=== PATIENT | female | born 1950 | race Caucasian/White ===

== ENCOUNTER → 2020-10-23 10:10 | Outpatient (BNVA) | payer MEDICARE, SELFPAY | PROVIDERS: PCP Internal Medicine; Referring Provider Internal Medicine; Visit Provider Internal Medicine Endocrinology, Diabetes & Metabolism | DX: E04.2 Nontoxic multinodular goiter (principal); E06.3 Autoimmune thyroiditis; E55.9 Vitamin D deficiency, unspecified | CPT/HCPCS: Q3014 ==

== ENCOUNTER 2020-11-06 12:43 | Outpatient (REF) | payer MEDICARE, SELFPAY ==
--- NOTE | 2020-11-06 12:56 | US_ITS ---
EXAMINATION: US THYROID CLINICAL INFORMATION: Nontoxic multinodular goiter. COMPARISON: Ultrasound thyroid soft tissues 05/12/2019. Ultrasound thyroid soft tissues 04/12/2019. TECHNIQUE: Linear transducer grayscale and color Doppler examination with attention to the region of the thyroid. FINDINGS: SIZE: Measurements of the thyroid lobes and nodules are given in sagittal, anteroposterior and transverse dimensions respectively. Right thyroid lobe: 5.0 x 2.0 x 1.9 cm, volume 9.9 mL. Previously 5.6 x 1.9 x 2.1 cm, volume 11.7 mL. Left thyroid lobe: 4.8 x 1.7 x 2.0 cm, volume 8.5 mL. Previously 5.0 x 1.6 x 2.1 cm, volume 8.8 mL. Isthmus: 0.7 cm in maximum AP dimension. Previously 0.4 cm. PARENCHYMA: The gland echotexture is heterogeneous. Thyroid vascularity is increased. RIGHT THYROID LOBE: There is 1 nodule seen. 1. Location: Midpole. Size: 0.8 x 0.6 x 0.9 cm. Previous: 0.7 x 0.6 x 0.6 cm. Nodule characteristics: Isoechoic, smoothly marginated with intranodular flow. ISTHMUS: No nodules. LEFT THYROID LOBE: There are 2 nodules seen. 1. Location: Midpole. Size: 1.9 x 1.2 x 1.4 cm. Previous: 1.7 x 1.1 x 1.5 cm. Nodule characteristics: Hypoechoic, smoothly marginated with intranodular flow. 2. Location: Lower pole. Size: 0.5 x 0.3 x 0.6 cm. Previous: 0.6 x 0.4 x 0.6 cm. Nodule characteristics: Hypoechoic, smoothly marginated with intranodular flow. NODES: No lymphadenopathy is seen in the tissue surrounding the thyroid gland. US/US thyroid IMPRESSION: Multinodular goiter with stable thyroid nodules. Recommend continued yearly followup.
--- NOTE | 2020-11-06 13:42 | XR_ITS ---
EXAMINATION: XR SHOULDER, RIGHT CLINICAL INFORMATION: Pain COMPARISON: Previous x-rays most recent October 2019 TECHNIQUE: AP external rotation, Grashey, scapular Y, and axillary views of the right shoulder. FINDINGS: Bone alignment is normal. No fracture or dislocation is seen. The glenohumeral joint is normal. There is mild arthritis at the acromioclavicular joint. There is a curvilinear radiopaque density that projects over the humeral head that is stable. There are degenerative changes of the greater tuberosity. There is a soft tissue calcification adjacent to the greater tuberosity questionable for rotator cuff calcification. XR/XR shoulder RT min 2V IMPRESSION: Degenerative changes at the acromioclavicular joint, right radial tuberosity and question soft tissue rotator cuff calcification. Stable linear radiopaque density projecting over the humeral head.
== END 2020-11-06 12:44 | disposition home or self-care (01) ==
LOC: HO.US 12:43
PROVIDERS: Absent Provider Nurse Practitioner Family; PCP Internal Medicine; Visit Provider Internal Medicine Endocrinology, Diabetes & Metabolism
DX: E06.3 Autoimmune thyroiditis (principal); E04.2 Nontoxic multinodular goiter; M25.511 Pain in right shoulder
CPT/HCPCS: 73030; 76536

== ENCOUNTER 2020-11-08 09:47 | Outpatient (REF) | payer MEDICARE, SELFPAY | END 2020-11-08 09:48 | disposition home or self-care (01) | LOC: HO.LAB 09:47 | PROVIDERS: PCP Internal Medicine; Visit Provider Internal Medicine Endocrinology, Diabetes & Metabolism | DX: Z13.89 Encounter for screening for other disorder (principal) ==

== ENCOUNTER 2021-01-17 09:46 | Outpatient (REF) | payer MEDICARE, SELFPAY ==
[2021-01-18 14:29] LABS: BV Int Neg Control Negative (Negative); BV Int Pos Control Positive (Positive)
== END 2021-01-17 09:47 | disposition home or self-care (01) ==
LOC: HO.LAB 09:46
PROVIDERS: PCP Internal Medicine; Visit Provider Obstetrics & Gynecology
DX: L29.2 Pruritus vulvae (principal)
CPT/HCPCS: 56605; 87480; 87510; 87660; 88305; 99202

== ENCOUNTER → 2021-01-31 08:37 | Outpatient (BNVA) | payer MEDICARE, SELFPAY | PROVIDERS: PCP Internal Medicine; Visit Provider Obstetrics & Gynecology | DX: L90.0 Lichen sclerosus et atrophicus (principal) | CPT/HCPCS: 99212 ==

== ENCOUNTER → 2021-03-02 08:58 | Outpatient (BNVA) | payer MEDICARE, SELFPAY | PROVIDERS: PCP Internal Medicine; Visit Provider Internal Medicine Endocrinology, Diabetes & Metabolism | DX: E04.2 Nontoxic multinodular goiter (principal); E06.3 Autoimmune thyroiditis; E55.9 Vitamin D deficiency, unspecified | CPT/HCPCS: Q3014 ==

== ENCOUNTER → 2021-05-22 13:57 | Outpatient (BNVA) | payer MEDICARE, SELFPAY | PROVIDERS: PCP Internal Medicine; Visit Provider Student in an Organized Health Care Education/Training Program | DX: M19.011 Primary osteoarthritis, right shoulder (principal) | CPT/HCPCS: 99202 ==

== ENCOUNTER 2021-08-03 16:20 | Emergency (ER) | payer MEDICARE, SELFPAY ==
--- NOTE | ~2021-08-03 | XR_ITS ---
EXAMINATION: XR KNEE, LEFT CLINICAL INFORMATION: Left knee injury. COMPARISON: Radiograph of the left knee dated from 10/29/2019. TECHNIQUE: Four views of the left knee. FINDINGS: No acute fractures or malalignment. Mild joint space narrowing the medial compartment. No joint effusion. Normal soft tissues. XR/XR knee LT 3V IMPRESSION: No acute fractures or malalignment. Mild degenerative osteoarthritis of the medial compartment.
[2021-08-03 17:51] VITALS: BP 144/68; PULSE 83; RESP 18; TEMP 36.7; O2SAT 97; BMI 32.3
--- NOTE | 2021-08-03 19:06 | ED.LOWEXIN ---
HPI - Extremity Injury (Lower) General Chief Complaint: Extremity Injury, Lower Stated Complaint: Left knee pain Time Seen by Provider: 08/03/21 19:05 Source: patient Mode of arrival: ambulatory Limitations: no limitations History of Present Illness HPI Narrative: Left-sided knee pain after an injury approximately 2 weeks ago. complaint: knee injury Onset (ago): week(s) (2) Type of Injury: unknown Place: home Severity: moderate Relieving factors: nothing Exacerbating factors: weight bearing, movement and palpation Associated symptoms: snap/pop sensation and able to partially bear weight Other symptoms: none Related Data Home Medications Medication Instructions Recorded Confirmed loratadine 10 mg tablet 10 mg PO DAILY 10/23/20 05/22/21 omeprazole 40 mg capsule,delayed 40 mg PO BID 10/23/20 05/22/21 release rosuvastatin 40 mg tablet 40 mg PO DAILY 10/23/20 05/22/21 citalopram 10 mg tablet (Celexa) 10 mg PO DAILY 03/02/21 05/22/21 dicyclomine 10 mg capsule 10 mg PO DAILY cap 03/02/21 05/22/21 midodrine 2.5 mg tablet 2.5 mg PO TID 03/02/21 05/22/21 sennosides 8.6 mg tablet (senna) 8.6 mg PO DAILY PRN 03/02/21 05/22/21 topiramate 100 mg tablet 100 mg PO DAILY PRN tab 03/02/21 05/22/21 Previous Rx's Medication Instructions Recorded cyclobenzaprine 10 mg tablet 10 mg PO BEDTIME PRN 30 Days #30 11/06/20 tab lidocaine 5 % topical patch 1 patch TOPICAL DAILY 15 Days #15 11/06/20 ea clobetasol 0.05 % topical ointment 1 appl TOPICAL DAILY #45 g 01/31/21 cholecalciferol (vitamin D3) 50 50 mcg PO DAILY 90 Days #90 cap 03/02/21 mcg (2,000 unit) capsule acetaminophen 650 mg 650 mg PO Q8H PRN #90 tab 05/22/21 tablet,extended release (Tylenol Arthritis Pain) clonazepam 1 mg tablet 1 mg PO BID PRN 30 Days #60 tab 06/21/21 amoxicillin 500 mg tablet 500 mg PO BID 7 Days #14 tab 07/10/21 gabapentin 300 mg capsule 300 mg PO TID #90 cap 07/29/21 Allergies Allergy/AdvReac Type Severity Reaction Status Date / Time banana [BANANA] Allergy Intermediate ITCHING Verified 08/03/21 17:51 ibuprofen [From MOTRIN] Allergy Intermediate UNK, GI Verified 08/03/21 17:51 upset naproxen [From NAPROSYN] Allergy Intermediate UNKNOWN, Verified 08/03/21 17:51 rash, GI upset warfarin [WARFARIN] Allergy Unknown UNKNOWN Verified 08/03/21 17:51 Ibuprofen Allergy Unknown rash Uncoded 03/06/21 13:51 sun Allergy Unknown bumps on Uncoded 03/06/21 13:51 skin Review of Systems Review of Systems: Constitutional: No Fever, No Chills ENT/Mouth: No Ear Pain, No Hoarseness, No sore throat Eyes: No Eye Pain, No Swelling, No Redness, No Foreign Body Cardiovascular: No Chest Pain, No SOB Respiratory: No Cough, No Dyspnea Gastrointestinal: No Nausea, No Vomiting, No Diarrhea, No abdominal Pain Genitourinary: No Dysuria, No Hematuria Musculoskeletal: positive left knee pain, No Myalgias, No Joint Swelling Skin: No Skin lacerations, No rash Neuro: No Weakness, No Numbness, No Paresthesias, No Loss of Consciousness, No Dizziness, No Headache Psych: No Anxiety/Panic, No Depression Heme/Lymph: no easy bruising, no Lymphadenopathy Endocrine: No Polyuria, No Polydipsia Yes all other systems are reviewed and are negative [facility] Past Medical History Attestation statement: The following information was validated with the patient. Source: old records reviewed Medical History Degenerative joint disease of right shoulder GERD without esophagitis Therese's disease Lichen sclerosus Non-toxic multinodular goiter Obesity (BMI 30-39.9) Pure hypercholesterolemia Right shoulder pain Tendinopathy of right rotator cuff Vaginal pruritus Vitamin D deficiency Surgical History H/O right breast biopsy History of cholecystectomy History of excision of mass History of shoulder surgery History of surgery Family History Family History Father No problems noted. Mother Diabetes Advanced cardiac disease Osteoporosis Chronic mental illness Brother Substance abuse Family/Other Chronic mental illness Social History Social History Alcohol intake: never Advance Directives: No Advance Directives Information Provided: Yes Gender identity: Female Physical Exam Vital Signs: Vital Signs: Last Vital Signs Temp 98.2 F 08/03/21 19:40 Pulse 82 08/03/21 19:40 Resp 18 08/03/21 19:40 BP 156/81 H 08/03/21 19:40 Pulse Ox 97 08/03/21 17:51 Body Mass Index 32.3 Appearance: Alert. Oriented X3. No acute distress. Eyes: Pupils equal, round and reactive to light. ENT: Pharynx normal. Neck: Normal inspection. Neck supple. CVS: Normal heart rate and rhythm. Pulses normal. Respiratory: No respiratory distress. Breath sounds normal. Abdomen: Soft and nontender. Skin: Skin warm and dry. Normal skin color. Normal skin turgor. Extremities: No lower extremity edema. Full range of motion to bilateral lower extremities. Tenderness noted to the medial and lateral ligaments to the left knee. Strength 5/5. Ambulatory. Neuro: No motor deficit. No sensory deficit. Cranial nerves 2-12 intact. Course Course Course Narrative: 70-year-old female presents with left knee injury. Stated that she fell approximately 2 weeks ago but the pain has progressively worsened. Will order x-rays. 8:06 p.m. x-rays negative for fractures, shows degenerative osteoarthritis of the medial compartment. Will refer to orthopedics. Will place patient in Chad wrap and given crutches. Patient verbalized understanding of and agrees to plan of care discharge home. MDM - Extremity Injury (Lower) MDM Narrative Medical decision making narrative: Ligament or tendon injury, effusion, arthritis Differential Diagnosis Differential diagnosis: Likely acute internal derangement of knee Medical Records Attestation: I reviewed the patient's medical records. Imaging Data Knee x-ray: Attestation: I personally reviewed and interpreted this imaging study as follows: Radiologist's impression: EXAMINATION: XR KNEE, LEFT CLINICAL INFORMATION: Left knee injury.? COMPARISON: Radiograph of the left knee dated from 10/29/2019.? TECHNIQUE: Four views of the left knee. FINDINGS: No acute fractures or malalignment. Mild joint space narrowing the medial compartment. No joint effusion. Normal soft tissues.? XR/XR knee LT 3V IMPRESSION: No acute fractures or malalignment. Mild degenerative osteoarthritis of the medial compartment. ? Discharge Plan Discharge Clinical Impression: Osteoarthritis Qualifiers: Osteoarthritis location: knee Osteoarthritis type: unspecified Laterality: left Qualified Code(s): M17.12 - Unilateral primary osteoarthritis, left knee Patient Disposition: Home, Self-Care Instructions: Osteoarthritis (ED) Additional Instructions: Fue evaluado por dolor en la rodilla izquierda. Los sanford X indican osteoartritis degenerativa. Sivan un seguimiento con ortopedia. Llame y solicite courtney wilton. Use la envoltura Chad seg?n sea necesario para mayor comodidad. Use muletas seg?n sea necesario para jain comodidad. Use ibuprofeno o Tylenol seg?n sea necesario para controlar el dolor. Dong por elegir sylvia departamento de emergencias para jain evaluaci?n. Sivan un seguimiento con jain m?dico de atenci?n primaria seg?n sea necesario. Regrese al departamento de emergencias por cualquier s?ntoma nuevo, preocupante o que empeore. You were evaluated for left knee pain. X-rays indicate degenerative osteoarthritis. Please follow-up with orthopedics. Call and request an appointment. Use Chad wrap as needed for comfort. Use crutches as needed for comfort. Use ibuprofen or Tylenol as needed for pain management. Thank you for choosing this emergency department for evaluation. Please follow-up with primary care physician as needed. Return to the emergency department for any new, concerning, or worsening symptoms. Prescriptions: No Action clonazepam 1 mg tablet 1 mg PO BID PRN (Reason: anxiety) 30 Days Qty: 60 RF: 0 amoxicillin 500 mg tablet 500 mg PO BID 7 Days Qty: 14 RF: 0 gabapentin 300 mg capsule 300 mg PO TID Qty: 90 RF: 0 cyclobenzaprine 10 mg tablet 10 mg PO BEDTIME PRN (Reason: muscle spasm) 30 Days Qty: 30 RF: 0 lidocaine 5 % adhesive patch,medicated 1 patch topical DAILY 15 Days Qty: 15 RF: 0 loratadine 10 mg tablet 10 mg PO DAILY RF: 0 rosuvastatin 40 mg tablet 40 mg PO DAILY RF: 0 omeprazole 40 mg capsule,delayed release(DR/EC) 40 mg PO BID RF: 0 dicyclomine 10 mg capsule 10 mg PO DAILY RF: 0 midodrine 2.5 mg tablet 2.5 mg PO TID RF: 0 topiramate 100 mg tablet 100 mg PO DAILY PRNRF: 0 citalopram [Celexa] 10 mg tablet 10 mg PO DAILY RF: 0 sennosides [senna] 8.6 mg tablet 8.6 mg PO DAILY PRNRF: 0 cholecalciferol (vitamin D3) 50 mcg (2,000 unit) capsule 50 mcg PO DAILY 90 Days Qty: 90 RF: 2 clobetasol 0.05 % ointment 1 appl topical DAILY Qty: 45 RF: 11 acetaminophen [Tylenol Arthritis Pain] 650 mg tablet extended release 650 mg PO Q8H PRN (Reason: pain) Qty: 90 RF: 3 Referrals: Boyd Ríos MD [Physician] - 2 days (Left knee degenerative osteoarthritis) Interventions: ED Discharge Assessment Last Done: 08/03/21 20:25 Discharge Date/Time: 08/03/21 20:27
[2021-08-03 19:40] VITALS: BP 156/81; PULSE 82; RESP 18; TEMP 36.8
--- NOTE | 2021-08-03 20:25 | PC.NURSE ---
PT REFUSED CRUTCHES AMBULATING WELL WITH LEOPOLDO WRAP/
== END 2021-08-03 20:27 | disposition home or self-care (01) ==
PROVIDERS: Emergency Provider Emergency Medicine
DX: M17.12 Unilateral primary osteoarthritis, left knee (principal); Z79.899 Other long term (current) drug therapy
CPT/HCPCS: 73562; 99283; 99284

== ENCOUNTER → 2021-11-08 10:47 | Outpatient (BNVA) | payer MEDICARE, SELFPAY | PROVIDERS: PCP Physician Assistant; Visit Provider Orthopaedic Surgery | DX: M17.12 Unilateral primary osteoarthritis, left knee (principal) | CPT/HCPCS: 20610; 99202; J1100 ==

== ENCOUNTER 2021-12-25 09:17 | Emergency (ER) | payer MEDICARE, SELFPAY ==
--- NOTE | ~2021-12-25 | XR_ITS ---
EXAMINATION: LEFT SHOULDER, LEFT HUMERUS AND LEFT ELBOW X-RAYS CLINICAL INFORMATION: Pain COMPARISON: Previous TECHNIQUE: 4 views of the left shoulder, 2 views of the left humerus and 3 views of the left elbow FINDINGS: Left shoulder: Bone alignment is normal. No acute fracture or dislocation is seen. There is question of old trauma versus prominent osteophyte at the greater tuberosity. Glenohumeral joint is normal. There is arthritis at the acromioclavicular joint. Soft tissues are unremarkable. There are postsurgical changes to the left hemithorax. There may be resection of the left anterior first rib. Left humerus: Bone alignment is normal. No fracture or dislocation is seen. Joint spaces are normal. Soft tissues are normal. Left elbow: Bone alignment is normal. No fracture or dislocation is seen. Joint spaces are normal. There is no joint effusion. XR/XR humerus LT IMPRESSION: Left shoulder: No acute fracture or dislocation.. Question old trauma to the greater tuberosity versus a large bony osteophyte. Mild arthritis at the acromioclavicular joint. Unremarkable left humerus and left elbow.
--- NOTE | ~2021-12-25 | XR_ITS ---
EXAMINATION: LEFT SHOULDER, LEFT HUMERUS AND LEFT ELBOW X-RAYS CLINICAL INFORMATION: Pain COMPARISON: Previous TECHNIQUE: 4 views of the left shoulder, 2 views of the left humerus and 3 views of the left elbow FINDINGS: Left shoulder: Bone alignment is normal. No acute fracture or dislocation is seen. There is question of old trauma versus prominent osteophyte at the greater tuberosity. Glenohumeral joint is normal. There is arthritis at the acromioclavicular joint. Soft tissues are unremarkable. There are postsurgical changes to the left hemithorax. There may be resection of the left anterior first rib. Left humerus: Bone alignment is normal. No fracture or dislocation is seen. Joint spaces are normal. Soft tissues are normal. Left elbow: Bone alignment is normal. No fracture or dislocation is seen. Joint spaces are normal. There is no joint effusion. XR/XR elbow LT min 3V IMPRESSION: Left shoulder: No acute fracture or dislocation.. Question old trauma to the greater tuberosity versus a large bony osteophyte. Mild arthritis at the acromioclavicular joint. Unremarkable left humerus and left elbow.
--- NOTE | ~2021-12-25 | XR_ITS ---
EXAMINATION: LEFT SHOULDER, LEFT HUMERUS AND LEFT ELBOW X-RAYS CLINICAL INFORMATION: Pain COMPARISON: Previous TECHNIQUE: 4 views of the left shoulder, 2 views of the left humerus and 3 views of the left elbow FINDINGS: Left shoulder: Bone alignment is normal. No acute fracture or dislocation is seen. There is question of old trauma versus prominent osteophyte at the greater tuberosity. Glenohumeral joint is normal. There is arthritis at the acromioclavicular joint. Soft tissues are unremarkable. There are postsurgical changes to the left hemithorax. There may be resection of the left anterior first rib. Left humerus: Bone alignment is normal. No fracture or dislocation is seen. Joint spaces are normal. Soft tissues are normal. Left elbow: Bone alignment is normal. No fracture or dislocation is seen. Joint spaces are normal. There is no joint effusion. XR/XR shoulder LT min 2V IMPRESSION: Left shoulder: No acute fracture or dislocation.. Question old trauma to the greater tuberosity versus a large bony osteophyte. Mild arthritis at the acromioclavicular joint. Unremarkable left humerus and left elbow.
--- NOTE | ~2021-12-25 | XR_ITS ---
EXAMINATION: XR CHEST CLINICAL INFORMATION: This is a 71-year-old female with chest pain and cough. COMPARISON: Comparison is made to a previous study dated 10/29/2019. TECHNIQUE: Frontal view of the chest was obtained. FINDINGS: Again noted are multiple metallic surgical clips overlying the left hemithorax. Surgical clips extend toward the left apex consistent with previous surgery. No pneumothorax is seen. 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 The pulmonary vascularity appears within normal limits. The cardiomediastinal silhouette appears within normal limits and unchanged. The diaphragm is sharp and there are no pleural effusions. Although there is increased lucency in the left upper lung field likely due to previous surgery, there is increased patchy opacity at the left costophrenic angle. This is also likely chronic in nature. This likely reflects the left upper lobectomy changes. There is asymmetric soft tissue density seen superimposed over the mid-lower cervical spine. This may be distorting the air column in the upper trachea. A soft tissue mass cannot be completely excluded. This was not apparent on the previous study. XR/XR chest 1V IMPRESSION: 1 the patient is status post left upper lobectomy with postsurgical changes. 2. There is no congestive heart failure or pneumonitis 3. There is a question of soft tissue density superimposed over the lower cervical spine. This could be within the upper trachea. Further investigation to exclude a mass is recommended.
[2021-12-25 09:30] VITALS: BP 108/76; PULSE 80; RESP 16; TEMP 36.4; O2SAT 98; BMI 31.9
--- NOTE | 2021-12-25 09:46 | ECG_ITS ---
Test Reason : CHEST PAIN Blood Pressure : / mmHG Vent. Rate : 086 BPM Atrial Rate : 086 BPM P-R Int : 134 ms QRS Dur : 072 ms QT Int : 354 ms P-R-T Axes : 038 013 045 degrees QTc Int : 423 ms Normal sinus rhythm Normal ECG When compared with ECG of 28-OCT-2019 22:17, No significant change was found Referred By: Generic ED Physician Electronically Signed By:MYAH ARAYA MD
[2021-12-25 09:48] LABS: MANUAL DIFF FLAG NO
[2021-12-25 09:52] LABS: Basophils Absolute Auto 0.1 X10*3/uL (0.0-0.2); Basophils Percent Auto 1.2 % (0-2); Eosinophils Absolute Auto 0.1 X10*3/uL (0.0-0.4); Eosinophils Percent Auto 2.9 % (0-4); Hematocrit 41.5 % (37.0-47.0); Hemoglobin 13.3 g/dl (12.0-16.0); Imm Gran Abs Auto 0.01 X10*3/uL (0.00-0.03); Imm Gran Pct Auto 0.2 % (0.0-0.4); Lymphocytes Absolute Auto 2.3 X10*3/uL (1.2-4.9); Lymphocytes Percent Auto 57.1 % (20-40); Mean Corpuscular Hemoglobin 28.5 pg (27.0-33.0); Mean Corpuscular Volume 89.1 fL (80.0-98.0); Mean Platelet Volume 8.6 fL (9.4-12.3); Monocytes Absolute Auto 0.3 X10*3/uL (0.1-1.2); Monocytes Percent Auto 8.3 % (2-11); Neutrophils Absolute Auto 1.2 x10*3/uL (2.0-8.3); Neutrophils Percent Auto 30.3 % (45-73); Platelet Count 251 X10*3/uL (160-400); Red Blood Count 4.66 X10*6/uL (4.20-5.50); Red Cell Distribution Width 12.6 % (11.0-16.0); White Blood Count 4.1 X10*3/uL (4.8-10.8)
[2021-12-25 10:12] LABS: Troponin-I High Sensitivity < 3.5 ng/L (<3.5-17.0)
[2021-12-25 10:19] LABS: Anion Gap 13 (12-20); Blood Urea Nitrogen 14 mg/dL (9-16); Calcium 9.6 mg/dL (8.4-10.2); Carbon Dioxide 23 mmol/L (22-29); Chloride 106 mmol/L (96-108); Creatinine Clr Calc Pharmacy 60.4; Estimated Glomerular Filt Rate 58; Glucose Random 106 mg/dL (60-115); Potassium 3.9 mmol/L (3.3-5.1); Sodium 138 mmol/L (135-145)
--- NOTE | 2021-12-25 12:28 | ED.CHESTPAIN ---
HPI - Chest Pain General Chief Complaint: Chest Pain Stated Complaint: Chest pain/ l arm pain Time Seen by Provider: 12/25/21 12:26 Source: patient Mode of arrival: ambulatory Limitations: no limitations History of Present Illness HPI narrative: 71-year-old female presents emergency department complaining of left shoulder pain. Patient states left shoulder has been causing her pain for the past 3 days pain goes into her left elbow she states she is having difficulty using her left arm. Patient denies any falls or injuries she denies chest pain shortness breath nausea vomiting or diarrhea. Patient initially presented with complaint of chest pain but pain is isolated to the left shoulder and left elbow. MD complaint: other Related Data Home Medications Medication Instructions Recorded Confirmed loratadine 10 mg tablet 10 mg PO DAILY 10/23/20 11/12/21 omeprazole 40 mg capsule,delayed 40 mg PO BID 10/23/20 11/12/21 release rosuvastatin 40 mg tablet 40 mg PO DAILY 10/23/20 11/12/21 citalopram 10 mg tablet (Celexa) 10 mg PO DAILY 03/02/21 11/12/21 dicyclomine 10 mg capsule 10 mg PO DAILY cap 03/02/21 11/12/21 midodrine 2.5 mg tablet 2.5 mg PO TID 03/02/21 11/12/21 sennosides 8.6 mg tablet (senna) 8.6 mg PO DAILY PRN 03/02/21 11/12/21 topiramate 100 mg tablet 100 mg PO DAILY PRN tab 03/02/21 11/12/21 Previous Rx's Medication Instructions Recorded cyclobenzaprine 10 mg tablet 10 mg PO BEDTIME PRN 30 Days #30 11/06/20 tab clobetasol 0.05 % topical ointment 1 appl TOPICAL DAILY #45 g 01/31/21 fluocinolone 0.025 % topical cream 1 appl TOPICAL BID 10 Days #15 g 08/07/21 cane #1 ea 08/09/21 diclofenac sodium 3 % topical gel 1 appl TOPICAL BID #100 g 10/23/21 lidocaine 5 % topical patch 1 patch TOPICAL DAILY 15 Days #15 10/23/21 ea clonazepam 1 mg tablet 1 mg PO BID PRN 30 Days #60 tab 11/05/21 albuterol sulfate 90 mcg/actuation 1 inh INHALATION QID PRN 30 Days 11/12/21 aerosol inhaler #8.5 g cholecalciferol (vitamin D3) 50 50 mcg PO DAILY 90 Days #90 cap 11/12/21 mcg (2,000 unit) capsule montelukast 10 mg tablet 10 mg PO DAILY 90 Days #90 tab 11/12/21 (Singulair) gabapentin 300 mg capsule 300 mg PO TID #90 cap 12/11/21 acetaminophen 650 mg 650 mg PO Q8H PRN #90 tab 12/13/21 tablet,extended release (Tylenol Arthritis Pain) lidocaine 5 % topical patch 1 patch TOPICAL DAILY #30 ea 12/25/21 Allergies Allergy/AdvReac Type Severity Reaction Status Date / Time banana [BANANA] Allergy Intermediate ITCHING Verified 11/12/21 16:04 ibuprofen [From MOTRIN] Allergy Intermediate UNK, GI Verified 11/12/21 16:04 upset naproxen [From NAPROSYN] Allergy Intermediate UNKNOWN, Verified 11/12/21 16:04 rash, GI upset prednisone Allergy Intermediate Itchy and Verified 11/12/21 16:04 redness warfarin [WARFARIN] Allergy Unknown UNKNOWN Verified 11/12/21 16:04 Ibuprofen Allergy Unknown rash Uncoded 11/12/21 16:04 sun Allergy Unknown bumps on Uncoded 11/12/21 16:04 skin Review of Systems Review of Systems: Review of systems: General: Patient denies any fever chills recent illness or falls Musculoskeletal: Denies back pain or body aches or other injuries HEENT: denies headache, runny nose, ear pain Respiratory: denies shortness of breath, cough Cardiovascular: no chest pain or palpitations : denies dysuria, frequency Abdomen: no nausea vomiting denies abdominal pain Extremities: no swelling, left elbow and left shoulder pain Skin: no diaphoresis Yes all other systems are reviewed and are negative PMFSH Past Medical History Medical History Degenerative joint disease of right shoulder GERD without esophagitis Therese's disease Lichen sclerosus Non-toxic multinodular goiter Obesity (BMI 30-39.9) Pure hypercholesterolemia Right shoulder pain Tendinopathy of right rotator cuff Vaginal pruritus Vitamin D deficiency Surgical History H/O right breast biopsy History of cholecystectomy History of excision of mass History of shoulder surgery History of surgery Family History Family History Father No problems noted. Mother Diabetes Advanced cardiac disease Osteoporosis Chronic mental illness Brother Substance abuse Family/Other Chronic mental illness Social History Social History Housing: House Alcohol intake: never Patient Tobacco Use Status: Never used Tobacco Tobacco use type: Cigarette e-Cigarette/Vaping Use: Never Used Second Hand Smoke Exposure: No Use of substances other than those prescribed or required for medical reasons: No Advance Directives: No Gender identity: Female Cognitive needs: Yes (cane) Hearing needs: No Vision needs: No Physical Exam Vital Signs: Vital Signs: Last Vital Signs Temp 97.6 F 12/25/21 14:03 Pulse 73 12/25/21 14:03 Resp 16 12/25/21 14:03 BP 141/76 H 12/25/21 14:03 Pulse Ox 99 12/25/21 14:03 BMI result Body Mass Index 31.9 General: Well-appearing well-nourished in no signs of distress HEENT: Normocephalic atraumatic Neck: No signs of JVD, no masses no tenderness or lymphadenopathy Cardiovascular: Regular rate and rhythm Respiratory: Clear to auscultation bilaterally Abdomen: Soft nontender no masses . Extremities: Normal pedal pulses no signs of edema normal strength to bilateral upper extremities she is less effort on the left side is full range of motion no tenderness to palpation or signs of infection Skin: Dry warm no rashes Back: No tenderness full ROM MDM - Chest Pain MDM Narrative Medical decision making narrative: Patient presented as chest pain but pain appears to be isolated to left shoulder and left elbow this does not appear to be a new injury has found a patient we have had issues with her shoulder that need outpatient follow-up with orthopedics. I will get an x-ray to make sure that no fractures of the shoulder humerus and elbow her cardiac workup is unremarkable. 1439 patient states pain is well approved with lidocaine I will discharge the patient home x-rays show an osteophyte patient denies any previous trauma to the shoulder I am comfortable sending patient home follow-up with orthopedics. Medical Records Data Attestation: I reviewed the patient's medical records. Lab Data Attestation: I reviewed the patient's lab results. Result diagrams: 12/25/21 09:39 12/25/21 09:39 Labs: Lab Results 12/25/21 12/25/21 12/25/21 Range/Units 09:39 09:39 09:39 WBC 4.1 L (4.8-10.8) X10*3/uL RBC 4.66 (4.20-5.50) X10*6/uL Hgb 13.3 (12.0-16.0) g/dl Hct 41.5 (37.0-47.0) % MCV 89.1 (80.0-98.0) fL MCH 28.5 (27.0-33.0) pg MCHC 32.0 (31.0-35.0) g/dl RDW 12.6 (11.0-16.0) % Plt Count 251 (160-400) X10*3/uL MPV 8.6 L (9.4-12.3) fL Immature Gran % (Auto) 0.2 (0.0-0.4) % Neut % (Auto) 30.3 L (45-73) % Lymph % (Auto) 57.1 H (20-40) % [place] % (Auto) 8.3 (2-11) % Eos % (Auto) 2.9 (0-4) % Baso % (Auto) 1.2 (0-2) % Lymph # (Auto) 2.3 (1.2-4.9) X10*3/uL [place] # (Auto) 0.3 (0.1-1.2) X10*3/uL Eos # (Auto) 0.1 (0.0-0.4) X10*3/uL Baso # (Auto) 0.1 (0.0-0.2) X10*3/uL Abs Immat Gran (auto) 0.01 (0.00-0.03) X10*3/uL Absolute Neuts (auto) 1.2 L (2.0-8.3) x10*3/uL Absolute Nucleated RBC 0.000 (0.0-0.012) X10*3/uL Nucleated RBC % (auto) 0.0 (0.0-0.2) /100WBC Sodium 138 (135-145) mmol/L Potassium 3.9 (3.3-5.1) mmol/L Chloride 106 (96-108) mmol/L Carbon Dioxide 23 (22-29) mmol/L Anion Gap 13 (12-20) BUN 14 (9-16) mg/dL Creatinine 0.95 (0.5-1.4) mg/dL Estim Creat Clear Calc 60.4 Estimated GFR 58 Random Glucose 106 (60-115) mg/dL Calcium 9.6 (8.4-10.2) mg/dL Troponin I High Sens < 3.5 (<3.5-17.0) ng/L Scores Heart Score History: -0- slightly suspicious ECG: -0- normal Age: -2- > or = 65 Risk factory: -0- no risk factors known Troponin: -0- < or = normal limit Score: 2 Risk: 1.7% Discharge Plan Discharge Clinical Impression: Acute pain of left shoulder Patient Disposition: Home, Self-Care Instructions: Arthralgia (ED), Heat Pack Application (ED), Shoulder Pain (ED), Shoulder Impingement Syndrome (ED) Additional Instructions: Please followup with Orthopedics. If you have any other concerns please return to the Ed. Prescriptions: New lidocaine 5 % adhesive patch,medicated 1 patch topical DAILY Qty: 30 0RF Rx Instructions: leave on most painful area for up to 12 hrs No Action fluocinolone 0.025 % cream 1 appl topical BID 10 Days Qty: 15 0RF clonazepam 1 mg tablet 1 mg PO BID PRN (Reason: anxiety) 30 Days Qty: 60 1RF gabapentin 300 mg capsule 300 mg PO TID Qty: 90 3RF acetaminophen [Tylenol Arthritis Pain] 650 mg tablet extended release 650 mg PO Q8H PRN (Reason: pain) Qty: 90 3RF cyclobenzaprine 10 mg tablet 10 mg PO BEDTIME PRN (Reason: muscle spasm) 30 Days Qty: 30 0RF (DME) cane Device See Rx Instructions .Route Qty: 1 0RF Rx Instructions: As directed albuterol sulfate 90 mcg/actuation HFA aerosol inhaler 1 inh inhalation QID PRN (Reason: shortness of breath or wheezing) 30 Days Qty: 8.5 0RF montelukast [Singulair] 10 mg tablet 10 mg PO DAILY 90 Days Qty: 90 1RF cholecalciferol (vitamin D3) 50 mcg (2,000 unit) capsule 50 mcg PO DAILY 90 Days Qty: 90 2RF lidocaine 5 % adhesive patch,medicated 1 patch topical DAILY 15 Days Qty: 15 0RF Rx Instructions: leave on most painful area for up to 12 hrs diclofenac sodium 3 % gel 1 appl topical BID Qty: 100 1RF loratadine 10 mg tablet 10 mg PO DAILY 0RF rosuvastatin 40 mg tablet 40 mg PO DAILY 0RF omeprazole 40 mg capsule,delayed release(DR/EC) 40 mg PO BID 0RF dicyclomine 10 mg capsule 10 mg PO DAILY 0RF midodrine 2.5 mg tablet 2.5 mg PO TID 0RF topiramate 100 mg tablet 100 mg PO DAILY PRN0RF citalopram [Celexa] 10 mg tablet 10 mg PO DAILY 0RF sennosides [senna] 8.6 mg tablet 8.6 mg PO DAILY PRN0RF clobetasol 0.05 % ointment 1 appl topical DAILY Qty: 45 11RF Referrals: Boyd Ríos MD [Physician] - 2 days
[2021-12-25 14:03] VITALS: BP 141/76; PULSE 73; RESP 16; TEMP 36.4; O2SAT 99
--- NOTE | 2021-12-25 14:08 | PC.NURSE ---
c/o left shoulder pain, worse with movement. better with heat. radiates to left chest. nsr on monitor. this rn to request pain meds from provider.
[2021-12-25] MEDS: Lidocaine 4 % Patch ADH..PATCH 1 PATCH TRANSDERMA (14:37)
== END 2021-12-25 14:57 | disposition home or self-care (01) ==
PROVIDERS: Emergency Provider Student in an Organized Health Care Education/Training Program; PCP Physician Assistant
DX: M25.512 Pain in left shoulder (principal)
CPT/HCPCS: 36415; 71045; 73030; 73060; 73080; 80048; 84484; 85025; 93005; 99283; 99284

== ENCOUNTER 2021-12-26 21:49 | Emergency (ER) | payer MEDICARE, SELFPAY ==
[2021-12-26 21:54] VITALS: BP 119/84; BP 126/105; PULSE 87; PULSE 88; RESP 18; TEMP 37; O2SAT 100; O2SAT 96; BMI 35.5
--- NOTE | 2021-12-26 22:20 | ECG_ITS ---
Test Reason : ARM PAIN Blood Pressure : / mmHG Vent. Rate : 076 BPM Atrial Rate : 076 BPM P-R Int : 146 ms QRS Dur : 072 ms QT Int : 376 ms P-R-T Axes : 032 012 034 degrees QTc Int : 423 ms Normal sinus rhythm Normal ECG When compared with ECG of 25-DEC-2021 09:23, No significant change was found Referred By: Bayron Díaz Electronically Signed By:MYAH ARAYA MD
--- NOTE | 2021-12-26 22:32 | ED.GENADULT ---
HPI - General Adult General Chief complaint: General Medical Stated complaint: Flank pain/Arm pain Time Seen by Provider: 12/26/21 22:20 Source: patient and family (Daughter) Mode of arrival: ambulatory Limitations: no limitations History of Present Illness HPI narrative: 71 years old female came in for evaluation of left chest pain, left shoulder pain. Pain started 3 days ago in the left shoulder do down to the left elbow and the left side of the chest, pain is constant but wean and lacks for the past 3 days, declined any trauma or fall, patient was seen yesterday in the emergency department had an x-ray of the chest/shoulder/left elbow which showed old arthritis. Pain is not exertional, no shortness of breath with the pain. Patient with known history of osteoarthritis. Patient was seen yesterday in the emergency department for same symptoms return today seeking better pain control. Related Data Home Medications Medication Instructions Recorded Confirmed loratadine 10 mg tablet 10 mg PO DAILY 10/23/20 12/26/21 omeprazole 40 mg capsule,delayed 40 mg PO BID 10/23/20 12/26/21 release rosuvastatin 40 mg tablet 40 mg PO DAILY 10/23/20 12/26/21 citalopram 10 mg tablet (Celexa) 10 mg PO DAILY 03/02/21 12/26/21 dicyclomine 10 mg capsule 10 mg PO DAILY cap 03/02/21 12/26/21 midodrine 2.5 mg tablet 2.5 mg PO TID 03/02/21 12/26/21 sennosides 8.6 mg tablet (senna) 8.6 mg PO DAILY PRN 03/02/21 12/26/21 topiramate 100 mg tablet 100 mg PO DAILY PRN tab 03/02/21 12/26/21 Previous Rx's Medication Instructions Recorded clobetasol 0.05 % topical ointment 1 appl TOPICAL DAILY #45 g 01/31/21 fluocinolone 0.025 % topical cream 1 appl TOPICAL BID 10 Days #15 g 08/07/21 cane #1 ea 08/09/21 clonazepam 1 mg tablet 1 mg PO BID PRN 30 Days #60 tab 11/05/21 albuterol sulfate 90 mcg/actuation 1 inh INHALATION QID PRN 30 Days 11/12/21 aerosol inhaler #8.5 g cholecalciferol (vitamin D3) 50 50 mcg PO DAILY 90 Days #90 cap 11/12/21 mcg (2,000 unit) capsule montelukast 10 mg tablet 10 mg PO DAILY 90 Days #90 tab 11/12/21 (Singulair) gabapentin 300 mg capsule 300 mg PO TID #90 cap 12/11/21 acetaminophen 650 mg 650 mg PO Q8H PRN #90 tab 12/13/21 tablet,extended release (Tylenol Arthritis Pain) lidocaine 5 % topical patch 1 patch TOPICAL DAILY #30 ea 12/25/21 diclofenac sodium 3 % topical gel 1 appl TOPICAL BID #100 g 12/26/21 tizanidine 2 mg tablet 2 mg PO BEDTIME PRN #7 tab 12/26/21 oxycodone 5 mg tablet 5 mg PO Q8H PRN #10 tab 12/27/21 Allergies Allergy/AdvReac Type Severity Reaction Status Date / Time banana [BANANA] Allergy Intermediate ITCHING Verified 12/26/21 12:02 ibuprofen [From MOTRIN] Allergy Intermediate UNK, GI Verified 12/26/21 12:02 upset naproxen [From NAPROSYN] Allergy Intermediate UNKNOWN, Verified 12/26/21 12:02 rash, GI upset prednisone Allergy Intermediate Itchy and Verified 12/26/21 12:02 redness warfarin [WARFARIN] Allergy Unknown UNKNOWN Verified 12/26/21 12:02 Ibuprofen Allergy Unknown rash Uncoded 12/26/21 12:02 sun Allergy Unknown bumps on Uncoded 12/26/21 12:02 skin Review of Systems Review of Systems: All other systems are reviewed and are negative Constitutional: Reports as per HPI and Reports no additional constitutional complaints Eyes: Reports as per HPI and Reports no additional eye complaints Reports system reviewed and no additional complaints, except as documented Cardiovascular: Reports as per HPI and Reports no additional cardiovascular complaints Respiratory: Reports as per HPI and Reports no additional respiratory complaints Gastrointestinal: Reports as per HPI and Reports no additional gastrointestinal complaints Genitourinary: Reports no additional female genitourinary complaints Musculoskeletal: Reports no additional musculoskeletal complaints Skin/Breast: Reports system reviewed and no additional complaints, except as docu Psychiatric: Reports no additional psychiatric complaints Endocrine: Reports no additional endocrine complaints Hematologic/Lymphatic: Reports no additional hematologic/lymphatic complaints Allergic/Immunologic: Reports no additional allergic/immunologic complaints Reports system reviewed and no additional complaints, except as documented and Reports Abnormal speech present PMFSH Past Medical History Medical History Degenerative joint disease of right shoulder GERD without esophagitis Therese's disease Lichen sclerosus Non-toxic multinodular goiter Obesity (BMI 30-39.9) Pure hypercholesterolemia Right shoulder pain Tendinopathy of right rotator cuff Vaginal pruritus Vitamin D deficiency Surgical History H/O right breast biopsy History of cholecystectomy History of excision of mass History of shoulder surgery History of surgery Family History Family History Father No problems noted. Mother Diabetes Advanced cardiac disease Osteoporosis Chronic mental illness Brother Substance abuse Family/Other Chronic mental illness Social History Social History Housing: House Alcohol intake: never Patient Tobacco Use Status: Never used Tobacco Tobacco use type: Cigarette e-Cigarette/Vaping Use: Never Used Second Hand Smoke Exposure: No Advance Directives: No Advance Directives Information Provided: No service: No Current occupational status: disabled Gender identity: Female Cognitive needs: Yes (cane) Hearing needs: No Vision needs: No Physical Exam ED Vital Signs: Vital Signs - 24 hr 12/26/21 21:54 Temperature 98.6 F Pulse Rate 87 Respiratory Rate 18 Blood Pressure 126/105 H Pulse Oximetry 96 BMI result Body Mass Index 35.5 Vital signs have been reviewed as appeared to be correct. Blood pressure elevated. Heart rate normal. Respiration rate normal. Temperature normal. Oxygen saturation normal. Appearance: Alert. Oriented X3. No acute distress. Head: Normal external exam. Normocephalic. Atraumatic. No Dangelo signs noted. No raccoon eyes noted Eyes: PERRLA. EOMI. Conjunctiva and sclera normal. Eyelids normal. ENT: TM's Normal. Pharynx normal. Uvula midline. Moist mucous membranes. No trismus noted. No drooling noted. No muffled voice noted. Neck: Normal inspection. Neck supple. FROM. No adenopathy. Thyroid Normal. No meningeal signs. No neck mass noted. CVS: Normal heart rate and rhythm. Heart sound normal. No murmurs noted. Pulses normal throughout. Respiratory: No respiratory distress. Painless inspiration. Breath sounds normal. No wheezes/rales/rhonchi noted. Chest nontender. No accessory muscle usage noted or decreased air movement noted. Abdomen: Soft and nontender. Bowel sounds normal in all 4 quadrants. No distention noted. No organomegaly noted. No visible injury noted. Back: No CVA tenderness. Full range of motion noted. Skin: Skin warm and dry. Normal skin color. Normal skin turgor. No rashes/lesions/lacerations noted. Extremities: Focal tenderness to the left shoulder, left elbow without deformity, no sign of cellulitis. Neuro: Oriented X 3. Cranial nerve exam: II-XII are grossly intact No motor deficit. No sensory deficit. Reflexes normal. Course Course Course Narrative: Assessment and plan. 71-year-old female returned to the emergency department seeking better control of her chronic pain in the left shoulder and left elbow, patient is known to have chronic osteoarthritis, patient received oxycodone in the emergency department pain improved from 10/10 to 3/10 now. Troponin remained negative, EKG is unremarkable. Will discharge the patient home on oxycodone and follow-up with her PCP. Had plain x-ray of left shoulder and left elbow yesterday unremarkable except for chronic osteoarthritis. Medical Decision Making Medical Records Medical records reviewed: Yes I reviewed the patient's medical records. Lab Data Lab results reviewed: Yes I reviewed the patient's lab results. Result diagrams: 12/26/21 22:45 12/26/21 22:45 Labs: Lab Results 12/26/21 12/26/21 12/26/21 Range/Units 22:45 22:45 22:45 WBC 3.8 L (4.8-10.8) X10*3/uL RBC 4.50 (4.20-5.50) X10*6/uL Hgb 13.1 (12.0-16.0) g/dl Hct 39.9 (37.0-47.0) % MCV 88.7 (80.0-98.0) fL MCH 29.1 (27.0-33.0) pg MCHC 32.8 (31.0-35.0) g/dl RDW 12.6 (11.0-16.0) % Plt Count 207 (160-400) X10*3/uL MPV 8.7 L (9.4-12.3) fL Immature Gran % (Auto) 0.3 (0.0-0.4) % Neut % (Auto) 47.4 (45-73) % Lymph % (Auto) 40.6 H (20-40) % Haakon % (Auto) 9.9 (2-11) % Eos % (Auto) 1.0 (0-4) % Baso % (Auto) 0.8 (0-2) % Lymph # (Auto) 1.6 (1.2-4.9) X10*3/uL Haakon # (Auto) 0.4 (0.1-1.2) X10*3/uL Eos # (Auto) 0.0 (0.0-0.4) X10*3/uL Baso # (Auto) 0.0 (0.0-0.2) X10*3/uL Abs Immat Gran (auto) 0.01 (0.00-0.03) X10*3/uL Absolute Neuts (auto) 1.8 L (2.0-8.3) x10*3/uL Absolute Nucleated RBC 0.000 (0.0-0.012) X10*3/uL Nucleated RBC % (auto) 0.0 (0.0-0.2) /100WBC Sodium 137 (135-145) mmol/L Potassium 3.8 (3.3-5.1) mmol/L Chloride 105 (96-108) mmol/L Carbon Dioxide 25 (22-29) mmol/L Anion Gap 11 L (12-20) BUN 13 (9-16) mg/dL Creatinine 0.96 (0.5-1.4) mg/dL Estim Creat Clear Calc 63.1 Estimated GFR 57 Random Glucose 114 (60-115) mg/dL Calcium 9.6 (8.4-10.2) mg/dL Troponin I High Sens 5.1 (<3.5-17.0) ng/L Lipase 13 (8-78) U/L ECG Data Attestation: I personally reviewed and interpreted this ECG as follows: Interpretation: Normal sinus rhythm at 76 beats per minutes, normal intervals, normal axis deviation, no ST-T changes. Discharge Plan Discharge Clinical Impression: Right shoulder pain, Osteoarthritis Patient Disposition: Home, Self-Care Instructions: Osteoarthritis (ED), Arthralgia (ED) Prescriptions: New oxycodone 5 mg tablet 5 mg PO Q8H PRN (Reason: pain) Qty: 10 0RF No Action fluocinolone 0.025 % cream 1 appl topical BID 10 Days Qty: 15 0RF clonazepam 1 mg tablet 1 mg PO BID PRN (Reason: anxiety) 30 Days Qty: 60 1RF gabapentin 300 mg capsule 300 mg PO TID Qty: 90 3RF acetaminophen [Tylenol Arthritis Pain] 650 mg tablet extended release 650 mg PO Q8H PRN (Reason: pain) Qty: 90 3RF lidocaine 5 % adhesive patch,medicated 1 patch topical DAILY Qty: 30 0RF Rx Instructions: leave on most painful area for up to 12 hrs (DME) cane Device See Rx Instructions .Route Qty: 1 0RF Rx Instructions: As directed albuterol sulfate 90 mcg/actuation HFA aerosol inhaler 1 inh inhalation QID PRN (Reason: shortness of breath or wheezing) 30 Days Qty: 8.5 0RF montelukast [Singulair] 10 mg tablet 10 mg PO DAILY 90 Days Qty: 90 1RF cholecalciferol (vitamin D3) 50 mcg (2,000 unit) capsule 50 mcg PO DAILY 90 Days Qty: 90 2RF tizanidine 2 mg tablet 2 mg PO BEDTIME PRN (Reason: muscle spasticity) Qty: 7 0RF diclofenac sodium 3 % gel 1 appl topical BID Qty: 100 1RF loratadine 10 mg tablet 10 mg PO DAILY 0RF rosuvastatin 40 mg tablet 40 mg PO DAILY 0RF omeprazole 40 mg capsule,delayed release(DR/EC) 40 mg PO BID 0RF dicyclomine 10 mg capsule 10 mg PO DAILY 0RF midodrine 2.5 mg tablet 2.5 mg PO TID 0RF topiramate 100 mg tablet 100 mg PO DAILY PRN0RF citalopram [Celexa] 10 mg tablet 10 mg PO DAILY 0RF sennosides [senna] 8.6 mg tablet 8.6 mg PO DAILY PRN0RF clobetasol 0.05 % ointment 1 appl topical DAILY Qty: 45 11RF Referrals: Rosaura Grace MD [Primary Care Provider] - 2 days
[2021-12-26] MEDS: oxyCODONE HCl Immed Release 5 MG TABLET PO (22:58)
[2021-12-26 23:02] LABS: Basophils Percent Auto 0.8 % (0-2); Hematocrit 39.9 % (37.0-47.0); Hemoglobin 13.1 g/dl (12.0-16.0); Imm Gran Abs Auto 0.01 X10*3/uL (0.00-0.03); Imm Gran Pct Auto 0.3 % (0.0-0.4); Lymphocytes Absolute Auto 1.6 X10*3/uL (1.2-4.9); Lymphocytes Percent Auto 40.6 % (20-40); MANUAL DIFF FLAG NO; Mean Corpuscular HGB Conc 32.8 g/dl (31.0-35.0); Mean Corpuscular Hemoglobin 29.1 pg (27.0-33.0); Mean Corpuscular Volume 88.7 fL (80.0-98.0); Mean Platelet Volume 8.7 fL (9.4-12.3); Monocytes Absolute Auto 0.4 X10*3/uL (0.1-1.2); Monocytes Percent Auto 9.9 % (2-11); Neutrophils Absolute Auto 1.8 x10*3/uL (2.0-8.3); Neutrophils Percent Auto 47.4 % (45-73); Platelet Count 207 X10*3/uL (160-400); Red Cell Distribution Width 12.6 % (11.0-16.0); White Blood Count 3.8 X10*3/uL (4.8-10.8)
[2021-12-26 23:17] LABS: Anion Gap 11 (12-20); Blood Urea Nitrogen 13 mg/dL (9-16); Calcium 9.6 mg/dL (8.4-10.2); Carbon Dioxide 25 mmol/L (22-29); Chloride 105 mmol/L (96-108); Creatinine Clr Calc Pharmacy 63.1; Estimated Glomerular Filt Rate 57; Glucose Random 114 mg/dL (60-115); Lipase 13 U/L (8-78); Potassium 3.8 mmol/L (3.3-5.1); Sodium 137 mmol/L (135-145)
[2021-12-26 23:21] LABS: Troponin-I High Sensitivity 5.1 ng/L (<3.5-17.0)
[2021-12-26 23:56] VITALS: BP 121/95; PULSE 94; RESP 16; TEMP 36.8; O2SAT 97
== END 2021-12-27 00:08 | disposition home or self-care (01) ==
PROVIDERS: Emergency Provider Emergency Medicine; PCP Internal Medicine
DX: M19.011 Primary osteoarthritis, right shoulder (principal); R07.9 Chest pain, unspecified; M25.512 Pain in left shoulder; Z79.899 Other long term (current) drug therapy; Z79.01 Long term (current) use of anticoagulants
CPT/HCPCS: 36415; 80048; 83690; 84484; 85025; 93005; 99283; 99284

== ENCOUNTER 2022-02-18 09:04 | Emergency (ER) | payer OTHER, SELFPAY ==
[2022-02-18 09:10] VITALS: BP 109/55; PULSE 88; RESP 20; TEMP 36.6; O2SAT 97; BMI 35.9
--- NOTE | 2022-02-18 10:46 | ED_ITS ---
HPI - Extremity Problem General Chief complaint: Extremity Injury, Upper Stated complaint: pain in left hand, shingles Time Seen by Provider: 02/18/22 10:21 Source: patient Mode of arrival: ambulatory History of Present Illness HPI Narrative: 71-year-old female with a past medical history of GERD, Therese's, hyperlipidemia, osteoarthritis, post herpetic neuralgia presenting to the ED complaining of continued left arm/hand pain secondary to post herpetic neuralgia x months. Reports previously prescribed medications are not providing relief. Reports continued numbness/paresthesias in decreased ROM secondary to pain. Denies known injury/trauma or fall, denies fever MD Complaint: extremity pain Onset (ago): month(s) Related Data Home Medications Medication Instructions Recorded Confirmed loratadine 10 mg tablet 10 mg PO DAILY 10/23/20 02/13/22 omeprazole 40 mg capsule,delayed 40 mg PO BID 10/23/20 02/13/22 release rosuvastatin 40 mg tablet 40 mg PO DAILY 10/23/20 02/13/22 citalopram 10 mg tablet (Celexa) 10 mg PO DAILY 03/02/21 02/13/22 midodrine 2.5 mg tablet 2.5 mg PO TID 03/02/21 02/13/22 sennosides 8.6 mg tablet (senna) 8.6 mg PO DAILY PRN 03/02/21 02/13/22 topiramate 100 mg tablet 100 mg PO DAILY PRN tab 03/02/21 02/13/22 Previous Rx's Medication Instructions Recorded clobetasol 0.05 % topical ointment 1 appl TOPICAL DAILY #45 g 01/31/21 fluocinolone 0.025 % topical cream 1 appl TOPICAL BID 10 Days #15 g 08/07/21 cane #1 ea 08/09/21 cholecalciferol (vitamin D3) 50 50 mcg PO DAILY 90 Days #90 cap 11/12/21 mcg (2,000 unit) capsule montelukast 10 mg tablet 10 mg PO DAILY 90 Days #90 tab 11/12/21 (Singulair) diclofenac sodium 3 % topical gel 1 appl TOPICAL BID #100 g 12/26/21 tizanidine 2 mg tablet 2 mg PO BEDTIME PRN #7 tab 12/26/21 lidocaine 5 % topical patch 1 patch TOPICAL DAILY #30 ea 01/06/22 pyridoxine (vitamin B6) 25 mg 25 mg PO DAILY #30 tab 01/08/22 tablet pregabalin 50 mg capsule 50 mg PO BID 30 Days #60 cap 02/06/22 gabapentin 800 mg tablet 800 mg PO TID 30 Days #90 tab 02/11/22 acetaminophen 650 mg 650 mg PO Q8H PRN #90 tab 02/13/22 tablet,extended release (Tylenol Arthritis Pain) albuterol sulfate 90 mcg/actuation 1 inh INHALATION QID PRN 30 Days 02/13/22 aerosol inhaler #8.5 g clonazepam 1 mg tablet 1 mg PO BID PRN 30 Days #60 tab 02/13/22 dicyclomine 10 mg capsule 10 mg PO DAILY 30 Days #30 cap 02/13/22 oxycodone 10 mg tablet 10 mg PO Q8H PRN 5 Days #15 tab 02/13/22 lidocaine 5 % topical patch 1 patch TOPICAL DAILY PRN #30 ea 02/18/22 (Lidoderm) MDD remove after 12 hours Allergies Allergy/AdvReac Type Severity Reaction Status Date / Time banana [BANANA] Allergy Intermediate ITCHING Verified 02/13/22 13:56 ibuprofen [From MOTRIN] Allergy Intermediate UNK, GI Verified 02/13/22 13:56 upset naproxen [From NAPROSYN] Allergy Intermediate UNKNOWN, Verified 02/13/22 13:56 rash, GI upset prednisone Allergy Intermediate Itchy and Verified 02/13/22 13:56 redness warfarin [WARFARIN] Allergy Unknown UNKNOWN Verified 02/13/22 13:56 Ibuprofen Allergy Unknown rash Uncoded 01/30/22 12:01 sun Allergy Unknown bumps on Uncoded 01/30/22 12:01 skin Review of Systems Review of Systems: Constitutional: No Fever, No Chills ENT/Mouth: No Ear Pain, No Nasal Congestion, No sore throat, No Rhinorrhea, No Swallowing Difficulty Cardiovascular: No Chest Pain, No SOB Respiratory: No Cough, No Sputum Gastrointestinal: No Nausea, No Vomiting, No Diarrhea, No Constipation, No Abdominal pain Genitourinary: No Dysuria, No Urinary Frequency, No Hematuria, No Flank Pain Musculoskeletal: + joint pain, No Myalgias, No Joint Swelling Skin: No Skin Lesions, No rash Neuro: No Weakness, + Numbness, + Paresthesias Yes all other systems are reviewed and are negative Neurologic: Denies Sensory deficit (Neuro) [facility] Past Medical History Attestation statement: The following information was validated with the patient. Medical History Degenerative joint disease of right shoulder GERD without esophagitis Therese's disease Lichen sclerosus Non-toxic multinodular goiter Obesity (BMI 30-39.9) Pure hypercholesterolemia Right shoulder pain Tendinopathy of right rotator cuff Vaginal pruritus Vitamin D deficiency Surgical History H/O right breast biopsy History of cholecystectomy History of excision of mass History of shoulder surgery History of surgery Family History Family History Father No problems noted. Mother Diabetes Advanced cardiac disease Osteoporosis Chronic mental illness Brother Substance abuse Family/Other Chronic mental illness Social History Social History Housing: House Alcohol intake: never Patient Tobacco Use Status: Never used Tobacco Tobacco use type: Cigarette e-Cigarette/Vaping Use: Never Used Second Hand Smoke Exposure: No Advance Directives: No Advance Directives Information Provided: No service: No Current occupational status: disabled Gender identity: Female Cognitive needs: Yes (cane) Hearing needs: No Vision needs: No Physical Exam Vital Signs: Vital Signs: Last Vital Signs Temp 98 F 02/18/22 09:10 Pulse 88 02/18/22 09:10 Resp 20 02/18/22 09:10 BP 109/55 L 02/18/22 09:10 Pulse Ox 97 02/18/22 09:10 BMI result Body Mass Index 35.9 Const: Other: tearful General: cooperative, healthy appearing and no acute distress Orientation/consciousness: patient oriented x3 Limitations: no limitations HEENT: Head: Yes normal to inspection and Yes atraumatic Ears: hearing grossly normal bilaterally General nose exam: Normal external nose present Face and sinus: Yes normal facial exam Eyes: General: appearance normal, both eyes and all related structures EOM: EOMs intact bilaterally Neck: Neck: Yes normal visual inspection and Yes no meningeal signs Resp: Effort & Inspection: normal respiratory effort and no respiratory distress Cardio: Rate: regular rate Heart sounds: S1 normal heart sound present and S2 normal heart sound present Peripheral pulses: radial pulses present Skin: Rashes: no rashes Wounds: no wounds Neuro: General: patient oriented x3, tone normal and no meningeal signs Gait exam (Neuro): Normal gait present Sensory Exam: No Sensory deficit (Neuro) Extrem: Other: Left arm/hand without appreciable skin lesions. Diffuse tenderness to distal 3rd through 5th fingers. Decreased ROM/geuutr-my-cleeo opposition secondary to pain. Neurovascularly intact, sensation intact to light touch. Cap refill WNL MDM - Extremity (Nontraumatic) MDM Narrative Medical decision making narrative: 71-year-old female with a past medical history of GERD, Therese's, hyperlipidemia, osteoarthritis, post herpetic neuralgia presenting to the ED complaining of continued left arm/hand pain secondary to post herpetic neuralgia x months. On exam vital signs stable, tearful, physical exam as above. Concern for continued post hepatic neuralgia. Low concern for fracture/trauma/neurovascular injury or septic joint Patient currently on gabapentin and oxycodone without relief, has been followed by PCP multiple times for similar instances. Patient does have pain management appointment on 02/25 Plan: 1 time dose of Dilaudid in the ED, Lidoderm patches, pain management follow-up Medical Records Attestation: I reviewed the patient's medical records. Lab Data Attestation: I reviewed the patient's lab results. Discharge Plan Discharge Clinical Impression: Post herpetic neuralgia Patient Disposition: Home, Self-Care Instructions: Vy (ED) Additional Instructions: Your given a very strong pain medication today in the emergency department. In addition continue taking previously prescribed medications and also use Lidoderm patches. You need to follow-up with pain management. If pain persists/becomes unbearable, you have fever weakness return to the ED Prescriptions: New lidocaine [Lidoderm] 5 % adhesive patch,medicated 1 patch topical DAILY MDD remove after 12 hours PRN (Reason: pain) Qty: 30 0RF Rx Instructions: leave on most painful area for up to 12 hrs No Action fluocinolone 0.025 % cream 1 appl topical BID 10 Days Qty: 15 0RF lidocaine 5 % adhesive patch,medicated 1 patch topical DAILY Qty: 30 0RF Rx Instructions: leave on most painful area for up to 12 hrs pregabalin 50 mg capsule 50 mg PO BID 30 Days Qty: 60 0RF gabapentin 800 mg tablet 800 mg PO TID 30 Days Qty: 90 1RF (DME) cane Device See Rx Instructions .Route Qty: 1 0RF Rx Instructions: As directed montelukast [Singulair] 10 mg tablet 10 mg PO DAILY 90 Days Qty: 90 1RF cholecalciferol (vitamin D3) 50 mcg (2,000 unit) capsule 50 mcg PO DAILY 90 Days Qty: 90 2RF tizanidine 2 mg tablet 2 mg PO BEDTIME PRN (Reason: muscle spasticity) Qty: 7 0RF diclofenac sodium 3 % gel 1 appl topical BID Qty: 100 1RF albuterol sulfate 90 mcg/actuation HFA aerosol inhaler 1 inh inhalation QID PRN (Reason: shortness of breath or wheezing) 30 Days Qty: 8.5 2RF acetaminophen [Tylenol Arthritis Pain] 650 mg tablet extended release 650 mg PO Q8H PRN (Reason: pain) Qty: 90 0RF clonazepam 1 mg tablet 1 mg PO BID PRN (Reason: anxiety) 30 Days Qty: 60 1RF oxycodone 10 mg tablet 10 mg PO Q8H PRN (Reason: pain) 5 Days Qty: 15 0RF dicyclomine 10 mg capsule 10 mg PO DAILY 30 Days Qty: 30 0RF pyridoxine (vitamin B6) 25 mg tablet 25 mg PO DAILY Qty: 30 0RF loratadine 10 mg tablet 10 mg PO DAILY 0RF rosuvastatin 40 mg tablet 40 mg PO DAILY 0RF omeprazole 40 mg capsule,delayed release(DR/EC) 40 mg PO BID 0RF midodrine 2.5 mg tablet 2.5 mg PO TID 0RF topiramate 100 mg tablet 100 mg PO DAILY PRN0RF citalopram [Celexa] 10 mg tablet 10 mg PO DAILY 0RF sennosides [senna] 8.6 mg tablet 8.6 mg PO DAILY PRN0RF clobetasol 0.05 % ointment 1 appl topical DAILY Qty: 45 11RF Referrals: Gio Meadows PA-C [Primary Care Provider] -
[2022-02-18] MEDS: HYDROmorphone HCl 2 MG TABLET 1 MG PO (11:06)
== END 2022-02-18 11:22 | disposition home or self-care (01) ==
PROVIDERS: Emergency Provider Emergency Medicine; PCP Physician Assistant
DX: M79.642 Pain in left hand (principal); B02.9 Zoster without complications; M79.2 Neuralgia and neuritis, unspecified; Z79.899 Other long term (current) drug therapy
CPT/HCPCS: 99283

== ENCOUNTER → 2022-02-25 08:33 | Outpatient (BNVA) | payer OTHER, SELFPAY | PROVIDERS: PCP Physician Assistant; Visit Provider Internal Medicine | DX: B02.29 Other postherpetic nervous system involvement (principal) | CPT/HCPCS: 99202 ==

== ENCOUNTER 2022-05-24 13:36 | Emergency (ER) | payer OTHER, SELFPAY ==
--- NOTE | ~2022-05-24 | XR_ITS ---
EXAMINATION: XR ANKLE, LEFT CLINICAL INFORMATION: Left ankle pain COMPARISON: None TECHNIQUE: 4 views of the left ankle. FINDINGS: The bones and soft tissues are normal. No fracture. Alignment is anatomic. Joint spaces are maintained. No joint effusion. XR/XR ankle LT min 3V IMPRESSION: Normal left ankle.
--- NOTE | ~2022-05-24 | US_ITS ---
EXAMINATION: US VENOUS ULTRASOUND WITH DOPPLER LOWER EXTREMITY, BILATERAL CLINICAL INFORMATION: Swelling COMPARISON: None TECHNIQUE: Ultrasound of the deep veins is performed from the hip to the calf with compression sonography and color and pulse Doppler assessment. Spectral analysis with color-flow imaging is performed. FINDINGS: RIGHT: There is normal venous compression and respiratory variation and augmented flow. The visualized common femoral vein, superficial femoral vein, profunda femoral vein, popliteal vein, and the trifurcation region shows no evidence of deep venous thrombosis. There is no significant popliteal fossa cyst. LEFT: There is normal venous compression and respiratory variation and augmented flow. The visualized common femoral vein, superficial femoral vein, profunda femoral vein, popliteal vein, and the trifurcation region shows no evidence of deep venous thrombosis. There is no significant popliteal fossa cyst. If the patient's symptoms persist, followup ultrasound in 5 days 7 days might be of value to exclude proximal propagation from a non-visualized calf vein. US/US venous duplex LE BI IMPRESSION: No DVT demonstrated in the bilateral lower extremity.
--- NOTE | ~2022-05-24 | XR_ITS ---
EXAMINATION: XR HIP, LEFT CLINICAL INFORMATION: Left hip pain. COMPARISON: CT of the abdomen and pelvis 04/02/2019 TECHNIQUE: Frontal view of pelvis Two views of the left hip. FINDINGS: No fracture. No focal bone lesion. Sacroiliac joints and the symphysis pubis are normal. Mild spurring of the superior lateral acetabular rim with slight joint space narrowing of both hips. Small volume of scattered stool in visualized colonic bowel loops. No abnormally dilated bowel loop. XR/XR hip LT w PEL1V IMPRESSION: Mild degenerative change of the hip joints. No acute abnormality.
--- NOTE | ~2022-05-24 | XR_ITS ---
EXAMINATION: XR CHEST CLINICAL INFORMATION: Shortness of breath. Dyspnea on exertion. COMPARISON: Chest x-ray 12/25/2021 TECHNIQUE: 2 views of the chest were obtained. FINDINGS: Surgical clips and surgical sutures projecting over the posterior left midlung/chest. Status post left upper lobe lobectomy. There has been resection of the left sixth rib. No acute abnormality. Lungs are normally aerated. No pleural effusion or pneumothorax. Heart size is normal. The cardiac and mediastinal contours are normal. Mild to moderate degenerative spondylosis of the spine. Surgical clips right upper quadrant of abdomen XR/XR chest 2V IMPRESSION: 1. No acute abnormality. 2. Status post left upper lobe lobectomy.
--- NOTE | ~2022-05-24 | XR_ITS ---
EXAMINATION: XR KNEE, LEFT CLINICAL INFORMATION: Left-sided pain COMPARISON: None TECHNIQUE: Four views of the left knee. FINDINGS: There is moderate narrowing medial joint space but there is no evidence for fracture, dislocation or destructive lesion or effusion. No erosive change. XR/XR knee LT 4V IMPRESSION: Minor degenerative change. No acute abnormalities.
[2022-05-24 14:26] VITALS: BP 143/75; PULSE 74; RESP 16; TEMP 36.6; O2SAT 97; BMI 35.1
--- NOTE | 2022-05-24 14:45 | ECG_ITS ---
Test Reason : COUGH/SOB Blood Pressure : / mmHG Vent. Rate : 073 BPM Atrial Rate : 073 BPM P-R Int : 152 ms QRS Dur : 074 ms QT Int : 392 ms P-R-T Axes : 050 024 038 degrees QTc Int : 431 ms Normal sinus rhythm Normal ECG When compared with ECG of 26-DEC-2021 22:47, No significant change was found Referred By: Nadia Carrasco Electronically Signed By:MYAH ARAYA MD
[2022-05-24 15:26] LABS: MANUAL DIFF FLAG NO
[2022-05-24 15:29] LABS: Basophils Absolute Auto 0.1 X10*3/uL (0.0-0.2); Basophils Percent Auto 1.1 % (0-2); Eosinophils Absolute Auto 0.1 X10*3/uL (0.0-0.4); Eosinophils Percent Auto 2.7 % (0-4); Hematocrit 40.8 % (37.0-47.0); Hemoglobin 13.3 g/dl (12.0-16.0); Imm Gran Abs Auto 0.01 X10*3/uL (0.00-0.03); Imm Gran Pct Auto 0.2 % (0.0-0.4); Lymphocytes Absolute Auto 2.4 X10*3/uL (1.2-4.9); Lymphocytes Percent Auto 54.7 % (20-40); Mean Corpuscular HGB Conc 32.6 g/dl (31.0-35.0); Mean Corpuscular Volume 89.1 fL (80.0-98.0); Mean Platelet Volume 8.3 fL (9.4-12.3); Monocytes Absolute Auto 0.4 X10*3/uL (0.1-1.2); Monocytes Percent Auto 8.8 % (2-11); Neutrophils Absolute Auto 1.4 x10*3/uL (2.0-8.3); Neutrophils Percent Auto 32.5 % (45-73); Platelet Count 234 X10*3/uL (160-400); Red Blood Count 4.58 X10*6/uL (4.20-5.50); Red Cell Distribution Width 14.4 % (11.0-16.0); White Blood Count 4.4 X10*3/uL (4.8-10.8)
[2022-05-24 15:43] LABS: Prothrombin Time 10.9 SEC (10.0-13.1)
[2022-05-24 15:45] LABS: Alanine Aminotransferase 12 U/L (0-31); Albumin Level 4.6 g/dL (3.5-5.0); Alkaline Phosphatase 92 U/L (39-117); Anion Gap 13 (12-20); Aspartate Amino Transferase 17 U/L (5-31); Bilirubin Total 0.4 mg/dL (0.0-1.0); Blood Urea Nitrogen 16 mg/dL (9-16); Calcium 9.9 mg/dL (8.4-10.2); Carbon Dioxide 27 mmol/L (22-29); Chloride 104 mmol/L (96-108); Creatinine Clr Calc Pharmacy 66.9; Estimated Glomerular Filt Rate > 60; Glucose Random 94 mg/dL (60-115); Magnesium 2.2 mg/dL (1.6-2.6); Potassium 4.1 mmol/L (3.3-5.1); Sodium 140 mmol/L (135-145); Total Protein 7.6 g/dL (6.5-8.0)
[2022-05-24 15:51] LABS: B Type Natriuretic Peptide 35 pg/mL (<100)
--- NOTE | 2022-05-24 16:55 | ED_ITS ---
HPI - Extremity Problem General Chief complaint: Extremity Injury, Lower Stated complaint: pain in ankle/knee pain Time Seen by Provider: 05/24/22 14:19 Source: patient Mode of arrival: ambulatory Limitations: no limitations History of Present Illness HPI Narrative: 71-year-old female with a past medical history of GERD, Therese's, hyperlipidemia, osteoarthritis, post herpetic neuralgia presenting to the ED wit h complaints of left hip/left knee/lower leg pain since Friday. Reports approximately on 22 of April her daughter had a constitution party and she was at her house and she had a mechanical fall where she fell on her buttocks although she does not remember injuring her leg and she did not have pain at that time. She also reports that itchy rash to the right foot since Friday. She also reports bilateral lower leg swelling and a dry cough that has been present for months and dyspnea on exertion and orthopnea. She denies any fevers, chills, dizziness, headache, neck pain/stiffness, chest pain or shortness of breath, trouble swallowing or breathing, palpitations, paresthesias, nausea/vomiting/diarrhea constipation, abdominal pain, calf tenderness, recent travel or sick contacts, history of DVT or PE, hypercoagulation disorder, any estrogen usage, recent surgery, recent immobilization, history of cancer, recent changes in medications or new medications, tick bites, new substances, or any other symptoms complaints or concerns at this time. MD Complaint: extremity pain and extremity swelling Onset (ago): day(s) Pain Consistency: constant Location: left, right and lower extremity Quality: aching Radiation: none Relieving factors: nothing Exacerbating factors: walking and palpation Associated symptoms: shortness of breath and other (dry cough ) Related Data Home Medications Medication Instructions Recorded Confirmed loratadine 10 mg tablet 10 mg PO DAILY 10/23/20 04/15/22 omeprazole 40 mg capsule,delayed 40 mg PO BID 10/23/20 04/15/22 release rosuvastatin 40 mg tablet 40 mg PO DAILY 10/23/20 04/15/22 citalopram 10 mg tablet (Celexa) 10 mg PO DAILY 03/02/21 04/15/22 midodrine 2.5 mg tablet 2.5 mg PO TID 03/02/21 04/15/22 sennosides 8.6 mg tablet (senna) 8.6 mg PO DAILY PRN 03/02/21 04/15/22 topiramate 100 mg tablet 100 mg PO DAILY PRN 03/02/21 04/15/22 Previous Rx's Medication Instructions Recorded clobetasol 0.05 % topical ointment 1 appl topical DAILY #45 grams 01/31/21 fluocinolone 0.025 % topical cream 1 appl topical BID 10 days #15 08/07/21 grams cane #1 ea 08/09/21 cholecalciferol (vitamin D3) 50 50 mcg PO DAILY 90 days #90 caps 11/12/21 mcg (2,000 unit) capsule montelukast 10 mg tablet 10 mg PO DAILY 90 days #90 tabs 11/12/21 (Singulair) diclofenac sodium 3 % topical gel 1 appl topical BID #100 grams 12/26/21 tizanidine 2 mg tablet 2 mg PO BEDTIME PRN muscle 12/26/21 spasticity #7 tabs pyridoxine (vitamin B6) 25 mg 25 mg PO DAILY #30 tabs 01/08/22 tablet acetaminophen 650 mg 650 mg PO Q8H PRN pain #90 tabs 02/13/22 tablet,extended release (Tylenol Arthritis Pain) albuterol sulfate 90 mcg/actuation 1 inh inhalation QID PRN shortness 02/13/22 aerosol inhaler of breath or wheezing 30 days #8.5 grams clonazepam 1 mg tablet 1 mg PO BID PRN anxiety 30 days 02/13/22 #60 tabs dicyclomine 10 mg capsule 10 mg PO DAILY 30 days #30 caps 02/13/22 lidocaine 5 % topical patch 1 patch topical DAILY PRN pain #30 02/18/22 (Lidoderm) ea gabapentin 800 mg tablet 800 mg PO TID 30 days #90 tabs 03/04/22 oxycodone 10 mg tablet 10 mg PO Q8H PRN pain 5 days #15 03/04/22 tabs cane #1 ea 03/25/22 miscellaneous medical supply 1 ea miscellaneous .daily 99 days 03/25/22 #1 ea miscellaneous medical supply 1 ea miscellaneous DAILY 99 days 03/25/22 #1 ea miscellaneous medical supply 1 ea miscellaneous DAILY 99 days 03/25/22 #1 ea walker #1 ea 03/25/22 diphenhydramine HCl 25 mg tablet 25 mg PO TID allergy symptoms 30 04/15/22 (Benadryl Allergy) days #90 tabs gabapentin 300 mg capsule 300 mg PO TID 30 days #90 caps 04/15/22 cyclobenzaprine 10 mg tablet 10 mg PO Q8H #14 tabs 05/24/22 hydrocortisone 2.5 % topical 1 appl topical QD-TID PRN skin 05/24/22 ointment irritation #454 grams Allergies Allergy/AdvReac Type Severity Reaction Status Date / Time banana [BANANA] Allergy Intermediate ITCHING Verified 04/15/22 14:16 ibuprofen [From MOTRIN] Allergy Intermediate UNK, GI Verified 04/15/22 14:16 upset naproxen [From NAPROSYN] Allergy Intermediate UNKNOWN, Verified 04/15/22 14:16 rash, GI upset prednisone Allergy Intermediate Itchy and Verified 04/15/22 14:16 redness warfarin [WARFARIN] Allergy Unknown UNKNOWN Verified 04/15/22 14:16 pregabalin AdvReac Intermediate Diarrhea Verified 04/15/22 14:16 and blurry vision sun Allergy Unknown bumps on Uncoded 04/15/22 13:47 skin Review of Systems Review of Systems: Constitutional : No Weight loss, No Fever, No Chills, No Night Sweats, No Fatigue, No Malaise ENT/Mouth : No Hearing loss, No Ear Pain, No Nasal Congestion, No Sinus Pain, No Hoarseness, No sore throat, No Rhinorrhea, No Swallowing Difficulty Eyes: No Eye Pain, No Swelling, No Redness, No Foreign Body, No Discharge, No Vision Changes Cardiovascular : No Chest Pain, + SOB, + Dyspnea on Exertion, + Orthopnea, + Edema, No Palpitations Respiratory : + Cough, No Sputum, No Wheezing, No Smoke Exposure, No Dyspnea Gastrointestinal : No Nausea, No Vomiting, No Diarrhea, No Constipation, No abdominal Pain, No Hematochezia, No Melena Genitourinary : no irregular bleeding, No Dysuria, No Urinary Frequency, No Hematuria, No Urinary Incontinence, No Urgency, No Flank Pain, No Urinary Flow Changes, No Hesitancy Musculoskeletal : + joint pain, No Myalgias, + Joint Swelling Skin : No Skin Lesions, + rash Neuro : No Weakness, No Numbness, No Paresthesias, No Loss of Consciousness, No Dizziness, No Headache Psych : No Anxiety/Panic, No Depression, No SI/HI/AH/VH, No Social Issues, Heme/Lymph: No Bruising, No Bleeding,No Lymphadenopathy Endocrine : No Polyuria, No Polydipsia, No Temperature Intolerance Yes all other systems are reviewed and are negative [facility] Past Medical History Attestation statement: The following information was validated with the patient. Source: old records reviewed and nursing notes reviewed Medical History Degenerative joint disease of right shoulder GERD without esophagitis Therese's disease Lichen sclerosus Non-toxic multinodular goiter Obesity (BMI 30-39.9) Pure hypercholesterolemia Right shoulder pain Tendinopathy of right rotator cuff Vaginal pruritus Vitamin D deficiency Surgical History H/O right breast biopsy History of cholecystectomy History of excision of mass History of shoulder surgery History of surgery S/P fine needle aspiration Family History Family History Father No problems noted. Mother Diabetes Advanced cardiac disease Osteoporosis Chronic mental illness Brother Substance abuse Family/Other Chronic mental illness Social History Social History Housing: House Alcohol intake: never Patient Tobacco Use Status: Never used Tobacco Tobacco use type: Cigarette e-Cigarette/Vaping Use: Never Used Second Hand Smoke Exposure: No Advance Directives: No Advance Directives Information Provided: No service: No Current occupational status: disabled Gender identity: Female Cognitive needs: Yes (cane) Hearing needs: No Vision needs: No Physical Exam Vital Signs: Vital Signs: Last Vital Signs Temp 97.9 F 05/24/22 14:26 Pulse 74 05/24/22 14:26 Resp 16 05/24/22 14:26 BP 143/75 H 05/24/22 14:26 Pulse Ox 97 05/24/22 14:26 O2 Del Method 05/24/22 14:26 BMI result Body Mass Index 35.1 vital signs have been reviewed as normal and appeared to be correct. Blood pressure normal. Heart rate normal. Respiration rate normal. Temperature normal. Oxygen saturation normal. Appearance: Alert. Oriented X3. No acute distress. Head: Normal external exam. Normocephalic. Atraumatic. Eyes: PERRLA. EOMI. Conjunctiva and sclera normal. Eyelids normal. ENT: Pharynx normal. Uvula midline. Moist mucous membranes. No lesions/ulcerations or masses noted on the tongue. Normal voice. No trismus noted. No drooling noted. No muffled voice noted. Neck: Normal inspection. Neck supple. FROM. No adenopathy. Thyroid Normal. No meningeal signs. No neck mass noted. CVS: Normal heart rate and rhythm. Heart sound normal. Pulses normal throughout. No murmurs/rales/gallops. Respiratory: No respiratory distress. Painless inspiration. Breath sounds normal. No wheezes/rales/rhonchi noted. Chest nontender. No accessory muscle usage noted or decreased air movement noted. Abdomen: Soft and nontender. Bowel sounds normal in all 4 quadrants. No d istention noted. No organomegaly noted. No visible injury noted. Back: No CVA tenderness. Full range of motion noted. Nontender. No signs of trauma. Patient neuro intact bilaterally and distally on all 4 extremities. Patient's reflexes intact bilaterally and distally on all 4 extremities. No rashes/lesion/induration/fluctuance or signs of infection noted. Skin: Skin warm and dry. Normal skin color. Normal skin turgor. Erythematous eczematous appearing rash to the right foot dorsal aspect. No signs of infection.No additional rashes/lesions/lacerations noted. Extremities: + 1 pitting lower extremity edema. + left sided calf tenderness is noted. Patient mild tenderness palpation to the left lateral aspect of the hips/knee and ankle no obvious deformities or tendon or ligamentous injury. She has full range of motion of the entire left leg/joints. No obvious signs of trauma. Otherwise all other extremities exhibit normal range of motion nontender. Neuro: Oriented X 3. No motor deficit. No sensory deficit. Reflexes normal. Normal steady gait. No focal neuro deficits noted. CN's II-XII intact bilaterally? Vascular: + radial pulses/+ 2 distal pedal pulses/+2 dorsalis pedis b/l. Normal cap refill. No cyanosis noted to upper extremity nails and lower extremity toes nails. Course Course Course Narrative: 71-year-old female with a past medical history of GERD, Therese's, hyperlipidemia, osteoarthritis, post herpetic neuralgia presenting to the ED with complaints of left hip/left knee/lower leg pain since Friday. Reports approximately on 22 of April her daughter had a constitution party and she was at her house and she had a mechanical fall where she fell on her buttocks although she does not remember injuring her leg and she did not have pain at that time. She also reports that itchy rash to the right foot since Friday. She also reports bilateral lower leg swelling and a dry cough that has been present for months and dyspnea on exertion and orthopnea. Labs obtained patient with blood cell count 4000 which is similar compared to prior. Otherwise all other labs are within normal limits. BNP negative. I obtained an x-ray of the patient's chest/ankle left-sided/left hip and pelvis/left knee which were all negative for any acute processes. Venous duplex ultrasound of bilateral lower extremity negative for any acute processes. And rash to the right foot appears like a possible contact dermatitis possible poison jhon does not appear like shingles at this time. She reports it is itchy is not painful. Reports is not feel like her shingles rash that she has had in the past. She also reports that her daughter told her that she has poison jhon outside of her house and she was recently walking her daughter's dogs due to her daughter's on vacation. I explained to her that we should treat poison jhon with steroids although patient reports she does not like to take steroids and reports that it makes her gain weight I explained to her that this is not what happens only if it is long-term use although patient is refusing p.o. steroids therefore will DC home with topical steroids and muscle relaxants and instructions return if any new or worsening symptoms to follow up with primary care provider. Patient understands agrees with this plan. MDM - Extremity (Nontraumatic) Medical Records Attestation: I reviewed the patient's medical records. Lab Data Attestation: I reviewed the patient's lab results. Result diagrams: 05/24/22 15:05/24/22 15: Labs: Lab Results 05/24/22 05/24/22 05/24/22 Range/Units 15: 15: 15: WBC 4.4 L (4.8-10.8) X10*3/uL RBC 4.58 (4.20-5.50) X10*6/uL Hgb 13.3 (12.0-16.0) g/dl Hct 40.8 (37.0-47.0) % MCV 89.1 (80.0-98.0) fL MCH 29.0 (27.0-33.0) pg MCHC 32.6 (31.0-35.0) g/dl RDW 14.4 (11.0-16.0) % Plt Count 234 (160-400) X10*3/uL MPV 8.3 L (9.4-12.3) fL Immature Gran % (Auto) 0.2 (0.0-0.4) % Neut % (Auto) 32.5 L (45-73) % Lymph % (Auto) 54.7 H (20-40) % Clinton % (Auto) 8.8 (2-11) % Eos % (Auto) 2.7 (0-4) % Baso % (Auto) 1.1 (0-2) % Lymph # (Auto) 2.4 (1.2-4.9) X10*3/uL Clinton # (Auto) 0.4 (0.1-1.2) X10*3/uL Eos # (Auto) 0.1 (0.0-0.4) X10*3/uL Baso # (Auto) 0.1 (0.0-0.2) X10*3/uL Abs Immat Gran (auto) 0.01 (0.00-0.03) X10*3/uL Absolute Neuts (auto) 1.4 L (2.0-8.3) x10*3/uL Absolute Nucleated RBC 0.000 (0.0-0.012) X10*3/uL Nucleated RBC % (auto) 0.0 (0.0-0.2) /100WBC PT 10.9 (10.0-13.1) SEC INR 1.0 (0.9-1.1) Sodium 140 (135-145) mmol/L Potassium 4.1 (3.3-5.1) mmol/L Chloride 104 (96-108) mmol/L Carbon Dioxide 27 (22-29) mmol/L Anion Gap 13 (12-20) BUN 16 (9-16) mg/dL Creatinine 0.90 (0.5-1.4) mg/dL Estim Creat Clear Calc 66.9 Estimated GFR > 60 Random Glucose 94 (60-115) mg/dL Calcium 9.9 (8.4-10.2) mg/dL Magnesium 2.2 (1.6-2.6) mg/dL Total Bilirubin 0.4 (0.0-1.0) mg/dL AST 17 (5-31) U/L ALT 12 (0-31) U/L Alkaline Phosphatase 92 (39-117) U/L B-Natriuretic Peptide (<100) pg/mL Total Protein 7.6 (6.5-8.0) g/dL Albumin 4.6 (3.5-5.0) g/dL 05/24/22 Range/Units 15:22 WBC (4.8-10.8) X10*3/uL RBC (4.20-5.50) X10*6/uL Hgb (12.0-16.0) g/dl Hct (37.0-47.0) % MCV (80.0-98.0) fL MCH (27.0-33.0) pg MCHC (31.0-35.0) g/dl RDW (11.0-16.0) % Plt Count (160-400) X10*3/uL MPV (9.4-12.3) fL Immature Gran % (Auto) (0.0-0.4) % Neut % (Auto) (45-73) % Lymph % (Auto) (20-40) % Clinton % (Auto) (2-11) % Eos % (Auto) (0-4) % Baso % (Auto) (0-2) % Lymph # (Auto) (1.2-4.9) X10*3/uL Clinton # (Auto) (0.1-1.2) X10*3/uL Eos # (Auto) (0.0-0.4) X10*3/uL Baso # (Auto) (0.0-0.2) X10*3/uL Abs Immat Gran (auto) (0.00-0.03) X10*3/uL Absolute Neuts (auto) (2.0-8.3) x10*3/uL Absolute Nucleated RBC (0.0-0.012) X10*3/uL Nucleated RBC % (auto) (0.0-0.2) /100WBC PT (10.0-13.1) SEC INR (0.9-1.1) Sodium (135-145) mmol/L Potassium (3.3-5.1) mmol/L Chloride (96-108) mmol/L Carbon Dioxide (22-29) mmol/L Anion Gap (12-20) BUN (9-16) mg/dL Creatinine (0.5-1.4) mg/dL Estim Creat Clear Calc Estimated GFR Random Glucose (60-115) mg/dL Calcium (8.4-10.2) mg/dL Magnesium (1.6-2.6) mg/dL Total Bilirubin (0.0-1.0) mg/dL AST (5-31) U/L ALT (0-31) U/L Alkaline Phosphatase (39-117) U/L B-Natriuretic Peptide 35 (<100) pg/mL Total Protein (6.5-8.0) g/dL Albumin (3.5-5.0) g/dL Imaging Data Left knee x-ray: Attestation: I personally reviewed and interpreted this imaging study as follows: Radiologist's impression: FINDINGS: There is moderate narrowing medial joint space but there is no evidence for fracture, dislocation or destructive lesion or effusion. No erosive change.? XR/XR knee LT 4V IMPRESSION: Minor degenerative change. No acute abnormalities. Left hip/pelvis x-ray: Attestation: I personally reviewed and interpreted this imaging study as follows: Radiologist's impression: FINDINGS: No fracture. No focal bone lesion. Sacroiliac joints and the symphysis pubis are normal. Mild spurring of the superior lateral acetabular rim with slight joint space narrowing of both hips. Small volume of scattered stool in visualized colonic bowel loops. No abnormally dilated bowel loop. XR/XR hip LT w PEL1V IMPRESSION: Mild degenerative change of the hip joints. No acute abnormality. Left ankle x-ray: Attestation: I personally reviewed and interpreted this imaging study as follows: Radiologist's impression: FINDINGS: The bones and soft tissues are normal. No fracture. Alignment is anatomic. Joint spaces are maintained. No joint effusion.? XR/XR ankle LT min 3V IMPRESSION: Normal left ankle. Chest x-ray: Attestation: I personally reviewed and interpreted this imaging study as follows: Radiologist's impression: FINDINGS: Surgical clips and surgical sutures projecting over the posterior left midlung/chest. Status post left upper lobe lobectomy. There has been resection of the left sixth rib. No acute abnormality. Lungs are normally aerated. No pleural effusion or pneumothorax. Heart size is normal. The cardiac and mediastinal contours are normal. Mild to moderate degenerative spondylosis of the spine. Surgical clips right upper quadrant of abdomen XR/XR chest 2V IMPRESSION: ? 1. No acute abnormality. 2. Status post left upper lobe lobectomy. Venous duplex ultrasound of bilateral lower extremity: Attestation: I personally reviewed and interpreted this imaging study as follows: Radiologist's impression: FINDINGS: RIGHT: There is normal venous compression and respiratory variation and augmented flow. The visualized common femoral vein, superficial femoral vein, profunda femoral vein, popliteal vein, and the trifurcation region shows no evidence of deep venous thrombosis. ? There is no significant popliteal fossa cyst. LEFT: There is normal venous compression and respiratory variation and augmented flow. The visualized common femoral vein, superficial femoral vein, profunda femoral vein, popliteal vein, and the trifurcation region shows no evidence of deep venous thrombosis. ? There is no significant popliteal fossa cyst. If the patient's symptoms persist, followup ultrasound in 5 days 7 days might be of value to exclude proximal propagation from a non-visualized calf vein. US/US venous duplex LE BI IMPRESSION: No DVT demonstrated in the bilateral lower extremity. Discharge Plan Discharge Clinical Impression: Contact dermatitis, Muscle strain of left lower extremity Patient Disposition: Home, Self-Care Instructions: Muscle Strain (ED), Contact Dermatitis (ED) Prescriptions: New hydrocortisone 2.5 % ointment 1 appl topical QD-TID PRN (Reason: skin irritation) Qty: 454 0RF cyclobenzaprine 10 mg tablet 10 mg PO Q8H Qty: 14 0RF No Action fluocinolone 0.025 % cream 1 appl topical BID 10 Days Qty: 15 0RF (DME) cane Device See Rx Instructions .Route Qty: 1 0RF Rx Instructions: As directed miscellaneous medical supply Misc 1 ea miscellaneous .daily 99 Days Qty: 1 0RF miscellaneous medical supply Misc 1 ea miscellaneous DAILY 99 Days Qty: 1 0RF miscellaneous medical supply Misc 1 ea miscellaneous DAILY 99 Days Qty: 1 0RF (DME) walker Misc See Rx Instructions .Route Qty: 1 0RF Rx Instructions: As directed lidocaine [Lidoderm] 5 % adhesive patch,medicated 1 patch topical DAILY MDD remove after 12 hours PRN (Reason: pain) Qty: 30 0RF Rx Instructions: leave on most painful area for up to 12 hrs (DME) cane Device See Rx Instructions .Route Qty: 1 0RF Rx Instructions: As directed montelukast [Singulair] 10 mg tablet 10 mg PO DAILY 90 Days Qty: 90 1RF cholecalciferol (vitamin D3) 50 mcg (2,000 unit) capsule 50 mcg PO DAILY 90 Days Qty: 90 2RF tizanidine 2 mg tablet 2 mg PO BEDTIME PRN (Reason: muscle spasticity) Qty: 7 0RF diclofenac sodium 3 % gel 1 appl topical BID Qty: 100 1RF oxycodone 10 mg tablet 10 mg PO Q8H PRN (Reason: pain) 5 Days Qty: 15 0RF gabapentin 800 mg tablet 800 mg PO TID 30 Days Qty: 90 1RF diphenhydramine HCl [Benadryl Allergy] 25 mg tablet 25 mg PO TID 30 Days Qty: 90 1RF gabapentin 300 mg capsule 300 mg PO TID 30 Days Qty: 90 1RF albuterol sulfate 90 mcg/actuation HFA aerosol inhaler 1 inh inhalation QID PRN (Reason: shortness of breath or wheezing) 30 Days Qty: 8.5 2RF acetaminophen [Tylenol Arthritis Pain] 650 mg tablet extended release 650 mg PO Q8H PRN (Reason: pain) Qty: 90 0RF clonazepam 1 mg tablet 1 mg PO BID PRN (Reason: anxiety) 30 Days Qty: 60 1RF dicyclomine 10 mg capsule 10 mg PO DAILY 30 Days Qty: 30 0RF pyridoxine (vitamin B6) 25 mg tablet 25 mg PO DAILY Qty: 30 0RF loratadine 10 mg tablet 10 mg PO DAILY rosuvastatin 40 mg tablet 40 mg PO DAILY omeprazole 40 mg capsule,delayed release(/EC) 40 mg PO BID midodrine 2.5 mg tablet 2.5 mg PO TID topiramate 100 mg tablet 100 mg PO DAILY PRN citalopram [Celexa] 10 mg tablet 10 mg PO DAILY sennosides [senna] 8.6 mg tablet 8.6 mg PO DAILY PRN clobetasol 0.05 % ointment 1 appl topical DAILY Qty: 45 11RF Referrals: Gio Meadows PA-C [Primary Care Provider] - 2 days Print Language: Yoruba
== END 2022-05-24 18:21 | disposition home or self-care (01) ==
PROVIDERS: Physician Assistant Medical; Emergency Provider Student in an Organized Health Care Education/Training Program; PCP Physician Assistant
DX: L25.9 Unspecified contact dermatitis, unspecified cause (principal); M25.552 Pain in left hip; M79.605 Pain in left leg; R05.9 Cough, unspecified; R06.02 Shortness of breath; Z79.899 Other long term (current) drug therapy
CPT/HCPCS: 36415; 71046; 73502; 73564; 73610; 80053; 83735; 83880; 85025; 85610; 93005; 93970; 99284

== ENCOUNTER 2022-06-07 15:40 | Outpatient (REF) | payer OTHER, SELFPAY | END 2022-06-07 15:41 | disposition home or self-care (01) | LOC: HO.US 15:40 | PROVIDERS: Visit Provider Internal Medicine Endocrinology, Diabetes & Metabolism | DX: Z13.89 Encounter for screening for other disorder (principal) ==

== ENCOUNTER 2022-06-19 13:14 | Outpatient (REF) | payer OTHER, SELFPAY ==
--- NOTE | ~2022-06-19 | US_ITS ---
EXAMINATION: US THYROID CLINICAL INFORMATION: Nontoxic multinodular goiter. COMPARISON: Ultrasound soft tissue head/neck thyroid dated 11/06/2020 and 05/12/2019. CT soft tissue neck 04/13/2019. TECHNIQUE: Linear transducer grayscale and color Doppler examination with attention to the region of the thyroid. FINDINGS: SIZE: Measurements of the thyroid lobes and nodules are given in sagittal, anteroposterior and transverse dimensions respectively. Right Thyroid Lobe: 5.5 x 1.8 x 1.8 cm, volume 9.5 mL. Previously 5.0 x 2.0 x 1.9 cm, volume 9.9 mL. Parenchyma: The gland echotexture is heterogeneous. Thyroid vascularity is increased. Left Thyroid Lobe: 5.2 x 1.7 x 1.9 cm, volume 9.0 mL. Previously 4.8 x 1.7 x 2.0 cm, volume 8.5 mL. Parenchyma: The gland echotexture is heterogeneous. Thyroid vascularity is increased. Isthmus: 0.5 cm in maximum AP dimension. Previously 0.7 cm. Estimated total number of nodules greater than or equal to 1 cm: 1. 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 Location: Right mid. Size: 0.8 x 0.6 x 1.0 cm, volume 0.3 mL. Previously: 0.8 x 0.6 x 0.9 cm, volume 0.2 mL. Nodule characteristics: Composition: Solid (2). Echogenicity: Isoechoic (1). Shape: Not taller than wide (0). Margins: Smooth (0). Echogenic Foci: None (0). ACR TI-RADS total points: 3 ACR TI-RADS category: 3 Significant change in size (>/= 20% in 2 dimensions and minimal increase of 2 mm or 50% or greater increase in volume): No Change in features: No Change in ACR TI-RADS risk category: No 2. Location: Left mid. Size: 1.7 x 1.1 x 1.6 cm, volume 1.6 mL. Previously: 1.9 x 1.2 x 1.4 cm, volume 1.6 mL. Nodule characteristics: Composition: Solid (2). Echogenicity: Isoechoic (1). Shape: Not taller than wide (0). Margins: Smooth (0). Echogenic Foci: None (0). ACR TI-RADS total points: 3 ACR TI-RADS category: 3 Significant change in size (>/= 20% in 2 dimensions and minimal increase of 2 mm or 50% or greater increase in volume): No Change in features: No Change in ACR TI-RADS risk category: No 3. Location: Left inferior. Size: 0.4 x 0.3 x 0.3 cm, volume 0.01 mL. Previously: 0.5 x 0.3 x 0.6 cm, volume 0.04 mL. Nodule characteristics: Composition: Solid (2). Echogenicity: Hypoechoic (2). Shape: Not taller than wide (0). Margins: Smooth (0). Echogenic Foci: None (0). ACR TI-RADS total points: 4 ACR TI-RADS category: 4 Significant change in size (>/= 20% in 2 dimensions and minimal increase of 2 mm or 50% or greater increase in volume): No Change in features: No Change in ACR TI-RADS risk category: No NODES: There are bilateral level 3 lymph nodes with normal fatty clefts and no evidence of cortical thickening.. US/US thyroid IMPRESSION: No significant change in bilateral thyroid nodules. Continued follow-up of TR 3 lesion measuring up to 1.7 cm in largest dimension. ACR TI-RADS RECOMMENDATION REFERENCE: * TR1 (0 point) and TR 2 (2 points): No FNA or follow up * TR3 (3 points): FNA if more than or equal to 2.5 cm in maximum dimension, followup ultrasound in 1, 3 and 5 years if 1.5 to 2.4 cm in maximum dimension. * TR4 (4-6 points): FNA if more than or equal to 1.5 cm in maximum dimension, followup ultrasound in 1, 2, 3 and 5 years if 1 to 1.4 cm in maximum dimension. * TR5 (more than or equal to 7 points): FNA if more than or equal to 1 cm in maximum dimension, followup ultrasound every year for 5 years if 0.5 to 0.9 cm in maximum dimension. * TR3, TR4 or TR5 nodules that are below the size threshold for follow up receive no follow up.
== END 2022-06-19 13:15 | disposition home or self-care (01) ==
LOC: HO.US 13:14
PROVIDERS: Visit Provider Internal Medicine Endocrinology, Diabetes & Metabolism
DX: E04.2 Nontoxic multinodular goiter (principal)
CPT/HCPCS: 76536

== ENCOUNTER 2022-08-06 12:43 | Outpatient (REF) | payer OTHER, SELFPAY ==
--- NOTE | ~2022-08-06 | CT_ITS ---
EXAMINATION: CT HEAD WITHOUT CONTRAST CLINICAL INFORMATION: Forgetfulness. COMPARISON: None. TECHNIQUE: Contiguous axial imaging was performed from the skullbase to vertex without intravenous administration of contrast. This CT examination was performed using dose optimization techniques as appropriate, variously including the following: *Automated exposure control *Adjustment of mA and/or kV according to patient size (this includes techniques or standardized protocols for targeted exams where dose is matched to indication/reason for exam; i.e. extremities or head) *Use of iterative reconstruction technique DLP: 720 mGy-cm. FINDINGS: There is no evidence of acute intracranial hemorrhage or territorial infarction. No abnormal mass effect or midline shift is seen. Wade to white matter differentiation is well preserved. No extra-axial fluid collections are identified. Mild generalized parenchymal volume loss evident. The ventricles are normal in size. There is no abnormal attenuation within the brain parenchyma. The osseous structures and soft tissues are normal. The mastoid air cells and visualized portions of the paranasal sinuses are well aerated. CT/CT head/brain wo IV con IMPRESSION: No acute intracranial pathology.
== END 2022-08-06 12:44 | disposition home or self-care (01) ==
LOC: HO.CT 12:43
PROVIDERS: Visit Provider Nurse Practitioner Family
DX: R68.89 Other general symptoms and signs (principal)
CPT/HCPCS: 70450

== ENCOUNTER 2022-10-07 12:30 | Emergency (ER) | payer OTHER, SELFPAY ==
--- NOTE | ~2022-10-07 | XR_ITS ---
EXAMINATION: XR CHEST CLINICAL INFORMATION: Chest pain, shortness of breath COMPARISON: 05/24/2022 TECHNIQUE: 2 views of the chest were obtained. FINDINGS: Unchanged left lung volume loss with surgical clips projecting over the left midlung consistent with prior left upper lobectomy. No focal consolidation or mass. No pleural effusion or pneumothorax. Normal heart size. Suture anchor in the right humeral head. Multilevel degenerative changes of the thoracic spine. XR/XR chest 2V IMPRESSION: No acute pulmonary disease.
--- NOTE | ~2022-10-07 | CT_ITS ---
EXAMINATION: CT ANGIOGRAM CHEST CLINICAL INFORMATION: Chest and back pain COMPARISON: CT chest 04/13/2019 TECHNIQUE: Multiple axial images were obtained through the chest after the administration of 100 mL of Omnipaque 350 intravenous contrast. Extensive vascular post-processing including two-dimensional and three-dimensional reformatted images were created and reviewed on an independent workstation. This CT examination was performed using dose optimization techniques as appropriate, variously including the following: *Automated exposure control *Adjustment of mA and/or kV according to patient size (this includes techniques or standardized protocols for targeted exams where dose is matched to indication/reason for exam; i.e. extremities or head) *Use of iterative reconstruction technique DLP: 560 mGy-cm VASCULAR FINDINGS: The thoracic aorta appears normal. There is no aortic aneurysm or dissection or intramural hematoma. A three-vessel branching pattern of the arch is seen with widely patent great vessels. A tricuspid aortic valve is present. No significant coronary calcification noted. Although not carried out for evaluation of the pulmonary arteries or pulmonary veins, no abnormality is seen. No pulmonary emboli are detected. NONVASCULAR FINDINGS: LUNGS: Some subpleural reticular markings and atelectasis are present at the lung bases. Calcified granuloma is present in the right middle lobe. There is evidence of prior left upper lobe resection. Along with postsurgical changes in the posterior chest wall and ribs on the left. No significant interval change when compared to the 04/13/2019 CT. MEDIASTINUM: Heart size normal. No mediastinal or hilar lymphadenopathy. PLEURA: There is no pleural effusion. No pleural mass or thickening. AXILLA: No lymphadenopathy. UPPER ABDOMEN: Status post cholecystectomy. OSSEOUS STRUCTURES: Degenerative changes are present in the spine. CT/CT angio chest aorta IMPRESSION: 1. The thoracic aorta appears normal without evidence of aneurysm, dissection or intramural hematoma. 2. Incidental note made of prior left hemithorax postop findings, cholecystectomy and degenerative changes in the spine. Fleischner guidelines were followed.
--- NOTE | 2022-10-07 12:33 | ED.CHESTPAIN ---
HPI - Chest Pain General Chief Complaint: Chest Pain <Shania Espinal CNP - Last Filed: 10/07/22 12:38> Stated Complaint: abd chest back jaw pain <Shania Espinal CNP - Last Filed: 10/07/22 12:38> Time Seen by Provider: 10/07/22 23:22 <Shania Espinal CNP - Last Filed: 10/07/22 12:38> Source: patient <Ramon Londono MD - Last Filed: 10/08/22 01:46> Mode of arrival: ambulatory <Ramon Londono MD - Last Filed: 10/08/22 01:46> Limitations: no limitations <Ramon Londono MD - Last Filed: 10/08/22 01:46> History of Present Illness HPI narrative: Patient history of hyperlipidemia no known coronary artery disease noticed sudden onset of chest pain while at rest around 10:00 radiated to the mid chest to the jaw to the left shoulder whole episode lasted for 2 hours patient fell slight short of breath and dizzy in the waiting room labs were done which showed normal troponin and normal EKG patient denies any stomach issues before no history of gastritis no nausea no vomiting <Ramon Londono MD - Last Filed: 10/08/22 01:46> Related Data Home Medications: Home Medications Medication Instructions Recorded Confirmed omeprazole 40 mg capsule,delayed 40 mg PO BID 10/23/20 07/19/22 release rosuvastatin 40 mg tablet 40 mg PO DAILY 10/23/20 07/19/22 citalopram 10 mg tablet (Celexa) 10 mg PO DAILY 03/02/21 07/19/22 midodrine 2.5 mg tablet 2.5 mg PO TID 03/02/21 07/19/22 topiramate 100 mg tablet 100 mg PO DAILY PRN 03/02/21 07/19/22 Previous Rx's Medication Instructions Recorded clobetasol 0.05 % topical ointment 1 appl topical DAILY #45 grams 01/31/21 fluocinolone 0.025 % topical cream 1 appl topical BID 10 days #15 08/07/21 grams cane #1 ea 08/09/21 cholecalciferol (vitamin D3) 50 50 mcg PO DAILY 90 days #90 caps 11/12/21 mcg (2,000 unit) capsule montelukast 10 mg tablet 10 mg PO DAILY 90 days #90 tabs 11/12/21 (Singulair) diclofenac sodium 3 % topical gel 1 appl topical BID #100 grams 12/26/21 tizanidine 2 mg tablet 2 mg PO BEDTIME PRN muscle 12/26/21 spasticity #7 tabs pyridoxine (vitamin B6) 25 mg 25 mg PO DAILY #30 tabs 01/08/22 tablet albuterol sulfate 90 mcg/actuation 1 inh inhalation QID PRN shortness 02/13/22 aerosol inhaler of breath or wheezing 30 days #8.5 grams lidocaine 5 % topical patch 1 patch topical DAILY PRN pain #30 02/18/22 (Lidoderm) ea oxycodone 10 mg tablet 10 mg PO Q8H PRN pain 5 days #15 03/04/22 tabs cane #1 ea 03/25/22 miscellaneous medical supply 1 ea miscellaneous .daily 99 days 03/25/22 #1 ea miscellaneous medical supply 1 ea miscellaneous DAILY 99 days 03/25/22 #1 ea miscellaneous medical supply 1 ea miscellaneous DAILY 99 days 03/25/22 #1 ea walker #1 ea 03/25/22 diphenhydramine HCl 25 mg tablet 25 mg PO TID allergy symptoms 30 04/15/22 (Benadryl Allergy) days #90 tabs cyclobenzaprine 10 mg tablet 10 mg PO Q8H #14 tabs 05/24/22 hydrocortisone 2.5 % topical 1 appl topical QD-TID PRN skin 05/24/22 ointment irritation #454 grams acetaminophen 650 mg 650 mg PO Q8H PRN pain #90 tabs 07/19/22 tablet,extended release (Tylenol Arthritis Pain) amoxicillin 875 mg-potassium 1 tab PO Q12H #14 tabs 07/19/22 clavulanate 125 mg tablet dicyclomine 10 mg capsule 10 mg PO DAILY 30 days #30 caps 07/19/22 gabapentin 300 mg capsule 300 mg PO TID 30 days #90 caps 07/19/22 sennosides 8.6 mg tablet (senna) 8.6 mg PO DAILY PRN constipation 07/19/22 #30 tabs vitamin A and D 1 appl topical BEDTIME 30 days 08/13/22 #113 grams clonazepam 1 mg tablet 1 mg PO BID PRN anxiety 30 days 09/09/22 #60 tabs tramadol 50 mg tablet 50 mg PO Q6H PRN pain #20 tabs 10/08/22 <Shania Espinal CNP - Last Filed: 10/07/22 12:38> Allergies/Adverse Reactions: Allergies Allergy/AdvReac Type Severity Reaction Status Date / Time banana [BANANA] Allergy Intermediate ITCHING Verified 07/19/22 08:53 ibuprofen [From MOTRIN] Allergy Intermediate UNK, GI Verified 07/19/22 08:53 upset naproxen [From NAPROSYN] Allergy Intermediate UNKNOWN, Verified 07/19/22 08:53 rash, GI upset prednisone Allergy Intermediate Itchy and Verified 07/19/22 08:53 redness warfarin [WARFARIN] Allergy Unknown UNKNOWN Verified 07/19/22 08:53 pregabalin AdvReac Intermediate Diarrhea Verified 07/19/22 08:53 and blurry vision sun Allergy Unknown bumps on Uncoded 07/19/22 08:53 skin <Shania Espinal CNP - Last Filed: 10/07/22 12:38> Review of Systems Review of Systems: Yes all other systems are reviewed and are negative <Ramon Londono MD - Last Filed: 10/08/22 01:46> [facility] Past Medical History Medical History: Medical History Degenerative joint disease of right shoulder GERD without esophagitis Therese's disease Lichen sclerosus Non-toxic multinodular goiter Obesity (BMI 30-39.9) Pure hypercholesterolemia Right shoulder pain Tendinopathy of right rotator cuff Vaginal pruritus Vitamin D deficiency <Shania Espinal CNP - Last Filed: 10/07/22 12:38> Surgical History: Surgical History H/O right breast biopsy History of cholecystectomy History of excision of mass History of shoulder surgery History of surgery S/P fine needle aspiration <Shania Espinal CNP - Last Filed: 10/07/22 12:38> Family History Family History: Family History Father No problems noted. Mother Diabetes Advanced cardiac disease Osteoporosis Chronic mental illness Brother Substance abuse Family/Other Chronic mental illness <Shania Espinal CNP - Last Filed: 10/07/22 12:38> Social History Social History: Social History Housing: House Alcohol intake: never Patient Tobacco Use Status: Never used Tobacco Tobacco use type: Cigarette e-Cigarette/Vaping Use: Never Used Second Hand Smoke Exposure: No Advance Directives: No Advance Directives Information Provided: Yes service: No Current occupational status: disabled Gender identity: Female Cognitive needs: Yes (cane) Hearing needs: No Vision needs: No <Shania Espinal CNP - Last Filed: 10/07/22 12:38> Physical Exam Vital Signs: Vital Signs: Last Vital Signs Temp 97.6 F 10/07/22 23:23 Pulse 77 10/07/22 23:23 Resp 17 10/07/22 23:23 BP 119/82 10/07/22 23:23 Pulse Ox 99 10/07/22 23:23 O2 Del Method 10/07/22 23:23 BMI result Body Mass Index 33.3 <Shaniaserenity Espinal CNP - Last Filed: 10/07/22 12:38> Vital Signs: Last Vital Signs Temp 97.6 F 10/07/22 23:23 Pulse 77 10/07/22 23:23 Resp 17 10/07/22 23:23 BP 119/82 10/07/22 23:23 Pulse Ox 99 10/07/22 23:23 O2 Del Method 10/07/22 23:23 BMI result Body Mass Index 33.3 <Ramon Londono MD - Last Filed: 10/08/22 01:46> Appearance: Alert. Oriented X3. No acute distress. Eyes: PERRLA, No Nystagmus ENT: Pharynx normal. Oral Mucosa moist Neck: Normal inspection. Neck supple. CVS: Normal heart rate and rhythm. Pulses normal. Respiratory: No respiratory distress. Equal air entry bilateral, no wheezing/rales/rhonchi . Chest wall tenderness++ Abdomen: Soft and nontender. Bowel sounds are present, no mass palpable, no CVA tenderness Skin: Skin warm and dry. Normal skin color. Normal skin turgor. Extremities: No lower extremity edema. No calf tenderness Neuro: Oriented X 3. No motor deficit. No sensory deficit.No cerebellar signs , cranial nerves II-XII intact <Ramon Londono MD - Last Filed: 10/08/22 01:46> Course Course Course Narrative: RME: Patient is a 71-year-old female who presents to the emergency department today for evaluation. She reports that she awoke today with abdominal pain and stomach upset. 2 hours ago, began radiating upwards into the chest, currently experiencing chest pain, jaw pain, pain to the left shoulder and left arm, additionally feels shortness of breath with this. Symptoms for the past 2 hours have been constant. No apparent distress at time of initial evaluation, speaking clear full sentences, vital signs stable. Plan: Labs, EKG, chest x-ray <Shania Espinal CNP - Last Filed: 10/07/22 12:38> Medications Administered Discontinued Medications Generic Name Dose Route Start Last Admin Trade Name Freq PRN Reason Stop Dose Admin Iohexol 100 ml 10/08/22 00:13 10/08/22 00:14 Iohexol 350 Mg/Ml 100 Ml Infus..Btl IV 10/08/22 00:14 100 ml ONCE ONE Administration <Shania Espinal CNP - Last Filed: 10/07/22 12:38> Medications Administered Discontinued Medications Generic Name Dose Route Start Last Admin Trade Name Freq PRN Reason Stop Dose Admin Iohexol 100 ml 10/08/22 00:13 10/08/22 00:14 Iohexol 350 Mg/Ml 100 Ml Infus..Btl IV 10/08/22 00:14 100 ml ONCE ONE Administration <Ramon Londono MD - Last Filed: 10/08/22 01:46> Medical Decision Making Medical Decision Making MDM Narrative: Patient with nonspecific sudden onset of mid chest pain radiating to the back initial cardiac enzymes negative and EKG negative will do CT angio chest to rule out dissection Two sets of cardiac enzymes negative CTA chest negative for dissection or aneurysm patient tender to touch her admit chest with history of arthritis likely arthritis as a cause of pain. Patient advised to take tramadol for pain and follow with control clerk head/PCP <Ramon Londono MD - Last Filed: 10/08/22 01:46> Lab Data MDM Lab Attestation statement: I reviewed the patient's lab results. <Ramon Londono MD - Last Filed: 10/08/22 01:46> Result Diagrams: : 10/07/22 12:58 10/07/22 12:58 <Shania Espinal CNP - Last Filed: 10/07/22 12:38> Labs: Lab Results 10/07/22 10/07/22 10/07/22 Range/Units 12:58 12:58 12:58 WBC 4.4 L (4.8-10.8) X10*3/uL RBC 4.16 L (4.20-5.50) X10*6/uL Hgb 12.9 (12.0-16.0) g/dl Hct 39.6 (37.0-47.0) % MCV 95.2 (80.0-98.0) fL MCH 31.0 (27.0-33.0) pg MCHC 32.6 (31.0-35.0) g/dl RDW 12.0 (11.0-16.0) % Plt Count 261 (160-400) X10*3/uL MPV 8.5 L (9.4-12.3) fL Immature Gran % (Auto) 0.2 (0.0-0.4) % Neut % (Auto) 36.7 L (45-73) % Lymph % (Auto) 51.0 H (20-40) % [place] % (Auto) 6.8 (2-11) % Eos % (Auto) 3.9 (0-4) % Baso % (Auto) 1.4 (0-2) % Lymph # (Auto) 2.2 (1.2-4.9) X10*3/uL [place] # (Auto) 0.3 (0.1-1.2) X10*3/uL Eos # (Auto) 0.2 (0.0-0.4) X10*3/uL Baso # (Auto) 0.1 (0.0-0.2) X10*3/uL Abs Immat Gran (auto) 0.01 (0.00-0.03) X10*3/uL Absolute Neuts (auto) 1.6 L (2.0-8.3) x10*3/uL Absolute Nucleated RBC 0.000 (0.0-0.012) X10*3/uL Nucleated RBC % (auto) 0.0 (0.0-0.2) /100WBC PT (10.0-13.1) SEC INR (0.9-1.1) D-Dimer High Sensitivty NG/ML Sodium 140 (135-145) mmol/L Potassium 4.4 (3.3-5.1) mmol/L Chloride 105 (96-108) mmol/L Carbon Dioxide 29 (22-29) mmol/L Anion Gap 10 L (12-20) BUN 17 H (9-16) mg/dL Creatinine 0.90 (0.5-1.4) mg/dL Estim Creat Clear Calc 62.8 Estimated GFR > 60 Random Glucose 112 (60-115) mg/dL Calcium 9.7 (8.4-10.2) mg/dL Magnesium 2.1 (1.6-2.6) mg/dL Total Bilirubin 0.3 (0.0-1.0) mg/dL AST 16 (5-31) U/L ALT 13 (0-31) U/L Alkaline Phosphatase 124 H (39-117) U/L Troponin I High Sens < 3.5 (<3.5-17.0) ng/L B-Natriuretic Peptide (<100) pg/mL Total Protein 6.8 (6.5-8.0) g/dL Albumin 4.1 (3.5-5.0) g/dL Lipase 18 (8-78) U/L Urine Color Urine Appearance Urine pH (5.0-9.0) Ur Specific Childs (1.005-1.025) Urine Protein (Neg-Trace) mg/dL Urine Glucose (UA) (Negative) mg/dL Urine Ketones (Negative) mg/dL Urine Blood (Negative) Urine Nitrite (Negative) Ur Leukocyte Esterase (Negative) Urine RBC (0-2) /HPF Urine WBC (0-5) /HPF Ur Squamous Epith Cells (0-2) /HPF Urine Bacteria (None Seen) Hyaline Casts (0-2) /LPF COVID-19 ([facility]) (Negative) COVID-19 Clin Com Influenza Type A ([facility]) (Negative) Influenza Type B ([facility]) (Negative) Influenza A & B Note 10/07/22 10/07/22 10/07/22 Range/Units 12:58 12:58 12:58 WBC (4.8-10.8) X10*3/uL RBC (4.20-5.50) X10*6/uL Hgb (12.0-16.0) g/dl Hct (37.0-47.0) % MCV (80.0-98.0) fL MCH (27.0-33.0) pg MCHC (31.0-35.0) g/dl RDW (11.0-16.0) % Plt Count (160-400) X10*3/uL MPV (9.4-12.3) fL Immature Gran % (Auto) (0.0-0.4) % Neut % (Auto) (45-73) % Lymph % (Auto) (20-40) % [place] % (Auto) (2-11) % Eos % (Auto) (0-4) % Baso % (Auto) (0-2) % Lymph # (Auto) (1.2-4.9) X10*3/uL [place] # (Auto) (0.1-1.2) X10*3/uL Eos # (Auto) (0.0-0.4) X10*3/uL Baso # (Auto) (0.0-0.2) X10*3/uL Abs Immat Gran (auto) (0.00-0.03) X10*3/uL Absolute Neuts (auto) (2.0-8.3) x10*3/uL Absolute Nucleated RBC (0.0-0.012) X10*3/uL Nucleated RBC % (auto) (0.0-0.2) /100WBC PT (10.0-13.1) SEC INR (0.9-1.1) D-Dimer High Sensitivty NG/ML Sodium (135-145) mmol/L Potassium (3.3-5.1) mmol/L Chloride (96-108) mmol/L Carbon Dioxide (22-29) mmol/L Anion Gap (12-20) BUN (9-16) mg/dL Creatinine (0.5-1.4) mg/dL Estim Creat Clear Calc Estimated GFR Random Glucose (60-115) mg/dL Calcium (8.4-10.2) mg/dL Magnesium (1.6-2.6) mg/dL Total Bilirubin (0.0-1.0) mg/dL AST (5-31) U/L ALT (0-31) U/L Alkaline Phosphatase (39-117) U/L Troponin I High Sens (<3.5-17.0) ng/L B-Natriuretic Peptide 48 (<100) pg/mL Total Protein (6.5-8.0) g/dL Albumin (3.5-5.0) g/dL Lipase (8-78) U/L Urine Color Urine Appearance Urine pH (5.0-9.0) Ur Specific Childs (1.005-1.025) Urine Protein (Neg-Trace) mg/dL Urine Glucose (UA) (Negative) mg/dL Urine Ketones (Negative) mg/dL Urine Blood (Negative) Urine Nitrite (Negative) Ur Leukocyte Esterase (Negative) Urine RBC (0-2) /HPF Urine WBC (0-5) /HPF Ur Squamous Epith Cells (0-2) /HPF Urine Bacteria (None Seen) Hyaline Casts (0-2) /LPF COVID-19 ([facility]) Negative (Negative) COVID-19 Clin Com See Note Influenza Type A ([facility]) Negative (Negative) Influenza Type B ([facility]) Negative (Negative) Influenza A & B Note See Note 10/07/22 10/07/22 10/08/22 Range/Units 23:35 23:35 01:05 WBC (4.8-10.8) X10*3/uL RBC (4.20-5.50) X10*6/uL Hgb (12.0-16.0) g/dl Hct (37.0-47.0) % MCV (80.0-98.0) fL MCH (27.0-33.0) pg MCHC (31.0-35.0) g/dl RDW (11.0-16.0) % Plt Count (160-400) X10*3/uL MPV (9.4-12.3) fL Immature Gran % (Auto) (0.0-0.4) % Neut % (Auto) (45-73) % Lymph % (Auto) (20-40) % [place] % (Auto) (2-11) % Eos % (Auto) (0-4) % Baso % (Auto) (0-2) % Lymph # (Auto) (1.2-4.9) X10*3/uL [place] # (Auto) (0.1-1.2) X10*3/uL Eos # (Auto) (0.0-0.4) X10*3/uL Baso # (Auto) (0.0-0.2) X10*3/uL Abs Immat Gran (auto) (0.00-0.03) X10*3/uL Absolute Neuts (auto) (2.0-8.3) x10*3/uL Absolute Nucleated RBC (0.0-0.012) X10*3/uL Nucleated RBC % (auto) (0.0-0.2) /100WBC PT 11.2 (10.0-13.1) SEC INR 1.0 (0.9-1.1) D-Dimer High Sensitivty < 150 NG/ML Sodium (135-145) mmol/L Potassium (3.3-5.1) mmol/L Chloride (96-108) mmol/L Carbon Dioxide (22-29) mmol/L Anion Gap (12-20) BUN (9-16) mg/dL Creatinine (0.5-1.4) mg/dL Estim Creat Clear Calc Estimated GFR Random Glucose (60-115) mg/dL Calcium (8.4-10.2) mg/dL Magnesium (1.6-2.6) mg/dL Total Bilirubin (0.0-1.0) mg/dL AST (5-31) U/L ALT (0-31) U/L Alkaline Phosphatase (39-117) U/L Troponin I High Sens < 3.5 (<3.5-17.0) ng/L B-Natriuretic Peptide (<100) pg/mL Total Protein (6.5-8.0) g/dL Albumin (3.5-5.0) g/dL Lipase (8-78) U/L Urine Color Yellow Urine Appearance Clear Urine pH 5.5 (5.0-9.0) Ur Specific Childs >= 1.030 H (1.005-1.025) Urine Protein Negative (Neg-Trace) mg/dL Urine Glucose (UA) Negative (Negative) mg/dL Urine Ketones Negative (Negative) mg/dL Urine Blood Negative (Negative) Urine Nitrite Negative (Negative) Ur Leukocyte Esterase Trace H (Negative) Urine RBC 0-2 (0-2) /HPF Urine WBC 0-5 (0-5) /HPF Ur Squamous Epith Cells 0-2 (0-2) /HPF Urine Bacteria 4+ (None Seen) Hyaline Casts 0-2 (0-2) /LPF COVID-19 ([facility]) (Negative) COVID-19 Clin Com Influenza Type A ([facility]) (Negative) Influenza Type B ([facility]) (Negative) Influenza A & B Note <Shania Ulloawilfrido Espinal, MACHINE SETTER SUPERVISOR - Last Filed: 10/07/22 12:38> Lab Results 10/07/22 10/07/22 10/07/22 Range/Units 12:58 12:58 12:58 WBC 4.4 L (4.8-10.8) X10*3/uL RBC 4.16 L (4.20-5.50) X10*6/uL Hgb 12.9 (12.0-16.0) g/dl Hct 39.6 (37.0-47.0) % MCV 95.2 (80.0-98.0) fL MCH 31.0 (27.0-33.0) pg MCHC 32.6 (31.0-35.0) g/dl RDW 12.0 (11.0-16.0) % Plt Count 261 (160-400) X10*3/uL MPV 8.5 L (9.4-12.3) fL Immature Gran % (Auto) 0.2 (0.0-0.4) % Neut % (Auto) 36.7 L (45-73) % Lymph % (Auto) 51.0 H (20-40) % [place] % (Auto) 6.8 (2-11) % Eos % (Auto) 3.9 (0-4) % Baso % (Auto) 1.4 (0-2) % Lymph # (Auto) 2.2 (1.2-4.9) X10*3/uL [place] # (Auto) 0.3 (0.1-1.2) X10*3/uL Eos # (Auto) 0.2 (0.0-0.4) X10*3/uL Baso # (Auto) 0.1 (0.0-0.2) X10*3/uL Abs Immat Gran (auto) 0.01 (0.00-0.03) X10*3/uL Absolute Neuts (auto) 1.6 L (2.0-8.3) x10*3/uL Absolute Nucleated RBC 0.000 (0.0-0.012) X10*3/uL Nucleated RBC % (auto) 0.0 (0.0-0.2) /100WBC PT (10.0-13.1) SEC INR (0.9-1.1) D-Dimer High Sensitivty NG/ML Sodium 140 (135-145) mmol/L Potassium 4.4 (3.3-5.1) mmol/L Chloride 105 (96-108) mmol/L Carbon Dioxide 29 (22-29) mmol/L Anion Gap 10 L (12-20) BUN 17 H (9-16) mg/dL Creatinine 0.90 (0.5-1.4) mg/dL Estim Creat Clear Calc 62.8 Estimated GFR > 60 Random Glucose 112 (60-115) mg/dL Calcium 9.7 (8.4-10.2) mg/dL Magnesium 2.1 (1.6-2.6) mg/dL Total Bilirubin 0.3 (0.0-1.0) mg/dL AST 16 (5-31) U/L ALT 13 (0-31) U/L Alkaline Phosphatase 124 H (39-117) U/L Troponin I High Sens < 3.5 (<3.5-17.0) ng/L B-Natriuretic Peptide (<100) pg/mL Total Protein 6.8 (6.5-8.0) g/dL Albumin 4.1 (3.5-5.0) g/dL Lipase 18 (8-78) U/L Urine Color Urine Appearance Urine pH (5.0-9.0) Ur Specific Childs (1.005-1.025) Urine Protein (Neg-Trace) mg/dL Urine Glucose (UA) (Negative) mg/dL Urine Ketones (Negative) mg/dL Urine Blood (Negative) Urine Nitrite (Negative) Ur Leukocyte Esterase (Negative) Urine RBC (0-2) /HPF Urine WBC (0-5) /HPF Ur Squamous Epith Cells (0-2) /HPF Urine Bacteria (None Seen) Hyaline Casts (0-2) /LPF COVID-19 ([facility]) (Negative) COVID-19 Clin Com Influenza Type A ([facility]) (Negative) Influenza Type B ([facility]) (Negative) Influenza A & B Note 10/07/22 10/07/22 10/07/22 Range/Units 12:58 12:58 12:58 WBC (4.8-10.8) X10*3/uL RBC (4.20-5.50) X10*6/uL Hgb (12.0-16.0) g/dl Hct (37.0-47.0) % MCV (80.0-98.0) fL MCH (27.0-33.0) pg MCHC (31.0-35.0) g/dl RDW (11.0-16.0) % Plt Count (160-400) X10*3/uL MPV (9.4-12.3) fL Immature Gran % (Auto) (0.0-0.4) % Neut % (Auto) (45-73) % Lymph % (Auto) (20-40) % [place] % (Auto) (2-11) % Eos % (Auto) (0-4) % Baso % (Auto) (0-2) % Lymph # (Auto) (1.2-4.9) X10*3/uL [place] # (Auto) (0.1-1.2) X10*3/uL Eos # (Auto) (0.0-0.4) X10*3/uL Baso # (Auto) (0.0-0.2) X10*3/uL Abs Immat Gran (auto) (0.00-0.03) X10*3/uL Absolute Neuts (auto) (2.0-8.3) x10*3/uL Absolute Nucleated RBC (0.0-0.012) X10*3/uL Nucleated RBC % (auto) (0.0-0.2) /100WBC PT (10.0-13.1) SEC INR (0.9-1.1) D-Dimer High Sensitivty NG/ML Sodium (135-145) mmol/L Potassium (3.3-5.1) mmol/L Chloride (96-108) mmol/L Carbon Dioxide (22-29) mmol/L Anion Gap (12-20) BUN (9-16) mg/dL Creatinine (0.5-1.4) mg/dL Estim Creat Clear Calc Estimated GFR Random Glucose (60-115) mg/dL Calcium (8.4-10.2) mg/dL Magnesium (1.6-2.6) mg/dL Total Bilirubin (0.0-1.0) mg/dL AST (5-31) U/L ALT (0-31) U/L Alkaline Phosphatase (39-117) U/L Troponin I High Sens (<3.5-17.0) ng/L B-Natriuretic Peptide 48 (<100) pg/mL Total Protein (6.5-8.0) g/dL Albumin (3.5-5.0) g/dL Lipase (8-78) U/L Urine Color Urine Appearance Urine pH (5.0-9.0) Ur Specific Childs (1.005-1.025) Urine Protein (Neg-Trace) mg/dL Urine Glucose (UA) (Negative) mg/dL Urine Ketones (Negative) mg/dL Urine Blood (Negative) Urine Nitrite (Negative) Ur Leukocyte Esterase (Negative) Urine RBC (0-2) /HPF Urine WBC (0-5) /HPF Ur Squamous Epith Cells (0-2) /HPF Urine Bacteria (None Seen) Hyaline Casts (0-2) /LPF COVID-19 ([facility]) Negative (Negative) COVID-19 Clin Com See Note Influenza Type A ([facility]) Negative (Negative) Influenza Type B ([facility]) Negative (Negative) Influenza A & B Note See Note 10/07/22 10/07/22 10/08/22 Range/Units 23:35 23:35 01:05 WBC (4.8-10.8) X10*3/uL RBC (4.20-5.50) X10*6/uL Hgb (12.0-16.0) g/dl Hct (37.0-47.0) % MCV (80.0-98.0) fL MCH (27.0-33.0) pg MCHC (31.0-35.0) g/dl RDW (11.0-16.0) % Plt Count (160-400) X10*3/uL MPV (9.4-12.3) fL Immature Gran % (Auto) (0.0-0.4) % Neut % (Auto) (45-73) % Lymph % (Auto) (20-40) % [place] % (Auto) (2-11) % Eos % (Auto) (0-4) % Baso % (Auto) (0-2) % Lymph # (Auto) (1.2-4.9) X10*3/uL [place] # (Auto) (0.1-1.2) X10*3/uL Eos # (Auto) (0.0-0.4) X10*3/uL Baso # (Auto) (0.0-0.2) X10*3/uL Abs Immat Gran (auto) (0.00-0.03) X10*3/uL Absolute Neuts (auto) (2.0-8.3) x10*3/uL Absolute Nucleated RBC (0.0-0.012) X10*3/uL Nucleated RBC % (auto) (0.0-0.2) /100WBC PT 11.2 (10.0-13.1) SEC INR 1.0 (0.9-1.1) D-Dimer High Sensitivty < 150 NG/ML Sodium (135-145) mmol/L Potassium (3.3-5.1) mmol/L Chloride (96-108) mmol/L Carbon Dioxide (22-29) mmol/L Anion Gap (12-20) BUN (9-16) mg/dL Creatinine (0.5-1.4) mg/dL Estim Creat Clear Calc Estimated GFR Random Glucose (60-115) mg/dL Calcium (8.4-10.2) mg/dL Magnesium (1.6-2.6) mg/dL Total Bilirubin (0.0-1.0) mg/dL AST (5-31) U/L ALT (0-31) U/L Alkaline Phosphatase (39-117) U/L Troponin I High Sens < 3.5 (<3.5-17.0) ng/L B-Natriuretic Peptide (<100) pg/mL Total Protein (6.5-8.0) g/dL Albumin (3.5-5.0) g/dL Lipase (8-78) U/L Urine Color Yellow Urine Appearance Clear Urine pH 5.5 (5.0-9.0) Ur Specific Childs >= 1.030 H (1.005-1.025) Urine Protein Negative (Neg-Trace) mg/dL Urine Glucose (UA) Negative (Negative) mg/dL Urine Ketones Negative (Negative) mg/dL Urine Blood Negative (Negative) Urine Nitrite Negative (Negative) Ur Leukocyte Esterase Trace H (Negative) Urine RBC 0-2 (0-2) /HPF Urine WBC 0-5 (0-5) /HPF Ur Squamous Epith Cells 0-2 (0-2) /HPF Urine Bacteria 4+ (None Seen) Hyaline Casts 0-2 (0-2) /LPF COVID-19 ([facility]) (Negative) COVID-19 Clin Com Influenza Type A ([facility]) (Negative) Influenza Type B ([facility]) (Negative) Influenza A & B Note <Ramon Londono MD - Last Filed: 10/08/22 01:46> Independent Interpretation I performed an independent interpretation of an: EKG <Ramon Londono MD - Last Filed: 10/08/22 01:46> Interpretation: Normal sinus rhythm heart rate 68 beats per minute normal interval normal axis no acute ST changes no acute ischemia <Ramon Londono MD - Last Filed: 10/08/22 01:46> Discharge Plan Discharge Clinical Impression: Chest pain <Shania Espinal CNP - Last Filed: 10/07/22 12:38> Patient Disposition: Home, Self-Care <Shania Espinal CNP - Last Filed: 10/07/22 12:38> Instructions: Chest Pain (ED) <Shania Espinal CNP - Last Filed: 10/07/22 12:38> Additional Instructions: Your chest pain is unlikely from the heart, likely from chest wall inflammation Take tramadol for pain <Shania Espinal CNP - Last Filed: 10/07/22 12:38> Prescriptions: New tramadol 50 mg tablet 50 mg PO Q6H PRN (Reason: pain) Qty: 20 0RF No Action fluocinolone 0.025 % cream 1 appl topical BID 10 Days Qty: 15 0RF (DME) cane Device See Rx Instructions .Route Qty: 1 0RF Rx Instructions: As directed miscellaneous medical supply Misc 1 ea miscellaneous .daily 99 Days Qty: 1 0RF miscellaneous medical supply Misc 1 ea miscellaneous DAILY 99 Days Qty: 1 0RF miscellaneous medical supply Misc 1 ea miscellaneous DAILY 99 Days Qty: 1 0RF (DME) walker Misc See Rx Instructions .Route Qty: 1 0RF Rx Instructions: As directed vitamin A and D Ointment 1 appl topical BEDTIME 30 Days Qty: 113 0RF clonazepam 1 mg tablet 1 mg PO BID PRN (Reason: anxiety) 30 Days Qty: 60 4RF lidocaine [Lidoderm] 5 % adhesive patch,medicated 1 patch topical DAILY MDD remove after 12 hours PRN (Reason: pain) Qty: 30 0RF Rx Instructions: leave on most painful area for up to 12 hrs hydrocortisone 2.5 % ointment 1 appl topical QD-TID PRN (Reason: skin irritation) Qty: 454 0RF cyclobenzaprine 10 mg tablet 10 mg PO Q8H Qty: 14 0RF (DME) cane Device See Rx Instructions .Route Qty: 1 0RF Rx Instructions: As directed montelukast [Singulair] 10 mg tablet 10 mg PO DAILY 90 Days Qty: 90 1RF cholecalciferol (vitamin D3) 50 mcg (2,000 unit) capsule 50 mcg PO DAILY 90 Days Qty: 90 2RF tizanidine 2 mg tablet 2 mg PO BEDTIME PRN (Reason: muscle spasticity) Qty: 7 0RF diclofenac sodium 3 % gel 1 appl topical BID Qty: 100 1RF oxycodone 10 mg tablet 10 mg PO Q8H PRN (Reason: pain) 5 Days Qty: 15 0RF diphenhydramine HCl [Benadryl Allergy] 25 mg tablet 25 mg PO TID 30 Days Qty: 90 1RF amoxicillin-pot clavulanate 875-125 mg tablet 1 tab PO Q12H Qty: 14 0RF acetaminophen [Tylenol Arthritis Pain] 650 mg tablet extended release 650 mg PO Q8H PRN (Reason: pain) Qty: 90 0RF dicyclomine 10 mg capsule 10 mg PO DAILY 30 Days Qty: 30 0RF sennosides [senna] 8.6 mg tablet 8.6 mg PO DAILY PRN (Reason: constipation) Qty: 30 0RF gabapentin 300 mg capsule 300 mg PO TID 30 Days Qty: 90 1RF albuterol sulfate 90 mcg/actuation HFA aerosol inhaler 1 inh inhalation QID PRN (Reason: shortness of breath or wheezing) 30 Days Qty: 8.5 2RF pyridoxine (vitamin B6) 25 mg tablet 25 mg PO DAILY Qty: 30 0RF rosuvastatin 40 mg tablet 40 mg PO DAILY omeprazole 40 mg capsule,delayed release(DR/EC) 40 mg PO BID midodrine 2.5 mg tablet 2.5 mg PO TID topiramate 100 mg tablet 100 mg PO DAILY PRN citalopram [Celexa] 10 mg tablet 10 mg PO DAILY clobetasol 0.05 % ointment 1 appl topical DAILY Qty: 45 11RF <Shania Espinal, MACHINE SETTER SUPERVISOR - Last Filed: 10/07/22 12:38>
[2022-10-07 12:34] VITALS: BP 127/65; PULSE 76; RESP 18; TEMP 36.7; O2SAT 100; BMI 33.3
--- NOTE | 2022-10-07 12:36 | ECG_ITS ---
Test Reason : chest pain Blood Pressure : / mmHG Vent. Rate : 068 BPM Atrial Rate : 068 BPM P-R Int : 152 ms QRS Dur : 066 ms QT Int : 398 ms P-R-T Axes : 074 030 063 degrees QTc Int : 423 ms Normal sinus rhythm Normal ECG When compared with ECG of 24-MAY-2022 14:47, Nonspecific T wave abnormality now evident in Lateral leads Referred By: Shania Espinal Electronically Signed By:Leandro Gonzalez
[2022-10-07 13:14] LABS: MANUAL DIFF FLAG NO
[2022-10-07 13:15] LABS: Basophils Absolute Auto 0.1 X10*3/uL (0.0-0.2); Basophils Percent Auto 1.4 % (0-2); Eosinophils Absolute Auto 0.2 X10*3/uL (0.0-0.4); Eosinophils Percent Auto 3.9 % (0-4); Hematocrit 39.6 % (37.0-47.0); Hemoglobin 12.9 g/dl (12.0-16.0); Imm Gran Abs Auto 0.01 X10*3/uL (0.00-0.03); Imm Gran Pct Auto 0.2 % (0.0-0.4); Lymphocytes Absolute Auto 2.2 X10*3/uL (1.2-4.9); Mean Corpuscular HGB Conc 32.6 g/dl (31.0-35.0); Mean Corpuscular Volume 95.2 fL (80.0-98.0); Mean Platelet Volume 8.5 fL (9.4-12.3); Monocytes Absolute Auto 0.3 X10*3/uL (0.1-1.2); Monocytes Percent Auto 6.8 % (2-11); Neutrophils Absolute Auto 1.6 x10*3/uL (2.0-8.3); Neutrophils Percent Auto 36.7 % (45-73); Platelet Count 261 X10*3/uL (160-400); Red Blood Count 4.16 X10*6/uL (4.20-5.50); White Blood Count 4.4 X10*3/uL (4.8-10.8)
[2022-10-07 13:32] LABS: Alanine Aminotransferase 13 U/L (0-31); Albumin Level 4.1 g/dL (3.5-5.0); Alkaline Phosphatase 124 U/L (39-117); Anion Gap 10 (12-20); Aspartate Amino Transferase 16 U/L (5-31); Bilirubin Total 0.3 mg/dL (0.0-1.0); Blood Urea Nitrogen 17 mg/dL (9-16); Calcium 9.7 mg/dL (8.4-10.2); Carbon Dioxide 29 mmol/L (22-29); Chloride 105 mmol/L (96-108); Creatinine Clr Calc Pharmacy 62.8; Estimated Glomerular Filt Rate > 60; Glucose Random 112 mg/dL (60-115); Lipase 18 U/L (8-78); Magnesium 2.1 mg/dL (1.6-2.6); Potassium 4.4 mmol/L (3.3-5.1); Sodium 140 mmol/L (135-145); Total Protein 6.8 g/dL (6.5-8.0)
[2022-10-07 13:37] LABS: B Type Natriuretic Peptide 48 pg/mL (<100)
[2022-10-07 13:45] LABS: COVID-19 Test Negative (Negative); IDNOW Serial# 16C4AD1C; Troponin-I High Sensitivity < 3.5 ng/L (<3.5-17.0)
[2022-10-07 13:50] LABS: IDNOW Serial# 9DB6401D; Influenza A Negative (Negative); Influenza B2 Negative (Negative)
[2022-10-07 21:20] VITALS: BP 137/75; PULSE 78; RESP 18; TEMP 36.1; O2SAT 96
[2022-10-07 23:23] VITALS: BP 119/82; PULSE 77; RESP 17; TEMP 36.4; O2SAT 99
[2022-10-07 23:50] LABS: Prothrombin Time 11.2 SEC (10.0-13.1)
[2022-10-07 23:59] LABS: D Dimer High Sensitivity < 150 NG/ML
[2022-10-08] MEDS: iohexoL 350 MG/ML 100 ML INFUS..BTL IV (00:14)
[2022-10-08 01:11] LABS: Appearance Urine Clear; Color Urine Yellow; Glucose Urine UA Negative (Negative); Leukocyte Esterase Urine Trace (Negative); Nitrite Urine Negative (Negative); PH 5.5 (5.0-9.0); Specific Gravity - Urine >= 1.030 (1.005-1.025); UMIC TRIGGER UACC YES; Urine Blood Negative (Negative); Urine Ketones Negative (Negative); Urine Protein Negative (Neg-Trace)
[2022-10-08 01:16] LABS: Bacteria Urine 4+ (None Seen); Hyaline Casts Urine 0-2 /LPF (0-2); RBC Urine 0-2 /HPF (0-2); Squamous Epithelial Cell Urine 0-2 /HPF (0-2); WBC Urine 0-5 /HPF (0-5)
[2022-10-08 01:28] LABS: Troponin-I High Sensitivity < 3.5 ng/L (<3.5-17.0)
[2022-10-08] MEDS: traMADoL HCL 50 MG TABLET PO (02:00)
== END 2022-10-08 02:12 | disposition home or self-care (01) ==
PROVIDERS: Nurse Practitioner Family; Emergency Provider Internal Medicine; PCP Physician Assistant
DX: R07.89 Other chest pain (principal); R06.02 Shortness of breath; Z79.899 Other long term (current) drug therapy; Z20.822 Contact with and (suspected) exposure to COVID-19
CPT/HCPCS: 36415; 71046; 71275; 80053; 81001; 83690; 83735; 83880; 84484; 85025; 85379; 85610; 87502; 87635; 93005; 99284; Q9967

== ENCOUNTER 2022-11-18 18:12 | Inpatient (IN) | payer OTHER, SELFPAY ==
--- NOTE | 2022-11-18 | ECG_ITS ---
Test Reason : overdose Blood Pressure : / mmHG Vent. Rate : 083 BPM Atrial Rate : 083 BPM P-R Int : 140 ms QRS Dur : 076 ms QT Int : 386 ms P-R-T Axes : 057 041 050 degrees QTc Int : 453 ms Normal sinus rhythm Normal ECG When compared with ECG of 07-OCT-2022 13:49, No significant changes seen Referred By: Ramon Londono Electronically Signed By:Leandro Gonzalez
[2022-11-18 18:27] VITALS: BP 129/66; BP 144/83; PULSE 85; PULSE 98; RESP 41; TEMP 36.6; O2SAT 100; O2SAT 97; BMI 32.9
--- NOTE | 2022-11-18 18:47 | ECG_ITS ---
Test Reason : OVERDOSE Blood Pressure : / mmHG Vent. Rate : 074 BPM Atrial Rate : 074 BPM P-R Int : 144 ms QRS Dur : 074 ms QT Int : 384 ms P-R-T Axes : 036 005 057 degrees QTc Int : 426 ms Normal sinus rhythm Possible Inferior infarct , age undetermined Abnormal ECG When compared with ECG of 18-NOV-2022 18:44, Borderline criteria for Inferior infarct are now Present Referred By: Ramon Londono Electronically Signed By:Leandro Gonzalez
--- NOTE | 2022-11-18 18:51 | ED_ITS ---
HPI - Overdose General Chief Complaint: Overdose Stated Complaint: INTENTIONAL BENEDRYL OD 10X'S 25MG PER EMS Time Seen by Provider: 11/18/22 18:26 Source: patient Mode of arrival: ambulatory Limitations: no limitations History of Present Illness HPI Narrative: Patient with history of depression anxiety add verbal argument with son earlier today in anger patient took about 10 tablets of 25 mg Benadryl around 16:00 no history of similar overdose in the past patient seems very anxious on arrival blood pressure 129/66 pulse rate 85 saturating 100% on room air Related Data Home Medications Medication Instructions Recorded Confirmed omeprazole 40 mg capsule,delayed 40 mg PO BID 10/23/20 07/19/22 release rosuvastatin 40 mg tablet 40 mg PO DAILY 10/23/20 07/19/22 citalopram 10 mg tablet (Celexa) 10 mg PO DAILY 03/02/21 07/19/22 midodrine 2.5 mg tablet 2.5 mg PO TID 03/02/21 07/19/22 topiramate 100 mg tablet 100 mg PO DAILY PRN 03/02/21 07/19/22 Previous Rx's Medication Instructions Recorded fluocinolone 0.025 % topical cream 1 appl topical BID 10 days #15 08/07/21 grams cane #1 ea 08/09/21 cholecalciferol (vitamin D3) 50 50 mcg PO DAILY 90 days #90 caps 11/12/21 mcg (2,000 unit) capsule montelukast 10 mg tablet 10 mg PO DAILY 90 days #90 tabs 11/12/21 (Singulair) tizanidine 2 mg tablet 2 mg PO BEDTIME PRN muscle 12/26/21 spasticity #7 tabs pyridoxine (vitamin B6) 25 mg 25 mg PO DAILY #30 tabs 01/08/22 tablet albuterol sulfate 90 mcg/actuation 1 inh inhalation QID PRN shortness 02/13/22 aerosol inhaler of breath or wheezing 30 days #8.5 grams lidocaine 5 % topical patch 1 patch topical DAILY PRN pain #30 02/18/22 (Lidoderm) ea oxycodone 10 mg tablet 10 mg PO Q8H PRN pain 5 days #15 03/04/22 tabs cane #1 ea 03/25/22 miscellaneous medical supply 1 ea miscellaneous .daily 99 days 03/25/22 #1 ea miscellaneous medical supply 1 ea miscellaneous DAILY 99 days 03/25/22 #1 ea miscellaneous medical supply 1 ea miscellaneous DAILY 99 days 03/25/22 #1 ea walker #1 ea 03/25/22 diphenhydramine HCl 25 mg tablet 25 mg PO TID allergy symptoms 30 04/15/22 (Benadryl Allergy) days #90 tabs cyclobenzaprine 10 mg tablet 10 mg PO Q8H #14 tabs 05/24/22 hydrocortisone 2.5 % topical 1 appl topical QD-TID PRN skin 05/24/22 ointment irritation #454 grams acetaminophen 650 mg 650 mg PO Q8H PRN pain #90 tabs 07/19/22 tablet,extended release (Tylenol Arthritis Pain) amoxicillin 875 mg-potassium 1 tab PO Q12H #14 tabs 07/19/22 clavulanate 125 mg tablet dicyclomine 10 mg capsule 10 mg PO DAILY 30 days #30 caps 07/19/22 sennosides 8.6 mg tablet (senna) 8.6 mg PO DAILY PRN constipation 07/19/22 #30 tabs vitamin A and D 1 appl topical BEDTIME 30 days 08/13/22 #113 grams clonazepam 1 mg tablet 1 mg PO BID PRN anxiety 30 days 09/09/22 #60 tabs tramadol 50 mg tablet 50 mg PO Q6H PRN pain #20 tabs 10/08/22 gabapentin 300 mg capsule 300 mg PO TID 30 days #90 caps 10/29/22 clobetasol 0.05 % topical ointment 1 appl topical DAILY #45 grams 11/01/22 diclofenac sodium 3 % topical gel 1 appl topical BID #100 grams 11/01/22 Allergies Allergy/AdvReac Type Severity Reaction Status Date / Time banana [BANANA] Allergy Intermediate ITCHING Verified 07/19/22 08:53 ibuprofen [From MOTRIN] Allergy Intermediate UNK, GI Verified 07/19/22 08:53 upset naproxen [From NAPROSYN] Allergy Intermediate UNKNOWN, Verified 07/19/22 08:53 rash, GI upset prednisone Allergy Intermediate Itchy and Verified 07/19/22 08:53 redness warfarin [WARFARIN] Allergy Unknown UNKNOWN Verified 07/19/22 08:53 pregabalin AdvReac Intermediate Diarrhea Verified 07/19/22 08:53 and blurry vision sun Allergy Unknown bumps on Uncoded 07/19/22 08:53 skin Review of Systems Review of Systems: Yes all other systems are reviewed and are negative [facility] Past Medical History Medical History Degenerative joint disease of right shoulder GERD without esophagitis Therese's disease Lichen sclerosus Non-toxic multinodular goiter Obesity (BMI 30-39.9) Pure hypercholesterolemia Right shoulder pain Tendinopathy of right rotator cuff Vaginal pruritus Vitamin D deficiency Surgical History H/O right breast biopsy History of cholecystectomy History of excision of mass History of shoulder surgery History of surgery S/P fine needle aspiration Family History Family History Father No problems noted. Mother Diabetes Advanced cardiac disease Osteoporosis Chronic mental illness Brother Substance abuse Family/Other Chronic mental illness Social History Social History Housing: House Alcohol intake: never Patient Tobacco Use Status: Never used Tobacco Tobacco use type: Cigarette e-Cigarette/Vaping Use: Never Used Second Hand Smoke Exposure: No Advance Directives: No Advance Directives Information Provided: Yes service: No Current occupational status: disabled Gender identity: Female Cognitive needs: Yes (cane) Hearing needs: No Vision needs: No Physical Exam Vital Signs: Vital Signs: Last Vital Signs Temp 97.7 F 11/18/22 20:02 Pulse 77 11/18/22 20:02 Resp 16 11/18/22 20:02 BP 137/70 11/18/22 20:02 Pulse Ox 99 11/18/22 20:02 O2 Del Method 11/18/22 20:02 BMI result Body Mass Index 32.9 Appearance: Alert. Oriented X3. No acute distress anxious. Eyes: PERRLA, No Nystagmus ENT: Pharynx normal. Oral Mucosa moist Neck: Normal inspection. Neck supple. CVS: Normal heart rate and rhythm. Pulses normal. Respiratory: No respiratory distress. Equal air entry bilateral, no wheezing/rales/rhonchi Abdomen: Soft and nontender. Bowel sounds are present, no mass palpable, no CVA tenderness Skin: Skin warm and dry. Normal skin color. Normal skin turgor. Extremities: No lower extremity edema. No calf tenderness Neuro: Oriented X 3. No motor deficit. No sensory deficit.No cerebellar signs , cranial nerves II-XII intact Medications Administered Discontinued Medications Generic Name Dose Route Start Last Admin Trade Name Shaheenq PRN Reason Stop Dose Admin Charcoal 50 gm 11/18/22 18:47 11/18/22 19:09 Activated Charcoal 50 Gm/240 Ml Oral.Susp PO 11/18/22 18:48 50 gm ONCE ONE Administration Sodium Chloride 1,000 mls @ 999 mls/hr 11/18/22 18:50 11/18/22 19:10 Ns IV 11/18/22 19:50 999 mls/hr .Q1H1M ONE Administration Medical Decision Making Medical Decision Making [facility] Narrative: Patient with depression apparently took 10 tablets of Benadryl at around 16:00 during stay in the ER no signs of anticholinergic toxicity was seen, patient has no tachycardia. Patient took charcoal in the ER alert and awake Patient medically cleared for psych evaluation at 22:45 Lab Data [facility] Lab Attestation statement: I reviewed the patient's lab results. 11/18/22 18:57 11/18/22 18:57 Labs: Lab Results 11/18/22 11/18/22 11/18/22 Range/Units 18:57 18:57 18:57 WBC 5.0 (4.8-10.8) X10*3/uL RBC 4.49 (4.20-5.50) X10*6/uL Hgb 13.7 (12.0-16.0) g/dl Hct 41.6 (37.0-47.0) % MCV 92.7 (80.0-98.0) fL MCH 30.5 (27.0-33.0) pg MCHC 32.9 (31.0-35.0) g/dl RDW 11.9 (11.0-16.0) % Plt Count 254 (160-400) X10*3/uL MPV 8.4 L (9.4-12.3) fL Immature Gran % (Auto) 0.2 (0.0-0.4) % Neut % (Auto) 45.0 (45-73) % Lymph % (Auto) 42.2 H (20-40) % Lewis % (Auto) 7.2 (2-11) % Eos % (Auto) 4.2 H (0-4) % Baso % (Auto) 1.2 (0-2) % Lymph # (Auto) 2.1 (1.2-4.9) X10*3/uL Lewis # (Auto) 0.4 (0.1-1.2) X10*3/uL Eos # (Auto) 0.2 (0.0-0.4) X10*3/uL Baso # (Auto) 0.1 (0.0-0.2) X10*3/uL Abs Immat Gran (auto) 0.01 (0.00-0.03) X10*3/uL Absolute Neuts (auto) 2.3 (2.0-8.3) x10*3/uL Absolute Nucleated RBC 0.000 (0.0-0.012) X10*3/uL Nucleated RBC % (auto) 0.0 (0.0-0.2) /100WBC PT 11.0 (10.0-13.1) SEC INR 1.0 (0.9-1.1) Sodium 139 (135-145) mmol/L Potassium 4.3 (3.3-5.1) mmol/L Chloride 104 (96-108) mmol/L Carbon Dioxide 24 (22-29) mmol/L Anion Gap 15 (12-20) BUN 19 H (9-16) mg/dL Creatinine 0.97 (0.5-1.4) mg/dL Estim Creat Clear Calc 64.3 Estimated GFR 56 Random Glucose 109 (60-115) mg/dL Calcium 10.0 (8.4-10.2) mg/dL Magnesium 2.2 (1.6-2.6) mg/dL Total Bilirubin 0.5 (0.0-1.0) mg/dL AST 18 (5-31) U/L ALT 16 (0-31) U/L Alkaline Phosphatase 125 H (39-117) U/L Total Protein 7.2 (6.5-8.0) g/dL Albumin 4.3 (3.5-5.0) g/dL Urine Color Urine Appearance Urine pH (5.0-9.0) Ur Specific [place] (1.005-1.025) Urine Protein (Neg-Trace) mg/dL Urine Glucose (UA) (Negative) mg/dL Urine Ketones (Negative) mg/dL Urine Blood (Negative) Urine Nitrite (Negative) Ur Leukocyte Esterase (Negative) Urine RBC (0-2) /HPF Urine WBC (0-5) /HPF Ur Squamous Epith Cells (0-2) /HPF Urine Bacteria (None Seen) Hyaline Casts (0-2) /LPF Salicylates < 5.0 L (15-30) mg/dL Urine Opiates Screen (Not Detect) Urine Fentanyl Screen (Not Detect) Acetaminophen < 17 (<30) mcg/mL Ur Barbiturates Screen (Not Detect) Ur Phencyclidine Scrn (Not Detect) Ur Amphetamines Screen (Not Detect) U Benzodiazepines Scrn (Not Detect) Urine Cocaine Screen (Not Detect) U Marijuana (THC) Screen (Not Detect) Ethyl Alcohol < 10 mg/dL COVID-19 ([facility]) (Negative) COVID-19 Clin Com 11/18/22 11/18/22 11/18/22 Range/Units 18:57 21:37 21:37 WBC (4.8-10.8) X10*3/uL RBC (4.20-5.50) X10*6/uL Hgb (12.0-16.0) g/dl Hct (37.0-47.0) % MCV (80.0-98.0) fL MCH (27.0-33.0) pg MCHC (31.0-35.0) g/dl RDW (11.0-16.0) % Plt Count (160-400) X10*3/uL MPV (9.4-12.3) fL Immature Gran % (Auto) (0.0-0.4) % Neut % (Auto) (45-73) % Lymph % (Auto) (20-40) % Lewis % (Auto) (2-11) % Eos % (Auto) (0-4) % Baso % (Auto) (0-2) % Lymph # (Auto) (1.2-4.9) X10*3/uL Lewis # (Auto) (0.1-1.2) X10*3/uL Eos # (Auto) (0.0-0.4) X10*3/uL Baso # (Auto) (0.0-0.2) X10*3/uL Abs Immat Gran (auto) (0.00-0.03) X10*3/uL Absolute Neuts (auto) (2.0-8.3) x10*3/uL Absolute Nucleated RBC (0.0-0.012) X10*3/uL Nucleated RBC % (auto) (0.0-0.2) /100WBC PT (10.0-13.1) SEC INR (0.9-1.1) Sodium (135-145) mmol/L Potassium (3.3-5.1) mmol/L Chloride (96-108) mmol/L Carbon Dioxide (22-29) mmol/L Anion Gap (12-20) BUN (9-16) mg/dL Creatinine (0.5-1.4) mg/dL Estim Creat Clear Calc Estimated GFR Random Glucose (60-115) mg/dL Calcium (8.4-10.2) mg/dL Magnesium (1.6-2.6) mg/dL Total Bilirubin (0.0-1.0) mg/dL AST (5-31) U/L ALT (0-31) U/L Alkaline Phosphatase (39-117) U/L Total Protein (6.5-8.0) g/dL Albumin (3.5-5.0) g/dL Urine Color Yellow Urine Appearance Clear Urine pH 6.5 (5.0-9.0) Ur Specific [place] 1.010 (1.005-1.025) Urine Protein Negative (Neg-Trace) mg/dL Urine Glucose (UA) Negative (Negative) mg/dL Urine Ketones Negative (Negative) mg/dL Urine Blood Negative (Negative) Urine Nitrite Negative (Negative) Ur Leukocyte Esterase Trace H (Negative) Urine RBC 0-2 (0-2) /HPF Urine WBC 0-5 (0-5) /HPF Ur Squamous Epith Cells 0-2 (0-2) /HPF Urine Bacteria 4+ (None Seen) Hyaline Casts 0-2 (0-2) /LPF Salicylates (15-30) mg/dL Urine Opiates Screen Not Detected (Not Detect) Urine Fentanyl Screen Not Detected (Not Detect) Acetaminophen (<30) mcg/mL Ur Barbiturates Screen Not Detected (Not Detect) Ur Phencyclidine Scrn Not Detected (Not Detect) Ur Amphetamines Screen Not Detected (Not Detect) U Benzodiazepines Scrn Not Detected (Not Detect) Urine Cocaine Screen Not Detected (Not Detect) U Marijuana (THC) Screen Not Detected (Not Detect) Ethyl Alcohol mg/dL COVID-19 ([facility]) Negative (Negative) COVID-19 Clin Com See Note Independent Interpretation I performed an independent interpretation of an: EKG Interpretation: Normal sinus rhythm heart rate 83 beats per minute normal interval normal axis QTC 453 milliseconds no acute change impression normal EKG Discharge Plan Discharge Clinical Impression: Anticholinergic drug overdose, Depression with suicidal ideation Patient Disposition: Still a Patient Prescriptions: No Action fluocinolone 0.025 % cream 1 appl topical BID 10 Days Qty: 15 0RF (DME) cane Device See Rx Instructions .Route Qty: 1 0RF Rx Instructions: As directed miscellaneous medical supply Misc 1 ea miscellaneous .daily 99 Days Qty: 1 0RF miscellaneous medical supply Misc 1 ea miscellaneous DAILY 99 Days Qty: 1 0RF miscellaneous medical supply Misc 1 ea miscellaneous DAILY 99 Days Qty: 1 0RF (DME) walker Misc See Rx Instructions .Route Qty: 1 0RF Rx Instructions: As directed vitamin A and D Ointment 1 appl topical BEDTIME 30 Days Qty: 113 0RF clonazepam 1 mg tablet 1 mg PO BID PRN (Reason: anxiety) 30 Days Qty: 60 4RF gabapentin 300 mg capsule 300 mg PO TID 30 Days Qty: 90 1RF clobetasol 0.05 % ointment 1 appl topical DAILY Qty: 45 11RF diclofenac sodium 3 % gel 1 appl topical BID Qty: 100 1RF lidocaine [Lidoderm] 5 % adhesive patch,medicated 1 patch topical DAILY MDD remove after 12 hours PRN (Reason: pain) Qty: 30 0RF Rx Instructions: leave on most painful area for up to 12 hrs tramadol 50 mg tablet 50 mg PO Q6H PRN (Reason: pain) Qty: 20 0RF hydrocortisone 2.5 % ointment 1 appl topical QD-TID PRN (Reason: skin irritation) Qty: 454 0RF cyclobenzaprine 10 mg tablet 10 mg PO Q8H Qty: 14 0RF (DME) cane Device See Rx Instructions .Route Qty: 1 0RF Rx Instructions: As directed montelukast [Singulair] 10 mg tablet 10 mg PO DAILY 90 Days Qty: 90 1RF cholecalciferol (vitamin D3) 50 mcg (2,000 unit) capsule 50 mcg PO DAILY 90 Days Qty: 90 2RF tizanidine 2 mg tablet 2 mg PO BEDTIME PRN (Reason: muscle spasticity) Qty: 7 0RF oxycodone 10 mg tablet 10 mg PO Q8H PRN (Reason: pain) 5 Days Qty: 15 0RF diphenhydramine HCl [Benadryl Allergy] 25 mg tablet 25 mg PO TID 30 Days Qty: 90 1RF amoxicillin-pot clavulanate 875-125 mg tablet 1 tab PO Q12H Qty: 14 0RF acetaminophen [Tylenol Arthritis Pain] 650 mg tablet extended release 650 mg PO Q8H PRN (Reason: pain) Qty: 90 0RF dicyclomine 10 mg capsule 10 mg PO DAILY 30 Days Qty: 30 0RF sennosides [senna] 8.6 mg tablet 8.6 mg PO DAILY PRN (Reason: constipation) Qty: 30 0RF albuterol sulfate 90 mcg/actuation HFA aerosol inhaler 1 inh inhalation QID PRN (Reason: shortness of breath or wheezing) 30 Days Qty: 8.5 2RF pyridoxine (vitamin B6) 25 mg tablet 25 mg PO DAILY Qty: 30 0RF rosuvastatin 40 mg tablet 40 mg PO DAILY omeprazole 40 mg capsule,delayed release(DR/EC) 40 mg PO BID midodrine 2.5 mg tablet 2.5 mg PO TID topiramate 100 mg tablet 100 mg PO DAILY PRN citalopram [Celexa] 10 mg tablet 10 mg PO DAILY
[2022-11-18 19:02] LABS: MANUAL DIFF FLAG NO
[2022-11-18 19:05] LABS: Basophils Absolute Auto 0.1 X10*3/uL (0.0-0.2); Basophils Percent Auto 1.2 % (0-2); Eosinophils Absolute Auto 0.2 X10*3/uL (0.0-0.4); Eosinophils Percent Auto 4.2 % (0-4); Hematocrit 41.6 % (37.0-47.0); Hemoglobin 13.7 g/dl (12.0-16.0); Imm Gran Abs Auto 0.01 X10*3/uL (0.00-0.03); Imm Gran Pct Auto 0.2 % (0.0-0.4); Lymphocytes Absolute Auto 2.1 X10*3/uL (1.2-4.9); Lymphocytes Percent Auto 42.2 % (20-40); Mean Corpuscular HGB Conc 32.9 g/dl (31.0-35.0); Mean Corpuscular Hemoglobin 30.5 pg (27.0-33.0); Mean Corpuscular Volume 92.7 fL (80.0-98.0); Mean Platelet Volume 8.4 fL (9.4-12.3); Monocytes Absolute Auto 0.4 X10*3/uL (0.1-1.2); Monocytes Percent Auto 7.2 % (2-11); Neutrophils Absolute Auto 2.3 x10*3/uL (2.0-8.3); Platelet Count 254 X10*3/uL (160-400); Red Blood Count 4.49 X10*6/uL (4.20-5.50); Red Cell Distribution Width 11.9 % (11.0-16.0)
[2022-11-18] MEDS: Activated charcoaL 50 GM/240 ML ORAL.SUSP PO (19:09)
[2022-11-18] MEDS: 0.9 % Sodium Chloride 1,000 ML 999 ML IV (19:10)
[2022-11-18 19:18] VITALS: BP 134/64; PULSE 81; RESP 20; O2SAT 100
[2022-11-18 19:20] LABS: Acetaminophen LAB < 17 mcg/mL (<30); Alanine Aminotransferase 16 U/L (0-31); Albumin Level 4.3 g/dL (3.5-5.0); Alkaline Phosphatase 125 U/L (39-117); Anion Gap 15 (12-20); Aspartate Amino Transferase 18 U/L (5-31); Bilirubin Total 0.5 mg/dL (0.0-1.0); Blood Urea Nitrogen 19 mg/dL (9-16); Carbon Dioxide 24 mmol/L (22-29); Chloride 104 mmol/L (96-108); Creatinine Clr Calc Pharmacy 64.3; Estimated Glomerular Filt Rate 56; Ethanol < 10 mg/dL; Glucose Random 109 mg/dL (60-115); Potassium 4.3 mmol/L (3.3-5.1); Salicylate < 5.0 mg/dL (15-30); Sodium 139 mmol/L (135-145); Total Protein 7.2 g/dL (6.5-8.0)
--- NOTE | 2022-11-18 19:20 | PC.NURSE ---
administered IVF and activated charcoal to patient. Pt is alert, conscious with eyes open. Family member and siter at pt side. VSS. Will continue to monitor.
[2022-11-18 19:23] LABS: COVID-19 Test Negative (Negative); IDNOW Serial# 16C4AD1C
[2022-11-18 20:02] VITALS: BP 137/70; PULSE 77; RESP 16; TEMP 36.5; O2SAT 99
--- NOTE | 2022-11-18 20:21 | PC.NURSE ---
Called Poison control. Female on phone advises repeak EKG q 2 hours, check tylenol level, aspirin level, electrolytes, magnesium, phosphate, LFT's and provide supportive care.
--- NOTE | 2022-11-18 20:36 | PC.NURSE ---
Updated Dr. Mohamud president ergonomic consulting with poison control. Pt is PATTERSON but drowsy. [facility]
--- NOTE | 2022-11-18 20:51 | MHC.EDTECH ---
t/w attempted to obtain a urine sample using a bed donadl, pt unable to go. RN AWARE.
[2022-11-18 20:54] LABS: Magnesium 2.2 mg/dL (1.6-2.6)
--- NOTE | 2022-11-18 21:39 | MHC.EDTECH ---
t/w was able to assist pt to bed side commode with no issues, RN AWARE.
[2022-11-18 21:43] LABS: Appearance Urine Clear; Color Urine Yellow; Glucose Urine UA Negative (Negative); Leukocyte Esterase Urine Trace (Negative); Nitrite Urine Negative (Negative); PH 6.5 (5.0-9.0); UMIC TRIGGER UACC YES; Urine Blood Negative (Negative); Urine Ketones Negative (Negative); Urine Protein Negative (Neg-Trace)
[2022-11-18 21:46] LABS: Bacteria Urine 4+ (None Seen); Hyaline Casts Urine 0-2 /LPF (0-2); RBC Urine 0-2 /HPF (0-2); Squamous Epithelial Cell Urine 0-2 /HPF (0-2); WBC Urine 0-5 /HPF (0-5)
[2022-11-18 21:52] LABS: Amphetamine Screen Urine Not Detected (Not Detect); Barbiturates, Urine Not Detected (Not Detect); Benzodiazepines Screen Urine Not Detected (Not Detect); Cannabinoid Screen Urine Not Detected (Not Detect); Cocaine Screen Urine Not Detected (Not Detect); Fentanyl, urine Not Detected (Not Detect); Opiate Screen Urine Not Detected (Not Detect); Phencyclidine Screen Urine Not Detected (Not Detect)
[2022-11-19] VITALS (7 sets, daily range): BP systolic 104–128; BP diastolic 61–77; PULSE 68–81; RESP 12–18; TEMP 36.2–36.8; O2SAT 92–98; BMI 34.9
--- NOTE | 2022-11-19 01:46 | PC.NURSE ---
Spoke to Poison control updated per Dr.. Mohamud pt has been medically cleared no further orders needed. Poison control verbalizes understanding.
[2022-11-19] MEDS: Acetaminophen 325 MG TABLET 650 MG PO ×3 (04:25→23:35)
--- NOTE | 2022-11-19 04:27 | PC.NURSE ---
Pt medicated per MAR for complaints of 07/29 heacache. Pt YESENIA x4.
--- NOTE | 2022-11-19 08:43 | PC.NURSE ---
pt is a/o x 4 no sob/joão noted speaks in full sentences. lungs - cta. abd soft and non-tender. no edema noted. youngest daughter at bedside. pt/daughter aware of plan of care. 1:1 sitter at bedside.
--- NOTE | 2022-11-19 09:37 | PHA.MEDREC ---
Pharmacy Consult ? Medication Reconciliation Pharmacy has completed the medication reconciliation. Spoke to patient and her daughter at bedside. Confirmed with tammi claims to double check as they didn't seem to be the most confident.
--- NOTE | 2022-11-19 10:29 | PC.NURSE ---
Home meds ordered by ED Attending awaiting verification.
--- NOTE | 2022-11-19 11:22 | PC.NURSE ---
Home medications remain unverified by pharmacy. Not given.
[2022-11-19] MEDS: clonazePAM 1 MG TABLET PO ×2 (12:34→21:45)
--- NOTE | 2022-11-19 12:44 | PC.NURSE ---
Addendum entered by Priyanka Leon 11/19/22 12:56: Remains to be endorsing SI. Educated on status of S12, refusing education. Pt given PRN klonopin and tylenol. Medicated w/o issue. Encouraged to use walker outside of room. Careteam notified of potential flight risk. Upon inspecting S12 from yesterday, time was noticed to be missing. MD informed. New section written. Original Note: S12 updated by ED attending. Initial S12 done by Isabell VAZQUEZ upon arrival is missing time.
--- NOTE | 2022-11-19 14:21 | PC.NURSE ---
Pt refused to sign CV
--- NOTE | 2022-11-19 15:49 | PC.NURSE ---
Section 12B signed by provider and on chart at this time. Plan for pt to admit to [facility]-psych. Pt currently sitting with daughter, calm and coop.
[2022-11-19] MEDS: Topiramate 25 MG TABLET 50 MG PO (21:44)
[2022-11-19] MEDS: Gabapentin 300 MG CAPSULE PO (21:45)
[2022-11-19] MEDS: SUMAtriptan succinate 50 MG TABLET PO (21:58)
[2022-11-19] MEDS: Cyclobenzaprine HCl 10 MG TABLET PO ×2 (21:58→22:01)
--- NOTE | 2022-11-19 22:53 | PC.ADMIT ---
Pt is a 71 year old [place] and Latvian speaking female. She was brought into the ED after ingesting 10, 25mg Benadryl tablets in an attempt to end her life (per report). Upon arrival to unit she is accompanied by her dtg Martina. Pt is depressed and anxious, wanting to go home as soon as possible. She and dtg were cooperative with admission process, and dtg assisted in reviewing paperwork per pts request d/t language barrier. Pt is A&O x4, and reports lengthy history of depression, anxiety and difficulty sleeping. This is patients first inpatient psychiatric admission and all psychiatric medications pt has trialled have been prescribed by her PCP. Pt insight and judgment seem appear impaired. She currently denies taking Benadryl was an SI attempt, and reports d/t rastafari beliefs she would never attempt to end her life. She reports having an argument with her son the day of incident and is vague on why she took 10 Benadryl tabs, her and her son have since resolved conflict. She denies any SI/HI/AH/VH. She has involved children and signed DOYLE for all as they wish to be involved in her care. She was admitted to unit on a section 12 which was explained to her and her daughter. Pt appeared calmer and brighter after admission. She was oriented to room and unit and given her regular HS medications. Pt has PMH including migraines, diverticulitis, and IBS. Pt ambulates independently with steady gait and is independent with ADLs. Pt currently asleep in bed and Q15min safety checks initiated.
[2022-11-20 06:00] VITALS: BP 109/71; PULSE 79; TEMP 36.2; O2SAT 95
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
[2022-11-20 08:20] LABS: Estimated Average Glucose 117 mg/dL; Hemoglobin A1c % 5.7 %
[2022-11-20 08:49] LABS: Alanine Aminotransferase 21 U/L (0-31); Albumin Level 4.1 g/dL (3.5-5.0); Alkaline Phosphatase 128 U/L (39-117); Anion Gap 16 (12-20); Aspartate Amino Transferase 29 U/L (5-31); Blood Urea Nitrogen 21 mg/dL (9-16); Calcium 9.9 mg/dL (8.4-10.2); Carbon Dioxide 24 mmol/L (22-29); Chloride 105 mmol/L (96-108); Cholesterol 276 mg/dL; Estimated Glomerular Filt Rate 53; Glucose Fasting 119 mg/dL (60-99); HDL Cholesterol 49 mg/dL; LDL Cholesterol Calculated 187 mg/dl; Potassium 4.3 mmol/L (3.3-5.1); Sodium 141 mmol/L (135-145); Total Protein 7.1 g/dL (6.5-8.0); Triglycerides 200 mg/dL
[2022-11-20 09:19] LABS: Folate 10.4 ng/mL (> or = 4.0); Thyroid Stimulating Hormone 3.76 uIU/mL (0.32-4.0); Vitamin B12 246 pg/mL (200-900)
[2022-11-20] MEDS: Gabapentin 300 MG CAPSULE PO ×3 (09:36→20:17)
[2022-11-20] MEDS: Omeprazole 40 MG CAPSULE.DR PO ×2 (09:36→16:41)
[2022-11-20] MEDS: Dicyclomine HCl 10 MG CAPSULE PO (09:36)
[2022-11-20] MEDS: Pyridoxine HCl (Vitamin B6) 50 MG TABLET 25 MG PO (09:38)
[2022-11-20] MEDS: Cholecalciferol (Vitamin D3) 25 MCG TABLET 50 MCG PO (09:38)
[2022-11-20] MEDS: Escitalopram Oxalate 5 MG TABLET PO (14:50)
[2022-11-20] MEDS: Cyclobenzaprine HCl 10 MG TABLET PO (17:23)
[2022-11-20 18:00] VITALS: BP 119/58; PULSE 80; RESP 18; TEMP 36.3; O2SAT 98
[2022-11-20] MEDS: Topiramate 25 MG TABLET 50 MG PO (20:17)
[2022-11-21] MEDS: Cyclobenzaprine HCl 10 MG TABLET PO ×3 (02:15→18:42)
[2022-11-21] MEDS: Acetaminophen 325 MG TABLET 650 MG PO (02:17)
[2022-11-21] MEDS: Omeprazole 40 MG CAPSULE.DR PO ×2 (05:48→16:21)
[2022-11-21 07:00] VITALS: BMI 35.4
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
[2022-11-21 10:00] VITALS: BP 92/66; PULSE 82; RESP 16; TEMP 36; O2SAT 95
[2022-11-21] MEDS: Escitalopram Oxalate 10 MG TABLET PO (10:01)
[2022-11-21] MEDS: Pyridoxine HCl (Vitamin B6) 50 MG TABLET 25 MG PO (10:01)
[2022-11-21] MEDS: Gabapentin 300 MG CAPSULE PO ×3 (10:01→22:03)
[2022-11-21] MEDS: Cholecalciferol (Vitamin D3) 25 MCG TABLET 50 MCG PO (10:02)
[2022-11-21] MEDS: Dicyclomine HCl 10 MG CAPSULE PO (10:03)
[2022-11-21 18:00] VITALS: BP 140/63; PULSE 85; RESP 17; TEMP 36.2; O2SAT 96
[2022-11-21] MEDS: traZODone HCL 100 MG TABLET PO (22:03)
[2022-11-21] MEDS: clonazePAM 1 MG TABLET PO (22:03)
[2022-11-21] MEDS: Topiramate 25 MG TABLET 50 MG PO (22:03)
[2022-11-22] MEDS: Cyclobenzaprine HCl 10 MG TABLET PO ×2 (02:49→09:59)
[2022-11-22] MEDS: Omeprazole 40 MG CAPSULE.DR PO (05:54)
[2022-11-22] MEDS: Dicyclomine HCl 10 MG CAPSULE PO (09:57)
[2022-11-22] MEDS: Gabapentin 300 MG CAPSULE PO (09:57)
[2022-11-22] MEDS: Pyridoxine HCl (Vitamin B6) 50 MG TABLET 25 MG PO (09:57)
[2022-11-22] MEDS: Escitalopram Oxalate 10 MG TABLET PO (09:57)
[2022-11-22] MEDS: Cholecalciferol (Vitamin D3) 25 MCG TABLET 50 MCG PO (09:58)
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
--- NOTE | 2022-11-22 11:14 | PC.NURSE ---
Pt. Alert and oriented X 4. Expresses readiness for discharge. Denies anxiety or depression. No AH/VH. Discharge medications and instructions reviewed with pt. who verbalized understanding. Left unit at 1040 with daughter.
== END 2022-11-22 10:40 | disposition home or self-care (01) | DRG 885 ==
LOC: HO.ED 11-19 09:50 → HO.PGERI 11-19 18:51
PROVIDERS: Admitting Provider Social Worker; Emergency Provider Internal Medicine; Visit Provider Psychiatry & Neurology Psychiatry
DX: F33.9 Major depressive disorder, recurrent, unspecified (principal); F43.10 Post-traumatic stress disorder, unspecified; Z20.822 Contact with and (suspected) exposure to COVID-19; Z88.6 Allergy status to analgesic agent; Z88.8 Allergy status to other drugs, medicaments and biological substances; Z79.899 Other long term (current) drug therapy
CPT/HCPCS: 36415; 80053; 80061; 80143; 80179; 80307; 81001; 82077; 82607; 82746; 83036; 83735; 84443; 85025; 85610; 87635; 93005; 99285; S9485

== ENCOUNTER 2023-02-10 10:21 | Day surgery (SDC) | payer OTHER, SELFPAY ==
--- NOTE | 2023-02-10 11:18 | HO.ANESPROP2 ---
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 (Acute) IBS (irritable bowel syndrome) (Acute) Colon cancer screening (Acute) Breast cancer screening (Acute) Annual physical exam (Acute) Post herpetic neuralgia (Acute) Disseminated herpes zoster (Acute) Left shoulder pain (Acute) HLD (hyperlipidemia) (Acute) SOBOE (shortness of breath on exertion) (Acute) Atypical chest pain (Acute) Reactive airway disease (Acute) Sinusitis (Acute) Left foot pain (Acute) Impairment of balance (Acute) TIMA (generalized anxiety disorder) (Acute) Osteoarthritis of left knee (Acute) Dermatitis (Acute) Obesity (BMI 30-39.9) (Acute) GERD without esophagitis (Acute) Tendinopathy of right rotator cuff (Acute) Degenerative joint disease of right shoulder (Acute) Pure hypercholesterolemia (Acute) Lichen sclerosus (Acute) Vaginal pruritus (Acute) Right shoulder pain (Acute) Vitamin D deficiency (Acute) Therese's disease (Acute) Non-toxic multinodular goiter (Acute) Neuropathy (Acute) Past Medical History Medical History (Updated 12/24/22 @ 09:28 by Gio Meadows PA-C) Cough Degenerative joint disease of right shoulder Difficulty hearing GERD without esophagitis Therese's disease Lichen sclerosus Non-toxic multinodular goiter Obesity (BMI 30-39.9) Pure hypercholesterolemia Right shoulder pain Tendinopathy of right rotator cuff Vaginal pruritus Vitamin D deficiency Family History Family History Father No problems noted. Mother Diabetes Advanced cardiac disease Osteoporosis Chronic mental illness Brother Substance abuse Family/Other Chronic mental illness Family history of problems with anesthesia: No Surgical History Surgical History H/O right breast biopsy History of cholecystectomy History of excision of mass History of shoulder surgery History of surgery S/P fine needle aspiration History of Problems with Anesthesia: No Social History Social History Household Members: Family Household Members Other:: Dtg lives in same [facility] Housing: Assisted Living Facility Do you presently have visiting nurse or other home services: No Alcohol intake: never Patient Tobacco Use Status: Former Tobacco user Tobacco use type: Cigarette e-Cigarette/Vaping Use: Former Use Second Hand Smoke Exposure: No Advance Directives: No Advance Directives Information Provided: Yes service: No Current occupational status: disabled Gender identity: Female Cognitive needs: Yes (cane) Hearing needs: No Vision needs: No Meds Allergies Allergy/AdvReac Type Severity Reaction Status Date / Time banana [BANANA] Allergy Intermediate Itching Verified 12/24/22 09:11 naproxen [From NAPROSYN] Allergy Intermediate rash, GI Verified 12/24/22 09:11 upset prednisone Allergy Intermediate Itchy and Verified 12/24/22 09:11 redness warfarin [WARFARIN] Allergy Unknown Unknown Verified 12/24/22 09:11 ibuprofen [From MOTRIN] AdvReac Intermediate Gastrointestinal Verified 12/24/22 09:11 Upset pregabalin AdvReac Intermediate Diarrhea Verified 12/24/22 09:11 and blurry vision sun Allergy Unknown bumps on Uncoded 12/24/22 09:07 skin Active Medications: Current Medications Sodium Biphosphate/Sodium Phosphate (Sodium Phosphate,[place]-Dibasic 133 Ml Enema) 133 ml DE ONCE PRN PRN Reason: Poor Colonoscopy Prep Results Exam Exam Date and Time: February 10, 2023 [id number] Airway Mallampati Class: II TM Dist: >3cm Neck ROM: Full Heart: rrr Lungs: cta Assessment and Plan Assessment Anesthesia Assessment: Anesthesia Plan Discussed and Chart Reviewed Final Anesthetic Review Family History of Problems with Anesthesia: No History of Problems with Anesthesia: No NPO: Yes ASA Class: III Final Preanesthetic Review: No Changes in Pt Med Stat, Meds/Allgs Chart Reviewed, Consent Obtained/Reviewed and Anes Risks/Benef Reviewed Patient Risk: Intermediate Procedure Risk: Low Anesthetic Plan Anesthetic Plan: MAC: Disposition: Standard PACU
[2023-02-10 11:20] VITALS: BMI 33.4; BMI 33.5
[2023-02-10 11:23] VITALS: BP 128/75; PULSE 80; RESP 16; TEMP 36.2; O2SAT 98
[2023-02-10 12:53] VITALS: BP 115/68; PULSE 69; RESP 16; TEMP 36.4; O2SAT 97
--- NOTE | 2023-02-10 12:59 | P.BOP_ITS ---
Brief Operative Note Date of Service: 02/10/23 Pre-op diagnosis: Screening, diarrhea Post-op diagnosis: other (Colon polyp, R/O microscopic colitis) Procedure: Colonoscopy to the cecum with cold snare polypectomy and biopsies Surgeon: Presley Greenberg Anesthesia: MAC Was an Manager Community Relations used for this Procedure?: No Estimated blood loss (mL): 2.0 Pathology: other (A. Ascending colon B. Descending colon C. Transverse colon polyp) Condition: stable Disposition: PACU
[2023-02-10 13:11] VITALS: BP 129/75; PULSE 70; RESP 16; TEMP 36.4; O2SAT 98
--- NOTE | 2023-02-10 15:56 | OP_ITS ---
DATE OF SERVICE: 02/10/2023 SURGEON: Presley Greenberg MD INDICATIONS: The patient presents for evaluation of colorectal cancer screening and diarrhea. Full consent has been obtained from her for this, including risks of bleeding and perforation. PREOPERATIVE DIAGNOSIS: POSTOPERATIVE DIAGNOSIS: PROCEDURE PERFORMED: Colonoscopy to the cecum with cold snare polypectomy and biopsies. ESTIMATED BLOOD LOSS: COMPLICATIONS: ANESTHESIA: Monitored anesthesia care. ASSISTANTS: SPECIMENS: PREOPERATIVE DIAGNOSES: Colorectal cancer screening and diarrhea. POSTOPERATIVE DIAGNOSES: Colorectal cancer screening and diarrhea, colon polyp, rule out microscopic colitis, diverticulosis and internal hemorrhoids. DESCRIPTION OF PROCEDURE: The patient was placed in the left lateral decubitus position. The digital rectal exam revealed no abnormalities. The Olympus video pediatric colonoscope was entered into the rectum and advanced easily to the cecum. Once in the cecum, I did identify normal-appearing cecal pouch with appendiceal orifice and a normal-appearing ileocecal valve. The entire cecum and ileocecal valve appeared normal. The scope was then slowly withdrawn assessing all mucosal surface carefully. Preparation for the most part was excellent other than some small areas of residual liquid and/or stool in the left colon and sigmoid colon. I did not visualize any sign of colitis nor angiodysplasia. Random biopsies were obtained in the ascending and descending colon. In the transverse colon, there was an approximately 5 mm polyp which was removed by cold snare polypectomy and then recovered by suction. The polypectomy site appeared to be clean, without any sign of residual polyp nor significant bleeding. I did not visualize any other polyps. There was some mild amount of sigmoid diverticulosis. In the rectum, scope was retroflexed visualizing internal hemorrhoids, but no other pathology. The rectal mucosa appeared normal. The scope was straightened out and withdrawn from the patient. She tolerated the procedure well and was returned to the recovery area in stable condition. IMPRESSION: 1. Colon polyp. 2. Rule out microscopic colitis. 3. Diverticulosis. 4. Internal hemorrhoids. PLAN: The results of the pathology will be checked. Given her age and these minimal findings, I do not think she will need any further screening colonoscopies in the future. She will continue her regimen including dicyclomine for the irritable bowel syndrome. If the biopsies are otherwise nonrevealing, she will see me on a p.r.n. basis. She was advised not to use any aspirin or NSAIDs for one week. MD AC Escalante/JEFFERY / [id number] CHANDANA
== END 2023-02-10 14:06 | disposition home or self-care (01) ==
PROVIDERS: Visit Provider Internal Medicine
PROC: 0DJD8ZZ Inspection of Lower Intestinal Tract, Via Natural or Artificial Opening Endoscopic (ICD-10-PCS; CPT 45378; principal; 2023-02-10 11:40)
DX: Z12.11 Encounter for screening for malignant neoplasm of colon (principal); D12.3 Benign neoplasm of transverse colon; R19.7 Diarrhea, unspecified; K57.30 Diverticulosis of large intestine without perforation or abscess without bleeding; K64.8 Other hemorrhoids; K58.9 Irritable bowel syndrome, unspecified; Z87.19 Personal history of other diseases of the digestive system; K21.9 Gastro-esophageal reflux disease without esophagitis; F41.8 Other specified anxiety disorders; N28.9 Disorder of kidney and ureter, unspecified; Z79.899 Other long term (current) drug therapy; Z88.8 Allergy status to other drugs, medicaments and biological substances; Z90.49 Acquired absence of other specified parts of digestive tract
CPT/HCPCS: 45385; 45380; 88305

== ENCOUNTER 2023-02-19 09:20 | Outpatient (REF) | payer OTHER, SELFPAY | END 2023-02-19 09:21 | disposition home or self-care (01) | LOC: HO.SH 09:20 | PROVIDERS: Visit Provider Nurse Practitioner Family | DX: H90.3 Sensorineural hearing loss, bilateral (principal); H93.13 Tinnitus, bilateral | CPT/HCPCS: 92557; 92567 ==

== ENCOUNTER 2023-03-19 12:38 | Emergency (ER) | payer OTHER, SELFPAY ==
--- NOTE | ~2023-03-19 | XR_ITS ---
EXAMINATION: XR CHEST CLINICAL INFORMATION: Cough COMPARISON: 10/07/2022 TECHNIQUE: 2 views of the chest were obtained. FINDINGS: Heart and pulmonary vessels appear normal. Again noted are clips in the posterior mid left lung. No infiltrates, effusions or lung masses are seen. XR/XR chest 2V IMPRESSION: No acute intrathoracic disease.
[2023-03-19 12:54] VITALS: BP 121/96; PULSE 92; RESP 20; TEMP 36.8; O2SAT 97; BMI 32.6
--- NOTE | 2023-03-19 13:14 | ED_ITS ---
HPI - General Adult General Chief complaint: Upper Respiratory Symptoms Stated complaint: Cough,fever,chest pressure Time Seen by Provider: 03/19/23 16:05 History of Present Illness HPI narrative: patient complains of fever runny nose cough body aches for the past 3 days, she does get chest pain when she coughs takes a deep breath or moves certain ways, it is not related to exertion there is no shortness of breath no diaphoresis no vomiting no fainting no feeling faint, she denies any calf pain or swelling, there is no leg swelling No abdominal pain no nausea vomiting or diarrhea no dysuria Related Data Previous Rx's Medication Instructions Recorded cholecalciferol (vitamin D3) 50 50 mcg PO DAILY 90 days #90 caps 11/12/21 mcg (2,000 unit) capsule pyridoxine (vitamin B6) 25 mg 25 mg PO DAILY #30 tabs 01/08/22 tablet albuterol sulfate 90 mcg/actuation 1 inh inhalation QID PRN shortness 11/22/22 aerosol inhaler of breath or wheezing 30 days #8.5 grams clonazepam 1 mg tablet 1 mg PO BID PRN anxiety 30 days 11/22/22 #60 tabs cyclobenzaprine 10 mg tablet 10 mg PO Q8H 30 days #90 tabs 11/22/22 diclofenac sodium 3 % topical gel 1 appl topical BID 30 days #100 11/22/22 grams dicyclomine 10 mg capsule 10 mg PO DAILY 30 days #30 caps 11/22/22 omeprazole 40 mg capsule,delayed 40 mg PO BID 30 days #60 caps 11/22/22 release sennosides 8.6 mg tablet (senna) 8.6 mg PO DAILY PRN constipation 11/22/22 #30 tabs sumatriptan succinate 50 mg tablet 1 tab PO DAILY PRN Headache 30 11/22/22 days #2 tabs simvastatin 10 mg tablet 10 mg PO BEDTIME 30 days #30 tabs 12/24/22 benzonatate 100 mg capsule 100 mg PO TID PRN cough 7 days #21 02/18/23 caps clobetasol 0.05 % topical ointment 1 appl topical DAILY 30 days #45 02/18/23 grams escitalopram oxalate 20 mg tablet 20 mg PO DAILY 30 days #30 tabs 02/18/23 (Lexapro) nystatin 100,000 unit/gram topical 1 appl topical DAILY 15 days #60 02/18/23 powder grams trazodone 100 mg tablet 100 mg PO BEDTIME 90 days #90 tabs 02/18/23 acetaminophen 650 mg 650 mg PO Q8H PRN pain 30 days #90 03/06/23 tablet,extended release (Tylenol tabs Arthritis Pain) gabapentin 300 mg capsule 300 mg PO TID 30 days #90 caps 03/06/23 topiramate 100 mg tablet 50 mg PO BEDTIME 30 days #15 tabs 03/21/23 Allergies Allergy/AdvReac Type Severity Reaction Status Date / Time banana [BANANA] Allergy Intermediate Itching Verified 02/18/23 13:38 naproxen [From NAPROSYN] Allergy Intermediate rash, GI Verified 02/18/23 13:38 upset prednisone Allergy Intermediate Itchy and Verified 02/18/23 13:38 redness warfarin [WARFARIN] Allergy Unknown Unknown Verified 02/18/23 13:38 ibuprofen [From MOTRIN] AdvReac Intermediate Gastrointestinal Verified 02/18/23 13:38 Upset pregabalin AdvReac Intermediate Diarrhea Verified 02/18/23 13:38 and blurry vision sun Allergy Unknown bumps on Uncoded 02/18/23 13:21 skin PMFSH Past Medical History Source: nursing notes reviewed Medical History Cough Degenerative joint disease of right shoulder Difficulty hearing GERD without esophagitis Therese's disease Lichen sclerosus Non-toxic multinodular goiter Obesity (BMI 30-39.9) Pure hypercholesterolemia Right shoulder pain Tendinopathy of right rotator cuff Vaginal pruritus Vitamin D deficiency Surgical History H/O right breast biopsy History of cholecystectomy History of excision of mass History of shoulder surgery History of surgery S/P fine needle aspiration Family History Family History Father No problems noted. Mother Diabetes Advanced cardiac disease Osteoporosis Chronic mental illness Brother Substance abuse Family/Other Chronic mental illness Social History Social History Household Members: Family Household Members Other:: Dtg lives in same buliding Housing: Assisted Living Facility Do you presently have visiting nurse or other home services: No Alcohol intake: never Patient Tobacco Use Status: Former Tobacco user Tobacco use type: Cigarette e-Cigarette/Vaping Use: Former Use Second Hand Smoke Exposure: No service: No Current occupational status: disabled Gender identity: Female Cognitive needs: Yes (cane) Hearing needs: No Vision needs: No Physical Exam ED Vital Signs: Vital Signs - 24 hr 03/19/23 12:54 03/19/23 16:48 Temperature 98.3 F 99.0 F Pulse Rate 92 89 Respiratory Rate 20 18 Blood Pressure 121/96 H 124/55 L Pulse Oximetry 97 98 Oxygen Delivery Method Room Air Room Air BMI result Body Mass Index 32.6 General appearance no acute distress Eyes no redness or discharge The sinuses nontender The pharynx is clear without redness swelling or exudate voice normal uvula midline membranes moist Neck is supple Chest is clear to auscultation bilateral Heart no murmur Abdomen soft nontender Extremities full range of motion x4 without calf tenderness or swelling, no edema Skin no rash Neuro no focal motor sensory deficits Course Course Course Narrative: This is an RME: Additional HPI, ROS, PE not included below will be deferred to primary provider. This is a [id number]-female presenting to the ER for evaluation of cough, chills, chest pressure x 1 month. Reports she followed up with PCP who gave her a cough medication which she has taken without relief. VSS in triage. Pt stable to return to the until treatment room becomes available. Plan: Labs, Chest x-ray Patient complaining of cough body aches, reproducible chest pain worse with cough movement and deep breath, no shortness of breath tested positive for COVID No acute findings on chemistry or CBC Chest x-ray was negative no infiltrate no acute findings EKG was normal sinus rhythm rate of 91 MA and QRS were normal QT was normal, no acute ST changes Patient's chest pain is totally reproducible and continuous and not consistent with any acute cardiac episode or heart attack , comfortable and stable and was discharged Patient had medication conflicts so I could not prescribe Paxlovid now, and advised patient to call primary doctor to see if he could do medication adjustments to enable the patient to take COVID medication Medical Decision Making Lab Data [facility] Lab Attestation statement: I reviewed the patient's lab results. 03/19/23 13:23 03/19/23 13:22 Labs: Lab Results 03/19/23 03/19/23 03/19/23 Range/Units 13:22 13:22 13:23 WBC 4.6 L (4.8-10.8) X10*3/uL RBC 4.50 (4.20-5.50) X10*6/uL Hgb 13.5 (12.0-16.0) g/dl Hct 41.9 (37.0-47.0) % MCV 93.1 (80.0-98.0) fL MCH 30.0 (27.0-33.0) pg MCHC 32.2 (31.0-35.0) g/dl RDW 12.6 (11.0-16.0) % Plt Count 212 (160-400) X10*3/uL MPV 8.5 L (9.4-12.3) fL Immature Gran % (Auto) 0.2 (0.0-0.4) % Neut % (Auto) 77.0 H (45-73) % Lymph % (Auto) 14.3 L (20-40) % [place] % (Auto) 5.4 (2-11) % Eos % (Auto) 2.4 (0-4) % Baso % (Auto) 0.7 (0-2) % Lymph # (Auto) 0.7 L (1.2-4.9) X10*3/uL [place] # (Auto) 0.3 (0.1-1.2) X10*3/uL Eos # (Auto) 0.1 (0.0-0.4) X10*3/uL Baso # (Auto) 0.0 (0.0-0.2) X10*3/uL Abs Immat Gran (auto) 0.01 (0.00-0.03) X10*3/uL Absolute Neuts (auto) 3.5 (2.0-8.3) x10*3/uL Absolute Nucleated RBC 0.000 (0.0-0.012) X10*3/uL Nucleated RBC % (auto) 0.0 (0.0-0.2) /100WBC Sodium 141 (135-145) mmol/L Potassium 3.7 (3.3-5.1) mmol/L Chloride 110 H (96-108) mmol/L Carbon Dioxide 22 (22-29) mmol/L Anion Gap 13 (12-20) BUN 16 (9-16) mg/dL Creatinine 0.91 (0.5-1.4) mg/dL Estim Creat Clear Calc 62.7 Estimated GFR > 60 Random Glucose 149 H (60-115) mg/dL Calcium 9.7 (8.4-10.2) mg/dL Magnesium 2.0 (1.6-2.6) mg/dL Total Bilirubin 0.5 (0.0-1.0) mg/dL Direct Bilirubin 0.1 (0.0-0.5) mg/dL AST 20 (5-31) U/L ALT 15 (0-31) U/L Alkaline Phosphatase 100 (39-117) U/L Total Protein 7.4 (6.5-8.0) g/dL Albumin 4.4 (3.5-5.0) g/dL Lipase 8 (8-78) U/L Influenza Type A (PCR) NEGATIVE (Negative) Influenza Type B (PCR) NEGATIVE (Negative) RSV RNA Qual (PCR) NEGATIVE (Negative) SARS-CoV-2 RNA (RT-PCR) POSITIVE A (Negative) Discharge Plan Discharge Clinical Impression: COVID Patient Disposition: Home, Self-Care Additional Instructions: you tested positive for COVID which explains her cough and body aches and symptoms There is a pill for COVID but I could not prescribe it as it interacts with some of her medications Call your primary care doctor or prescriber to find out if they can make any changes so that you could take the medication for COVID, or your doctor may be able to refer you for other treatment Return any time for difficulty breathing any worse condition or any concerns Prescriptions: No Action acetaminophen [Tylenol Arthritis Pain] 650 mg tablet extended release 650 mg PO Q8H PRN (Reason: pain) 30 Days Qty: 90 2RF gabapentin 300 mg capsule 300 mg PO TID 30 Days Qty: 90 1RF topiramate 100 mg tablet 50 mg PO BEDTIME 30 Days Qty: 15 0RF cyclobenzaprine 10 mg tablet 10 mg PO Q8H 30 Days Qty: 90 0RF diclofenac sodium 3 % gel 1 appl topical BID 30 Days Qty: 100 1RF sennosides [senna] 8.6 mg tablet 8.6 mg PO DAILY PRN (Reason: constipation) Qty: 30 0RF clonazepam 1 mg tablet 1 mg PO BID PRN (Reason: anxiety) 30 Days Qty: 60 4RF sumatriptan succinate 50 mg tablet 1 tab PO DAILY PRN (Reason: Headache) 30 Days Qty: 2 0RF omeprazole 40 mg capsule,delayed release(DR/EC) 40 mg PO BID 30 Days Qty: 60 0RF albuterol sulfate 90 mcg/actuation HFA aerosol inhaler 1 inh inhalation QID PRN (Reason: shortness of breath or wheezing) 30 Days Qty: 8.5 2RF dicyclomine 10 mg capsule 10 mg PO DAILY 30 Days Qty: 30 0RF cholecalciferol (vitamin D3) 50 mcg (2,000 unit) capsule 50 mcg PO DAILY 90 Days Qty: 90 2RF pyridoxine (vitamin B6) 25 mg tablet 25 mg PO DAILY Qty: 30 0RF trazodone 100 mg tablet 100 mg PO BEDTIME 90 Days Qty: 90 1RF benzonatate 100 mg capsule 100 mg PO TID PRN (Reason: cough) 7 Days Qty: 21 1RF clobetasol 0.05 % ointment 1 appl topical DAILY 30 Days Qty: 45 1RF nystatin 100,000 unit/gram powder 1 appl topical DAILY 15 Days Qty: 60 0RF escitalopram oxalate [Lexapro] 20 mg tablet 20 mg PO DAILY 30 Days Qty: 30 3RF simvastatin 10 mg tablet 10 mg PO BEDTIME 30 Days Qty: 30 3RF Interventions: ED Discharge Assessment Last Done: 03/19/23 17:45 Discharge Date/Time: 03/19/23 20:51
[2023-03-19 13:26] LABS: MANUAL DIFF FLAG NO
[2023-03-19 13:35] LABS: Basophils Percent Auto 0.7 % (0-2); Eosinophils Absolute Auto 0.1 X10*3/uL (0.0-0.4); Eosinophils Percent Auto 2.4 % (0-4); Hematocrit 41.9 % (37.0-47.0); Hemoglobin 13.5 g/dl (12.0-16.0); Imm Gran Abs Auto 0.01 X10*3/uL (0.00-0.03); Imm Gran Pct Auto 0.2 % (0.0-0.4); Lymphocytes Absolute Auto 0.7 X10*3/uL (1.2-4.9); Lymphocytes Percent Auto 14.3 % (20-40); Mean Corpuscular HGB Conc 32.2 g/dl (31.0-35.0); Mean Corpuscular Volume 93.1 fL (80.0-98.0); Mean Platelet Volume 8.5 fL (9.4-12.3); Monocytes Absolute Auto 0.3 X10*3/uL (0.1-1.2); Monocytes Percent Auto 5.4 % (2-11); Neutrophils Absolute Auto 3.5 x10*3/uL (2.0-8.3); Platelet Count 212 X10*3/uL (160-400); Red Cell Distribution Width 12.6 % (11.0-16.0); White Blood Count 4.6 X10*3/uL (4.8-10.8)
[2023-03-19 13:47] LABS: Alanine Aminotransferase 15 U/L (0-31); Albumin Level 4.4 g/dL (3.5-5.0); Alkaline Phosphatase 100 U/L (39-117); Anion Gap 13 (12-20); Aspartate Amino Transferase 20 U/L (5-31); Bilirubin Direct 0.1 mg/dL (0.0-0.5); Bilirubin Total 0.5 mg/dL (0.0-1.0); Blood Urea Nitrogen 16 mg/dL (9-16); Calcium 9.7 mg/dL (8.4-10.2); Carbon Dioxide 22 mmol/L (22-29); Chloride 110 mmol/L (96-108); Creatinine Clr Calc Pharmacy 62.7; Estimated Glomerular Filt Rate > 60; Glucose Random 149 mg/dL (60-115); Lipase 8 U/L (8-78); Potassium 3.7 mmol/L (3.3-5.1); Sodium 141 mmol/L (135-145); Total Protein 7.4 g/dL (6.5-8.0)
[2023-03-19 14:06] LABS: Influenza A PCR NEGATIVE (Negative); Influenza B PCR NEGATIVE (Negative); Resp Syncy Virus RNA Qual PCR NEGATIVE (Negative); SARS COV2 PCR INHOUSE POSITIVE (Negative)
--- NOTE | 2023-03-19 16:33 | ECG_ITS ---
Test Reason : CHEST PAIN Blood Pressure : / mmHG Vent. Rate : 091 BPM Atrial Rate : 091 BPM P-R Int : 138 ms QRS Dur : 072 ms QT Int : 332 ms P-R-T Axes : 061 044 033 degrees QTc Int : 408 ms Normal sinus rhythm Nonspecific ST and T wave abnormality Abnormal ECG When compared with ECG of 18-NOV-2022 21:03, Nonspecific T wave abnormality now evident in Inferior leads Inverted T waves have replaced nonspecific T wave abnormality in Lateral leads Referred By: Walter Wiley Electronically Signed By:MYAH ARAYA MD
[2023-03-19 16:48] VITALS: BP 124/55; PULSE 89; RESP 18; TEMP 37.2; O2SAT 98
== END 2023-03-19 20:51 | disposition home or self-care (01) ==
PROVIDERS: Physician Assistant Medical; Emergency Provider Emergency Medicine; PCP Physician Assistant
DX: U07.1 COVID-19 (principal)
CPT/HCPCS: 0241U; 71046; 80048; 80076; 83690; 83735; 85025; 93005; 99283; 99284

== ENCOUNTER 2023-05-27 08:46 | Outpatient (AMB) | payer OTHER, SELFPAY ==
--- NOTE | 2023-05-27 09:01 | MHC.OFFWIV ---
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 Pt states that's when her migraines started and has now gotten worse. Pt states the right side back of her head always feels pressure. Pt states her head feels sensitive to touch. Patient Tobacco Use Status: Former Tobacco user Allergies banana [BANANA] Allergy (Intermediate, Verified 05/27/23 09:04) Itching naproxen [From NAPROSYN] Allergy (Intermediate, Verified 05/27/23 09:04) rash, GI upset prednisone Allergy (Intermediate, Verified 05/27/23 09:04) Itchy and redness warfarin [WARFARIN] Allergy (Unknown, Verified 05/27/23 09:04) Unknown ibuprofen [From MOTRIN] Adverse Reaction (Intermediate, Verified 05/27/23 09:04) Gastrointestinal Upset pregabalin Adverse Reaction (Intermediate, Verified 05/27/23 09:04) Diarrhea and blurry vision sun Allergy (Unknown, Uncoded 05/27/23 09:04) bumps on skin Do you need a note to return to daycare/school/sports/work: No HPI HPI Comments History of Present Illness Details 72-year-old female presents for evaluation for 2 months of a mouth forms scalp, an indentation on her head without trauma, and headache that has not been relieved. She does have chronic migraines, and does take Topamax and sumatriptan, however both medications have been ineffective over the past few days. She does not report trauma, fall, changes in vision, or loss of balance. [facility] Medical History Cough Degenerative joint disease of right shoulder Difficulty hearing GERD without esophagitis Therese's disease Lichen sclerosus Non-toxic multinodular goiter Obesity (BMI 30-39.9) Pure hypercholesterolemia Right shoulder pain Tendinopathy of right rotator cuff Vaginal pruritus Vitamin D deficiency Surgical History H/O right breast biopsy History of cholecystectomy History of excision of mass History of shoulder surgery History of surgery S/P fine needle aspiration Family History Father No problems noted. Mother Diabetes Advanced cardiac disease Osteoporosis Chronic mental illness Brother Substance abuse Family/Other Chronic mental illness Social History Household Members: Family Household Members Other:: Dtg lives in same [facility] Housing: Assisted Living Facility Do you presently have visiting nurse or other home services: No Alcohol intake: never Patient Tobacco Use Status: Former Tobacco user Tobacco use type: Cigarette e-Cigarette/Vaping Use: Former Use Second Hand Smoke Exposure: No service: No Current occupational status: disabled Gender identity: Female Cognitive needs: Yes (cane) Hearing needs: No Vision needs: No Review of Systems Const Details: Constitutional: No Fever, No Chills, positive indentation to the scalp on the right side Cardiovascular: No Chest Pain, No SOB Respiratory: No Cough, No Dyspnea Gastrointestinal: No Nausea, No Vomiting, No Diarrhea, No abdominal Pain Genitourinary: No Dysuria, No Hematuria Musculoskeletal: No joint pain, No Myalgias, No Joint Swelling Skin: No Skin lacerations, No rash Neuro: No Weakness, No Numbness, No Paresthesias, No Loss of Consciousness, No Dizziness, No Headache All systems reviewed & are unremarkable except as noted in HPI and below Physical Exam Vital Signs: Last Vital Signs Temp 96.5 F L 05/27/23 09:04 Pulse 66 05/27/23 09:04 BP 102/60 05/27/23 09:04 Pulse Ox 97 05/27/23 09:04 Oxygen Delivery Method Room Air 05/27/23 09:04 Appearance: Alert. Oriented X3. No acute distress. Multiple lumps to the right parietal, tender to touch Eyes: Pupils equal, round and reactive to light. ENT: Pharynx normal. Neck: Normal inspection. Neck supple. CVS: Normal heart rate and rhythm. Pulses normal. Respiratory: No respiratory distress. Breath sounds normal. Skin: Skin warm and dry. Normal skin color. Normal skin turgor. Extremities: No lower extremity edema. Gait balance and coordinated. Neuro: No motor deficit. No sensory deficit. Cranial nerves 2-12 intact. Assessment & Plan Assessment & Plan (1) Localized swelling, mass and lump, head: Code(s): R22.0 - Localized swelling, mass and lump, head Plan 72-year-old female presents with over 2 months of amount formed head on the right side, feels that there is an indentation on her scalp. She does not report any trauma, falls, or loss of consciousness. She said the site is really tender and is accompanied by a migraine headache that she has not had any relief from for over 2 months. She has been taking Topamax and sumatriptan as directed but they are ineffective. She feels that this pain radiates around the scalp and makes it very difficult for her to touch her head. She does not report any rashes or open wounds. She denies fevers, chills, chest pain pressure, palpitations, changes in vision, changes in hearing, loss of balance, or symptoms indicating cauda equina. Patient is alert oriented x4, answering questions politely and appropriately, [place] is her 1st language and she understands some [place]. Patient's daughter was utilized as a effervescent salts compounder. Per patient request. Multiple palpable lumps to the right parietal, there does seem to be an indentation but I am not sure if this is from the swelling of the scalp, I have low suspicion for skull fracture and trauma as there is no bruising and no reports of falls, or assault. There are no open lesions, low likelihood of zoster, low likelihood of trigeminal neuralgia as this is more on the scalp and does not involve the cheek or face. Will order CT scan of head as an outpatient. Patient does understand that she must follow-up with her primary care provider for these results. Patient and patient's daughter verbalized understanding of and agrees with plan of care verbalized understanding of signs symptoms indicating need for emergent intervention. Orders: Orders CT head/brain wo IV con Today R22.0 - Localized swelling, mass and lump, head Patient Instructions: You were evaluated for an indentation on her scalp on the right side and unrelieved headaches. We have ordered a CT scan of your head as an outpatient. Please follow-up with your primary care physician for CT scan results. Alternate Tylenol 650 mg every 6 hours for pain management. Tylenol is the same medication as acetaminophen. Thank you for choosing this urgent care for evaluation. Please follow-up with primary care physician as needed. Return to the emergency department for any new, concerning, or worsening symptoms. Coding Level of Care Code Est Pt Level 3 (33174) Diagnoses Localized swelling, mass and lump, head R22.0
[2023-05-27 09:04] VITALS: BP 102/60; PULSE 66; TEMP 35.8; O2SAT 97
== END 2023-05-27 10:36 | disposition home or self-care (01) ==
PROVIDERS: PCP Physician Assistant; Visit Provider Nurse Practitioner Family
DX: R22.0 Localized swelling, mass and lump, head (principal)
CPT/HCPCS: 99213

== ENCOUNTER 2023-05-27 13:17 | Outpatient (REF) | payer OTHER, SELFPAY ==
--- NOTE | ~2023-05-27 | CT_ITS ---
EXAMINATION: CT HEAD WITHOUT CONTRAST CLINICAL INFORMATION: Localized swelling, mass and lump in the head. COMPARISON: Head CT scan dated 08/06/2022. TECHNIQUE: Contiguous axial imaging was performed from the skull base to vertex without intravenous administration of contrast. Coronal and sagittal reformatted images were obtained. This CT examination was performed using dose optimization techniques as appropriate, variously including the following: *Automated exposure control *Adjustment of mA and/or kV according to patient size (this includes techniques or standardized protocols for targeted exams where dose is matched to indication/reason for exam; i.e. extremities or head) *Use of iterative reconstruction technique DLP: 753 mGy-cm FINDINGS: There is mild widening of the cortical sulci and associated ventriculomegaly. The lateral ventricles are symmetrical. The third and fourth ventricles are in their normal midline position. The basilar and prepontine cisterns are unremarkable. There is no acute intra or extracerebral abnormality. There is no mass effect or midline shift. Sections through the bony calvarium are unremarkable. The orbits are intact. The paranasal sinuses are clear. The mastoid air cells are clear. CT/CT head/brain wo IV con IMPRESSION: No acute intracranial pathology.
== END 2023-05-27 13:18 | disposition home or self-care (01) ==
LOC: HO.CT 13:17
PROVIDERS: Visit Provider Nurse Practitioner Family
DX: R22.0 Localized swelling, mass and lump, head (principal)
CPT/HCPCS: 70450

== ENCOUNTER 2023-06-26 08:25 | Outpatient (AMB) | payer OTHER, SELFPAY ==
--- NOTE | 2023-06-26 08:34 | A.OFFPC_ITS ---
Vital Signs 06/26/23 08:35 Height 5 ft 6 in Weight 191 lb BMI 30.8 BP 116/80 Blood Pressure Location Lt brachial Position Sitting Pulse 72 Pulse Source Pulse Oximeter Pulse Oximetry (%) 97 Oxygen Delivery Method Room Air Intake Visit Reasons: f/u HLD/ MDD Equipment Specialist Required: No Accompanied by: Self / Same As Patient Allergies banana [BANANA] Allergy (Intermediate, Verified 06/26/23 08:48) Itching naproxen [From NAPROSYN] Allergy (Intermediate, Verified 06/26/23 08:48) rash, GI upset prednisone Allergy (Intermediate, Verified 06/26/23 08:48) Itchy and redness warfarin [WARFARIN] Allergy (Unknown, Verified 06/26/23 08:48) Unknown ibuprofen [From MOTRIN] Adverse Reaction (Intermediate, Verified 06/26/23 08:48) Gastrointestinal Upset pregabalin Adverse Reaction (Intermediate, Verified 06/26/23 08:48) Diarrhea and blurry vision sun Allergy (Unknown, Uncoded 05/27/23 09:04) bumps on skin Medication List - Last Reconciled 06/26/23 by Goi Meadows PA-C acetaminophen ER (Tylenol Arthritis Pain) 650 mg PO Q8H PRN 30 days albuterol sulfate 90 mcg/actuation 1 inh inhalation QID PRN 30 days cholecalciferol (vitamin D3) 50 mcg PO DAILY 90 days clobetasol 0.05% 1 appl topical DAILY 30 days clonazepam 1 mg PO BID PRN 30 days cyclobenzaprine 10 mg PO Q8H 30 days diaper,brief,adult,disposable (Briefs, Adult-Extra Large) As directed diclofenac sodium 3% 1 appl topical BID 30 days dicyclomine 10 mg PO DAILY 30 days disposable gloves (Disposable Latex-Free Gloves) As directed escitalopram oxalate (Lexapro) 20 mg PO DAILY 30 days gabapentin 300 mg PO TID 30 days miscellaneous medical supply 1 ea miscellaneous DAILY 30 days nystatin 1 appl topical DAILY 15 days pyridoxine (vitamin B6) 25 mg PO DAILY sennosides (senna) 8.6 mg PO DAILY PRN simvastatin 10 mg PO BEDTIME 30 days sumatriptan succinate 1 tab PO DAILY PRN 30 days topiramate 50 mg (1/2 x 100 mg) PO BEDTIME 30 days trazodone 100 mg PO BEDTIME 90 days Tobacco use date assessed: 06/26/23 Fall risk assessment: 1 Fall in past year Last assessed Fall Risk: 06/26/23 Dental Screening Dental Screen Date: 06/26/23 Did you have a dental visit in the last 12 months?: No Did you have a dental problem in the last 6 months where you did not have access to dental care?: No Was dental information given to patient?: No HPI f/u HLD/ MDD HPI Details Patient is a 72-year-old female here today for follow-up visit.? Patient has a past medical history significant for major depressive disorder, hyperlipidemia, irritable bowel syndrome, generalized anxiety disorder, obesity, and hypothyroidism. .. Major depressive disorder:?Now seeing a mental health therapist from [facility] . She continues now on escitalopram, clonazepam and trazodone at night. Still having moderate to severe depression, lack of appetite in motivation. .. GERD: Reports having more GERD symptoms and some frequent diarrhea. Has been using omeprazole 40 mg b.i.d. though does not seem to be helping. Will transition to Pepcid to see if works better. Will consider GI evaluation if symptoms continue. .. Hyperlipidemia:? Patient's most recent fasting lipid showing very elevated total cholesterol and LDL- 187. We have started low-dose simvastatin though has not gotten repeat labs done. Advised to get fasting labs done before next appointment. 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 Mother Diabetes Advanced cardiac disease Osteoporosis Chronic mental illness Brother Substance abuse Family/Other Chronic mental illness Social History Household Members: Family Household Members Other[facility] Do you presently have visiting nurse or other home services: No Alcohol intake: never Patient Tobacco Use Status: Former Tobacco user Tobacco use type: Cigarette e-Cigarette/Vaping Use: Former Use Second Hand Smoke Exposure: No service: No Current occupational status: disabled Gender identity: Female Cognitive needs: Yes (cane) Hearing needs: No Vision needs: No Questionnaire Thrive Questionnaire Date Thrive assessed: 06/26/23 I am a: Patient What is your living situation today?: I have a steady place to live Within the past 12 months, did the food you bought not last and you didn't have the money to get more?: Never true Within the past 12 months, did you worry whether your food would run out before you got money to buy more?: Never true Do you have trouble paying for medicines?: No Do you have trouble getting transportation to medical appointments?: No Do you have trouble paying your heating and electricity bill?: No Do you have trouble taking care of your child, family member or friend?: No Do you have trouble with day-to-day activities such as bathing, preparing meals, shopping, managing finances, etc.?: No Are you currently unemployed and looking for a job?: No Are you interested in more education?: No Please select the resources that you would like help with: None Currently or been in a relationship where the following occur: no concerns reported AUDIT C Alcohol Use Questionnaire (AUDIT-C) 1. How often do you have a drink containing alcohol?: Never 3. How often do you have six or more drinks on one occasion?: Never Total Score: 0 Score Reviewed/Action Taken: No TIMA-7 AMB Questionnaire TIMA-7 Date TIMA - 7 assessed: 06/26/23 Feeling nervous, anxious, or on edge: 0 = Not at all Not being able to stop or control worryin = Not at all Worrying too much about different things: 0 = Not at all Trouble relaxin = Not at all Being so restless that it is hard to sit still: 0 = Not at all Becoming easily annoyed or irritable: 0 = Not at all Feeling afraid as if something awful might happen: 0 = Not at all Total TIMA-7 score (0-4 normal; 5-9 mild; 10-14 moderate; 15-21 severe): 0 Source: Developed by Drs. Presley Hou, nAgela Amador, Reilly Young and colleagues, with an educational adonis from [email or web address]. Review of Systems Const Denies headache(s) Eyes Denies loss of vision ENT Denies vertigo, Denies dizziness, Denies headache(s) and Denies sore throat Card Denies chest pain, Denies leg edema and Denies lightheadedness Resp Denies cough, Denies hemoptysis and Denies wheezing GI Denies abdominal pain, Denies melena, Denies constipation, Denies diarrhea and Denies vomiting Denies urinary frequency, Denies dysuria and Denies urinary urgency Musc Denies arthralgias, Denies joint swelling, Denies numbness and Denies tingling Neuro Denies Abnormal speech present, Denies behavioral changes, Denies vertigo, Denies dizziness, Denies headache(s), Denies loss of vision, Denies memory loss, Denies numbness and Denies tingling Psych Denies anxiety, Denies behavioral changes, Denies depression, Denies memory loss and Denies panic attacks Taj/Lymph Denies easy bleeding and Denies easy bruising Aller/Immun Denies wheezing Physical exam (Primary Care) Vital Signs: Last Vital Signs Pulse 72 06/26/23 08:35 BP 116/80 06/26/23 08:35 Pulse Ox 97 06/26/23 08:35 Oxygen Delivery Method Room Air 06/26/23 08:35 BMI result Body Mass Index 30.8 Tobacco/Smoking Status: Tobacco use Status Tobacco use date assessed 06/26/23 06/26/23 08:43 Patient Tobacco Use Status Former Tobacco user 06/26/23 08:43 Tobacco use type Cigarette 06/26/23 08:43 e-Cigarette/Vaping Use Former Use 06/26/23 08:43 Thrive Assessment: Date of Thrive Assessment Date Thrive assessed 06/26/23 06/26/23 08:43 Currently or been in a relationship where the following occur: no concerns reported Const General: healthy appearing, no acute distress, alert and awake Nutritional Appearance: well nourished Orientation/consciousness: oriented to person, oriented to place and oriented to time HENMT Ears: TM's normal bilaterally General nose exam: Normal nasal mucous membranes and turbinates present Eyes Conjunctivae: conjunctivae normal Sclerae: sclerae normal Pupils: Equal, round and reactive pupils present Neck Neck: Yes no lymphadenopathy and Yes no JVD Thyroid: Thyroid normal Carotids: no bruits Resp Effort & Inspection: normal respiratory effort and not tachypneic Auscultation: no crackles, no rales, no rhonchi and no wheezes Cardio Rate: regular rate Rhythm: regular rhythm Heart sounds: no murmurs and normal S1 and S2 GI Palpation (GI): Soft to palpation, nontender, no hepatomegaly and no splenomegaly Auscultation: normal bowel sounds Skin General skin exam: no rashes or lesions noted and dry skin Neuro General: oriented to person, oriented to place and oriented to time Cranial nerves: Yes Equal, round and reactive pupils present Speech: No Abnormal speech present Gait exam (Neuro): Normal gait present Motor exam (neuro): no tremor noted Extrem Right upper extremity: full ROM Left upper extremity: full ROM Right lower extremity: full ROM; no edema Left lower extremity: full ROM; no edema Psych Mental Status: mental status grossly normal Speech and movement: Normal speech and movement present Affect: normal affect Attitude: cooperative Thought process: Normal thought process present Assessment and Plan Assessment & Plan (1) Major depressive disorder, recurrent episode: Code(s): F33.9 - Major depressive disorder, recurrent, unspecified Qualifiers: Major depression episode severity: severe Psychotic features: without psychotic features Qualified Code(s): F33.2 - Major depressive disorder, recurrent severe without psychotic features Plan: Patient continues to suffer with major depressive disorder which has been existing condition for her. Now has a mental therapist and continues with daily use of Lexapro 20 mg and p.r.n. use of clonazepam (2) HLD (hyperlipidemia): Code(s): E78.5 - Hyperlipidemia, unspecified Qualifiers: Hyperlipidemia type: mixed hyperlipidemia Qualified Code(s): E78.2 - Mixed hyperlipidemia Plan: Patient's most recent lipid panel showing elevated total cholesterol and LDL. Has been started on low-dose statin therapy and though unfortunately has not gotten repeat labs done. Advised to get fasting repeat labs done to evaluate total cholesterol and LDL. (3) GERD without esophagitis: Code(s): K21.9 - Gastro-esophageal reflux disease without esophagitis Plan: As per HPI patient reports gastritis and GERD symptoms. Has been on omeprazole 40 mg b.i.d. though does not seem to be helping. She has noted some weight loss since last office visit.. Will transition her to Pepcid to see if has been the results. Will consider GI evaluation if symptoms continue. Orders: Orders Lipid Panel Today E78.00 - Pure hypercholesterolemia, unspecified Complete Blood Count no Diff Today E78.00 - Pure hypercholesterolemia, unspecified Comprehensive Young. Panel Fast Today E78.00 - Pure hypercholesterolemia, unspecified TSH reflex Free T4 Today E06.3 - Autoimmune thyroiditis Medications: New famotidine (Pepcid) 40 mg PO DAILY 30 days 30 tabs 3RF K21.9 - Gastro- esophageal reflux disease without esophagitis Refilled clonazepam 1 mg PO BID 30 days PRN 60 tabs 4RF anxiety F41.1 - Generalized anxi ety disorder nystatin 1 appl topical DAILY 15 days 60 grams 2RF B35.1 - Tinea unguium clobetasol 0.05% 1 appl topical DAILY 30 days 45 grams 3RF L90.0 - Lichen sclerosus et atrophicus Coding Level of Care Code Est Pt Level 4 (29133) Diagnoses Severe episode of recurrent major depressive disorder, without psychotic features F33.2 Major depression episode severity: severe Psychotic features: without psychotic features Mixed hyperlipidemia E78.2 Hyperlipidemia type: mixed hyperlipidemia GERD without esophagitis K21.9
[2023-06-26 08:35] VITALS: BP 116/80; PULSE 72; O2SAT 97; BMI 30.8
== END 2023-06-26 09:11 | disposition home or self-care (01) ==
PROVIDERS: PCP Physician Assistant; Visit Provider Physician Assistant
DX: F33.2 Major depressive disorder, recurrent severe without psychotic features (principal); E78.2 Mixed hyperlipidemia; K21.9 Gastro-esophageal reflux disease without esophagitis
CPT/HCPCS: 99214

== ENCOUNTER 2023-09-24 08:48 | Outpatient (REF) | payer OTHER, SELFPAY ==
[2023-09-24 09:54] LABS: Hemoglobin 12.8 g/dl (12.0-16.0); Mean Corpuscular HGB Conc 32.8 g/dl (31.0-35.0); Mean Corpuscular Hemoglobin 30.9 pg (27.0-33.0); Mean Corpuscular Volume 94.2 fL (80.0-98.0); Mean Platelet Volume 8.7 fL (9.4-12.3); Platelet Count 240 X10*3/uL (160-400); Red Blood Count 4.14 X10*6/uL (4.20-5.50); Red Cell Distribution Width 11.9 % (11.0-16.0); White Blood Count 4.6 X10*3/uL (4.8-10.8)
[2023-09-24 10:39] LABS: Alanine Aminotransferase 10 U/L (0-31); Albumin Level 3.8 g/dL (3.5-5.0); Alkaline Phosphatase 96 U/L (39-117); Anion Gap 12 (12-20); Aspartate Amino Transferase 18 U/L (5-31); Bilirubin Total 0.3 mg/dL (0.0-1.0); Blood Urea Nitrogen 15 mg/dL (9-16); Calcium 9.5 mg/dL (8.4-10.2); Carbon Dioxide 26 mmol/L (22-29); Chloride 106 mmol/L (96-108); Cholesterol 216 mg/dL (<200); Estimated Glomerular Filt Rate > 60; Glucose Fasting 91 mg/dL (60-99); HDL Cholesterol 45 mg/dL (>40); LDL Cholesterol Calculated 137 mg/dL (<100); Potassium 3.6 mmol/L (3.3-5.1); Sodium 140 mmol/L (135-145); Total Protein 6.7 g/dL (6.5-8.0); Triglycerides 172 mg/dL (<150)
[2023-09-24 10:57] LABS: TSH reflex Free T4 4.38 uIU/mL (0.32-4.0)
[2023-09-24 11:35] LABS: Free T4 (Free Thyroxine) 1.13 ng/dL (0.71-1.85)
== END 2023-09-24 08:49 | disposition home or self-care (01) ==
LOC: HO.LAB 08:48
PROVIDERS: PCP Physician Assistant; Visit Provider Physician Assistant
DX: E06.3 Autoimmune thyroiditis (principal); E78.2 Mixed hyperlipidemia; R50.9 Fever, unspecified
CPT/HCPCS: 36415; 80053; 80061; 84439; 84443; 85027

== ENCOUNTER 2023-09-25 13:25 | Outpatient (AMB) | payer OTHER, SELFPAY ==
[2023-09-25 13:27] VITALS: BP 116/70; PULSE 66; O2SAT 98; BMI 31.5
--- NOTE | 2023-09-25 13:27 | MHC.PC.OV ---
Vital Signs 09/25/23 13:27 Height 5 ft 6 in Weight 195 lb 6 oz BMI 31.5 BP 116/70 Blood Pressure Location Lt brachial Position Sitting Pulse 66 Pulse Source Pulse Oximeter Pulse Oximetry (%) 98 Oxygen Delivery Method Room Air Intake Visit Reasons: Right hip pain Intake Note: pt is here for ongoing right hip pain. she taking the tylenol 650mg and gabpentin 300mg and help with pain, pt states that the keeps returning back. 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 Machine Plug Shaper: Present Accompanied by: Daughter Allergies banana [BANANA] Allergy (Intermediate, Verified 09/25/23 13:28) Itching naproxen [From NAPROSYN] Allergy (Intermediate, Verified 09/25/23 13:28) rash, GI upset prednisone Allergy (Intermediate, Verified 09/25/23 13:28) Itchy and redness warfarin [WARFARIN] Allergy (Unknown, Verified 09/25/23 13:28) Unknown ibuprofen [From MOTRIN] Adverse Reaction (Intermediate, Verified 09/25/23 13:28) Gastrointestinal Upset pregabalin Adverse Reaction (Intermediate, Verified 09/25/23 13:28) Diarrhea and blurry vision sun Allergy (Unknown, Uncoded 05/27/23 09:04) bumps on skin Tobacco use date assessed: 06/26/23 Fall risk assessment: No Falls in past year Last assessed Fall Risk: 09/25/23 Dental Screening Dental Screen Date: 09/25/23 Did you have a dental visit in the last 12 months?: No Did you have a dental problem in the last 6 months where you did not have access to dental care?: No Was dental information given to patient?: Yes HPI HPI Comments History of Present Illness Details Patient is a 72-year-old female past medical history significant for major depressive disorder, hyperlipidemia, irritable bowel syndrome, generalized anxiety disorder, obesity, and hypothyroidism. Patient of Travon Meadows last seen in June presents today with her daughter who assists in interpretation for Right hip pain for a few month states over 1 week ago when she standing up she felt like her hip click. like it partially came of of place and went back in. Patient reports 8/10 intermittent aching pain that is worse at night. Took tylenol with some relief of the pain. Denies any recent trauma or fall. Patient reports pain runs down her leg. Patient also reports she has been experiencing urinary frequency, and only voiding small amounts when she has to go and then she will have some urinary incontinence. Previously reported to PCP urinalysis already ordered. Patient advised to get this completed. 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 Mother Diabetes Advanced cardiac disease Osteoporosis Chronic mental illness Brother Substance abuse Family/Other Chronic mental illness Social History Household Members: Family Household Members Other:: Dtg lives in [facility] Housing: Assisted Living Facility Do you presently have visiting nurse or other home services: No Alcohol intake: never Comment: LOW Patient Tobacco Use Status: Former Tobacco user Tobacco use type: Cigarette e-Cigarette/Vaping Use: Former Use Second Hand Smoke Exposure: No service: No Current occupational status: disabled Gender identity: Female Cognitive needs: Yes (cane) Hearing needs: No Vision needs: No Questionnaire Thrive Questionnaire Date Thrive assessed: 06/26/23 TIMA-7 AMB Questionnaire TIMA-7 Date TIMA - 7 assessed: 06/26/23 Source: Developed by Drs. Presley Hou, Angela Amador, Reilly Young and colleagues, with an educational adonis from [employer]. Review of Systems Const Denies chills, Denies fatigue, Denies fever(s) and Denies poor appetite Eyes Denies no additional complaints ENT Reports Normal hearing present Card Denies chest pain, Denies syncope, Denies rapid heart rate and Denies dyspnea Resp Denies cough and Denies dyspnea GI Denies change in stool character, Denies constipation, Denies diarrhea, Denies nausea and Denies vomiting Denies urinary frequency, Denies dysuria and Denies urinary urgency Musc Reports arthralgias (right hip pain ) Neuro Reports Normal hearing present, Denies confusion and Denies syncope Psych Denies confusion Endo Denies fatigue Physical exam (Primary Care) Vital Signs: Last Vital Signs Pulse 66 09/25/23 13:27 BP 116/70 09/25/23 13:27 Pulse Ox 98 09/25/23 13:27 Oxygen Delivery Method Room Air 09/25/23 13:27 BMI result Body Mass Index 31.5 Tobacco/Smoking Status: Tobacco use Status Tobacco use date assessed 06/26/23 09/25/23 13:33 Patient Tobacco Use Status Former Tobacco user 09/25/23 13:33 Tobacco use type Cigarette 09/25/23 13:33 e-Cigarette/Vaping Use Former Use 09/25/23 13:33 Thrive Assessment: Date of Thrive Assessment Date Thrive assessed 06/26/23 09/25/23 13:33 Const General: No confusion Orientation/consciousness: No confusion HENMT Head: Yes normocephalic and Yes atraumatic Eyes Conjunctivae: conjunctivae normal Chest Chest palpation & inspection: normal inspection of the chest Resp Effort & Inspection: normal respiratory effort Auscultation: clear to auscultation bilaterally, no crackles, no rhonchi and no wheezes Cardio Rate: regular rate Rhythm: regular rhythm Heart sounds: S1 normal heart sound present and S2 normal heart sound present GI Inspection: Yes normal to inspection Neuro General: No confusion Cranial nerves: Yes Normal hearing present Extrem General: No edema Right lower extremity: normal to inspection, normal capillary refill and hip/thigh Details: tenderness Location: of the hip and abnormal ROM Details: pain with active ROM during and pain with passive ROM during; no swelling and no ecchymosis Left lower extremity: normal to inspection and full ROM Assessment and Plan Assessment & Plan (1) Right hip pain: Code(s): M25.551 - Pain in right hip Plan: Right hip x-ray ordered to rule out acute injury. Previous x-ray has showed mild degenerative changes, pain likely related to arthritis. Patient advised to take Tylenol as needed for pain or use previously ordered Lidoderm patches. Offered referral to physical therapy, patient declined she states she does not like physical therapy. (2) Increased urinary frequency: Code(s): R35.0 - Frequency of micturition Plan: Urinalysis previously ordered by PCP patient advised to complete urine sample. Plan Keep scheduled follow-up with PCP or follow-up sooner if needed Orders: Orders XR hip RT min 2V Today M25.551 - Pain in right hip Medications: New melatonin 5 mg PO BEDTIME PRN 30 tabs 3RF sleep Coding Level of Care Code Est Pt Level 3 (98235) Diagnoses Right hip pain M25.551 Increased urinary frequency R35.0
== END 2023-09-25 13:55 | disposition home or self-care (01) ==
PROVIDERS: PCP Physician Assistant; Visit Provider Nurse Practitioner Family
DX: M25.551 Pain in right hip (principal); R35.0 Frequency of micturition
CPT/HCPCS: 99213

== ENCOUNTER 2023-09-30 14:31 | Outpatient (REF) | payer OTHER, SELFPAY ==
--- NOTE | ~2023-09-30 | XR_ITS ---
EXAMINATION: XR HIP, RIGHT CLINICAL INFORMATION: Pain in the right hip COMPARISON: X-rays of the pelvis and left hip May 2022 TECHNIQUE: Two views of the right hip. FINDINGS: No fracture. Alignment is anatomic. Hip joint space is maintained. Soft tissues are unremarkable. XR/XR hip RT min 2V IMPRESSION: Normal right hip.
--- NOTE | ~2023-09-30 | XR_ITS ---
EXAMINATION: XR CHEST CLINICAL INFORMATION: Chronic cough, right hip pain, shortness of breath. COMPARISON: 01/17/2023 TECHNIQUE: 2 views of the chest were obtained. FINDINGS: There is no gross pneumothorax. Heart size is normal. Postsurgical changes with surgical clips and left perihilar postsurgical changes. Surgical clips in the right upper quadrant of the abdomen. S-shaped thoracolumbar scoliosis with degenerative changes. No gross pleural effusion. No new focal consolidation to suggest pneumonia. XR/XR chest 2V IMPRESSION: Postsurgical changes. No evidence of pneumonia.
[2023-09-30 15:18] LABS: Appearance Urine Clear; Color Urine Yellow; Glucose Urine UA Negative (Negative); Leukocyte Esterase Urine Small (1+) (Negative); Nitrite Urine Negative (Negative); PH 5.5 (5.0-9.0); UMIC TRIGGER UACC YES; Urine Blood Negative (Negative); Urine Ketones Negative (Negative); Urine Protein Negative (Neg-Trace)
[2023-09-30 15:25] LABS: Bacteria Urine None Seen (None Seen); Hyaline Casts Urine 0-2 /LPF (0-2); RBC Urine 0-2 /HPF (0-2); UACC Culture Trigger YES; WBC Urine 0-5 /HPF (0-5)
== END 2023-09-30 14:32 | disposition home or self-care (01) ==
LOC: HO.XRAY 14:31
PROVIDERS: PCP Physician Assistant; Visit Provider Nurse Practitioner Family
DX: R05.3 Chronic cough (principal); M25.551 Pain in right hip; R30.0 Dysuria; R32 Unspecified urinary incontinence
CPT/HCPCS: 71046; 73502; 81001; 81003; 87086

== ENCOUNTER 2023-12-31 11:39 | Outpatient (AMB) | payer OTHER, SELFPAY ==
[2023-12-31 11:47] VITALS: BP 112/58; PULSE 67; RESP 16; O2SAT 98; BMI 32.0
--- NOTE | 2023-12-31 11:47 | A.OFFPC_ITS ---
Vital Signs 12/31/23 11:47 Height 5 ft 6 in Weight 198 lb 4 oz BMI 32.0 BP 112/58 L Blood Pressure Location Lt brachial Position Sitting Respiration 16 Pulse 67 Pulse Source Pulse Oximeter Pulse Oximetry (%) 98 Oxygen Delivery Method Room Air Intake Visit Reasons: f/u HLD/ MDD Area Mechanic Required: No Accompanied by: Daughter Allergies banana [BANANA] Allergy (Intermediate, Verified 12/31/23 12:06) Itching naproxen [From NAPROSYN] Allergy (Intermediate, Verified 12/31/23 12:06) rash, GI upset prednisone Allergy (Intermediate, Verified 12/31/23 12:06) Itchy and redness warfarin [WARFARIN] Allergy (Unknown, Verified 12/31/23 12:06) Unknown ibuprofen [From MOTRIN] Adverse Reaction (Intermediate, Verified 12/31/23 12:06) Gastrointestinal Upset pregabalin Adverse Reaction (Intermediate, Verified 12/31/23 12:06) Diarrhea and blurry vision sun Allergy (Unknown, Uncoded 12/31/23 12:01) bumps on skin Medication List - Last Reconciled 12/31/23 by Gio Meadows PA-C acetaminophen ER (Tylenol Arthritis Pain) 650 mg PO Q8H PRN 30 days albuterol sulfate 90 mcg/actuation 1 inh inhalation QID PRN 30 days cholecalciferol (vitamin D3) 50 mcg PO DAILY 90 days clobetasol 0.05% 1 appl topical DAILY 30 days clonazepam 1 mg PO BID PRN 30 days cyclobenzaprine 10 mg PO Q8H 30 days diaper,brief,adult,disposable (Briefs, Adult-Extra Large) As directed diclofenac sodium 3% 1 appl topical BID 30 days dicyclomine 10 mg PO DAILY 30 days disposable gloves (Disposable Latex-Free Gloves) As directed escitalopram oxalate (Lexapro) 20 mg PO DAILY 30 days famotidine (Pepcid) 40 mg PO DAILY 30 days gabapentin 300 mg PO TID 30 days melatonin 5 mg PO BEDTIME PRN miscellaneous medical supply 1 ea miscellaneous DAILY 30 days nystatin 1 appl topical DAILY 15 days pyridoxine (vitamin B6) 25 mg PO DAILY sennosides (senna) 8.6 mg PO DAILY PRN simvastatin 10 mg PO BEDTIME 30 days sumatriptan succinate 1 tab PO DAILY PRN 30 days topiramate 50 mg (1/2 x 100 mg) PO BEDTIME 30 days trazodone 100 mg PO BEDTIME 90 days Tobacco use date assessed: 12/31/23 Fall risk assessment: No Falls in past year Last assessed Fall Risk: 12/31/23 Dental Screening Dental Screen Date: 12/31/23 Did you have a dental visit in the last 12 months?: Yes Did you have a dental problem in the last 6 months where you did not have access to dental care?: No Was dental information given to patient?: Patient has dentist HPI f/u HLD/ MDD HPI Details Patient is a 73-year-old female here today for follow-up visit.? Presents today with her daughter. Patient has a past medical history significant for major depressive disorder, hyperlipidemia, irritable bowel syndrome, generalized anxiety disorder, obesity, and hypothyroidism. Concerns--> report having some dizziness when walking or going from sitting to standing. Her blood pressure is a bit low. She does report taking 2 mg of clonazepam at night. Dizziness likely related to blood pressure verses psychiatric medication. Advised to reduce to using only 1 mg of clonazepam at night. .. Major depressive disorder:?Now seeing a mental health therapist from [facility] . She continues now on escitalopram, clonazepam and trazodone at night. .. Hyperlipidemia:? Patient's most recent fasting lipid showing improved total cholesterol and LDL.. We have started low-dose simvastatin though has not gotten repeat labs done. Advised to get fasting labs done before next appointment. 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 Mother Diabetes Advanced cardiac disease Osteoporosis Chronic mental illness Brother Substance abuse Family/Other Chronic mental illness Social History Household Members: Family Household Members Other:: [facility] Do you presently have visiting nurse or other home services: No Alcohol intake: never Comment: LOW Patient Tobacco Use Status: Former Tobacco user Tobacco use type: Cigarette e-Cigarette/Vaping Use: Former Use Second Hand Smoke Exposure: No service: No Current occupational status: disabled Gender identity: Female Cognitive needs: Yes (cane) Hearing needs: No Vision needs: No Questionnaire PHQ-9 Over the last 2 weeks, how often have you been bothered by any of the following problems? 1. Little interest or pleasure in doing things: more than half the days 2. Feeling down, depressed, or hopeless: more than half the days 3. Trouble falling or staying asleep, or sleeping too much: more than half the days 4. Feeling tired or having little energy: nearly every day 5. Poor appetite or overeating: nearly every day 6. Feeling bad about yourself - or that you are a failure or have let yourself or your family down: several days 7. Trouble concentrating on things, such as reading the newspaper or watching television: nearly every day 8. Moving or speaking so slowly that other people could have noticed. Or the opposite - being so fidgety or restless that you have been moving around a lot more than usual: nearly every day 9. Thoughts that you would be better off or of hurting yourself in some way: several days Total score: 20 Depression Screening Interpretation: Positive Depression Screening Follow-up: Existing condition and In treatment Depression Screening Done: Yes 10611 - PHQ-9 Billing: Yes Source: Developed by Drs. Presley Hou, Angela Amador, Reilly Young and colleagues, with an educational adonis from [employer]. Thrive Questionnaire Date Thrive assessed: 12/31/23 I am a: Patient What is your living situation today?: I have a steady place to live Within the past 12 months, did the food you bought not last and you didn't have the money to get more?: Never true Within the past 12 months, did you worry whether your food would run out before you got money to buy more?: Never true Do you have trouble paying for medicines?: No Do you have trouble getting transportation to medical appointments?: No Do you have trouble paying your heating and electricity bill?: No Do you have trouble taking care of your child, family member or friend?: No Do you have trouble with day-to-day activities such as bathing, preparing meals, shopping, managing finances, etc.?: No Are you currently unemployed and looking for a job?: No Are you interested in more education?: No Please select the resources that you would like help with: None Currently or been in a relationship where the following occur: no concerns reported THRIVE Score: 0 AUDIT C Alcohol Use Questionnaire (AUDIT-C) 1. How often do you have a drink containing alcohol?: Never 3. How often do you have six or more drinks on one occasion?: Never Total Score: 0 TIMA-7 AMB Questionnaire TIMA-7 Date TIMA - 7 assessed: 06/26/23 Feeling nervous, anxious, or on edge: 1 = Several days Not being able to stop or control worryin = Several days Worrying too much about different things: 1 = Several days Trouble relaxin = Not at all Being so restless that it is hard to sit still: 0 = Not at all Becoming easily annoyed or irritable: 0 = Not at all Feeling afraid as if something awful might happen: 1 = Several days Total TIMA-7 score (0-4 normal; 5-9 mild; 10-14 moderate; 15-21 severe): 4 Source: Developed by Drs. Presley Hou, Angela Amador, Reilly Young and colleagues, with an educational adonis from [employer]. TIMA-7 Assessment Billing TIMA-7 Assessment Tool: TIMA-7 Assessment 83040 Review of Systems Const Denies headache(s) Eyes Denies loss of vision ENT Denies vertigo, Reports dizziness, Denies headache(s) and Denies sore throat Card Denies chest pain, Denies leg edema and Denies lightheadedness Resp Denies cough, Denies hemoptysis and Denies wheezing GI Denies abdominal pain, Denies melena, Denies constipation, Denies diarrhea and Denies vomiting Denies urinary frequency, Denies dysuria and Denies urinary urgency Musc Denies arthralgias, Denies joint swelling, Denies numbness and Denies tingling Neuro Denies Abnormal speech present, Denies behavioral changes, Denies vertigo, Reports dizziness, Denies headache(s), Denies loss of vision, Denies memory loss, Denies numbness and Denies tingling Psych Denies anxiety, Denies behavioral changes, Denies depression, Denies memory loss and Denies panic attacks Atj/Lymph Denies easy bleeding and Denies easy bruising Aller/Immun Denies wheezing Physical exam (Primary Care) Vital Signs: Last Vital Signs Pulse 67 12/31/23 11:47 Resp 16 12/31/23 11:47 BP 112/58 L 12/31/23 11:47 Pulse Ox 98 12/31/23 11:47 Oxygen Delivery Method Room Air 12/31/23 11:47 BMI result Body Mass Index 32.0 Tobacco/Smoking Status: Tobacco use Status Tobacco use date assessed 12/31/23 12/31/23 12:03 Patient Tobacco Use Status Former Tobacco user 12/31/23 11:47 Tobacco use type Cigarette 12/31/23 11:47 e-Cigarette/Vaping Use Former Use 12/31/23 11:47 PHQ-9: PHQ-9 Score PHQ-9: Total score 20 12/31/23 12:30 Depression Screening Interpretation: Positive Depression Screening Follow-up: Existing condition and In treatment Thrive Assessment: Date of Thrive Assessment Date Thrive assessed 12/31/23 12/31/23 11:59 Currently or been in a relationship where the following occur: no concerns reported Const General: healthy appearing, no acute distress, alert and awake Nutritional Appearance: well nourished Orientation/consciousness: oriented to person, oriented to place and oriented to time HENMT Ears: TM's normal bilaterally General nose exam: Normal nasal mucous membranes and turbinates present Eyes Conjunctivae: conjunctivae normal Sclerae: sclerae normal Pupils: Equal, round and reactive pupils present Neck Neck: Yes no lymphadenopathy and Yes no JVD Thyroid: Thyroid normal Carotids: no bruits Resp Effort & Inspection: normal respiratory effort and not tachypneic Auscultation: no crackles, no rales, no rhonchi and no wheezes Cardio Rate: regular rate Rhythm: regular rhythm Heart sounds: no murmurs and normal S1 and S2 GI Palpation (GI): Soft to palpation, nontender, no hepatomegaly and no splenomegaly Auscultation: normal bowel sounds Skin General skin exam: no rashes or lesions noted and dry skin Neuro General: oriented to person, oriented to place and oriented to time Cranial nerves: Yes Equal, round and reactive pupils present Speech: No Abnormal speech present Gait exam (Neuro): Normal gait present Motor exam (neuro): no tremor noted Extrem Right upper extremity: full ROM Left upper extremity: full ROM Right lower extremity: full ROM; no edema Left lower extremity: full ROM; no edema Psych Mental Status: mental status grossly normal Speech and movement: Normal speech and movement present Affect: normal affect Attitude: cooperative Thought process: Normal thought process present Immunizations pneumoc 20-gutierrez conj-dip cr(PF) 0.5 mL IM syringe Performing Provider: Gio Meadows PA-C Performing Location: [facility] Administered by: LILY Jiménez on 12/31/23 12:30 Dose Route Admin Location Dispensed Lot Number Expiration Date [employer] 0.5 mL IM Right Deltoid 0.5 mL [id number] 12/18/24 7337-1885-90 [employer] VIS Given Date VIS Provided VIS Publication Date 12/31/23 Single Vaccine 21 Eligibility Eligibility Date Funding Source Not [facility] Eligible 12/31/23 Private Assessment and Plan Assessment & Plan (1) Major depressive disorder, recurrent episode: Code(s): F33.9 - Major depressive disorder, recurrent, unspecified Qualifiers: Major depression episode severity: severe Psychotic features: without psychotic features Qualified Code(s): F33.2 - Major depressive disorder, recurrent severe without psychotic features Plan: Patient's PHQ-9 score positive for moderate to severe depression which has been existing condition for her. She does speak with a mental health therapist and has family support. She continues on SSRI therapy, trazodone and clonazepam. (2) Forgetfulness: Code(s): R68.89 - Other general symptoms and signs Plan: Family has noted patient to have more forgetfulness over the last few years. They have been more involved in patient's care. (3) HLD (hyperlipidemia): Code(s): E78.5 - Hyperlipidemia, unspecified Qualifiers: Hyperlipidemia type: mixed hyperlipidemia Qualified Code(s): E78.2 - Mixed hyperlipidemia Plan: Patient does have a history of high cholesterol. Has been started on low-dose statin therapy. Most recent total cholesterol borderline high and LDL has improved since starting statin therapy. Continue to follow fasting labs with goal LDL to remain below 160 (4) TIMA (generalized anxiety disorder): Code(s): F41.1 - Generalized anxiety disorder Plan: Patient's TIMA-7 score positive for mild anxiety which has been existing condition for her. Again does speak with a mental health therapist. (5) Therese's disease: Code(s): E06.3 - Autoimmune thyroiditis Plan: Has a history Therese's disease. Most recent TSH slightly elevated. Will continue to follow TSH to assure any need to start levothyroxine. (6) Dizziness: Code(s): R42 - Dizziness and giddiness Plan: Have noted dizziness upon walking and getting up from sitting or lying down position. Likely related to lower blood pressures. Advised to stay well hydrated. Again advised to reduce clonazepam dose to only 1 mg at night as she could be having side effects from being overmedicated with benzodiazepine. Orders: Orders XR DEXA axial skeleton Today Z78.0 - Asymptomatic menopausal state Pneumococcal 20 Immunization Today Z23 - Encounter for immunization Medications: Refilled melatonin 5 mg PO BEDTIME PRN 30 tabs 3RF sleep Coding Level of Care Code Est Pt Level 4 (89086) Diagnoses Severe episode of recurrent major depressive disorder, without psychotic features F33.2 Major depression episode severity: severe Psychotic features: without psychotic features Forgetfulness R68.89 Mixed hyperlipidemia E78.2 Hyperlipidemia type: mixed hyperlipidemia TIMA (generalized anxiety disorder) F41.1 Therese's disease E06.3 Dizziness R42 Additional Codes TIMA-7 Assessment Billing - TIMA-7 Assessment Tool: TIMA-7 Assessment 11773 ([id number])
== END 2023-12-31 12:32 | disposition home or self-care (01) ==
PROVIDERS: PCP Physician Assistant; Visit Provider Physician Assistant
DX: F33.2 Major depressive disorder, recurrent severe without psychotic features (principal); R68.89 Other general symptoms and signs; E78.2 Mixed hyperlipidemia; Z23 Encounter for immunization; F41.1 Generalized anxiety disorder; E06.3 Autoimmune thyroiditis; R42 Dizziness and giddiness
CPT/HCPCS: 90471; 90677; 99214

== ENCOUNTER 2024-01-06 08:12 | Outpatient (REF) | payer OTHER, SELFPAY ==
--- NOTE | ~2024-01-06 | MM_ITS ---
EXAMINATION: MM SCREENING DIGITAL BREAST TOMOSYNTHESIS, BILATERAL CLINICAL INFORMATION: Screening. Asymptomatic. COMPARISON: Mammography: This study is compared with prior exams dating back to 2018. TECHNIQUE: Digital breast tomosynthesis is performed in both the craniocaudal and mediolateral oblique views along with computer-aided detection (CAD). Synthesized 2D images are generated from the tomosynthesis. FINDINGS: The breasts are almost entirely fatty (ACR BI-RADS breast composition Category a). There are no significant masses, abnormal calcifications, or other abnormalities. There is a tissue marker in the superior aspect of the left breast from prior benign percutaneous biopsy. MM/MM tomosynthesis screening BI IMPRESSION: No mammographic evidence of malignancy. ASSESSMENT: BI-RADS BI-RADS 2 - Benign Findings RECOMMENDATION: Routine annual mammography screening. 1 year F/U This examination should not preclude the clinical evaluation of a suspicious palpable abnormality. This patient's information was entered into a reminder system with a target due date for their next mammogram.
== END 2024-01-06 08:13 | disposition home or self-care (01) ==
LOC: HO.MAMMO 08:12
PROVIDERS: PCP Physician Assistant; Visit Provider Physician Assistant
DX: Z12.31 Encounter for screening mammogram for malignant neoplasm of breast (principal)
CPT/HCPCS: 77063; 77067

== ENCOUNTER → 2024-01-06 08:15 | Outpatient (BNV) | payer OTHER, SELFPAY | PROVIDERS: PCP Physician Assistant; Visit Provider Radiology Diagnostic Radiology | DX: Z12.31 Encounter for screening mammogram for malignant neoplasm of breast (principal) | CPT/HCPCS: 77063; 77067 ==

== ENCOUNTER 2024-01-14 08:09 | Outpatient (REF) | payer OTHER, SELFPAY ==
--- NOTE | ~2024-01-14 | MM_ITS ---
EXAMINATION: BONE DENSITOMETRY CLINICAL INDICATION: Asymptomatic menopausal state. COMPARISON: Baseline BD dated 05/26/2019. TECHNIQUE: Using a [employer] DXA System (software version: 13.1) manufactured by [employer], dual-energy x-ray absorptiometry was performed of the lumbar spine and left hip. The images are of good technical quality. Summary results are attached. FINDINGS: LEFT FEMUR, NECK: Current: BMD 0.827 g/cm2, Z-score -0.2, T-score -1.5, osteopenia. Baseline: BMD 0.829 g/cm2. LEFT FEMUR, TOTAL: Current: BMD 0.968 g/cm2, Z-score 0.8, T-score -0.3, normal, 1.6% decrease from baseline (<5% change is not significant). Baseline: BMD 0.984 g/cm2. AP SPINE L1-L4: Current: BMD 1.013 g/cm2, Z-score -0.5, T-score -1.4, osteopenia, 1.1% decrease from baseline (<5% change is not significant). Baseline: BMD 1.024 g/cm2. IDENTIFIED RISK FACTORS: Menopause. HISTORY OF FRACTURE: None listed. MEDICATIONS: Vitamin D. MM/XR DEXA axial skeleton IMPRESSION: 1. DIAGNOSIS: Osteopenia based on the lowest T-score value of -1.5 in the femoral neck applying World Health Organization criteria. 2. 10-YEAR FRACTURE RISK PREDICTION, FRAX: Major osteoporotic fracture (clinical spine, forearm, hip or shoulder) 5.9%. Hip fracture 1.1%. 3. Treatment Recommendations: NOF guidelines recommend consideration for treatment in postmenopausal women and men age 50 and older presenting with the following: -A hip or vertebral (clinical or morphometric) fracture. -T-score less than or equal to -2.5 at the femoral neck or spine after appropriate evaluation to exclude secondary causes. -Low bone mass at the hip or spine and a 10-year fracture probability by FRAX of greater than or equal to 3% for hip fracture or greater than or equal to 20% for major osteoporotic fracture based on the [place] adapted WHO algorithm. 4. Other Recommendations: All treatment decisions require clinical judgment and consideration of individual patient factors, including patient preferences, comorbidities, previous drug use, risk factors not captured in the FRAX model (e.g. frailty, falls, vitamin D deficiency, increased bone turnover, interval significant decline in bone density) and possible under or overestimation of fracture risk by FRAX. Additional medical evaluation for secondary cause of low bone mineral density may be appropriate. FUTURE SCAN RECOMMENDATION: People with diagnosed cases of osteoporosis or at high risk for fracture should have regular bone mineral density tests. For patients eligible for Medicare, routine testing is allowed once every 2 years. The testing frequency can be increased to one year for patients who have rapidly progressing disease, those who are receiving or discontinuing medical therapy to restore bone mass, or have additional risk factors.
== END 2024-01-14 08:10 | disposition home or self-care (01) ==
LOC: HO.MAMMO 08:09
PROVIDERS: PCP Physician Assistant; Visit Provider Physician Assistant
DX: Z13.820 Encounter for screening for osteoporosis (principal); Z78.0 Asymptomatic menopausal state
CPT/HCPCS: 77080

== ENCOUNTER 2024-03-04 13:19 | Emergency (ER) | payer OTHER, SELFPAY ==
[2024-03-04 13:42] VITALS: BP 132/72; PULSE 78; RESP 16; TEMP 36.6; O2SAT 97; BMI 33.1
--- NOTE | 2024-03-04 13:42 | ED.GENADULT ---
HPI - General Adult General Chief complaint: Skin/Abscess/Foreign Body Stated complaint: Redness R side of face Time Seen by Provider: 03/04/24 14:36 Source: patient and family Mode of arrival: ambulatory Limitations: no limitations History of Present Illness HPI narrative: Patient is a 73-year-old female presenting to the emergency department with complaint of right-sided facial erythema, pain, pruritus and swelling for the past week. She states that she has not been outdoors. She denies any discharge or drainage from the rash. She states she had similar symptoms approximately 6 years ago. Denies pain with eye movement. Denies fevers. MD complaint: rash Onset (ago): week(s) Location: face Quality: burning Pain Consistency: constant Associated symptoms: denies other symptoms Treatments prior to arrival: none Related Data Previous Rx's ?Medication ?Instructions ?Recorded cholecalciferol (vitamin D3) 50 50 mcg PO DAILY 90 days #90 caps 11/12/21 mcg (2,000 unit) capsule pyridoxine (vitamin B6) 25 mg 25 mg PO DAILY #30 tabs 01/08/22 tablet albuterol sulfate 90 mcg/actuation 1 inh inhalation QID PRN shortness 11/22/22 aerosol inhaler of breath or wheezing 30 days #8.5 grams cyclobenzaprine 10 mg tablet 10 mg PO Q8H 30 days #90 tabs 11/22/22 diclofenac sodium 3 % topical gel 1 appl topical BID 30 days #100 11/22/22 grams dicyclomine 10 mg capsule 10 mg PO DAILY 30 days #30 caps 11/22/22 sennosides 8.6 mg tablet (senna) 8.6 mg PO DAILY PRN constipation 11/22/22 #30 tabs sumatriptan succinate 50 mg tablet 1 tab PO DAILY PRN Headache 30 11/22/22 days #2 tabs simvastatin 10 mg tablet 10 mg PO BEDTIME 30 days #30 tabs 12/24/22 escitalopram oxalate 20 mg tablet 20 mg PO DAILY 30 days #30 tabs 02/18/23 (Lexapro) topiramate 100 mg tablet 50 mg (1/2 x 100 mg) PO BEDTIME 30 03/21/23 days #15 tabs diaper,brief,adult,disposable #3 multiple units 06/09/23 (Briefs, Adult-Extra Large) disposable gloves (Disposable #1,000 ea 06/09/23 Latex-Free Gloves) miscellaneous medical supply 1 ea miscellaneous DAILY 30 days 06/09/23 #3 ea clobetasol 0.05 % topical ointment 1 appl topical DAILY 30 days #45 06/26/23 grams nystatin 100,000 unit/gram topical 1 appl topical DAILY 15 days #60 06/26/23 powder grams acetaminophen 650 mg 650 mg PO Q8H PRN pain 30 days #90 08/18/23 tablet,extended release (Tylenol tabs Arthritis Pain) trazodone 100 mg tablet 100 mg PO BEDTIME 90 days #90 tabs 08/18/23 famotidine 40 mg tablet (Pepcid) 40 mg PO DAILY 30 days #30 tabs 10/31/23 gabapentin 300 mg capsule 300 mg PO TID 30 days #90 caps 12/31/23 melatonin 5 mg tablet 5 mg PO BEDTIME PRN sleep #30 tabs 12/31/23 calcium carbonate (Oyster Shell 500 mg PO DAILY 30 days #30 tabs 01/15/24 Calcium) clonazepam 1 mg tablet 1 mg PO BID PRN anxiety 30 days 01/19/24 #60 tabs cephalexin 500 mg capsule 500 mg PO QID 7 days #28 caps 03/04/24 doxycycline hyclate 100 mg capsule 100 mg PO BID #14 caps 03/04/24 Allergies Allergy/AdvReac Type Severity Reaction Status Date / Time banana [BANANA] Allergy Intermediate Itching Verified 03/04/24 13:44 naproxen [From NAPROSYN] Allergy Intermediate rash, GI Verified 03/04/24 13:44 upset prednisone Allergy Intermediate Itchy and Verified 03/04/24 13:44 redness warfarin [WARFARIN] Allergy Unknown Unknown Verified 03/04/24 13:44 ibuprofen [From MOTRIN] AdvReac Intermediate Gastrointestinal Verified 03/04/24 13:44 Upset pregabalin AdvReac Intermediate Diarrhea Verified 03/04/24 13:44 and blurry vision sun Allergy Unknown bumps on Uncoded 12/31/23 12:01 skin Review of Systems Review of Systems: As per HPI. 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 Mother Diabetes Advanced cardiac disease Osteoporosis Chronic mental illness Brother Substance abuse Family/Other Chronic mental illness Social History Social History Household Members: Family Household Members Other:: Dtg lives in same [facility] Housing: Assisted Living Facility Do you presently have visiting nurse or other home services: No Alcohol intake: never Comment: LOW Patient Tobacco Use Status: Former Tobacco user Tobacco use type: Cigarette e-Cigarette/Vaping Use: Former Use Second Hand Smoke Exposure: No Advance Directives: No service: No Current occupational status: disabled Gender identity: Female Cognitive needs: Yes (cane) Hearing needs: No Vision needs: No Physical Exam ED Vital Signs: Vital Signs - 24 hr 03/04/24 13:42 Temperature 97.9 F Pulse Rate 78 Respiratory Rate 16 Blood Pressure 132/72 Pulse Oximetry 97 Oxygen Delivery Method Room Air BMI result Body Mass Index 33.1 Vital signs have been reviewed and appear to be correct. Blood pressure normal. Heart rate normal. Respiratory rate normal. Temperature normal. Oxygen saturation normal. Const General: cooperative, healthy appearing and no acute distress Orientation/consciousness: oriented to person, oriented to place, oriented to time and patient oriented x3 Limitations: no limitations HENMT Head: Yes normocephalic and Yes atraumatic Ears: external ears normal General nose exam: Normal external nose present Face and sinus: Yes face symmetric Mouth: oropharynx normal and moist mucous membranes Throat: Yes uvula midline Eyes Pupils: Equal, round and reactive pupils present Neck Neck: Yes normal visual inspection and Yes supple Resp Effort & Inspection: normal respiratory effort and able to speak in complete sentences Auscultation: clear to auscultation bilaterally Cardio Rate: regular rate Rhythm: regular rhythm Heart sounds: S1 normal heart sound present and S2 normal heart sound present Skin Other: General skin exam: elasticity normal and turgor normal Rashes: rashes noted (see photo ) right face surface blanching and warm and tender Neuro General: oriented to person, oriented to place, oriented to time, patient oriented x3, moves all extremities, no focal motor deficits and CN's II-XI intact bilaterally Cranial nerves: Yes Equal, round and reactive pupils present Cognition (Neuro): normal cognition Extrem General: Yes full ROM, Yes no pedal edema and Yes no calf tenderness Psych Mental Status: mental status grossly normal Affect: normal affect Thought process: Normal thought process present Course Course Course Narrative: RME performed by Chinyere Rivers PA-C. Patient is a 73 year old assigned female at presenting to the emergency department with right sided facial redness. Patient states every year she gets this burning sensation on the right side of her face and an itching sensation. Patient states that she does have a history of shingles but this feels different. Patient states that she has tried OTC benadryl but it has not gotten better. Patient states that she does not know what the allergen would be. Detailed physical exam and review of systems are deferred to the program clinician. Labs ordered. Patient placed back in the waiting room pending room availability and results. Medical Decision Making Medical Decision Making [facility] Narrative: Patient is a 73-year-old female presenting to the emergency department with complaint of right-sided facial erythema, pain, pruritus and swelling for the past week. On exam patient is awake, A+Ox3, VS WNL, afebrile, normal neurological exam without focal deficits, physical exam findings as above. Given reported symptoms and physical exam findings, initial differential includes erysipelas, cellulitis. Unlikely preseptal cellulitis, not consistent with zoster, do not suspect necrotizing fasciitis, TSS. Labs notable for no leukocytosis. Will treat patient with doxycycline and Keflex. Instructed patient to complete all antibiotics as prescribed and follow-up with primary care provider. Return precautions discussed with patient and family. Patient and family verbalized understanding of and agreement with plan. Differential Diagnosis Differential Diagnoses: The differential diagnosis associated with the presentation includes As per [facility]. Lab Data [facility] Lab Attestation statement: I reviewed the patient's lab results. As per MDM. 03/04/24 14:06 03/04/24 14:06 Labs: Lab Results 03/04/24 Range/Units 14:06 WBC 4.3 L (4.8-10.8) X10*3/uL RBC 4.70 (4.20-5.50) X10*6/uL Hgb 14.7 (12.0-16.0) g/dl Hct 43.6 (37.0-47.0) % MCV 92.8 (80.0-98.0) fL MCH 31.3 (27.0-33.0) pg MCHC 33.7 (31.0-35.0) g/dl RDW 12.2 (11.0-16.0) % Plt Count 267 (160-400) X10*3/uL MPV 8.4 L (9.4-12.3) fL Immature Gran % (Auto) 0.2 (0.0-0.4) % Neut % (Auto) 32.4 L (45-73) % Lymph % (Auto) 54.5 H (20-40) % [place] % (Auto) 8.2 (2-11) % Eos % (Auto) 3.3 (0-4) % Baso % (Auto) 1.4 (0-2) % Lymph # (Auto) 2.3 (1.2-4.9) X10*3/uL [place] # (Auto) 0.4 (0.1-1.2) X10*3/uL Eos # (Auto) 0.1 (0.0-0.4) X10*3/uL Baso # (Auto) 0.1 (0.0-0.2) X10*3/uL Abs Immat Gran (auto) 0.01 (0.00-0.03) X10*3/uL Absolute Neuts (auto) 1.4 L (2.0-8.3) x10*3/uL Absolute Nucleated RBC 0.000 (0.0-0.012) X10*3/uL Nucleated RBC % (auto) 0.0 (0.0-0.2) /100WBC ESR 15 (0-20) MM/HR Hold Purple Top SEE NOTE Sodium 139 (135-145) mmol/L Potassium 4.1 (3.3-5.1) mmol/L Chloride 103 (96-108) mmol/L Carbon Dioxide 27 (22-29) mmol/L Anion Gap 13 (12-20) BUN 16 (9-16) mg/dL Creatinine 0.92 (0.5-1.4) mg/dL Estim Creat Clear Calc 59.5 Estimated GFR 60 Random Glucose 98 (60-115) mg/dL Calcium 10.0 (8.4-10.2) mg/dL Magnesium 2.1 (1.6-2.6) mg/dL Total Bilirubin 0.5 (0.0-1.0) mg/dL AST 19 (5-31) U/L ALT 13 (0-31) U/L Alkaline Phosphatase 97 (39-117) U/L C-Reactive Protein 2.04 H (< or = 0.50) mg/dL Total Protein 8.0 (6.5-8.0) g/dL Albumin 4.5 (3.5-5.0) g/dL Independent Historian Clinical information obtained from an independent historian. History obtained from or confirmed by: Other (children) External Record Review External record reviewed: Inpatient record, Office record and Outpatient record Prescription Management I considered prescription management with: Antibiotic Discharge Plan Discharge Clinical Impression: Erysipelas Patient Disposition: Home, Self-Care Instructions: Cellulitis (DC) Additional Instructions: You are being treated for a skin infection called erysipelas with antibiotics. Please complete the full course of both antibiotics as prescribed. We recommend that you take these medications with food. Doxycycline can make your skin more sensitive to the sun so you should wear sunblock and avoid going outdoors while on this medication. You should follow-up with your primary care provider this week. Return to the emergency department if you develop increased swelling, fever, thick yellow drainage, pain with eye movements or any other concerning symptoms. Prescriptions: New doxycycline hyclate 100 mg capsule 100 mg PO BID Qty: 14 0RF cephalexin 500 mg capsule 500 mg PO QID 7 Days Qty: 28 0RF No Action topiramate 100 mg tablet 50 mg PO BEDTIME 30 Days Qty: 15 0RF (DME) Briefs, Adult-Extra Large Misc See Rx Instructions .Route Qty: 3 11RF Rx Instructions: As directed miscellaneous medical supply Misc 1 ea miscellaneous DAILY 30 Days Qty: 3 11RF (DME) disposable gloves [Disposable Latex-Free Gloves] Misc See Rx Instructions .Route Qty: 1000 6RF Rx Instructions: As directed acetaminophen [Tylenol Arthritis Pain] 650 mg tablet extended release 650 mg PO Q8H PRN (Reason: pain) 30 Days Qty: 90 3RF trazodone 100 mg tablet 100 mg PO BEDTIME 90 Days Qty: 90 2RF famotidine [Pepcid] 40 mg tablet 40 mg PO DAILY 30 Days Qty: 30 3RF gabapentin 300 mg capsule 300 mg PO TID 30 Days Qty: 90 2RF calcium carbonate [Oyster Shell Calcium] 500 mg calcium (1,250 mg) tablet 500 mg PO DAILY 30 Days Qty: 30 3RF clonazepam 1 mg tablet 1 mg PO BID PRN (Reason: anxiety) 30 Days Qty: 60 4RF cyclobenzaprine 10 mg tablet 10 mg PO Q8H 30 Days Qty: 90 0RF diclofenac sodium 3 % gel 1 appl topical BID 30 Days Qty: 100 1RF sennosides [senna] 8.6 mg tablet 8.6 mg PO DAILY PRN (Reason: constipation) Qty: 30 0RF sumatriptan succinate 50 mg tablet 1 tab PO DAILY PRN (Reason: Headache) 30 Days Qty: 2 0RF albuterol sulfate 90 mcg/actuation HFA aerosol inhaler 1 inh inhalation QID PRN (Reason: shortness of breath or wheezing) 30 Days Qty: 8.5 2RF dicyclomine 10 mg capsule 10 mg PO DAILY 30 Days Qty: 30 0RF cholecalciferol (vitamin D3) 50 mcg (2,000 unit) capsule 50 mcg PO DAILY 90 Days Qty: 90 2RF pyridoxine (vitamin B6) 25 mg tablet 25 mg PO DAILY Qty: 30 0RF escitalopram oxalate [Lexapro] 20 mg tablet 20 mg PO DAILY 30 Days Qty: 30 3RF simvastatin 10 mg tablet 10 mg PO BEDTIME 30 Days Qty: 30 3RF nystatin 100,000 unit/gram powder 1 appl topical DAILY 15 Days Qty: 60 2RF clobetasol 0.05 % ointment 1 appl topical DAILY 30 Days Qty: 45 3RF melatonin 5 mg tablet 5 mg PO BEDTIME PRN (Reason: sleep) Qty: 30 3RF Print Language: Estonian
[2024-03-04 14:11] LABS: MANUAL DIFF FLAG NO
[2024-03-04 14:20] LABS: Basophils Absolute Auto 0.1 X10*3/uL (0.0-0.2); Basophils Percent Auto 1.4 % (0-2); Eosinophils Absolute Auto 0.1 X10*3/uL (0.0-0.4); Eosinophils Percent Auto 3.3 % (0-4); Hematocrit 43.6 % (37.0-47.0); Hemoglobin 14.7 g/dl (12.0-16.0); Imm Gran Abs Auto 0.01 X10*3/uL (0.00-0.03); Imm Gran Pct Auto 0.2 % (0.0-0.4); Lymphocytes Absolute Auto 2.3 X10*3/uL (1.2-4.9); Lymphocytes Percent Auto 54.5 % (20-40); Mean Corpuscular HGB Conc 33.7 g/dl (31.0-35.0); Mean Corpuscular Hemoglobin 31.3 pg (27.0-33.0); Mean Corpuscular Volume 92.8 fL (80.0-98.0); Mean Platelet Volume 8.4 fL (9.4-12.3); Monocytes Absolute Auto 0.4 X10*3/uL (0.1-1.2); Monocytes Percent Auto 8.2 % (2-11); Neutrophils Absolute Auto 1.4 x10*3/uL (2.0-8.3); Neutrophils Percent Auto 32.4 % (45-73); Platelet Count 267 X10*3/uL (160-400); Red Cell Distribution Width 12.2 % (11.0-16.0); White Blood Count 4.3 X10*3/uL (4.8-10.8)
[2024-03-04 14:28] LABS: Alanine Aminotransferase 13 U/L (0-31); Albumin Level 4.5 g/dL (3.5-5.0); Alkaline Phosphatase 97 U/L (39-117); Anion Gap 13 (12-20); Aspartate Amino Transferase 19 U/L (5-31); Bilirubin Total 0.5 mg/dL (0.0-1.0); Blood Urea Nitrogen 16 mg/dL (9-16); C Reactive Protein 2.04 mg/dL (< or = 0.50); Carbon Dioxide 27 mmol/L (22-29); Chloride 103 mmol/L (96-108); Creatinine Clr Calc Pharmacy 59.5; Estimated Glomerular Filt Rate 60; Glucose Random 98 mg/dL (60-115); Magnesium 2.1 mg/dL (1.6-2.6); Potassium 4.1 mmol/L (3.3-5.1); Sodium 139 mmol/L (135-145)
[2024-03-04 15:12] LABS: Erythrocyte Sedimentation Rate 15 MM/HR (0-20)
[2024-03-04 16:22] VITALS: BP 110/68; PULSE 69; RESP 18; TEMP 36.6; O2SAT 93
== END 2024-03-04 16:23 | disposition home or self-care (01) ==
PROVIDERS: Physician Assistant Medical; Emergency Provider Emergency Medicine; PCP Physician Assistant
DX: A46 Erysipelas (principal)
CPT/HCPCS: 36415; 80053; 83735; 85025; 85652; 86140; 99282; 99283

== ENCOUNTER 2024-03-22 11:13 | Outpatient (AMB) | payer OTHER, SELFPAY ==
[2024-03-22 11:28] VITALS: BP 108/78; PULSE 65; O2SAT 95; BMI 33.0
--- NOTE | 2024-03-22 11:28 | MHC.PC.OV ---
Vital Signs 03/22/24 11:28 Height 5 ft 5 in Weight 198 lb 4 oz BMI 33.0 BP 108/78 Blood Pressure Location Lt brachial Position Sitting Pulse 65 Pulse Source Pulse Oximeter Pulse Oximetry (%) 95 Oxygen Delivery Method Room Air Intake Visit Reasons: Swollen knees Pediatric Speech Language Pathologist Required: No Accompanied by: Daughter Allergies banana [BANANA] Allergy (Intermediate, Verified 03/22/24 15:00) Itching naproxen [From NAPROSYN] Allergy (Intermediate, Verified 03/22/24 15:00) rash, GI upset prednisone Allergy (Intermediate, Verified 03/22/24 15:00) Itchy and redness warfarin [WARFARIN] Allergy (Unknown, Verified 03/22/24 15:00) Unknown ibuprofen [From MOTRIN] Adverse Reaction (Intermediate, Verified 03/22/24 15:00) Gastrointestinal Upset pregabalin Adverse Reaction (Intermediate, Verified 03/22/24 15:00) Diarrhea and blurry vision sun Allergy (Unknown, Uncoded 03/22/24 15:00) bumps on skin Tobacco use date assessed: 12/31/23 Dental Screening Dental Screen Date: 12/31/23 HPI Swollen knees HPI Details Patient is a 73-year-old female here today for problem visit. Patient presents with her daughter. Recently seen at the ER for acute rash over her forehead and right side of face. She has had this several using a row during the spring and summer months. Was diagnosed as area syphilis and was given multiple antibiotics and prednisone. Rash has gotten better though still has some burning sensation in her skin. She has seen a crime scene evidence technician for this in the past and was given a cream. Unclear etiology to this time though due to his cyclic nature seems to be an allergy. PLAN: Will refer to Allergy immunology for evaluation. Also had developed mouth and throat irritation and a change in her taste. Seems to have developed thrush and will supply patient with nystatin solution. 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 Mother Diabetes Advanced cardiac disease Osteoporosis Chronic mental illness Brother Substance abuse Family/Other Chronic mental illness Social History Household Members: Family Household Members Other:: Dtg lives in same [facility] Housing: Assisted Living Facility Do you presently have visiting nurse or other home services: No Alcohol intake: never Comment: LOW Patient Tobacco Use Status: Former Tobacco user Tobacco use type: Cigarette e-Cigarette/Vaping Use: Former Use Second Hand Smoke Exposure: No service: No Current occupational status: disabled Gender identity: Female Cognitive needs: Yes (cane) Hearing needs: No Vision needs: No Questionnaire Thrive Questionnaire Date Thrive assessed: 12/31/23 TIMA-7 AMB Questionnaire TIMA-7 Date TIMA - 7 assessed: 06/26/23 Source: Developed by Drs. Presley Hou, Angela Amador, Reilly Young and colleagues, with an educational adonis from [employer]. Physical exam (Primary Care) Vital Signs: Last Vital Signs Pulse 65 03/22/24 11:28 BP 108/78 03/22/24 11:28 Pulse Ox 95 03/22/24 11:28 Oxygen Delivery Method Room Air 03/22/24 11:28 BMI result Body Mass Index 33.0 Tobacco/Smoking Status: Tobacco use Status Tobacco use date assessed 12/31/23 03/22/24 11:29 Patient Tobacco Use Status Former Tobacco user 03/22/24 11:29 Tobacco use type Cigarette 03/22/24 11:29 e-Cigarette/Vaping Use Former Use 03/22/24 11:29 Thrive Assessment: Date of Thrive Assessment Date Thrive assessed 12/31/23 03/22/24 11:29 [facility] Head images: 1. SOME FADING REDNESS AND DRY SKIN OVER THE FOREHEAD Mouth/tongue images: 1. WHITISH PATCHES ON TONGUE NOTED. Assessment and Plan Assessment & Plan (1) Acute dermatitis: Code(s): L30.9 - Dermatitis, unspecified Plan: Unclear etiology to patient's facial rash that seems to present on an annual basis in the spring and summer months. Due to his cyclic nature seems to be more of an allergy. Will refer to Allergy and immunology 2, with an etiology. At this time advised on antihistamine therapy and use of topical low-dose steroid on skin lesion. (2) Thrush: Code(s): B37.0 - Candidal stomatitis Plan: Has signs symptoms of thrush. Recently on antibiotics and prednisone for presumed skin infection on face.. Will supply patient with nystatin solution. (3) Fecal incontinence: Code(s): R15.9 - Full incontinence of feces Qualifiers: Fecal incontinence type: unspecified Qualified Code(s): R15.9 - Full incontinence of feces Plan: Reports over last 3 months having fecal incontinence. Has called her GI specialist whom advised on increasing fiber in diet. Orders: Orders Resp Allergy Profile Region I 03/22/24 L30.9 - Dermatitis, unspecified, R05.9 - Cough, unspecified Lipid Panel 03/22/24 E78.2 - Mixed hyperlipidemia Comprehensive [place]. Panel Fast 03/22/24 E78.2 - Mixed hyperlipidemia Complete Blood Count no Diff 03/22/24 E78.2 - Mixed hyperlipidemia Referrals Allergy & Immunology Referral L30.9 - Dermatitis, unspecified Medications: New nystatin swish and swallow 5 mL PO BID 6 days 60 mL 0RF B37.0 - Candidal stomatitis desonide 0.05% 1 appl topical DAILY 60 grams 0RF 15 days L30.9 - Dermatitis, unspecified Coding Level of Care Code Est Pt Level 4 (44321) Diagnoses Acute dermatitis L30.9 Thrush B37.0 Incontinence of feces, unspecified fecal incontinence type R15.9 Fecal incontinence type: unspecified
== END 2024-03-22 12:07 | disposition home or self-care (01) ==
PROVIDERS: PCP Physician Assistant; Visit Provider Physician Assistant
DX: L30.9 Dermatitis, unspecified (principal); B37.0 Candidal stomatitis; R15.9 Full incontinence of feces
CPT/HCPCS: 99214

== ENCOUNTER 2024-03-22 14:50 | Outpatient (AMB) | payer OTHER, SELFPAY ==
--- NOTE | 2024-03-22 14:56 | A.OFFVIS_ITS ---
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 Allergies banana [BANANA] Allergy (Intermediate, Verified 03/22/24 15:00) Itching naproxen [From NAPROSYN] Allergy (Intermediate, Verified 03/22/24 15:00) rash, GI upset prednisone Allergy (Intermediate, Verified 03/22/24 15:00) Itchy and redness warfarin [WARFARIN] Allergy (Unknown, Verified 03/22/24 15:00) Unknown ibuprofen [From MOTRIN] Adverse Reaction (Intermediate, Verified 03/22/24 15:00) Gastrointestinal Upset pregabalin Adverse Reaction (Intermediate, Verified 03/22/24 15:00) Diarrhea and blurry vision sun Allergy (Unknown, Uncoded 03/22/24 15:00) bumps on skin Medication List - Last Reconciled 03/22/24 by SHERIN Machado acetaminophen ER (Tylenol Arthritis Pain) 650 mg PO Q8H PRN 30 days albuterol sulfate 90 mcg/actuation 1 inh inhalation QID PRN 30 days calcium carbonate (Oyster Shell Calcium) 500 mg PO DAILY 30 days chlorhexidine gluconate 0.12% PO cholecalciferol (vitamin D3) 50 mcg PO DAILY 90 days clindamycin HCl 300 mg PO Q8H clobetasol 0.05% 1 appl topical DAILY 30 days clonazepam 1 mg PO BID PRN 30 days cyclobenzaprine 10 mg PO Q8H 30 days desonide 0.05% 1 appl topical DAILY 15 days diaper,brief,adult,disposable (Briefs, Adult-Extra Large) As directed diclofenac sodium 3% 1 appl topical BID 30 days dicyclomine 10 mg PO DAILY 30 days disposable gloves (Disposable Latex-Free Gloves) As directed doxycycline hyclate 100 mg PO BID escitalopram oxalate (Lexapro) 20 mg PO DAILY 30 days famotidine (Pepcid) 40 mg PO DAILY 30 days gabapentin 300 mg PO TID 30 days hydroxyzine HCl 25 - 50 mg PO Q6H PRN melatonin 5 mg PO BEDTIME PRN miscellaneous medical supply 1 ea miscellaneous DAILY 30 days nystatin 1 appl topical DAILY 15 days nystatin 5 mL PO BID 6 days prednisone mg PO pyridoxine (vitamin B6) 25 mg PO DAILY sennosides (senna) 8.6 mg PO DAILY PRN simvastatin 10 mg PO BEDTIME 30 days sumatriptan succinate 1 tab PO DAILY PRN 30 days topiramate 50 mg (1/2 x 100 mg) PO BEDTIME 30 days trazodone 100 mg PO BEDTIME 90 days HPI Comments Details: Right handed 73-yr-old female presents for new pt evaluation of headache disorder. Pt is accompanied by her dtr. Pt reports she started having headaches about 5 yrs ago out of the blue. The headache started as a pain running from her right forehead to the top of her head. The headache have been worsening. She has noticed a lump on the top of the right scalp. PMH and ROS are notable for:? Musculoskeletal disorders or injury: neck pain during headaches. Chronic arthritic right hip pain. Sometimes trips on her feet. About 1.5 months ago, feel backwards in her house- did hit her head- but did not have medical eval. Does not think headache is worse. Cramps: in her feet History of concussion/head injury: Mood d/o: Anxiety, Depression, Respiratory d/o: Asthma- mild CV disease: HLD Neuro: h/o left sided shingles- uses Gabapentin for this. some memory problems. 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 Denies vision changes. Denies tremor. Lifestyle considerations: Sleep routine: Usual bedtime 11:30pm-12am and wake-up time: 6:30a, Sleep difficulties: Endorses: Excessive daytime sleepiness, Fatigue, snoring, Gasping Arousals, Restless sleep and Leg Cramps- gets up and walks. Caffeine use: 1 cups per day, last cup by am Substance use: denies Exercise:?None Employment:? no longer working. Headache questionnaire:? Age/time of onset: 5 yrs ago- Preceding causes: no known preceding infection or injury. Previous work-up: ESR, 03/04/24- 15. Head CT, 05/2023- no acute findings; mild widening of the cortical sulci and associated ventriculomegaly Typical headache characteristics: Prodrome symptoms: Unsure Aura: blurry vision at times. Pain intensity: severe Location, quality, characteristics: Starts in right mandible then takes the whole of her right side into her neck. Has difficulty describing the pain. Associated symptoms: photophobia, phonophobia, allodynia, nausea, fatigue, cognitive difficulties.. Postdrome: Calms down Triggers: doing her hair, touch Pertinent denials- denies vision change, diplopia, pain on chewing/talking, pain elicited by light mechanical stimuli. Time of day: No specific time of day- but usually during the day Duration and Frequency: Starts light over 10 minutes, then becomes steady and severe for 3-4 hours of severe headache, and then calms down. W/o tx- would last half a day. How does headache impact your life? cannot do her daily activities. has stopped having her hair done. MIDAS disability scale: 6-7 Current acute medication use/interventions: Tylenol- helps some. Takes Gabapentin- helps some. 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 Mother Diabetes Advanced cardiac disease Osteoporosis Chronic mental illness Brother Substance abuse Family/Other Chronic mental illness Social History Household Members: Family Household Members Other:: Dtdhruv lives in same buliding Housing: Assisted Living Facility Do you presently have visiting nurse or other home services: No Alcohol intake: never Comment: LOW Patient Tobacco Use Status: Former Tobacco user Tobacco use type: Cigarette e-Cigarette/Vaping Use: Former Use Second Hand Smoke Exposure: No service: No Current occupational status: disabled Gender identity: Female Cognitive needs: Yes (cane) Hearing needs: No Vision needs: No Physical Exam Vital Signs: Last Vital Signs Pulse 71 03/22/24 14:57 BP 110/78 03/22/24 14:57 Pulse Ox 97 03/22/24 14:57 Oxygen Delivery Method Room Air 03/22/24 14:57 BMI result Body Mass Index 32.9 Const General: tired appearing Orientation/consciousness: patient oriented x3 Resp Effort & Inspection: normal respiratory effort and able to speak in complete sentences Neuro Other: Photophobic Right forehead redness. Mild right facial asymmetry Diffuse right forehead/temporal/parietal apin on palpation. Bilateral posterior cervical tightness and tenderness w/ negative Spurling. Bilateral TMJ crepitus- marked on right w/ pain on jaw opening. Right superior parietal- firm tender lump. Slow to stand, short steps, antalgic gait, no right arm swing, unsteady during turns. Mild RUE tremor on finger-nose (pt-pt), mild nigel dysmetria. Mallampati st 4 w/ mild posterio lingual asymmetry. General: patient oriented x3 Cognition (Neuro): normal cognition Motor exam (neuro): 5/5 motor strength present throughout Deep tendon reflexes (DTR's): Right triceps reflex intensity grade: 2+, Left triceps reflex intensity grade: 2+, Rt Biceps (C5, C6): 2+, Left biceps reflex intensity grade: 2+, Right brachioradialis reflex intensity grade: 2+, Left brachioradialis reflex intensity grade: 2+, Right patellar reflex intensity grade: 2+ and Left patellar reflex intensity grade: 2+ Coordination: [id number] test normal, tandem gait normal and Romberg test negative Pupils: Normal pupillary reactivity/response: bilateral Psych Appearance: grossly normal Mental Status: mental status grossly normal Speech and movement: Clear speech present Affect: normal affect Attitude: cooperative Thought process: Normal thought process present Assessment & Plan Assessment & Plan (1) Localized swelling, mass and lump, head: Code(s): R22.0 - Localized swelling, mass and lump, head Category: Medical (2) Worsening headaches: Code(s): R51.9 - Headache, unspecified Category: Medical (3) TMJ dysfunction: Code(s): M26.609 - Unspecified temporomandibular joint disorder, unspecified side Category: Medical (4) Excessive daytime sleepiness: Code(s): G47.19 - Other hypersomnia Category: Medical (5) Sleep difficulties: Code(s): G47.9 - Sleep disorder, unspecified Category: Medical (6) Snoring: Code(s): R06.83 - Snoring Category: Medical (7) Migraine without aura: Code(s): G43.009 - Migraine without aura, not intractable, without status migrainosus Category: Medical Plan Pt advised to undergo: Brain MRI w/wo to assess for worsening right side-locked headache a/w jaw pain, facial redness, facial asymmetry, right parietal mass lesion. C-spine X-ray. In-lab PSG to assess for sleep apnea, bruxism, and PLMS. Labs . For overall headache management: Optimize good self-care, including but not limited to maintaining a healthy diet, adequate fluid intake, adequate sleep, and engaging in regular physical activity. For headache triggers: Track headaches. For acute headache treatment: Discussed importance of taking acute medications at the first sign of headache, however stressed importance of avoiding acute medication overuse (especially with combined headache medications). Trial Naratriptan 2.5mg prn. May take w/ Tylenol. Potential adverse effects of triptans, including but not limited to nausea, fatigue, chest tightness/tingling (usually passes within a few minutes), medication overuse headaches. Previous acute migraine medication trials: Sumatriptan- caused jaw tightness. Acute migraine medication contraindications: None at this time For headache prevention medication: Preventative medications should be taken routinely as prescribed for best effect, it may take several weeks for full effect to take effect. Start Magnesium 400mg qhs Start Baclofen 10-20mg qhs. Continue Gabapentin 300mg tid. Continue Topiramate 50mg qhs Previous migraine prevention medication trials: None other. Migraine prevention medication contraindications: Caution w/ Aimovig or Atogepant d/t risk for constipation. Beta-blockers d/t asthma. Pt seen in collaboration w/ Dr Lisset Bearden. Pt to follow-up in 3 months or sooner prn. Orders: Orders MR head/brain wo/w con Today M26.609 - Unspecified temporomandibular joint disorder, unspecified side, R22.0 - Localized swelling, mass and lump, head, R51.9 - Headache, unspecified RT PSG in-lab sleep study Today G47.19 - Other hypersomnia, G47.9 - Sleep disorder, unspecified, M26.609 - Unspecified temporomandibular joint disorder, unspecified side, R06.83 - Snoring, R25.2 - Cramp and spasm Methylmalonic Acid Today G62.9 - Polyneuropathy, unspecified, M26.609 - Unspecified temporomandibular joint disorder, unspecified side, R25.2 - Cramp and spasm, R79.89 - Other specified abnormal findings of blood chemistry Creatine Kinase Total Today G62.9 - Polyneuropathy, unspecified, M26.609 - Unspecified temporomandibular joint disorder, unspecified side, R25.2 - Cramp and spasm, R79.89 - Other specified abnormal findings of blood chemistry XR cervical spine w flex/ext Today M54.2 - Cervicalgia [place] Reflex Titer and Pattern Today G62.9 - Polyneuropathy, unspecified, M26.609 - Unspecified temporomandibular joint disorder, unspecified side, R25.2 - Cramp and spasm, R79.89 - Other specified abnormal findings of blood chemistry Rheumatoid Factor Today G62.9 - Polyneuropathy, unspecified, M26.609 - Unspecified temporomandibular joint disorder, unspecified side, R25.2 - Cramp and spasm, R79.89 - Other specified abnormal findings of blood chemistry Vitamin B12 and Folate Today G62.9 - Polyneuropathy, unspecified, M26.609 - Unspecified temporomandibular joint disorder, unspecified side, R25.2 - Cramp and spasm, R79.89 - Other specified abnormal findings of blood chemistry Homocysteine Today G62.9 - Polyneuropathy, unspecified, M26.609 - Unspecified temporomandibular joint disorder, unspecified side, R25.2 - Cramp and spasm, R79.89 - Other specified abnormal findings of blood chemistry Hemoglobin A1c Today G62.9 - Polyneuropathy, unspecified, M26.609 - Unspecified temporomandibular joint disorder, unspecified side, R25.2 - Cramp and spasm, R79.89 - Other specified abnormal findings of blood chemistry Medications: New baclofen 10 - 20 mg (1 - 2 x 10 mg) PO BEDTIME 30 days 60 tabs 3RF muscle spasm magnesium oxide may hold for loose stools 400 mg PO BEDTIME 30 days 30 tabs 6RF naratriptan take 1/2 - 1 tab at onset of headache; if no relief may repeat 1 tab after at least 4 hrs; max = 2 tabs/24 hrs orally PRN; 30 days 12 tabs 6RF migraine headache Discontinued cyclobenzaprine Discontinued Reason: Patient no longer taking 10 mg PO Q8H 30 days 90 tabs 0RF sumatriptan succinate Discontinued Reason: Patient no longer taking 1 tab PO DAILY 30 days PRN 2 tabs 0RF Headache nystatin swish and swallow Discontinued Reason: Patient Completed Course 5 mL PO BID 6 days 60 mL 0RF B37.0 - Candidal stomatitis Coding Level of Care Code New Pt Level 4 (48173) Diagnoses Localized swelling, mass and lump, head R22.0 Worsening headaches R51.9 TMJ dysfunction M26.609 Excessive daytime sleepiness G47.19 Sleep difficulties G47.9 Snoring R06.83 Migraine without aura G43.009
[2024-03-22 14:57] VITALS: BP 110/78; PULSE 71; O2SAT 97; BMI 32.9
== END 2024-03-23 07:24 | disposition home or self-care (01) ==
PROVIDERS: PCP Physician Assistant; Visit Provider Nurse Practitioner Family
DX: R22.0 Localized swelling, mass and lump, head (principal); R51.9 Headache, unspecified; M26.609 Unspecified temporomandibular joint disorder, unspecified side; G47.19 Other hypersomnia; G47.9 Sleep disorder, unspecified; R06.83 Snoring; G43.009 Migraine without aura, not intractable, without status migrainosus
CPT/HCPCS: 99204

== ENCOUNTER → 2024-03-22 14:50 | Outpatient (BNVA) | payer OTHER, SELFPAY | PROVIDERS: PCP Physician Assistant; Visit Provider Nurse Practitioner Family | DX: R22.0 Localized swelling, mass and lump, head (principal); G43.009 Migraine without aura, not intractable, without status migrainosus; G47.19 Other hypersomnia; G47.9 Sleep disorder, unspecified; R06.83 Snoring; M26.603 Bilateral temporomandibular joint disorder, unspecified | CPT/HCPCS: 99202 ==

== ENCOUNTER 2024-04-28 10:27 | Outpatient (REF) | payer OTHER, SELFPAY ==
[2024-04-28 11:30] LABS: Hematocrit 40.4 % (37.0-47.0); Hemoglobin 13.4 g/dl (12.0-16.0); Mean Corpuscular HGB Conc 33.2 g/dl (31.0-35.0); Mean Corpuscular Hemoglobin 31.2 pg (27.0-33.0); Mean Platelet Volume 8.5 fL (9.4-12.3); Platelet Count 236 X10*3/uL (160-400); Red Cell Distribution Width 11.7 % (11.0-16.0); White Blood Count 4.3 X10*3/uL (4.8-10.8)
[2024-04-28 11:47] LABS: Estimated Average Glucose 114 mg/dL; Hemoglobin A1c % 5.6 % (<6.0)
[2024-04-28 12:20] LABS: Alanine Aminotransferase 11 U/L (0-31); Albumin Level 4.2 g/dL (3.5-5.0); Alkaline Phosphatase 96 U/L (39-117); Anion Gap 10 (12-20); Aspartate Amino Transferase 13 U/L (5-31); Bilirubin Total 0.3 mg/dL (0.0-1.0); Blood Urea Nitrogen 17 mg/dL (9-16); Calcium 9.6 mg/dL (8.4-10.2); Carbon Dioxide 27 mmol/L (22-29); Chloride 107 mmol/L (96-108); Cholesterol 266 mg/dL (<200); Estimated Glomerular Filt Rate 57; Glucose Fasting 127 mg/dL (60-99); HDL Cholesterol 51 mg/dL (>40); LDL Cholesterol Calculated 177 mg/dL (<100); Potassium 3.6 mmol/L (3.3-5.1); Sodium 140 mmol/L (135-145); Total Protein 7.1 g/dL (6.5-8.0); Triglycerides 191 mg/dL (<150)
[2024-04-28 12:35] LABS: Rheumatoid Factor < 13.0 IU/mL (<15.0)
[2024-04-28 13:06] LABS: Folate 4.7 ng/mL (> or = 4.0); Vitamin B12 215 pg/mL (200-900)
[2024-04-29 19:48] LABS: Homocysteine 18.1 umol/L (<10.4)
[2024-04-29 22:43] LABS: Class Alternaria alternata 0; Class Aspergillus fumigatus 0; Class Bermuda Grass 0; Class Birch 0; Class Cat Dander 2; Class Cladosporium herbarum 0; Class Cockroach 0/1; Class Common Ragweed 2; Class Cottonwood 0; Class Derm. pterony 0/1; Class Dermatophagoides farinae 0/1; Class Dog Dander 0/1; Class Elm 0; Class Maple Box Elder 0; Class Mountain Cedar 0/1; Class Mouse Urine Protein 0; Class Mugwort 0; Class Oak 0; Class Penicillium crysogenum 0; Class Rough Pigweed 0; Class Sheep Sorrel 0; Class Sycamore 0; Class Timothy Grass 0; Class Walnut Tree 0; Class White Ash 0; Class White Mulberry 0; D002 - IgE D farinae 0.21 kU/L; E072-IgE Mouse Urine <0.10 kU/L; G002 IgE Bermuda Grass <0.10 kU/L; G006 - IgE Timothy Grass <0.10 kU/L; I006-IgE Cockroach, German 0.18 kU/L; Immunoglobulin E 421 kU/L (<OR=114); M001 IgE Penicillium chrysogen <0.10 kU/L; M002 - IgE Cladosporium herbar <0.10 kU/L; M003 - IgE Aspergillus fumigat <0.10 kU/L; M006 - IgE Alternaria alternat <0.10 kU/L; T001 IgE Maple/Box Elder <0.10 kU/L; T003 IgE Common Silver Birch <0.10 kU/L; T006 - IgE Cedar, Mountain 0.21 kU/L; T007 - IgE Oak, White <0.10 kU/L; T008 IgE Elm, American <0.10 kU/L; T010 - IgE Walnut <0.10 kU/L; T011 - IgE Maple Leaf Sycamore <0.10 kU/L; T014 - IgE Cottonwood <0.10 kU/L; T015 - IgE Ash, White <0.10 kU/L; T070 - IgE White Mulberry <0.10 kU/L; W001 - IgE Ragweed, Short 2.17 kU/L; W006 - IgE Mugwort <0.10 kU/L; W014 IgE Pigweed, Common <0.10 kU/L; W018 IgE Sheep Sorrel <0.10 kU/L
[2024-05-01 18:59] LABS: Methylmalonic Acid 493 nmol/L (69-390)
[2024-05-06 16:13] LABS: Anti Nuclear Antibody Screen NEGATIVE (NEGATIVE)
== END 2024-04-28 10:28 | disposition home or self-care (01) ==
LOC: HO.LAB 10:27
PROVIDERS: Nurse Practitioner Family; PCP Physician Assistant; Visit Provider Physician Assistant
DX: E78.2 Mixed hyperlipidemia (principal); R05.9 Cough, unspecified; L30.9 Dermatitis, unspecified; R25.2 Cramp and spasm; M26.609 Unspecified temporomandibular joint disorder, unspecified side; G62.9 Polyneuropathy, unspecified; R79.89 Other specified abnormal findings of blood chemistry; E53.8 Deficiency of other specified B group vitamins
CPT/HCPCS: 36415; 80053; 80061; 82550; 82607; 82746; 82785; 83036; 83090; 83921; 85027; 86003; 86038; 86431

== ENCOUNTER 2024-05-06 15:03 | Emergency (ER) | payer OTHER, SELFPAY ==
--- NOTE | ~2024-05-06 | CT_ITS ---
EXAMINATION: CT ABDOMEN AND PELVIS WITH CONTRAST CLINICAL INFORMATION: Left upper quadrant abdominal pain COMPARISON: CT abdomen pelvis 04/02/2019 TECHNIQUE: Multidetector volumetric images were obtained from the superior aspect of the liver through the pubic symphysis following administration 85 mL of Omnipaque 350 intravenous contrast. Sagittal and coronal reformatted images were obtained on the technologist's workstation. Oral contrast: No This CT examination was performed using dose optimization techniques as appropriate, variously including the following: *Automated exposure control *Adjustment of mA and/or kV according to patient size (this includes techniques or standardized protocols for targeted exams where dose is matched to indication/reason for exam; i.e. extremities or head) *Use of iterative reconstruction technique DLP: 719 mGy-cm FINDINGS: LUNG BASES: Mild bronchial thickening is present along with basilar atelectasis. LIVER, GALLBLADDER, AND BILIARY TREE: The liver is normal in size, shape, and attenuation. No focal hepatic lesion or biliary ductal dilatation is present. Status post cholecystectomy. PANCREAS: Unremarkable. SPLEEN: Unremarkable. ADRENAL GLANDS: Unremarkable. KIDNEYS AND URETERS: The kidneys are normal in size, shape, and attenuation. No hydronephrosis, hydroureter, or calculi seen. No perinephric stranding. BLADDER: Unremarkable. GASTROINTESTINAL TRACT: The small and large bowel are unremarkable aside from the presence of colonic diverticulosis without diverticulitis. Normal appendix. ABDOMINAL WALL: Tiny periumbilical hernia seen containing only fat. LYMPH NODES: No retroperitoneal lymphadenopathy. VASCULAR: Unremarkable. PELVIC VISCERA: The uterus and adnexa are unremarkable. OSSEOUS STRUCTURES: Unremarkable. CT/CT abdomen pelvis w IV con IMPRESSION: 1. A cause for the patient's left upper quadrant pain has not been found. 2. Incidental note made of mild bronchial thickening, cholecystectomy, colonic diverticulosis without diverticulitis and a tiny periumbilical hernia containing only fat. Fleischner guidelines were followed.
--- NOTE | 2024-05-06 15:13 | ED_ITS ---
HPI - Abdominal Pain General Chief Complaint: Abdominal Pain Stated Complaint: left side pain/nauseaous Time Seen by Provider: 05/06/24 18:17 Source: patient Mode of arrival: ambulatory History of Present Illness ED Provider: Dr Waggoner HPI narrative: 73-year-old female who reports that she has had left upper quadrant pain for 2 days with some mild nausea but no vomiting and reports last bowel movement was early in the morning, she does report some dysuria. Related Data Home Medications ?Medication ?Instructions ?Recorded ?Confirmed chlorhexidine gluconate 0.12 % PO 03/22/24 03/22/24 mouthwash clindamycin HCl 300 mg capsule 300 mg PO Q8H 03/22/24 03/22/24 doxycycline hyclate 100 mg tablet 100 mg PO BID 03/22/24 03/22/24 hydroxyzine HCl 25 mg tablet 25 - 50 mg PO Q6H PRN diarrhea 03/22/24 03/22/24 prednisone 20 mg tablet mg PO 03/22/24 03/22/24 Previous Rx's ?Medication ?Instructions ?Recorded cholecalciferol (vitamin D3) 50 50 mcg PO DAILY 90 days #90 caps 11/12/21 mcg (2,000 unit) capsule pyridoxine (vitamin B6) 25 mg 25 mg PO DAILY #30 tabs 01/08/22 tablet albuterol sulfate 90 mcg/actuation 1 inh inhalation QID PRN shortness 11/22/22 aerosol inhaler of breath or wheezing 30 days #8.5 grams diclofenac sodium 3 % topical gel 1 appl topical BID 30 days #100 11/22/22 grams dicyclomine 10 mg capsule 10 mg PO DAILY 30 days #30 caps 11/22/22 sennosides 8.6 mg tablet (senna) 8.6 mg PO DAILY PRN constipation 11/22/22 #30 tabs simvastatin 10 mg tablet 10 mg PO BEDTIME 30 days #30 tabs 12/24/22 escitalopram oxalate 20 mg tablet 20 mg PO DAILY 30 days #30 tabs 02/18/23 (Lexapro) topiramate 100 mg tablet 50 mg (1/2 x 100 mg) PO BEDTIME 30 03/21/23 days #15 tabs diaper,brief,adult,disposable #3 multiple units 06/09/23 (Briefs, Adult-Extra Large) disposable gloves (Disposable #1,000 ea 06/09/23 Latex-Free Gloves) miscellaneous medical supply 1 ea miscellaneous DAILY 30 days 06/09/23 #3 ea clobetasol 0.05 % topical ointment 1 appl topical DAILY 30 days #45 06/26/23 grams nystatin 100,000 unit/gram topical 1 appl topical DAILY 15 days #60 06/26/23 powder grams acetaminophen 650 mg 650 mg PO Q8H PRN pain 30 days #90 08/18/23 tablet,extended release (Tylenol tabs Arthritis Pain) trazodone 100 mg tablet 100 mg PO BEDTIME 90 days #90 tabs 08/18/23 melatonin 5 mg tablet 5 mg PO BEDTIME PRN sleep #30 tabs 12/31/23 calcium carbonate (Oyster Shell 500 mg PO DAILY 30 days #30 tabs 01/15/24 Calcium) clonazepam 1 mg tablet 1 mg PO BID PRN anxiety 30 days 01/19/24 #60 tabs baclofen 10 mg tablet 10 - 20 mg (1 - 2 x 10 mg) PO 03/22/24 BEDTIME muscle spasm 30 days #60 tabs desonide 0.05 % topical ointment 1 appl topical DAILY 15 days #60 03/22/24 grams gabapentin 300 mg capsule 300 mg PO TID 30 days #90 caps 03/22/24 magnesium oxide 400 mg (241.3 mg 400 mg PO BEDTIME 30 days #30 tabs 03/22/24 magnesium) tablet naratriptan 2.5 mg tablet See Rx Instructions PO .COMPLEX 03/22/24 PRN migraine headache 30 days #12 tabs famotidine 40 mg tablet (Pepcid) 40 mg PO DAILY 30 days #30 tabs 04/26/24 cefdinir 300 mg capsule 300 mg PO BID 7 days #14 caps 05/06/24 Allergies Allergy/AdvReac Type Severity Reaction Status Date / Time banana [BANANA] Allergy Intermediate Itching Verified 05/06/24 15:15 naproxen [From NAPROSYN] Allergy Intermediate rash, GI Verified 05/06/24 15:15 upset prednisone Allergy Intermediate Itchy and Verified 05/06/24 15:15 redness warfarin [WARFARIN] Allergy Unknown Unknown Verified 05/06/24 15:15 ibuprofen [From MOTRIN] AdvReac Intermediate Gastrointestinal Verified 05/06/24 15:15 Upset pregabalin AdvReac Intermediate Diarrhea Verified 05/06/24 15:15 and blurry vision sun Allergy Unknown bumps on Uncoded 05/06/24 15:15 skin Review of Systems Review of Systems Pertinent positives and negatives as stated in [facility] Past Medical History Source: nursing notes reviewed Medical History Disseminated herpes zoster GERD without esophagitis Cough Difficulty hearing Obesity (BMI 30-39.9) 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 Mother Diabetes Advanced cardiac disease Osteoporosis Chronic mental illness Brother Substance abuse Family/Other Chronic mental illness Social History Social History Household Members: Family Household Members Other:: Dtg lives in same [facility] Housing: Assisted Living Facility Do you presently have visiting nurse or other home services: No Alcohol intake: never Comment: LOW Patient Tobacco Use Status: Former Tobacco user Tobacco use type: Cigarette e-Cigarette/Vaping Use: Former Use Second Hand Smoke Exposure: No Advance Directives: No Advance Directives Information Provided: No service: No Current occupational status: disabled Gender identity: Female Cognitive needs: Yes (cane) Hearing needs: No Vision needs: No Physical Exam ED Vital Signs: Vital Signs - 24 hr 05/06/24 15:14 05/06/24 18:57 Temperature 97 F 98.1 F Pulse Rate 64 58 Respiratory Rate 20 20 Blood Pressure 118/70 144/70 H Pulse Oximetry 95 97 Oxygen Delivery Method Room Air Room Air BMI result Body Mass Index 32.9 VITAL SIGNS: Reviewed. GENERAL: Well developed, well nourished, in no acute distress. HEAD: Normocephalic/atraumatic EYES: PERRLA, EOMI EARS: Ext canals without abnormality NOSE: Nares patent bilateral OROPHARYNX: no oral lesions noted, posterior pharynx clear NECK: Supple, no adenopathy LUNGS: Normal breath sounds. No adventitious sounds or accessory muscle use. SpO2<97> CARDIOVASCULAR: Regular rate and rhythm without noted murmurs ABDOMEN: Soft, left upper quadrant/flank pain, non-distended with bowel sounds. MUSCULOSKELETAL: No tenderness, deformities, or effusions noted on gross inspection. EXTREMITIES: No cyanosis, clubbing or edema. SKIN: Inspection of the skin reveals no rashes NEUROLOGIC: Alert and oriented x 4. Strength and sensation to light touch were grossly intact x 4. Course Course Course Narrative: This is a Rapid Medical Exam performed in triage by Radha Toledo PA-C. Full HPI, ROS and PE to be performed by primary ED provider. 73 year-old F w/ PMHx GERD, HLD, presenting to the ED c/o left upper quadrant abdominal pain with nausea x this AM. Last BM this AM. PE: Abdomen soft with LUQ tenderness Plan: EKG, Labs, UA, CT AP ordered Medical Decision Making Medical Decision Making [facility] Narrative: 73-year-old female with history and clinical presentation, DDX: Obstruction, diverticulitis, constipation, pyelonephritis, renal colic, cystitis. I reviewed and interpreted all investigations and hematologic indices are negative for leukocytosis/anemia/thrombocytopenia. Chemistries indices negative for MIKE/electrolyte or liver enzyme derangements. Urinalysis is positive for nitrites and bacteria, patient was treated with IV antibiotics. EKG: Normal sinus rhythm, HR-60, no STEMI, SC/QRS/QTC is within normal limits. CT scan negative for intra-abdominal findings, further cooperating a diagnosis of pyelonephritis and patient is otherwise discharged home in stable condition. Differential Diagnosis Differential Diagnoses: The differential diagnosis associated with the presentation includes Please see the discussion above Admission/Observation Consideration of admission/observation: Escalation of care including admission/observation considered Please see the discussion above Lab Data [facility] Lab Attestation statement: I reviewed the patient's lab results. Please see the discussion above 05/06/24 16:16 05/06/24 16:16 Labs: Lab Results 05/06/24 05/06/24 Range/Units 16:16 19:25 WBC 5.1 (4.8-10.8) X10*3/uL RBC 4.29 (4.20-5.50) X10*6/uL Hgb 13.2 (12.0-16.0) g/dl Hct 39.8 (37.0-47.0) % MCV 92.8 (80.0-98.0) fL MCH 30.8 (27.0-33.0) pg MCHC 33.2 (31.0-35.0) g/dl RDW 11.9 (11.0-16.0) % Plt Count 234 (160-400) X10*3/uL MPV 8.5 L (9.4-12.3) fL Immature Gran % (Auto) 0.2 (0.0-0.4) % Neut % (Auto) 37.9 L (45-73) % Lymph % (Auto) 50.6 H (20-40) % Grady % (Auto) 8.5 (2-11) % Eos % (Auto) 1.6 (0-4) % Baso % (Auto) 1.2 (0-2) % Lymph # (Auto) 2.6 (1.2-4.9) X10*3/uL Grady # (Auto) 0.4 (0.1-1.2) X10*3/uL Eos # (Auto) 0.1 (0.0-0.4) X10*3/uL Baso # (Auto) 0.1 (0.0-0.2) X10*3/uL Abs Immat Gran (auto) 0.01 (0.00-0.03) X10*3/uL Absolute Neuts (auto) 1.9 L (2.0-8.3) x10*3/uL Absolute Nucleated RBC 0.000 (0.0-0.012) X10*3/uL Nucleated RBC % (auto) 0.0 (0.0-0.2) /100WBC Sodium 140 (135-145) mmol/L Potassium 4.3 (3.3-5.1) mmol/L Chloride 105 (96-108) mmol/L Carbon Dioxide 26 (22-29) mmol/L Anion Gap 13 (12-20) BUN 16 (9-16) mg/dL Creatinine 0.87 (0.5-1.4) mg/dL Estim Creat Clear Calc 62.7 Estimated GFR > 60 Random Glucose 99 (60-115) mg/dL Calcium 9.9 (8.4-10.2) mg/dL Magnesium 2.2 (1.6-2.6) mg/dL Total Bilirubin 0.6 (0.0-1.0) mg/dL Direct Bilirubin 0.2 (0.0-0.5) mg/dL AST 17 (5-31) U/L ALT 11 (0-31) U/L Alkaline Phosphatase 85 (39-117) U/L Troponin I High Sens 3.2 (<3.5-17.0) ng/L Total Protein 6.8 (6.5-8.0) g/dL Albumin 4.0 (3.5-5.0) g/dL Lipase 10 (8-78) U/L Urine Color Yellow Urine Appearance Clear Urine pH 5.5 (5.0-9.0) Ur Specific [place] 1.010 (1.005-1.025) Urine Protein Negative (Neg-Trace) mg/dL Urine Glucose (UA) Negative (Negative) mg/dL Urine Ketones Negative (Negative) mg/dL Urine Blood Negative (Negative) Urine Nitrite Positive H (Negative) Ur Leukocyte Esterase Trace H (Negative) Urine RBC 0-2 (0-2) /HPF Urine WBC 0-5 (0-5) /HPF Ur Squamous Epith Cells 0-2 (0-2) /HPF Urine Bacteria 4+ (None Seen) Hyaline Casts 0-2 (0-2) /LPF Independent Interpretation I performed an independent interpretation of an: EKG Interpretation: Please see the discussion above Radiology Impression Discussion of test interpretation with radiology: I have reviewed the radiologist's reading. Radiologist Impression: Please see the discussion above External Record Review External record reviewed: Outpatient record, Prior outpatient labs and Prior outpatient radiology Medications Administered Discontinued Medications Generic Name Dose Route Start Last Admin Trade Name Freq PRN Reason Stop Dose Admin Acetaminophen 975 mg 05/06/24 19:36 05/06/24 19:57 Acetaminophen 325 Mg Tablet PO 05/06/24 19:37 975 mg ONCE ONE Administration Ceftriaxone Sodium 1 gm/ 50 mls @ 100 mls/hr 05/06/24 19:36 05/06/24 19:57 Sodium Chloride IV 05/06/24 20:05 100 mls/hr ONCE ONE Administration Iohexol 100 ml 05/06/24 19:44 05/06/24 19:44 Iohexol 350 Mg/Ml 100 Ml Infus..Btl IV 05/06/24 19:45 85 ml ONCE ONE Administration Critical Care Time Critical Care Time Critical Care Time: Yes Total Critical Care Time: 30 Attestation: I personally attest to this time spent taking care of the patient. Discharge Plan Discharge Clinical Impression: Pyelonephritis, Constipation Patient Disposition: Home, Self-Care Instructions: Constipation (ED), High Fiber Diet (ED), Kidney Infection (ED) Additional Instructions: 1. Resume all home medications as prescribed. Recommend [id number] Tylenol/ibuprofen as needed for pain control. 2. Complete the entire course of antibiotics as prescribed. 3. Please follow-up with your primary care doctor. Return to the ER for any worsening symptoms. Prescriptions: New cefdinir 300 mg capsule 300 mg PO BID 7 Days Qty: 14 0RF No Action topiramate 100 mg tablet 50 mg PO BEDTIME 30 Days Qty: 15 0RF (DME) Briefs, Adult-Extra Large Misc See Rx Instructions .Route Qty: 3 11RF Rx Instructions: As directed [facility] 1 ea miscellaneous DAILY 30 Days Qty: 3 11RF (DME) disposable gloves [Disposable Latex-Free Gloves] Misc See Rx Instructions .Route Qty: 1000 6RF Rx Instructions: As directed acetaminophen [Tylenol Arthritis Pain] 650 mg tablet extended release 650 mg PO Q8H PRN (Reason: pain) 30 Days Qty: 90 3RF trazodone 100 mg tablet 100 mg PO BEDTIME 90 Days Qty: 90 2RF calcium carbonate [Oyster Shell Calcium] 500 mg calcium (1,250 mg) tablet 500 mg PO DAILY 30 Days Qty: 30 3RF clonazepam 1 mg tablet 1 mg PO BID PRN (Reason: anxiety) 30 Days Qty: 60 4RF gabapentin 300 mg capsule 300 mg PO TID 30 Days Qty: 90 2RF famotidine [Pepcid] 40 mg tablet 40 mg PO DAILY 30 Days Qty: 30 3RF diclofenac sodium 3 % gel 1 appl topical BID 30 Days Qty: 100 1RF sennosides [senna] 8.6 mg tablet 8.6 mg PO DAILY PRN (Reason: constipation) Qty: 30 0RF albuterol sulfate 90 mcg/actuation HFA aerosol inhaler 1 inh inhalation QID PRN (Reason: shortness of breath or wheezing) 30 Days Qty: 8.5 2RF dicyclomine 10 mg capsule 10 mg PO DAILY 30 Days Qty: 30 0RF cholecalciferol (vitamin D3) 50 mcg (2,000 unit) capsule 50 mcg PO DAILY 90 Days Qty: 90 2RF chlorhexidine gluconate 0.12 % mouthwash PO doxycycline hyclate 100 mg tablet 100 mg PO BID hydroxyzine HCl 25 mg tablet 25 - 50 mg PO Q6H PRN (Reason: diarrhea) prednisone 20 mg tablet PO clindamycin HCl 300 mg capsule 300 mg PO Q8H desonide 0.05 % ointment 1 appl topical DAILY 15 Days Qty: 60 0RF pyridoxine (vitamin B6) 25 mg tablet 25 mg PO DAILY Qty: 30 0RF escitalopram oxalate [Lexapro] 20 mg tablet 20 mg PO DAILY 30 Days Qty: 30 3RF simvastatin 10 mg tablet 10 mg PO BEDTIME 30 Days Qty: 30 3RF nystatin 100,000 unit/gram powder 1 appl topical DAILY 15 Days Qty: 60 2RF clobetasol 0.05 % ointment 1 appl topical DAILY 30 Days Qty: 45 3RF melatonin 5 mg tablet 5 mg PO BEDTIME PRN (Reason: sleep) Qty: 30 3RF baclofen 10 mg tablet 10 - 20 mg PO BEDTIME 30 Days Qty: 60 3RF magnesium oxide 400 mg (241.3 mg magnesium) tablet 400 mg PO BEDTIME 30 Days Qty: 30 6RF Rx Instructions: may hold for loose stools naratriptan 2.5 mg tablet See Rx Instructions PO .COMPLEX PRN (Reason: migraine headache) 30 Days Qty: 12 6RF Rx Instructions: take 1/2 - 1 tab at onset of headache; if no relief may repeat 1 tab after at least 4 hrs; max = 2 tabs/24 hrs orally PRN; Referrals: Gio Meadows PA-C [Primary Care Provider] - Print Language: Serbian
[2024-05-06 15:14] VITALS: BP 118/70; PULSE 64; RESP 20; TEMP 36.1; O2SAT 95; BMI 32.9
--- NOTE | 2024-05-06 15:16 | ECG_ITS ---
Test Reason : abd pain Blood Pressure : / mmHG Vent. Rate : 060 BPM Atrial Rate : 060 BPM P-R Int : 134 ms QRS Dur : 066 ms QT Int : 426 ms P-R-T Axes : 043 022 072 degrees QTc Int : 426 ms Normal sinus rhythm Nonspecific ST abnormality Abnormal ECG When compared with ECG of 19-MAR-2023 16:36, Vent. rate has decreased BY 31 BPM Nonspecific T wave abnormality has replaced inverted T waves in Lateral leads Referred By: Radha Toledo Electronically Signed By:MYAH ARAYA MD
[2024-05-06 16:21] LABS: MANUAL DIFF FLAG NO
[2024-05-06 16:22] LABS: Basophils Absolute Auto 0.1 X10*3/uL (0.0-0.2); Basophils Percent Auto 1.2 % (0-2); Eosinophils Absolute Auto 0.1 X10*3/uL (0.0-0.4); Eosinophils Percent Auto 1.6 % (0-4); Hematocrit 39.8 % (37.0-47.0); Hemoglobin 13.2 g/dl (12.0-16.0); Imm Gran Abs Auto 0.01 X10*3/uL (0.00-0.03); Imm Gran Pct Auto 0.2 % (0.0-0.4); Lymphocytes Absolute Auto 2.6 X10*3/uL (1.2-4.9); Lymphocytes Percent Auto 50.6 % (20-40); Mean Corpuscular HGB Conc 33.2 g/dl (31.0-35.0); Mean Corpuscular Hemoglobin 30.8 pg (27.0-33.0); Mean Corpuscular Volume 92.8 fL (80.0-98.0); Mean Platelet Volume 8.5 fL (9.4-12.3); Monocytes Absolute Auto 0.4 X10*3/uL (0.1-1.2); Monocytes Percent Auto 8.5 % (2-11); Neutrophils Absolute Auto 1.9 x10*3/uL (2.0-8.3); Neutrophils Percent Auto 37.9 % (45-73); Platelet Count 234 X10*3/uL (160-400); Red Blood Count 4.29 X10*6/uL (4.20-5.50); Red Cell Distribution Width 11.9 % (11.0-16.0); White Blood Count 5.1 X10*3/uL (4.8-10.8)
[2024-05-06 16:43] LABS: Alanine Aminotransferase 11 U/L (0-31); Alkaline Phosphatase 85 U/L (39-117); Anion Gap 13 (12-20); Aspartate Amino Transferase 17 U/L (5-31); Bilirubin Direct 0.2 mg/dL (0.0-0.5); Bilirubin Total 0.6 mg/dL (0.0-1.0); Blood Urea Nitrogen 16 mg/dL (9-16); Calcium 9.9 mg/dL (8.4-10.2); Carbon Dioxide 26 mmol/L (22-29); Chloride 105 mmol/L (96-108); Creatinine Clr Calc Pharmacy 62.7; Estimated Glomerular Filt Rate > 60; Glucose Random 99 mg/dL (60-115); Lipase 10 U/L (8-78); Magnesium 2.2 mg/dL (1.6-2.6); Potassium 4.3 mmol/L (3.3-5.1); Sodium 140 mmol/L (135-145); Total Protein 6.8 g/dL (6.5-8.0)
[2024-05-06 16:49] LABS: Troponin-I High Sensitivity 3.2 ng/L (<3.5-17.0)
[2024-05-06 18:57] VITALS: BP 144/70; PULSE 58; RESP 20; TEMP 36.7; O2SAT 97
[2024-05-06 19:33] LABS: Appearance Urine Clear; Color Urine Yellow; Glucose Urine UA Negative (Negative); Leukocyte Esterase Urine Trace (Negative); Nitrite Urine Positive (Negative); PH 5.5 (5.0-9.0); UMIC TRIGGER UACC YES; Urine Blood Negative (Negative); Urine Ketones Negative (Negative); Urine Protein Negative (Neg-Trace)
[2024-05-06 19:37] LABS: Bacteria Urine 4+ (None Seen); Hyaline Casts Urine 0-2 /LPF (0-2); RBC Urine 0-2 /HPF (0-2); Squamous Epithelial Cell Urine 0-2 /HPF (0-2); UACC Culture Trigger YES; WBC Urine 0-5 /HPF (0-5)
[2024-05-06] MEDS: iohexoL 350 MG/ML 100 ML INFUS..BTL IV (19:44)
[2024-05-06] MEDS: Acetaminophen 325 MG TABLET 975 MG PO (19:57)
[2024-05-06] MEDS: cefTRIAXone sodium 1 GM in 0.9 % Sodium Chloride 50 ML IV (19:57)
[2024-05-06 21:54] VITALS: BP 144/70; PULSE 58; RESP 20; TEMP 36.7; O2SAT 97
== END 2024-05-06 22:17 | disposition home or self-care (01) ==
PROVIDERS: Physician Assistant; Emergency Provider Student in an Organized Health Care Education/Training Program; PCP Physician Assistant
DX: N12 Tubulo-interstitial nephritis, not specified as acute or chronic (principal); K59.00 Constipation, unspecified; R10.12 Left upper quadrant pain; R11.0 Nausea; Z79.899 Other long term (current) drug therapy
CPT/HCPCS: 36415; 74177; 80048; 80076; 81001; 83690; 83735; 84484; 85025; 87086; 87088; 87186; 93005; 96365; 99284; 99285; J0696; Q9967

== ENCOUNTER → 2024-05-06 15:16 | Outpatient (BNV) | payer OTHER, SELFPAY | PROVIDERS: Emergency Provider Student in an Organized Health Care Education/Training Program; PCP Physician Assistant; Visit Provider Internal Medicine Cardiovascular Disease | DX: R94.31 Abnormal electrocardiogram [ECG] [EKG] (principal) | CPT/HCPCS: 93010 ==

== ENCOUNTER 2024-05-17 08:49 | Outpatient (AMB) | payer OTHER, SELFPAY ==
--- NOTE | 2024-05-17 09:14 | A.OFFPC_ITS ---
Vital Signs 05/17/24 09:22 Height 5 ft 5 in Weight 201 lb 4 oz BMI 33.5 BP 120/62 Blood Pressure Location Lt brachial Position Sitting Pulse 65 Pulse Source Pulse Oximeter Pulse Oximetry (%) 98 Oxygen Delivery Method Room Air Intake Visit Reasons: ANNUAL - see comments Intake Note: Patient is here today for a physical. Environmental Health Nurse Required: No Accompanied by: Daughter Allergies banana [BANANA] Allergy (Intermediate, Verified 05/17/24 09:35) Itching naproxen [From NAPROSYN] Allergy (Intermediate, Verified 05/17/24 09:35) rash, GI upset prednisone Allergy (Intermediate, Verified 05/17/24 09:35) Itchy and redness warfarin [WARFARIN] Allergy (Unknown, Verified 05/17/24 09:35) Unknown ibuprofen [From MOTRIN] Adverse Reaction (Intermediate, Verified 05/17/24 09:35) Gastrointestinal Upset pregabalin Adverse Reaction (Intermediate, Verified 05/17/24 09:35) Diarrhea and blurry vision sun Allergy (Unknown, Uncoded 05/17/24 09:35) bumps on skin Medication List - Last Reconciled 05/17/24 by Gio Meadows PA-C acetaminophen ER (Tylenol Arthritis Pain) 650 mg PO Q8H PRN 30 days albuterol sulfate 90 mcg/actuation 1 inh inhalation QID PRN 30 days baclofen 10 - 20 mg (1 - 2 x 10 mg) PO BEDTIME 30 days calcium carbonate (Oyster Shell Calcium) 500 mg PO DAILY 30 days chlorhexidine gluconate 0.12% PO cholecalciferol (vitamin D3) 50 mcg PO DAILY 90 days clobetasol 0.05% 1 appl topical DAILY 30 days clonazepam 1 mg PO BID PRN 30 days cyanocobalamin (vitamin B-12) 500 mcg PO DAILY 30 days desonide 0.05% 1 appl topical DAILY 15 days diaper,brief,adult,disposable (Briefs, Adult-Extra Large) As directed diclofenac sodium 3% 1 appl topical BID 30 days dicyclomine 10 mg PO DAILY 30 days disposable gloves (Disposable Latex-Free Gloves) As directed escitalopram oxalate (Lexapro) 20 mg PO DAILY 30 days famotidine (Pepcid) 40 mg PO DAILY 30 days gabapentin 300 mg PO TID 30 days hydroxyzine HCl 25 - 50 mg PO Q6H PRN magnesium oxide 400 mg PO BEDTIME 30 days melatonin 5 mg PO BEDTIME PRN miscellaneous medical supply 1 ea miscellaneous DAILY 30 days naratriptan take 1/2 - 1 tab at onset of headache; if no relief may repeat 1 tab after at least 4 hrs; max = 2 tabs/24 hrs orally PRN; 30 days nystatin 1 appl topical DAILY 15 days prednisone mg PO pyridoxine (vitamin B6) 25 mg PO DAILY sennosides (senna) 8.6 mg PO DAILY PRN simvastatin 10 mg PO BEDTIME 30 days topiramate 50 mg (1/2 x 100 mg) PO BEDTIME 30 days trazodone 100 mg PO BEDTIME 90 days Tobacco use date assessed: 12/31/23 Fall risk assessment: No Falls in past year Last assessed Fall Risk: 05/17/24 Dental Screening Dental Screen Date: 12/31/23 HPI ANNUAL - see comments HPI Details Patient is a 73-year-old female here today for routine annual physical Presents today with her daughter. Patient has a past medical history significant for major depressive disorder, hyperlipidemia, irritable bowel syndrome, generalized anxiety disorder, obesity, and hypothyroidism. Concerns--> she reports having leg cramps at night. Does have magnesium available to her though admits she has not been taking it. .. Major depressive disorder:? Has support by her daughters and family. Still seems somewhat depressed. She continues now on escitalopram, clonazepam and trazodone at night. .. Hyperlipidemia: Most recent fasting lipid panel showing elevated total cholesterol and LDL. Has been on low-dose simvastatin 10 mg. She is willing to increase her dose to 20 mg of simvastatin for better control over total cholesterol and LDL. Colon cancer screening: colonoscopy done 2022 - normal .. 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 Mother Diabetes Advanced cardiac disease Osteoporosis Chronic mental illness Brother Substance abuse Family/Other Chronic mental illness Social History Household Members: Family Household Members Other:: Dtg lives in same buliding Housing: Assisted Living Facility Do you presently have visiting nurse or other home services: No Alcohol intake: never Comment: LOW Patient Tobacco Use Status: Former Tobacco user Tobacco use type: Cigarette e-Cigarette/Vaping Use: Former Use Second Hand Smoke Exposure: No service: No Current occupational status: disabled Gender identity: Female Cognitive needs: Yes (cane) Hearing needs: No Vision needs: No Questionnaire Thrive Questionnaire Date Thrive assessed: 12/31/23 TIMA-7 AMB Questionnaire TIMA-7 Date TIMA - 7 assessed: 06/26/23 Source: Developed by Drs. Presley Hou, Angela Amador, Reilly Young and colleagues, with an educational adonis from [employer]. Review of Systems Const Denies body aches, Denies chills, Denies excessive sweating, Denies fatigue, Denies fever(s) and Denies headache(s) Eyes Denies blurry vision ENT Denies dysphagia, Denies vertigo, Denies dizziness, Denies headache(s), Denies hearing loss and Denies tinnitus Card Denies chest pain, Denies chest pain with activity, Denies syncope, Denies irregular heart rhythm and Denies dyspnea Resp Denies chest congestion, Denies cough, Denies hemoptysis, Denies dyspnea and Denies wheezing GI Denies abdominal pain, Denies melena, Denies hematochezia, Denies coffee ground emesis, Denies dysphagia, Denies diarrhea, Denies nausea and Denies vomiting Denies urinary frequency, Denies dysuria, Denies urinary hesitancy and Denies urinary urgency Musc Denies arthralgias, Denies limited range of motion, Denies muscle cramps and Denies muscle weakness Skin/Breast Denies rash and Denies skin ulcer Neuro Denies Abnormal speech present, Denies confusion, Denies vertigo, Denies dizziness, Denies syncope, Denies headache(s), Denies memory loss and Denies seizure-like activity Psych Denies anxiety, Denies confusion, Denies depression, Denies memory loss, Denies panic attacks and Denies paranoia Endo Denies excessive sweating, Denies fatigue, Denies flushing, Denies polydipsia and Denies polyuria Aller/Immun Denies wheezing Physical exam (Primary Care) Vital Signs: Last Vital Signs Pulse 65 05/17/24 09:22 BP 120/62 05/17/24 09:22 Pulse Ox 98 05/17/24 09:22 Oxygen Delivery Method Room Air 05/17/24 09:22 BMI result Body Mass Index 33.5 Tobacco/Smoking Status: Tobacco use Status Tobacco use date assessed 12/31/23 05/17/24 09:14 Patient Tobacco Use Status Former Tobacco user 05/17/24 09:14 Tobacco use type Cigarette 05/17/24 09:14 e-Cigarette/Vaping Use Former Use 05/17/24 09:14 Thrive Assessment: Date of Thrive Assessment Date Thrive assessed 12/31/23 05/17/24 09:14 Const General: cooperative, comfortable, no acute distress, alert and awake; No confusion Orientation/consciousness: oriented to person, oriented to place, patient oriented x3 and No confusion HENMT Head: Yes normocephalic Ears: external ears normal and TM's normal bilaterally Face and sinus: No sinus tenderness Mouth: Normal oral and palatal mucosa present and tongue normal Teeth and gingiva: dentition normal and gingiva normal Throat: Yes posterior oropharynx normal, Yes tonsils normal and Yes uvula midline Eyes Conjunctivae: conjunctivae normal Sclerae: sclerae normal Pupils: Equal, round and reactive pupils present EOM: EOMs intact bilaterally Direct Ophthalmoscopy: No no photophobia Neck Neck: Yes no lymphadenopathy, No tender and Yes no JVD Thyroid: Thyroid normal Carotids: no bruits Chest Chest palpation & inspection: no tenderness Resp Effort & Inspection: normal respiratory effort, no audible wheezes, not labored and no stridor Auscultation: no crackles, no rales, no rhonchi and no wheezes Cardio Jugular venous distension: no JVD Rate: regular rate, not bradycardic and not tachycardic Rhythm: regular rhythm Bruits: no carotid bruits Peripheral pulses: Peripheral pulses 2+ throughout GI Inspection: Yes normal to inspection, No abdominal wall ecchymosis and No visible herniation Palpation (GI): Soft to palpation, nontender, no guarding, not rigid and No hepatosplenomegaly present Auscultation: normoactive bowel sounds General: Yes no CVA tenderness Back/Spine/Pelvis Back: no CVA tenderness and No back tenderness Cervical Spine: cervical ROM normal Thoracic/Lumbar Spine: thoracic and lumbar spine normal to inspection, straight leg raise negative bilaterally, No thoraco-lumbar ROM limited and No lumbar spinal tenderness Skin Lesions: no lesions Rashes: no rashes Wounds: no wounds Neuro General: oriented to person, oriented to place, patient oriented x3, CN's II-XI intact bilaterally and No confusion Cranial nerves: Yes Equal, round and reactive pupils present and Yes Normal accommodation reflex present Cognition (Neuro): normal cognition Speech: No Abnormal speech present Gait exam (Neuro): Normal gait present Motor exam (neuro): 5/5 motor strength present throughout Extrem Right upper extremity: full ROM; no cyanosis Left upper extremity: full ROM; no cyanosis Right lower extremity: no edema Left lower extremity: no edema Psych Appearance: grossly normal Mental Status: mental status grossly normal Affect: normal affect Attitude: cooperative Thought process: Normal thought process present Assessment and Plan Assessment & Plan (1) Annual physical exam: Code(s): Z00.00 - Encounter for general adult medical examination without abnormal findings (2) Major depressive disorder, recurrent episode: Code(s): F33.9 - Major depressive disorder, recurrent, unspecified Qualifiers: Major depression episode severity: severe Psychotic features: without psychotic features Qualified Code(s): F33.2 - Major depressive disorder, recurrent severe without psychotic features Plan: She continues on SSRI therapy, trazodone and clonazepam. (3) HLD (hyperlipidemia): Code(s): E78.5 - Hyperlipidemia, unspecified Qualifiers: Hyperlipidemia type: mixed hyperlipidemia Qualified Code(s): E78.2 - Mixed hyperlipidemia Plan: Patient does have a history of high cholesterol. Has been started on low-dose statin therapy. Most recent elevated total cholesterol high and LDL . Will increase her simvastatin to 20 mg. Continue to follow fasting labs with goal LDL to remain below 160 (4) Therese's disease: Code(s): E06.3 - Autoimmune thyroiditis Plan: Has a history Therese's disease. Most recent TSH stable. Will continue to follow TSH to assure any need to start levothyroxine. Orders: Orders Lipid Panel 05/17/24 E78.00 - Pure hypercholesterolemia, unspecified Complete Blood Count no Diff 05/17/24 E78.00 - Pure hypercholesterolemia, unspecified Vitamin D 25-OH Total 05/17/24 E55.9 - Vitamin D deficiency, unspecified Comprehensive [place]. Panel Fast 05/17/24 E78.00 - Pure hypercholesterolemia, unspecified Medications: New simvastatin 20 mg PO DAILY 90 days 90 tabs 1RF E78.00 - Pure hypercholesterolemia, unspecified Refilled trazodone 100 mg PO BEDTIME 90 days 90 tabs 2RF F33.2 - Major depressive disorder, recurrent severe without psychotic features Discontinued simvastatin Discontinued Reason: Doctor's Order 10 mg PO BEDTIME 30 days 30 tabs 3RF E78.2 - Mixed hyperlipidemia Patient Instructions: Goal: LDL to be below 160 :Barriers: Adherence to physical activity and healthy eating habits Coding Level of Care Code Est Pt Prev Care >65y(34503) Diagnoses Annual physical exam Z00.00 Severe episode of recurrent major depressive disorder, without psychotic features F33.2 Major depression episode severity: severe Psychotic features: without psychotic features Mixed hyperlipidemia E78.2 Hyperlipidemia type: mixed hyperlipidemia Therese's disease E06.3
[2024-05-17 09:22] VITALS: BP 120/62; PULSE 65; O2SAT 98; BMI 33.5
== END 2024-05-17 09:50 | disposition home or self-care (01) ==
PROVIDERS: PCP Physician Assistant; Visit Provider Physician Assistant
DX: Z00.00 Encounter for general adult medical examination without abnormal findings (principal); F33.2 Major depressive disorder, recurrent severe without psychotic features; E78.2 Mixed hyperlipidemia; E06.3 Autoimmune thyroiditis
CPT/HCPCS: 99397

== ENCOUNTER → 2024-06-14 10:08 | Outpatient (REF) | payer OTHER, SELFPAY | LOC: HO.SL 10:08 | PROVIDERS: PCP Physician Assistant; Visit Provider Nurse Practitioner Family | DX: Z13.89 Encounter for screening for other disorder (principal) ==

== ENCOUNTER 2024-07-26 09:55 | Outpatient (AMB) | payer OTHER, SELFPAY ==
--- NOTE | 2024-07-26 10:10 | MHC.OFFVIS ---
Vital Signs 07/26/24 10:14 Height 5 ft 5 in Weight 206 lb BMI 34.3 Intake Visit Reasons: Follow up Intake Note: Patient presents for follow up.patient had a headache last night with pressure on right side of face. Allergies banana [BANANA] Allergy (Intermediate, Verified 07/26/24 10:15) Itching naproxen [From NAPROSYN] Allergy (Intermediate, Verified 07/26/24 10:15) rash, GI upset prednisone Allergy (Intermediate, Verified 07/26/24 10:15) Itchy and redness warfarin [WARFARIN] Allergy (Unknown, Verified 07/26/24 10:15) Unknown ibuprofen [From MOTRIN] Adverse Reaction (Intermediate, Verified 07/26/24 10:15) Gastrointestinal Upset pregabalin Adverse Reaction (Intermediate, Verified 07/26/24 10:15) Diarrhea and blurry vision sun Allergy (Unknown, Uncoded 07/26/24 10:15) bumps on skin Medication List - Last Reconciled 07/26/24 by SHERIN Machado acetaminophen ER (Tylenol Arthritis Pain) 650 mg PO Q8H PRN 30 days albuterol sulfate 90 mcg/actuation 1 inh inhalation QID PRN 30 days baclofen 10 - 20 mg (1 - 2 x 10 mg) PO BEDTIME 30 days calcium carbonate (Oyster Shell Calcium) 500 mg PO DAILY 30 days chlorhexidine gluconate 0.12% PO cholecalciferol (vitamin D3) 50 mcg PO DAILY 90 days clobetasol 0.05% 1 appl topical DAILY 30 days clonazepam 1 mg PO BID PRN 30 days cyanocobalamin (vitamin B-12) 500 mcg PO DAILY 30 days desonide 0.05% 1 appl topical DAILY 15 days diaper,brief,adult,disposable (Briefs, Adult-Extra Large) As directed diclofenac sodium 3% 1 appl topical BID 30 days dicyclomine 10 mg PO DAILY 30 days disposable gloves (Disposable Latex-Free Gloves) As directed escitalopram oxalate (Lexapro) 20 mg PO DAILY 30 days famotidine (Pepcid) 40 mg PO DAILY 30 days gabapentin 300 mg PO TID 30 days hydroxyzine HCl 25 - 50 mg PO Q6H PRN lidocaine 5% 1 appl topical BEDTIME 30 days magnesium oxide 400 mg PO BEDTIME 30 days melatonin 5 mg PO BEDTIME PRN miscellaneous medical supply 1 ea miscellaneous DAILY 30 days naratriptan take 1/2 - 1 tab at onset of headache; if no relief may repeat 1 tab after at least 4 hrs; max = 2 tabs/24 hrs orally PRN; 30 days nystatin 1 appl topical DAILY 15 days prednisone mg PO pyridoxine (vitamin B6) 25 mg PO DAILY sennosides (senna) 8.6 mg PO DAILY PRN simvastatin 20 mg PO DAILY 90 days topiramate 50 mg (1/2 x 100 mg) PO BEDTIME 30 days trazodone 100 mg PO BEDTIME 90 days HPI Comments Details: 73-yr-old female presents for f/u visit. Accompanied by her dtr. Pt reports she was unable to do the HST, as she could not sleep as she has been having mx rashes under her Left then Bilateral rashes, and right foot rashes. Brain MRI was unremarkable. Lab results were notable for low B-12, ans elevated MMA and homocysteine lvels. Pt was thus started on oral vit B-12 supplement. She states she has been having 2 headache days per week- varies. Taking Naratriptan and baclofen is helpful. She is not sure if she started Magnesium. Baseline headache characteristics: Prodrome symptoms: Unsure Aura: blurry vision at times. Pain intensity: severe Location, quality, characteristics: Starts as a right holiness/mandible electrical current in then in the right forehead, right mandible then takes the whole of her right side into her neck. Associated symptoms: photophobia, phonophobia, allodynia, nausea, fatigue, cognitive difficulties, right facial droop. 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 Mother Diabetes Advanced cardiac disease Osteoporosis Chronic mental illness Brother Substance abuse Family/Other Chronic mental illness Social History Household Members: Family Household Members Other:: Dtg lives in same buliding Housing: Assisted Living Facility Do you presently have visiting nurse or other home services: No Alcohol intake: never Comment: LOW Patient Tobacco Use Status: Former Tobacco user Tobacco use type: Cigarette e-Cigarette/Vaping Use: Former Use Second Hand Smoke Exposure: No service: No Current occupational status: disabled Gender identity: Female Cognitive needs: Yes (cane) Hearing needs: No Vision needs: No Physical Exam Vital Signs: BMI result Body Mass Index 34.3 Const General: cooperative and no acute distress Orientation/consciousness: patient oriented x3 Resp Effort & Inspection: normal respiratory effort and able to speak in complete sentences Neuro Other: Photophobic Mild right facial asymmetry General: patient oriented x3 Cranial nerves: Yes CN's II-XII intact bilaterally Cognition (Neuro): normal cognition Psych Appearance: grossly normal Mental Status: mental status grossly normal Speech and movement: Normal speech and movement present Affect: normal affect Attitude: cooperative Thought process: Normal thought process present Assessment & Plan Assessment & Plan (1) Migraine without aura: Code(s): G43.009 - Migraine without aura, not intractable, without status migrainosus Category: Medical (2) Excessive daytime sleepiness: Code(s): G47.19 - Other hypersomnia Category: Medical (3) Sleep difficulties: Code(s): G47.9 - Sleep disorder, unspecified Category: Medical (4) Snoring: Code(s): R06.83 - Snoring Category: Medical (5) Vitamin B12 deficiency: Code(s): E53.8 - Deficiency of other specified B group vitamins Category: Medical Plan Reviewed Brain MRI w/wo- unremarkable. Reviewed labs- notable for vit B-12 def- continue vitamin B-12 supplement. Recheck levels before f/u here. Pt again to undergo:C-spine X-ray. Future considerations- revisiting In-lab PSG to assess for sleep apnea, bruxism, and PLMS. For overall headache management: Optimize good self-care, including but not limited to maintaining a healthy diet, adequate fluid intake, adequate sleep, and engaging in regular physical activity. For headache triggers: Track headaches. For acute headache treatment: Continue Naratriptan 2.5mg prn. May take w/ Tylenol. Continue Baclofen 10-20mg qhs prn. Previous acute migraine medication trials: Sumatriptan- caused jaw tightness. Acute migraine medication contraindications: None at this time For headache prevention medication: Preventative medications should be taken routinely as prescribed for best effect, it may take several weeks for full effect to take effect. Start Magnesium 400mg qhs Continue Gabapentin 300mg tid. Increase Topiramate from 50mg qhs to 100mg qhs. Previous migraine prevention medication trials: None other. Migraine prevention medication contraindications: Caution w/ Aimovig or Atogepant d/t risk for constipation. Beta-blockers d/t asthma. Will follow-up upon review of above and patient to follow-up in clinic in 6 months or sooner prn. Orders: Orders Homocysteine 6 Months E53.8 - Deficiency of other specified B group vitamins Vitamin B12 and Folate 6 Months E53.8 - Deficiency of other specified B group vitamins Methylmalonic Acid 6 Months E53.8 - Deficiency of other specified B group vitamins Medications: Changed From topiramate 50 mg (1/2 x 100 mg) PO BEDTIME 30 days 15 tabs 0RF To topiramate for migraine prevention 100 mg PO BEDTIME 30 days 30 tabs 6RF Refilled magnesium oxide may hold for loose stools 400 mg PO BEDTIME 30 days 30 tabs 6RF Coding Level of Care Code Est Pt Level 4 (11541) Diagnoses Migraine without aura G43.009 Excessive daytime sleepiness G47.19 Sleep difficulties G47.9 Snoring R06.83 Vitamin B12 deficiency E53.8
[2024-07-26 10:14] VITALS: BMI 34.3
== END 2024-07-26 11:05 | disposition home or self-care (01) ==
PROVIDERS: PCP Physician Assistant; Visit Provider Nurse Practitioner Family
DX: G43.009 Migraine without aura, not intractable, without status migrainosus (principal); G47.19 Other hypersomnia; G47.9 Sleep disorder, unspecified; R06.83 Snoring; E53.8 Deficiency of other specified B group vitamins
CPT/HCPCS: 99214

== ENCOUNTER → 2024-07-26 09:55 | Outpatient (BNVA) | payer OTHER, SELFPAY | PROVIDERS: PCP Physician Assistant; Visit Provider Nurse Practitioner Family | DX: G43.009 Migraine without aura, not intractable, without status migrainosus (principal); G47.19 Other hypersomnia; G47.9 Sleep disorder, unspecified; R06.83 Snoring; E53.8 Deficiency of other specified B group vitamins | CPT/HCPCS: 99212 ==

== ENCOUNTER 2024-08-03 11:12 | Inpatient (IN) | payer OTHER, SELFPAY ==
[2024-08-03] VITALS (8 sets, daily range): BP systolic 100–129; BP diastolic 56–78; PULSE 71–95; RESP 15–18; TEMP 36.3–36.7; O2SAT 95–99; BMI 34.4
--- NOTE | ~2024-08-03 | MR_ITS ---
EXAMINATION: MR BRAIN WITHOUT CONTRAST CLINICAL INFORMATION: Stroke. Generalized weakness. Aphasia. COMPARISON: CT head from 08/03/2024. TECHNIQUE: MRI of the brain was obtained using routine sequences without contrast. FINDINGS: No focal restricted diffusion is demonstrated to suggest acute or subacute cerebral ischemia. No evidence of acute or chronic hemorrhagic products on heme-sensitive imaging. Scattered periventricular and deep white matter T2 FLAIR hyperintensities consistent with mild underlying microangiopathy. Proportional prominence of the ventricles and sulcal spaces without evidence of obstructive hydrocephalus. No abnormal mass effect. No midline shift. Normal appearance of the pituitary gland. Normal positioning of the cerebellar tonsils. Normal arterial and venous vascular flow voids are present. Normal, homogeneous marrow signal. Mild mucosal thickening of the paranasal sinuses. No signal abnormalities within the mastoids. Bilateral lens extractions. MR/MR head/brain wo con IMPRESSION: 1. No acute intracranial abnormalities. 2. Mild underlying microangiopathy and generalized cerebral volume loss. Electronically signed by: Bertram Guadalupe DO 08/04/2024 10:45 PM EDT
--- NOTE | ~2024-08-03 | CT_ITS ---
EXAMINATION: CT angio head neck stroke CLINICAL INFORMATION: Aphasia, generalized weakness last well-21:30 COMPARISON: CT head 08/03/2024, MR brain 07/21/2017, CTA chest 10/08/2022 TECHNIQUE: Test bolus sequences followed by intravenous administration 70 mL of Omnipaque 350. Helical imaging was performed in the axial plane from the mediastinum to the skull vertex. Delayed postcontrast imaging of the head was also performed. The data was processed at the architectural technologist's workstation for generation of MIP sequences. Three-dimensional volume rendered reformatted images were also generated at an offline 3-D workstation. Arterial stenoses are measured in accordance with NASCET criteria or similar method if applicable. This CT examination was performed using dose optimization techniques as appropriate, variously including the following: * Automated exposure control * Adjustment of mA and/or kV according to patient size (this includes techniques or standardized protocols for targeted exams where dose is matched to indication/reason for exam; i.e. extremities or head) Use of iterative reconstruction technique DLP: 1481 mGy-cm. FINDINGS: CT head: There is no evidence of acute intracranial hemorrhage or territorial infarction. There is no loss of brown to white matter differentiation. No abnormal mass effect or midline shift is seen. No extra-axial fluid collections are identified. There is no abnormal enhancement. No hydrocephalus. Proportional prominence of the ventricles and sulcal spaces is consistent with mild volume loss. Patchy periventricular and deep white matter hypoattenuation is consistent with mild small vessel ischemic changes. The cerebellar tonsils are well positioned. No acute osseous or soft tissue abnormality. The mastoid air cells and visualized portions of the paranasal sinuses are well aerated. CTA neck: Two-vessel aortic arch with shared origin of the brachiocephalic and left common carotid artery. There are mild aortic calcifications, and the origins of the great vessels remain widely patent. The bilateral common carotid arteries are widely patent. Mild peripheral calcifications of the right carotid bifurcation. Bulky calcifications at the left carotid bifurcation resulting in significant stenosis. The bilateral internal carotid arteries are widely patent. The vertebral arteries opacify normally, and the left is dominant. Nonvascular: Postsurgical changes status post left upper lobe resection, as before. No cervical lymphadenopathy. Normal thyroid. The soft tissues of the neck are unremarkable. Moderate to severe degenerative disc disease at C5-C6. CTA head: Cavernous ICAs: Scattered atherosclerotic calcifications without significant stenosis on either side. A1 segments, anterior communicating artery, and A2 segments: Patent without significant stenosis. M1 segments and major MCA branches: Bilateral M1 segments are patent without significant stenosis. P1, P2 and proximal P3 segments of the craft manager: Patent without significant stenosis. Intracranial vertebral arteries, cerebellar arteries and basilar artery: Patent without significant stenosis. CT/CT angio head neck stroke IMPRESSION: HEAD CT: No acute intracranial hemorrhage or edematous infarction. CTA HEAD/NECK: No high-grade stenosis or proximal occlusion of the vasculature of the head and neck. NONVASCULAR: Postsurgical changes status post left upper lobe resection, as before. Electronically signed by: Anny Young DO 08/03/2024 01:21 PM EDT
--- NOTE | ~2024-08-03 | CT_ITS ---
EXAMINATION: CT ABDOMEN AND PELVIS WITHOUT CONTRAST CLINICAL INFORMATION: Severe abdominal pain COMPARISON: 05/06/2024 TECHNIQUE: Multidetector volumetric imaging was performed from the superior aspect of the liver through the pubic symphysis. Sagittal and coronal reformatted images were obtained on the technologist's workstation. This CT examination was performed using dose optimization techniques as appropriate, variously including the following: *Automated exposure control *Adjustment of mA and/or kV according to patient size (this includes techniques or standardized protocols for targeted exams where dose is matched to indication/reason for exam; i.e. extremities or head) *Use of iterative reconstruction technique DLP: 813 mGy-cm FINDINGS: LUNG BASES: Minimal dependent density at the lung bases but no consolidations or effusions. LIVER, GALLBLADDER, AND BILIARY TREE: Mild hepatic steatosis. Liver is prominent. No focal hepatic mass. No intrahepatic biliary dilatation. The gallbladder is surgically absent. PANCREAS: Unremarkable. SPLEEN: Unremarkable. ADRENAL GLANDS: Unremarkable. KIDNEYS AND URETERS: Residual contrast in the collecting systems from the prior contrast-enhanced CT studies. No hydronephrosis or focal mass, calcification or perinephric collection. BLADDER: Unremarkable. GASTROINTESTINAL TRACT: Mild sigmoid diverticulosis. No bowel obstruction or right or left lower quadrant inflammatory change. ABDOMINAL WALL: No significant hernia is appreciated. LYMPH NODES: Normal. VASCULAR: Aorta and iliac bifurcation is atherosclerotic but not aneurysmal. PELVIC VISCERA: Unremarkable. OSSEOUS STRUCTURES: Degenerative changes seen in the lower thoracic spine and lower lumbar spine. CT/CT abdomen pelvis wo IV con IMPRESSION: No bowel obstruction or acute abnormalities observed. A source of this patient's acute abdominal pain is not discovered on this noncontrast study. Fleischner guidelines were followed. Electronically signed by: Aquilino Singh MD 08/03/2024 04:25 PM EDT
--- NOTE | ~2024-08-03 | XR_ITS ---
EXAMINATION: XR CHEST CLINICAL INFORMATION: Changes in mental status. Pneumonia COMPARISON: None available. TECHNIQUE: Frontal view of the chest was obtained. FINDINGS: Poor inspiratory effort. Heart size borderline with slight distention of the pulmonary vessels. Surgical clips overlie the left midlung. No focal consolidations. No pleural effusions. XR/XR chest 1V IMPRESSION: Recommend PA lateral for complete evaluation. Minor pulmonary venous distention may be technical. Electronically signed by: Aquilino Singh MD 08/03/2024 02:10 PM EDT
--- NOTE | ~2024-08-03 | CT_ITS ---
EXAMINATION: CT HEAD WITHOUT CONTRAST (STROKE PROTOCOL) CLINICAL INFORMATION: Stroke protocol. Aphasia. Generalized weakness. COMPARISON: Head CTs dating between May 27, 2023 and November 02, 2015. More remote prior head CTs are not currently available for comparison for technical reasons. TECHNIQUE: Contiguous axial imaging was performed from the skull base to vertex without intravenous administration of contrast. This CT examination was performed using dose optimization techniques as appropriate, variously including the following: *Automated exposure control *Adjustment of mA and/or kV according to patient size (this includes techniques or standardized protocols for targeted exams where dose is matched to indication/reason for exam; i.e. extremities or head) *Use of iterative reconstruction technique DLP: 674 mGy-cm FINDINGS: No intracranial hemorrhage, large infarction, or mass lesion is seen. Mild, age-appropriate diffuse cortical atrophy and chronic periventricular white matter ischemic change. No extra-axial collection is appreciated. The ventricles are normal in size and configuration without evidence of hydrocephalus. The visualized paranasal sinuses and mastoid air cells are clear. Suspect bilateral lens extractions. CT/CT head for stroke IMPRESSION: No acute intracranial finding. This critical result was discussed with Dr. Eli at approximately 11:33 AM on August 03, 2024. It was ascertained that the content and urgency of the report was understood at the time of direct communication. Electronically signed by: Kenneth Starr MD 08/03/2024 11:33 AM EDT
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
--- NOTE | 2024-08-03 11:17 | ECG_ITS ---
Test Reason : stroke protocol Blood Pressure : / mmHG Vent. Rate : 079 BPM Atrial Rate : 079 BPM P-R Int : 154 ms QRS Dur : 076 ms QT Int : 384 ms P-R-T Axes : 061 054 035 degrees QTc Int : 440 ms Normal sinus rhythm Nonspecific T wave abnormality Abnormal ECG When compared with ECG of 06-MAY-2024 16:15, No significant change was found Referred By: Jignesh Eli Electronically Signed By:FABIANA CONKLIN
[2024-08-03 11:21] LABS: Prothrombin Time Whole Bld POC 12.2 sec (11.1-13.5)
[2024-08-03 11:23] LABS: Glucose, Whole Blood 172 mg/dL (60-115)
[2024-08-03 11:29] LABS: MANUAL DIFF FLAG NO
[2024-08-03 11:31] LABS: Basophils Absolute Auto 0.1 X10*3/uL (0.0-0.2); Basophils Percent Auto 0.8 % (0-2); Eosinophils Absolute Auto 0.1 X10*3/uL (0.0-0.4); Eosinophils Percent Auto 1.6 % (0-4); Hematocrit 43.4 % (37.0-47.0); Hemoglobin 14.6 g/dl (12.0-16.0); Imm Gran Abs Auto 0.02 X10*3/uL (0.00-0.03); Imm Gran Pct Auto 0.2 % (0.0-0.4); Lymphocytes Absolute Auto 4.3 X10*3/uL (1.2-4.9); Lymphocytes Percent Auto 52.3 % (20-40); Mean Corpuscular HGB Conc 33.6 g/dl (31.0-35.0); Mean Corpuscular Hemoglobin 30.6 pg (27.0-33.0); Mean Platelet Volume 8.5 fL (9.4-12.3); Monocytes Absolute Auto 0.6 X10*3/uL (0.1-1.2); Monocytes Percent Auto 6.7 % (2-11); Neutrophils Absolute Auto 3.2 x10*3/uL (2.0-8.3); Neutrophils Percent Auto 38.4 % (45-73); Platelet Count 294 X10*3/uL (160-400); Red Blood Count 4.77 X10*6/uL (4.20-5.50); Red Cell Distribution Width 12.7 % (11.0-16.0); White Blood Count 8.2 X10*3/uL (4.8-10.8)
[2024-08-03] MEDS: iohexoL 350 MG/ML 100 ML INFUS..BTL IV (11:42)
[2024-08-03 11:43] LABS: INTERNATIONAL NORM RATIO 0.9 (0.9-1.1); Prothrombin Time 10.9 SEC (10.9-12.4)
[2024-08-03 11:45] LABS: Partial Thromboplastin Time 29.6 SEC (26.0-36.8)
[2024-08-03 11:47] LABS: Stroke Lab Use COMPLETE
[2024-08-03 11:52] LABS: Anion Gap 15 (12-20); Blood Urea Nitrogen 15 mg/dL (9-16); Calcium 10.8 mg/dL (8.4-10.2); Carbon Dioxide 22 mmol/L (22-29); Chloride 108 mmol/L (96-108); Cholesterol 254 mg/dL (<200); Creatinine Clr Calc Pharmacy 49.9; Estimated Glomerular Filt Rate 50; Ethanol < 10 mg/dL; Glucose Random 176 mg/dL (60-115); HDL Cholesterol 56 mg/dL (>40); LDL Cholesterol Calculated 143 mg/dL (<100); Potassium 3.8 mmol/L (3.3-5.1); Sodium 141 mmol/L (135-145); Triglycerides 279 mg/dL (<150)
[2024-08-03 11:58] LABS: Troponin-I High Sensitivity < 2.7 ng/L (<3.5-17.0)
[2024-08-03 12:19] LABS: Amphetamine Screen Urine Not Detected (Not Detect); Barbiturates, Urine Not Detected (Not Detect); Benzodiazepines Screen Urine Not Detected (Not Detect); Buprenorphine Scr Not Detected (Not Detect); Cannabinoid Screen Urine Not Detected (Not Detect); Cocaine Screen Urine Not Detected (Not Detect); Fentanyl, urine Not Detected (Not Detect); Methadone Screen, Urine Not Detected (Not Detect); Opiate Screen Urine Not Detected (Not Detect); Oxycodone Screen Urine Not Detected (Not Detect); Phencyclidine Screen Urine Not Detected (Not Detect)
[2024-08-03 12:23] LABS: Acetaminophen LAB < 3 mcg/mL (<30); Salicylate < 5.0 mg/dL (15-30)
--- NOTE | 2024-08-03 12:50 | PC.NURSE ---
Pt found at foot of bed attempting to get out. Was unable to stand and take steps back into bed. Became weaker. Full assist/ lift to return patient to safe position in bed. Family returned to bedside and will help monitor while chargeback specialist attempts new bed assignment.
[2024-08-03 12:59] LABS: Appearance Urine Clear; Color Urine Yellow; Glucose Urine UA Negative (Negative); Leukocyte Esterase Urine Negative (Negative); Nitrite Urine Negative (Negative); PH 7.5 (5.0-9.0); Specific Gravity - Urine >= 1.030 (1.005-1.025); Urine Blood Negative (Negative); Urine Ketones Negative (Negative); Urine Protein Negative (Neg-Trace)
[2024-08-03 12:59] LABS: TSH reflex Free T4 1.59 uIU/mL (0.32-4.0)
--- NOTE | 2024-08-03 13:11 | PC.NURSE ---
Pt vomited bile x 2. was supine as she began to vomit but sat up immediately by this RN. no indication that there was food or pills in emisis. alert throughout episode. cleansed and moved closer to nurses station. Is respongind to physical stimuli but unable to follow commands at this time. sitting upright and saying aye repeatedly. nsr on monitor. skin pwd.
[2024-08-03] MEDS: ondansetron HCL 4 MG/2 ML VIAL IVPUSH ×2 (14:05→20:59)
[2024-08-03] MEDS: 0.9 % Sodium Chloride 1,000 ML 999 ML IV (14:08)
[2024-08-03] MEDS: Morphine Sulfate 2 MG/ML CARTRIDGE IVPUSH (14:08)
[2024-08-03 14:10] LABS: Lipase 11 U/L (8-78)
[2024-08-03] MEDS: Famotidine 20 MG TABLET PO (14:12)
[2024-08-03] MEDS: Haloperidol Lactate 5 MG/ML VIAL 2 MG IVPUSH (16:21)
[2024-08-03] MEDS: LORazepam 2 MG/ML VIAL 1 MG IVPUSH (16:23)
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
--- NOTE | 2024-08-03 17:15 | PHA.MEDREC ---
Addendum entered by Shaye Eastman RPh 08/03/24 17:55: Reviewed by [facility] Original Note: Pharmacy Consult ? Medication Reconciliation Pharmacy has completed the medication reconciliation. Spoke to patient daughter Jennifer at bedside. She was able to confirm her mom is taking Clonazepan 1mg tab daily only at bedtime now her daughter stated. She stated her mom is taking Vitamin B-12 tablets as needed for her B-12 levels. She also is still taking Melatonin 5 mg at bedtime as needed. Her daughter states she still has the Naratriptan 2.5mg tab still at home absolutely as needed for migraines. She confirmed her mom finished her Prednisone 20mg regimen a few months ago. She confirmed her mom took her medications yesterday.
[2024-08-03 17:19] LABS: Alanine Aminotransferase 14 U/L (0-31); Albumin Level 4.4 g/dL (3.5-5.0); Alkaline Phosphatase 90 U/L (39-117); Aspartate Amino Transferase 16 U/L (5-31); Bilirubin Direct 0.2 mg/dL (0.0-0.5); Bilirubin Total 0.5 mg/dL (0.0-1.0); Total Protein 7.7 g/dL (6.5-8.0)
[2024-08-03] MEDS: LORazepam 2 MG/ML VIAL 0.5 MG IVPUSH (17:49)
[2024-08-03] MEDS: Haloperidol Lactate 5 MG/ML VIAL IVPUSH (17:49)
[2024-08-03] MEDS: Enoxaparin Sodium 40 MG/0.4 ML SYRINGE SUBCUT (17:52)
--- NOTE | 2024-08-03 19:15 | PC.NURSE ---
Assumed care of pt. Pt emily chavez, fmikly at bedside, no acute distress at this time.
[2024-08-03] MEDS: Valproic Acid (as Sodium Salt) 250 MG in Dextrose 5 % 50 ML 52.5 MG IV (20:36)
--- NOTE | 2024-08-03 23:12 | MHC.EDTECH ---
at this time witnessed pt trying to get out of bed, legs were between side rails and tangled. Pt was able to be redirected and placed back into bed safely, pt appears to be restless, most likely due to son leaving bedside in order to get something to eat.
--- NOTE | 2024-08-03 23:16 | MHC.EDTECH ---
at this time this tech placed a chair alarm on the pt for safety while son is away from bedside due to the pt restless behavior and attempting to exist the bed without assistance
[2024-08-04] VITALS (7 sets, daily range): BP systolic 105–146; BP diastolic 52–76; PULSE 82–95; RESP 14–20; TEMP 36.1–37.1; O2SAT 94–100
--- NOTE | 2024-08-04 | EEG_ITS ---
FINDINGS: The background activity consists of a moderate to high voltage diffuse 5 hertz theta with episodes of bilateral sharp and slow discharges at 2 hertz and occasional sharp and slow discharges from the posterior quadrants bilaterally. There are also periods of paroxysmal generalized 1 hertz delta of moderate to high voltage. Photic stimulation and hyperventilation were omitted. IMPRESSION: This EEG is considered abnormal due to significant diffuse background slowing as well as some sharp and slow discharges in paroxysmal delta, which could correlate with a seizure disorder. There is also a diffuse process involve to possibly metabolic. Clinical correlation is suggested. MD ADRIANA Nicholas/JEFFERY / [id number]
[2024-08-04] MEDS: 0.9 % Sodium Chloride Flush 3 ML SYRINGE IVFLUSH ×2 (01:02→22:51)
--- NOTE | 2024-08-04 01:26 | PC.NURSE ---
Summary of assessment during shift thus far. Pt has exhibited only minimal verbal responses to questions for this RN, but it appears answers do not correlate with questions. Pt repeatedly answering only yes/no when asked about pain, position and bathroom, but appears uncoordinated with movements. Attempted to place pt on commode with staff bedside for safety, pt unable to go. Attempted to takept to bathroom via wheelchair with staff present, but pt does not appear to comprehend. Son at bedside earlier in shift, indicating pt was AxO x4, ambulatory and independent at home with no cognitive deficits, and behaviors exhibited today are nweasof this am. Pt continues to be safety concern, bed alarm in place for intermittent agitation with attempts to exist bed.
--- NOTE | 2024-08-04 01:57 | MHC.EDTECH ---
at this time this tech found the pt trying to get out of bed without assistance, pt appears confused and restless, has been since son left bedside, pt repositioned back to bed and given warm blanket. Placed blankets on side rails and secured w/ tape for safety due to the pt being found twice with their legs tangled in between the side rail bars, bed alarm was also placed on pt for safety. Pt is connected to A/B monitor and appears to be in no apparent distress at this time
[2024-08-04] MEDS: Acetaminophen 325 MG TABLET 650 MG PO ×2 (02:24→22:52)
--- NOTE | 2024-08-04 02:32 | PC.NURSE ---
Pt endosring pain (through service team leader present) and able to articulate lower back pain. Medicated per orders. Requested order for straight cath and additional labs to continue investigation into mental status.
[2024-08-04 05:07] LABS: Hematocrit 41.5 % (37.0-47.0); Hemoglobin 13.8 g/dl (12.0-16.0); Mean Corpuscular HGB Conc 33.3 g/dl (31.0-35.0); Mean Corpuscular Hemoglobin 30.3 pg (27.0-33.0); Mean Platelet Volume 8.4 fL (9.4-12.3); Platelet Count 276 X10*3/uL (160-400); Red Blood Count 4.56 X10*6/uL (4.20-5.50); Red Cell Distribution Width 12.8 % (11.0-16.0); White Blood Count 10.1 X10*3/uL (4.8-10.8)
[2024-08-04 05:12] LABS: Ammonia 40 umol/L (13-55)
--- NOTE | 2024-08-04 05:19 | PC.NURSE ---
Pt appearswith more recognition this am, able to answer basic questions, and make statements such as Thank you, I Don't Know, and identifies own name. Unable to identify birthday, location or events.
[2024-08-04 05:27] LABS: Alanine Aminotransferase 15 U/L (0-31); Albumin Level 4.3 g/dL (3.5-5.0); Alkaline Phosphatase 85 U/L (39-117); Anion Gap 14 (12-20); Aspartate Amino Transferase 20 U/L (5-31); Bilirubin Total 0.7 mg/dL (0.0-1.0); Blood Urea Nitrogen 15 mg/dL (9-16); Calcium 9.9 mg/dL (8.4-10.2); Carbon Dioxide 22 mmol/L (22-29); Chloride 106 mmol/L (96-108); Creatinine Clr Calc Pharmacy 65.7; Estimated Glomerular Filt Rate > 60; Glucose Random 124 mg/dL (60-115); Potassium 3.8 mmol/L (3.3-5.1); Sodium 138 mmol/L (135-145); Total Protein 7.3 g/dL (6.5-8.0)
--- NOTE | 2024-08-04 07:53 | HO.PM.IMPN ---
Subjective Subjective Date of Service: 08/04/24 Review of Systems Follow up Encephalopathy still sleepy but stable Physical Exam Vital Signs: Vital Signs: Last Vital Signs Temp 98.7 F 08/04/24 05:17 Pulse 93 08/04/24 05:17 Resp 17 08/04/24 05:17 BP 105/52 L 08/04/24 05:17 Pulse Ox 97 08/04/24 05:17 O2 Del Method Room Air 08/04/24 05:17 BMI result Body Mass Index 34.4 Appearing in no acute distress lung sounds are clear to auscultation heart regular rate rhythm, clear S1, S2 positive bowel sounds, abdomen is soft, nontender neuro patient is alert, confused Objective Data Active Medications Acetaminophen (Acetaminophen 325 Mg Tablet) 650 mg PO Q6H PRN PRN Reason: Pain, Mild (Pain Scale 1-3), fever or headache Last Admin: 08/04/24 02:24 Dose: 650 mg Documented By: NATASHA Albuterol Sulfate (Albuterol Sulfate 90 Mcg 8 Gm Inhaler) 1 puff INHALE QID PRN PRN Reason: shortness of breath or wheezing Calcium Carbonate (Calcium Carbonate 750 Mg Tab.Chew) 750 mg PO Q4H PRN PRN Reason: Heartburn Clonazepam (Clonazepam 1 Mg Tablet) 1 mg PO BEDTIME PRN PRN Reason: anxiety Cyanocobalamin (Cyanocobalamin (Vitamin B-12) 500 Mcg Tablet) 500 mcg PO DAILY PRN PRN Reason: B-12 Levels Dicyclomine HCl (Dicyclomine Hcl 10 Mg Capsule) 10 mg PO DAILY [facility] Enoxaparin Sodium (Enoxaparin Sodium 40 Mg/0.4 Ml Syringe) 40 mg SUBCUT Q24H [facility] Last Admin: 08/03/24 17:52 Dose: 40 mg Documented By: MONI Famotidine (Famotidine 20 Mg Tablet) 40 mg PO DAILY [facility] Gabapentin (Gabapentin 300 Mg Capsule) 300 mg PO TID [facility] Magnesium Hydroxide (Milk Of Magnesia 30 Ml Oral.Susp) 30 ml PO DAILY PRN PRN Reason: Constipation Melatonin (Melatonin 3 Mg Tablet) 6 mg PO BEDTIME PRN PRN Reason: Insomnia Non-Formulary Medication (Pyridoxine (Vitamin B6)) 25 mg PO DAILY [facility] Non-Formulary Medication (Simvastatin) 20 mg PO DAILY [facility] Omeprazole (Omeprazole 40 Mg Capsule.) 40 mg PO BID@0630,1630 [facility] Ondansetron HCl (Ondansetron Hcl 4 Mg/2 Ml Vial) 4 mg IVPUSH Q8H PRN PRN Reason: Nausea and Vomiting Last Admin: 08/03/24 20:59 Dose: 4 mg Documented By: NATASHA Senna (Sennosides 8.6 Mg Tablet) 8.6 mg PO DAILY PRN PRN Reason: constipation Sodium Chloride (0.9 % Sodium Chloride Flush 3 Ml Syringe) 3 ml IVFLUSH QSHIFT [facility] Last Admin: 08/04/24 01:02 Dose: 3 ml Documented By: NATASHA Topiramate (Topiramate 100 Mg Tablet) 100 mg PO BEDTIME [facility] Trazodone HCl (Trazodone Hcl 100 Mg Tablet) 100 mg PO BEDTIME [facility] Vitamin D (Cholecalciferol (Vitamin D3) 25 Mcg Tablet) 50 mcg PO DAILY [facility] Labs 08/04/24 04:33 08/04/24 04:33 Labs: Laboratory Results - last 24 hr 08/03/24 08/03/24 08/03/24 11:16 11:17 12:00 MCV 91.0 MCH 30.6 MCHC 33.6 RDW 12.7 Plt Count 294 D MPV 8.5 L Immature Gran % (Auto) 0.2 Neut % (Auto) 38.4 L Lymph % (Auto) 52.3 H [place] % (Auto) 6.7 Eos % (Auto) 1.6 Baso % (Auto) 0.8 Lymph # (Auto) 4.3 [place] # (Auto) 0.6 Eos # (Auto) 0.1 Baso # (Auto) 0.1 Abs Immat Gran (auto) 0.02 Absolute Neuts (auto) 3.2 Absolute Nucleated RBC 0.000 Nucleated RBC % (auto) 0.0 Hold Purple Top SEE NOTE PT 10.9 Whole Blood PT 12.2 INR 0.9 Whole Blood INR 1.0 APTT 29.6 Anion Gap 15 Estim Creat Clear Calc 49.9 Estimated GFR 50 POC Glucose 172 H Random Glucose 176 H Calcium 10.8 H D Total Bilirubin 0.5 Direct Bilirubin 0.2 AST 16 ALT 14 Alkaline Phosphatase 90 Ammonia Troponin I High Sens < 2.7 Total Protein 7.7 Albumin 4.4 Triglycerides 279 H Cholesterol 254 H LDL Cholesterol, Calc 143 H HDL Cholesterol 56 Lipase 11 TSH 1.59 Urine Color Urine Appearance Urine pH Ur Specific [place] Urine Protein Urine Glucose (UA) Urine Ketones Urine Blood Urine Nitrite Ur Leukocyte Esterase Salicylates < 5.0 L Urine Opiates Screen Not Detected Ur Buprenorphine Scrn Not Detected Ur Oxycodone Screen Not Detected Urine Methadone Screen Not Detected Urine Fentanyl Screen Not Detected Acetaminophen < 3 Ur Barbiturates Screen Not Detected Ur Phencyclidine Scrn Not Detected Ur Amphetamines Screen Not Detected U Benzodiazepines Scrn Not Detected Urine Cocaine Screen Not Detected U Marijuana (THC) Screen Not Detected Ethyl Alcohol < 10 08/03/24 08/04/24 12:50 04:33 MCV 91.0 MCH 30.3 MCHC 33.3 RDW 12.8 Plt Count 276 MPV 8.4 L Immature Gran % (Auto) Neut % (Auto) Lymph % (Auto) [place] % (Auto) Eos % (Auto) Baso % (Auto) Lymph # (Auto) [place] # (Auto) Eos # (Auto) Baso # (Auto) Abs Immat Gran (auto) Absolute Neuts (auto) Absolute Nucleated RBC 0.000 Nucleated RBC % (auto) 0.0 Hold Purple Top PT Whole Blood PT INR Whole Blood INR APTT Anion Gap 14 Estim Creat Clear Calc 65.7 Estimated GFR > 60 POC Glucose Random Glucose 124 H Calcium 9.9 D Total Bilirubin 0.7 Direct Bilirubin AST 20 ALT 15 Alkaline Phosphatase 85 Ammonia 40 Troponin I High Sens Total Protein 7.3 Albumin 4.3 Triglycerides Cholesterol LDL Cholesterol, Calc HDL Cholesterol Lipase TSH Urine Color Yellow Urine Appearance Clear Urine pH 7.5 Ur Specific [place] >= 1.030 H Urine Protein Negative Urine Glucose (UA) Negative Urine Ketones Negative Urine Blood Negative Urine Nitrite Negative Ur Leukocyte Esterase Negative Salicylates Urine Opiates Screen Ur Buprenorphine Scrn Ur Oxycodone Screen Urine Methadone Screen Urine Fentanyl Screen Acetaminophen Ur Barbiturates Screen Ur Phencyclidine Scrn Ur Amphetamines Screen U Benzodiazepines Scrn Urine Cocaine Screen U Marijuana (THC) Screen Ethyl Alcohol Assessment and Plan (1) Aphasia: Status: Acute (2) Acute encephalopathy: Status: Acute Plan 73-year-old woman admitted with encephalopathy with episode of staring and not speaking with history of mental health disorder. No previous seizure history disorder. Encephalopathy Family reports staring and not responding, daughter also found 7 pills of trazodone in pill bottle, supposed to have 16 Question seizure, psychogenic seizure, stroke, conversion disorder Urine tox screen negative No infectious source noted Head and neck CTA showing no high-grade stenosis or proximal occlusion Neurology consultation>obtain MRI and EEG if both neg psych consult Monitor on telemetry Peripheral neuropathy Continue gabapentin Hyperlipidemia Continue statin GERD Continue PPI Mental health Continue home medications Obesity class 1 Discuss importance of weight management as this may be contributing to worsening of other comorbidities DVT prophylaxis with Lovenox Full code Attending Dr. Hernandez Quality Stroke Does the patient have a stroke diagnosis?: No VTE Prior VTE?: No VTE Risk Level:: Medical - moderate - high VTE Device Contraindication: Treatment Not Indicated VTE Drug Contraindication: N/A - Med Ordered
--- NOTE | 2024-08-04 08:45 | PC.NURSE ---
pt pulled out IV access placed by previous RN. new 20gIV placed in the left wrist/forearm - patent/intact. IV access wrapped for safety precautions. MRI form filled out/faxed/placed in pt chart.
[2024-08-04] MEDS: Atorvastatin Calcium 10 MG TABLET PO (09:54)
[2024-08-04] MEDS: Famotidine 20 MG TABLET 40 MG PO (09:54)
[2024-08-04] MEDS: Cholecalciferol (Vitamin D3) 25 MCG TABLET 50 MCG PO (09:54)
[2024-08-04] MEDS: Pyridoxine HCl (Vitamin B6) 50 MG TABLET 25 MG PO (09:54)
[2024-08-04] MEDS: Dicyclomine HCl 10 MG CAPSULE PO (09:54)
[2024-08-04] MEDS: Gabapentin 300 MG CAPSULE PO ×2 (09:54→22:51)
[2024-08-04 14:08] LABS: Adenovirus PCR Not Detected (Not Detect.); Bordetella parapertussis PCR Not Detected (Not Detect.); Bordetella pertussis PCR Not Detected (Not Detect.); Chlamydia pneumoniae PCR Not Detected (Not Detect.); Coronavirus 229E PCR Not Detected (Not Detect.); Coronavirus HKU1 PCR Not Detected (Not Detect.); Coronavirus NL63 PCR Not Detected (Not Detect.); Coronavirus OC43 PCR Not Detected (Not Detect.); Human metapneumovirus PCR Not Detected (Not Detect.); Influenza A PCR Not Detected (Not Detect.); Influenza B PCR Not Detected (Not Detect.); Mycoplasma pneumoniae PCR Not Detected (Not Detect.); Parainfluenza 1 PCR Not Detected (Not Detect.); Parainfluenza 2 PCR Not Detected (Not Detect.); Parainfluenza 3 PCR Not Detected (Not Detect.); Parainfluenza 4 PCR Not Detected (Not Detect.); RSV PCR Not Detected (Not Detect.); Rhino/Enterovirus PCR Not Detected (Not Detect.)
[2024-08-04 14:32] LABS: SARS-CoV-2 PCR Not Detected (Not Detect.)
--- NOTE | 2024-08-04 15:05 | MHC.CM.PN ---
JAEL 08/04. Pt sleeping, unable to partake in CM intake assessment, pts son was present at bedside and assisted along with pts daughter on the phone. Per pts children, she lives alone at home in a 2 family home, her daughter Jennifer lives upstairs. Pts daughter Jennifer is her RECRUITER COORDINATOR. Pt uses a walker. Family to transport her home at discharge. No HCP on file, and pt unable to create one at this time. PCP: Gio HUERTAS
--- NOTE | 2024-08-04 16:23 | P.PNNE_ITS ---
Subjective Subjective Date of Service: 08/04/24 Critical Care Time (minutes): 0 Physical Exam 2 Vital Signs: Vital Signs: Last Vital Signs Temp 98.5 F 08/04/24 11:58 Pulse 84 08/04/24 11:58 Resp 16 08/04/24 11:58 BP 124/70 08/04/24 11:58 Pulse Ox 94 08/04/24 11:58 O2 Del Method Room Air 08/04/24 11:58 BMI result Body Mass Index 34.4 Objective Data Labs 08/04/24 04:33 08/04/24 04:33 Labs: Laboratory Results - last 24 hr 08/03/24 08/03/24 08/04/24 11:17 18:24 04:33 WBC 10.1 RBC 4.56 Hgb 13.8 Hct 41.5 MCV 91.0 MCH 30.3 MCHC 33.3 RDW 12.8 Plt Count 276 MPV 8.4 L Absolute Nucleated RBC 0.000 Nucleated RBC % (auto) 0.0 Sodium 138 Potassium 3.8 Chloride 106 Carbon Dioxide 22 Anion Gap 14 BUN 15 Creatinine 0.82 Estim Creat Clear Calc 65.7 Estimated GFR > 60 Random Glucose 124 H Calcium 9.9 D Total Bilirubin 0.5 0.7 Direct Bilirubin 0.2 AST 16 20 ALT 14 15 Alkaline Phosphatase 90 85 Ammonia 40 Total Protein 7.7 7.3 Albumin 4.4 4.3 Respiratory Panel Lucio See Note Adenovirus (Rapid PCR) Not Detected B.pert (TEM-PCR) Not Detected B.parapertussis DNA PCR Not Detected C. pneumoniae DNA (PCR) Not Detected Coronavirus OC43 (PCR) Not Detected Coronavirus HKU1 (PCR) Not Detected Coronavirus 229E (PCR) Not Detected Coronavirus NL63 (PCR) Not Detected Human Metapneumovir PCR Not Detected Influenza A (RT-PCR) Not Detected Influenza B (RT-PCR) Not Detected M. pneumoniae (PCR) Not Detected Parainfluenza 1 (PCR) Not Detected Parainfluenza 2 (PCR) Not Detected Parainfluenza 3 (PCR) Not Detected Parainfluenza 4 (PCR) Not Detected RSV (PCR) Not Detected Entero/Rhino (PCR) Not Detected SARS-CoV-2 RNA (RT-PCR) Not Detected Progress Note: A&P Assessment and plan (1) Acute encephalopathy: Status: Acute (2) Acute alteration in mental status: Status: Acute Plan I have reviewd her MRI which look sunremarkable with no acute stroke. However, her EEG is very abnormal , diffusely slow and with sharp and slow waves. c/w metabolic encephalopathy and possible Sz Recom: Lumbar puncture. Keppra 1gm bid. Complete metabolic and infectious workup Time Spent With Patient Time: Total time managing care of this patient today ____ minutes. Procedures Date of Service Date of Service: 08/04/24 Quality Stroke Does the patient have a stroke diagnosis?: No VTE Prior VTE?: No VTE Risk Level:: Medical - moderate - high VTE Device Contraindication: Treatment Not Indicated VTE Drug Contraindication: N/A - Med Ordered
[2024-08-04] MEDS: Omeprazole 40 MG CAPSULE.DR PO (18:10)
[2024-08-04] MEDS: Enoxaparin Sodium 40 MG/0.4 ML SYRINGE SUBCUT (18:10)
[2024-08-04 19:00] LABS: Folate 5.6 ng/mL (> or = 4.0); Vitamin B12 191 pg/mL (200-900)
[2024-08-04] MEDS: Topiramate 100 MG TABLET PO (22:51)
[2024-08-04] MEDS: clonazePAM 1 MG TABLET PO (22:51)
[2024-08-05] VITALS (7 sets, daily range): BP systolic 101–131; BP diastolic 50–74; PULSE 77–90; RESP 18–20; TEMP 36.2–37.1; O2SAT 94–97
[2024-08-05] MEDS: Omeprazole 40 MG CAPSULE.DR PO ×2 (06:37→16:33)
[2024-08-05] MEDS: Cholecalciferol (Vitamin D3) 25 MCG TABLET 50 MCG PO (08:24)
[2024-08-05] MEDS: Dicyclomine HCl 10 MG CAPSULE PO (08:24)
[2024-08-05] MEDS: Gabapentin 300 MG CAPSULE PO (08:24)
[2024-08-05] MEDS: Famotidine 20 MG TABLET 40 MG PO (08:24)
[2024-08-05] MEDS: 0.9 % Sodium Chloride Flush 3 ML SYRINGE IVFLUSH ×2 (08:25→20:04)
[2024-08-05] MEDS: Pyridoxine HCl (Vitamin B6) 50 MG TABLET 25 MG PO (08:25)
[2024-08-05] MEDS: levETIRAcetam 500 MG TABLET PO (08:25)
[2024-08-05] MEDS: Acetaminophen 325 MG TABLET 650 MG PO (08:25)
[2024-08-05] MEDS: Atorvastatin Calcium 10 MG TABLET PO (08:25)
--- NOTE | 2024-08-05 11:46 | P.PNIM_ITS ---
Subjective Subjective Date of Service: 08/05/24 Interval History: Seen and examined this morning Follow-up for encephalopathy History obtained with daughter at the bedside Patient is awake, alert and oriented x3. According to her daughter she has significantly improved since admission Review of Systems Review of Systems: Yes all other systems are reviewed and are negative Constitutional Constitutional: Denies chills and Denies fever(s) Cardiovascular Cardiovascular: Denies chest pain, Denies palpitations and Denies dyspnea Respiratory Respiratory: Denies cough and Denies dyspnea Gastrointestinal Gastrointestinal: Denies abdominal pain, Denies nausea and Denies vomiting Endocrine Endocrine: Denies palpitations Physical Exam 2 Vital Signs: Vital Signs: Last Vital Signs Temp 97.2 F 08/05/24 08:00 Pulse 86 08/05/24 08:00 Resp 18 08/05/24 08:00 BP 116/66 08/05/24 08:00 Pulse Ox 96 08/05/24 08:00 O2 Del Method Room Air 08/05/24 08:00 BMI result Body Mass Index 34.4 Const: General: cooperative, comfortable, no acute distress, alert and awake Nutritional Appearance: overweight Orientation/consciousness: patient oriented x3 Resp: Effort & Inspection: normal respiratory effort, able to speak in complete sentences, no respiratory distress and no use of accessory muscles A uscultation: clear to auscultation bilaterally Cardio: Rate: regular rate GI: Inspection: No distended Palpation (GI): Soft to palpation Neuro: General: patient oriented x3, moves all extremities and CN's II-XI intact bilaterally Extrem: General: Yes no pedal edema Objective Data Active Medications Acetaminophen (Acetaminophen 325 Mg Tablet) 650 mg PO Q6H PRN PRN Reason: Pain, Mild (Pain Scale 1-3), fever or headache Last Admin: 08/05/24 08:25 Dose: 650 mg Documented By: MATT Albuterol Sulfate (Albuterol Sulfate 90 Mcg 8 Gm Inhaler) 1 puff INHALE QID PRN PRN Reason: shortness of breath or wheezing Atorvastatin Calcium (Atorvastatin Calcium 10 Mg Tablet) 10 mg PO DAILY [facility] Last Admin: 08/05/24 08:25 Dose: 10 mg Documented By: MATT Calcium Carbonate (Calcium Carbonate 750 Mg Tab.Chew) 750 mg PO Q4H PRN PRN Reason: Heartburn Clonazepam (Clonazepam 1 Mg Tablet) 1 mg PO BEDTIME PRN PRN Reason: anxiety Last Admin: 08/04/24 22:51 Dose: 1 mg Documented By: CRYSTAL Dicyclomine HCl (Dicyclomine Hcl 10 Mg Capsule) 10 mg PO DAILY [facility] Last Admin: 08/05/24 08:24 Dose: 10 mg Documented By: MATT Enoxaparin Sodium (Enoxaparin Sodium 40 Mg/0.4 Ml Syringe) 40 mg SUBCUT Q24H [facility] Last Admin: 08/04/24 18:10 Dose: 40 mg Documented By: KYLER Famotidine (Famotidine 20 Mg Tablet) 40 mg PO DAILY [facility] Last Admin: 08/05/24 08:24 Dose: 40 mg Documented By: MATT Gabapentin (Gabapentin 300 Mg Capsule) 300 mg PO TID [facility] Last Admin: 08/05/24 08:24 Dose: 300 mg Documented By: MATT Magnesium Hydroxide (Milk Of Magnesia 30 Ml Oral.Susp) 30 ml PO DAILY PRN PRN Reason: Constipation Melatonin (Melatonin 3 Mg Tablet) 6 mg PO BEDTIME PRN PRN Reason: Insomnia Omeprazole (Omeprazole 40 Mg Capsule.Dr) 40 mg PO BID@0630,1630 [facility] Last Admin: 08/05/24 06:37 Dose: 40 mg Documented By: CRYSTAL Ondansetron HCl (Ondansetron Hcl 4 Mg/2 Ml Vial) 4 mg IVPUSH Q8H PRN PRN Reason: Nausea and Vomiting Last Admin: 08/03/24 20:59 Dose: 4 mg Documented By: NATASHA Pyridoxine HCl (Pyridoxine Hcl (Vitamin B6) 50 Mg Tablet) 25 mg PO DAILY [facility] Last Admin: 08/05/24 08:25 Dose: 25 mg Documented By: MATT Senna (Sennosides 8.6 Mg Tablet) 8.6 mg PO DAILY PRN PRN Reason: constipation Sodium Chloride (0.9 % Sodium Chloride Flush 3 Ml Syringe) 3 ml IVFLUSH QSHIFT [facility] Last Admin: 08/05/24 08:25 Dose: 3 ml Documented By: MATT Topiramate (Topiramate 100 Mg Tablet) 100 mg PO BEDTIME [facility] Last Admin: 08/04/24 22:51 Dose: 100 mg Documented By: CRYSTAL Vitamin D (Cholecalciferol (Vitamin D3) 25 Mcg Tablet) 50 mcg PO DAILY [facility] Last Admin: 08/05/24 08:24 Dose: 50 mcg Documented By: MATT Labs 08/04/24 04:33 08/04/24 04:33 Labs: Laboratory Results - last 24 hr 08/03/24 08/04/24 18:24 18:03 Vitamin B12 191 L Folate 5.6 Respiratory Panel Lucio See Note Adenovirus (Rapid PCR) Not Detected B.pert (TEM-PCR) Not Detected B.parapertussis DNA PCR Not Detected C. pneumoniae DNA (PCR) Not Detected Coronavirus OC43 (PCR) Not Detected Coronavirus HKU1 (PCR) Not Detected Coronavirus 229E (PCR) Not Detected Coronavirus NL63 (PCR) Not Detected Human Metapneumovir PCR Not Detected Influenza A (RT-PCR) Not Detected Influenza B (RT-PCR) Not Detected M. pneumoniae (PCR) Not Detected Parainfluenza 1 (PCR) Not Detected Parainfluenza 2 (PCR) Not Detected Parainfluenza 3 (PCR) Not Detected Parainfluenza 4 (PCR) Not Detected RSV (PCR) Not Detected Entero/Rhino (PCR) Not Detected SARS-CoV-2 RNA (RT-PCR) Not Detected Assessment and Plan (1) Acute encephalopathy: Status: Acute Plan 73-year-old woman admitted with encephalopathy with episode of staring and not speaking with history of mental health disorder. No previous seizure history disorder. Acute toxic Encephalopathy Head and neck CTA showing no high-grade stenosis or proximal occlusion Urine tox screen negative. No infectious source noted. TSH WNL; folate wnl, b12 borderline low (see below) Patient recently started trazodone and possibly took more then prescribed per daughter seen by neuro - MRI negative, EEG abnormal - rec LP and begin keppra - however patient with significant improvement today, discussed with Neurology -abnormal EEG could be explained by encephalopathy due to unintentional drug overdose. Recommended to hold Keppra and LP at this time due to clinical improvement and monitor. Repeat EEG in a.m. d/c trazodone Peripheral neuropathy Continue gabapentin low b12 levels 191 no anemia on replacement prn? will increase to 1000 mcg daily - outpatient follow-up Less likely contributing to above encephalopathy Hyperlipidemia Continue statin GERD Continue PPI Mental health Continue home medications Obesity class 1 Discussed importance of weight management as this may be contributing to worsening of other comorbidities DVT prophylaxis with Lovenox Full code Quality Stroke Does the patient have a stroke diagnosis?: No VTE Prior VTE?: No VTE Risk Level:: Medical - moderate - high VTE Device Contraindication: Treatment Not Indicated VTE Drug Contraindication: N/A - Med Ordered
--- NOTE | 2024-08-05 12:40 | MHC.CM.PN ---
IMM 08/05/24 Patient status change OBS to INPT.
[2024-08-05] MEDS: Cyanocobalamin (Vitamin B-12) 1,000 MCG TABLET 1000 MCG PO (13:08)
[2024-08-05] MEDS: Enoxaparin Sodium 40 MG/0.4 ML SYRINGE SUBCUT (16:33)
[2024-08-05] MEDS: Topiramate 100 MG TABLET PO (20:03)
--- NOTE | 2024-08-05 23:58 | P.EN_ITS ---
Event Note Date of Service: 08/05/24 Event Note: Was informed by the nurse and nursing truck repair supervisor that patient left against medical advice. Patient was deemed to have mental capacity prior to leaving AMA. Patient left before I could talk to her. Time Spent With Patient Time: Total time managing care of this patient today ____ minutes.
--- NOTE | 2024-08-05 23:58 | PC.NURSE ---
Patient called this RN into room. Patient alert and oriented, vital signs stable. Pt anxious asking to call daughter and requested to leave AMA. Patient educated on importance of hospital stay and upcoming scheduled procedures. Pt aware of tests and states she will have them done outpatient. Family notified and son at bedside shortly afterwards to bring pt home. Dr. Mayo aware. Nursing board mill supervisor called and at bedside. AMA signed and patient left with son.
--- NOTE | 2024-08-07 16:01 | PM.DS ---
DS: Providers Provider Date of Service: 08/05/24 Date of admission: 08/05/24 11:27 Date of discharge: 08/05/24 Primary care physician: Gio Meadows PA-C Consults: 08/03/24 16:52 Consult to Neurology Routine Consulting Provider: [facility] Reason for consultation: ? seizure Attending physician on discharge: Dalton Hernandez Discharging clinician: Gabi Cross DS: Diagnosis Discharge Diagnosis (1) Acute encephalopathy: Status: Acute DS: Summary Hospital Course Hospital Course: Acute toxic Encephalopathy Head and neck CTA showing no high-grade stenosis or proximal occlusion Urine tox screen negative. No infectious source noted. TSH WNL; folate wnl, b12 borderline low (see below) Patient recently started trazodone and possibly took more then prescribed per daughter seen by neuro - MRI negative, EEG abnormal - rec LP and begin keppra - however patient with significant improvement today, discussed with Neurology -abnormal EEG could be explained by encephalopathy due to unintentional drug overdose. Recommended to hold Keppra and LP at this time due to clinical improvement and monitor. Plan to Repeat EEG in a.m. Trazodone was discontinued. Low B12 levels. No anemia per med reconciliation patient was on oral replacement as needed? Increase to 1000 mcg daily and outpatient follow-up for follow-up levels in the near future. Was notified that patient had left against medical advice overnight on the evening of August 05 prior to a provider talking with her. Per notes she was alert and oriented x3 at the time of her departure. Time Attestation Discharge Coordination Time (in mins): 30 Quality: Safe Use of Opioids Does Pt have an Active Cancer Diagnosis on the Problem List?: No Quality: Stroke Does the patient have a stroke diagnosis?: No Physical Exam Vital Signs: Vital Signs: Last Vital Signs Temp 97.7 F 08/05/24 23:43 Pulse 90 08/05/24 23:43 Resp 18 08/05/24 23:43 BP 128/61 08/05/24 23:43 Pulse Ox 97 08/05/24 23:43 O2 Del Method Room Air 08/05/24 23:43 BMI result Body Mass Index 34.4 Discharge Plan Discharge Patient Disposition: Left Against Medical Advice Discharge Diagnosis: Acute encephalopathy Referrals: Gio Meadows PA-C [Primary Care Provider] - 1 Week Discharge Medications: No Action (DME) Briefs, Adult-Extra Large Misc See Rx Instructions .Route Qty: 3 11RF Rx Instructions: As directed (DME) disposable gloves [Disposable Latex-Free Gloves] Misc See Rx Instructions .Route Qty: 1000 6RF Rx Instructions: As directed acetaminophen [Tylenol Arthritis Pain] 650 mg tablet extended release 650 mg PO Q8H PRN (Reason: pain) 30 Days Qty: 90 3RF calcium carbonate [Oyster Shell Calcium] 500 mg calcium (1,250 mg) tablet 500 mg PO DAILY 30 Days Qty: 30 3RF famotidine [Pepcid] 40 mg tablet 40 mg PO DAILY 30 Days Qty: 30 3RF gabapentin 300 mg capsule 300 mg PO TID 30 Days Qty: 90 2RF lidocaine 5 % ointment 1 appl topical BEDTIME 30 Days Qty: 50 1RF sennosides [senna] 8.6 mg tablet 8.6 mg PO DAILY PRN (Reason: constipation) Qty: 30 0RF albuterol sulfate 90 mcg/actuation HFA aerosol inhaler 1 inh inhalation QID PRN (Reason: shortness of breath or wheezing) 30 Days Qty: 8.5 2RF dicyclomine 10 mg capsule 10 mg PO DAILY 30 Days Qty: 30 0RF omeprazole 40 mg capsule,delayed release(DR/EC) 40 mg PO BID@0630,1630 clonazepam 1 mg tablet 1 mg PO BEDTIME PRN (Reason: anxiety) cyanocobalamin (vitamin B-12) 500 mcg tablet 500 mcg PO DAILY PRN (Reason: B-12 Levels) baclofen 10 mg tablet 10 - 20 mg PO BEDTIME PRN (Reason: muscle spasm) cefuroxime axetil 500 mg tablet 500 mg PO BID Qty: 14 0RF phenazopyridine [Pyridium] 200 mg tablet 200 mg PO TID Qty: 6 0RF cholecalciferol (vitamin D3) 50 mcg (2,000 unit) capsule 50 mcg PO DAILY 90 Days Qty: 90 2RF trazodone 100 mg tablet 100 mg PO BEDTIME 90 Days Qty: 90 2RF simvastatin 20 mg tablet 20 mg PO DAILY 90 Days Qty: 90 1RF pyridoxine (vitamin B6) 25 mg tablet 25 mg PO DAILY Qty: 30 0RF melatonin 5 mg tablet 5 mg PO BEDTIME PRN (Reason: sleep) Qty: 30 3RF naratriptan 2.5 mg tablet See Rx Instructions PO .COMPLEX PRN (Reason: migraine headache) 30 Days Qty: 12 6RF Rx Instructions: take 1/2 - 1 tab at onset of headache; if no relief may repeat 1 tab after at least 4 hrs; max = 2 tabs/24 hrs orally PRN; topiramate 100 mg tablet 100 mg PO BEDTIME 30 Days Qty: 30 6RF Rx Instructions: for migraine prevention magnesium oxide 400 mg (241.3 mg magnesium) tablet 400 mg PO BEDTIME 30 Days Qty: 30 6RF Rx Instructions: may hold for loose stools Discharge Orders: Discharge Order (Routine); Ordered 08/06/24 Ordered By: Gabi Cross Print Language: Italian Care Plan Goals: Left against medical advice Health Concerns: AMA Plan of Treatment: AMA Assessment: AMA Discharge Date/Time: 08/06/24 00:00
== END 2024-08-06 | disposition left against medical advice (07) | DRG 92 ==
LOC: HO.ED 16:17 → HO.EDOVER 16:54 → HO.IMC 08-04 19:45
PROVIDERS: Internal Medicine; Admitting Provider Nurse Practitioner Acute Care; Emergency Provider Emergency Medicine Emergency Medical Services; PCP Physician Assistant; Visit Provider Physician Assistant Medical
DX: G92.8 Other toxic encephalopathy (principal); R47.01 Aphasia; E06.3 Autoimmune thyroiditis; F43.10 Post-traumatic stress disorder, unspecified; E78.5 Hyperlipidemia, unspecified; K21.9 Gastro-esophageal reflux disease without esophagitis; R94.01 Abnormal electroencephalogram [EEG]; G62.9 Polyneuropathy, unspecified; E66.811 Obesity, class 1; Z68.34 Body mass index [BMI] 34.0-34.9, adult; Z71.3 Dietary counseling and surveillance; Z20.822 Contact with and (suspected) exposure to COVID-19; Z79.899 Other long term (current) drug therapy
CPT/HCPCS: 36415; 70450; 70496; 70498; 70551; 71045; 74176; 80048; 80053; 80061; 80076; 80143; 80179; 80307; 81003; 82140; 82607; 82746; 82947; 83690; 84443; 84484; 85025; 85027; 85610; 85730; 87633; 93005; 95816; 96361; 96372; 96374; 96375; 96376; 99222; 99285; J1630; J1650; J2060; J2270; J2405; Q9967

== ENCOUNTER → 2024-08-03 11:17 | Outpatient (BNV) | payer OTHER, SELFPAY | PROVIDERS: Emergency Provider Emergency Medicine Emergency Medical Services; PCP Physician Assistant; Visit Provider Internal Medicine | DX: R94.31 Abnormal electrocardiogram [ECG] [EKG] (principal) | CPT/HCPCS: 93010 ==

== ENCOUNTER → 2024-08-03 16:50 | Outpatient (BNV) | payer OTHER, SELFPAY | PROVIDERS: Admitting Provider Nurse Practitioner Acute Care; Emergency Provider Emergency Medicine Emergency Medical Services; PCP Physician Assistant; Visit Provider Nurse Practitioner Acute Care | DX: G93.40 Encephalopathy, unspecified (principal) | CPT/HCPCS: 99223; 99232; 99238; 99499 ==

== ENCOUNTER → 2024-08-03 16:50 | Outpatient (BNV) | payer OTHER, SELFPAY | PROVIDERS: Admitting Provider Nurse Practitioner Acute Care; Emergency Provider Emergency Medicine Emergency Medical Services; PCP Physician Assistant; Visit Provider Psychiatry & Neurology Neurology | DX: G93.40 Encephalopathy, unspecified (principal); R41.82 Altered mental status, unspecified | CPT/HCPCS: 99222; 99232 ==

== ENCOUNTER 2024-08-07 07:56 | Emergency (ER) | payer OTHER, SELFPAY ==
--- NOTE | ~2024-08-07 | US_ITS ---
EXAMINATION: US PELVIS CLINICAL INFORMATION: Vaginal bleed. Postmenopausal. COMPARISON: CT abdomen/pelvis 08/03/2024. TECHNIQUE: Transabdominal images of the pelvis were obtained. The patient refused transvaginal examination. FINDINGS/ US/US pelvic complete IMPRESSION: Very limited essentially nondiagnostic examination. The uterus is barely seen. The endometrium and ovaries are not well seen. No large amount of free fluid. No discrete adnexal mass. Electronically signed by: Shey Velazco MD 08/07/2024 11:01 AM EDT
--- NOTE | ~2024-08-07 | CT_ITS ---
EXAMINATION: CT ABDOMEN AND PELVIS WITHOUT CONTRAST CLINICAL INFORMATION: Flank pain and dysuria. COMPARISON: CT abdomen/pelvis 08/03/2024. TECHNIQUE: Multidetector volumetric imaging was performed from the superior aspect of the liver through the pubic symphysis. Sagittal and coronal reformatted images were obtained on the technologist's workstation. This CT examination was performed using dose optimization techniques as appropriate, variously including the following: *Automated exposure control *Adjustment of mA and/or kV according to patient size (this includes techniques or standardized protocols for targeted exams where dose is matched to indication/reason for exam; i.e. extremities or head) *Use of iterative reconstruction technique DLP: 702 mGy-cm FINDINGS: The lack of intravenous contrast limits evaluation of the solid visceral organs including the liver, spleen, pancreas, and kidneys. LUNG BASES: No focal consolidation or pleural effusion. Stable subsegmental atelectasis/scarring in the left lower lobe. LIVER, GALLBLADDER, AND BILIARY TREE: The liver is normal in size, shape, and attenuation. No focal hepatic lesion. Cholecystectomy. Stable extrahepatic biliary ductal dilatation compared to 08/03/2024 and 05/06/2024, the CBD measures up to 1 cm in diameter. No significant intrahepatic biliary ductal dilatation. PANCREAS: Unremarkable. SPLEEN: Unremarkable. ADRENAL GLANDS: Unremarkable. KIDNEYS AND URETERS: The kidneys are normal in size, shape, and attenuation. No hydronephrosis, hydroureter, or calculi seen. No perinephric stranding. BLADDER: Underdistended limiting evaluation. No perivesical fat stranding. GASTROINTESTINAL TRACT: The stomach and small bowel are nondilated. Normal appendix. Colonic diverticulosis without significant pericolonic inflammatory changes. No evidence of bowel obstruction. ABDOMINAL WALL: Stable small fat-containing periumbilical hernia. LYMPH NODES: No lymphadenopathy. VASCULAR: Moderate to severe atherosclerotic disease. Normal caliber of the abdominal aorta. PELVIC VISCERA: Unremarkable. OSSEOUS STRUCTURES: Degenerative changes of the spine. No acute or aggressive appearing osseous findings. CT/CT abdomen pelvis wo IV con IMPRESSION: No acute abnormality to explain the patient's symptoms. No nephrolithiasis or hydronephrosis. No perivesical fat stranding. Colonic diverticulosis without significant pericolic inflammatory changes. Stable mild extrahepatic biliary ductal dilatation, which is nonspecific in a postcholecystectomy state. Electronically signed by: Shey Velazco MD 08/07/2024 11:20 AM EDT
[2024-08-07 08:07] VITALS: BP 137/65; PULSE 85; RESP 20; TEMP 35.6; O2SAT 99; BMI 32.0
[2024-08-07 08:21] VITALS: BP 137/65; PULSE 85; RESP 20; TEMP 35.6; O2SAT 99
--- NOTE | 2024-08-07 08:51 | ED_ITS ---
HPI - Abdominal Pain General Chief Complaint: Abdominal Pain Stated Complaint: vaginal bleeding Time Seen by Provider: 08/07/24 08:27 Source: patient and old records reviewed Mode of arrival: ambulatory Limitations: no limitations History of Present Illness ED Provider: DR. Díaz HPI narrative: 73-year-old female came in for evaluation of dysuria, frequency urination, blood in the urine, and right flank pain that started since yesterday, patient had a recent hospitalization from 08/03 to 08/05 patient left AMA thought to be a psychiatric. Related Data Home Medications ?Medication ?Instructions ?Recorded ?Confirmed baclofen 10 mg tablet 10 - 20 mg PO BEDTIME PRN muscle 08/03/24 08/03/24 spasm clonazepam 1 mg tablet 1 mg PO BEDTIME PRN anxiety 08/03/24 08/03/24 cyanocobalamin (vitamin B-12) 500 500 mcg PO DAILY PRN B-12 Levels 08/03/24 08/03/24 mcg tablet omeprazole 40 mg capsule,delayed 40 mg PO BID@0630,1630 08/03/24 08/03/24 release Previous Rx's ?Medication ?Instructions ?Recorded cholecalciferol (vitamin D3) 50 50 mcg PO DAILY 90 days #90 caps 11/12/21 mcg (2,000 unit) capsule pyridoxine (vitamin B6) 25 mg 25 mg PO DAILY #30 tabs 01/08/22 tablet albuterol sulfate 90 mcg/actuation 1 inh inhalation QID PRN shortness 11/22/22 aerosol inhaler of breath or wheezing 30 days #8.5 grams dicyclomine 10 mg capsule 10 mg PO DAILY 30 days #30 caps 11/22/22 sennosides 8.6 mg tablet (senna) 8.6 mg PO DAILY PRN constipation 11/22/22 #30 tabs diaper,brief,adult,disposable #3 multiple units 06/09/23 (Briefs, Adult-Extra Large) disposable gloves (Disposable #1,000 ea 06/09/23 Latex-Free Gloves) acetaminophen 650 mg 650 mg PO Q8H PRN pain 30 days #90 08/18/23 tablet,extended release (Tylenol tabs Arthritis Pain) melatonin 5 mg tablet 5 mg PO BEDTIME PRN sleep #30 tabs 12/31/23 calcium carbonate (Oyster Shell 500 mg PO DAILY 30 days #30 tabs 01/15/24 Calcium) naratriptan 2.5 mg tablet See Rx Instructions PO .COMPLEX 03/22/24 PRN migraine headache 30 days #12 tabs famotidine 40 mg tablet (Pepcid) 40 mg PO DAILY 30 days #30 tabs 04/26/24 simvastatin 20 mg tablet 20 mg PO DAILY 90 days #90 tabs 05/17/24 trazodone 100 mg tablet 100 mg PO BEDTIME 90 days #90 tabs 05/17/24 gabapentin 300 mg capsule 300 mg PO TID 30 days #90 caps 06/16/24 lidocaine 5 % topical ointment 1 appl topical BEDTIME 30 days #50 06/29/24 grams magnesium oxide 400 mg (241.3 mg 400 mg PO BEDTIME 30 days #30 tabs 07/26/24 magnesium) tablet topiramate 100 mg tablet 100 mg PO BEDTIME 30 days #30 tabs 07/26/24 cefuroxime axetil 500 mg tablet 500 mg PO BID #14 tabs 08/07/24 phenazopyridine 200 mg tablet 200 mg PO TID 6 doses #6 tabs 08/07/24 (Pyridium) Allergies Allergy/AdvReac Type Severity Reaction Status Date / Time banana [BANANA] Allergy Intermediate Itching Verified 08/07/24 08:10 naproxen [From NAPROSYN] Allergy Intermediate rash, GI Verified 08/07/24 08:10 upset prednisone Allergy Intermediate Itchy and Verified 08/07/24 08:10 redness warfarin [WARFARIN] Allergy Unknown Unknown Verified 08/07/24 08:10 ibuprofen [From MOTRIN] AdvReac Intermediate Gastrointestinal Verified 08/07/24 08:10 Upset pregabalin AdvReac Intermediate Diarrhea Verified 08/07/24 08:10 and blurry vision sun Allergy Unknown bumps on Uncoded 07/26/24 10:15 skin Review of Systems Review of Systems all other systems are reviewed and are negative Constitutional: Reports as per HPI and Reports no additional constitutional complaints Eyes: Reports as per HPI and Reports no additional eye complaints Reports system reviewed and no additional complaints, except as documented Cardiovascular: Reports as per HPI and Reports no additional cardiovascular complaints Respiratory: Reports as per HPI and Reports no additional respiratory complaints Gastrointestinal: Reports as per HPI and Reports no additional gastrointestinal complaints Genitourinary: Reports no additional female genitourinary complaints Musculoskeletal: Reports no additional musculoskeletal complaints Skin/Breast: Reports system reviewed and no additional complaints, except as docu Psychiatric: Reports no additional psychiatric complaints Endocrine: Reports no additional endocrine complaints Hematologic/Lymphatic: Reports no additional hematologic/lymphatic complaints Allergic/Immunologic: Reports no additional allergic/immunologic complaints Reports system reviewed and no additional complaints, except as documented and Reports Abnormal speech present PMFSH Past Medical History Medical History Fecal incontinence Disseminated herpes zoster GERD without esophagitis Cough Difficulty hearing Obesity (BMI 30-39.9) 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 Mother Diabetes Advanced cardiac disease Osteoporosis Chronic mental illness Brother Substance abuse Family/Other Chronic mental illness Social History Social History Household Members: None Household Members Other:: family members live in apartment below Housing: Apartment Do you presently have visiting nurse or other home services: Yes Alcohol intake: never Comment: LOW Patient Tobacco Use Status: Former Tobacco user Tobacco use type: Cigarette Smoked in Last 30 Days: No e-Cigarette/Vaping Use: Former Use Second Hand Smoke Exposure: No Use of substances other than those prescribed or required for medical reasons: No Advance Directives: No Advance Directives Information Provided: Yes Do you have a plan to hurt others: No Plan service: No Current occupational status: disabled Gender identity: Female Cognitive needs: Yes (cane) Hearing needs: No Vision needs: No Physical Exam ED Vital Signs: Vital Signs - 24 hr 08/07/24 08:07 08/07/24 08:21 08/07/24 09:57 Temperature 96.0 F L 96.0 F L Pulse Rate 85 85 73 Respiratory Rate 20 20 17 Blood Pressure 137/65 137/65 116/70 Pulse Oximetry 99 99 98 Oxygen Delivery Method Room Air Room Air Room Air 08/07/24 11:14 Temperature Pulse Rate Respiratory Rate 16 Blood Pressure Pulse Oximetry Oxygen Delivery Method BMI result Body Mass Index 32.0 Vital signs have been reviewed and appear to be correct. Blood pressure elevated. Heart rate normal. Respiratory rate normal. Temperature normal. Oxygen saturation normal. Appearance: Alert. Oriented X3. No acute distress. Head: Normal external exam. Normocephalic. Atraumatic. No Dangelo signs noted. No raccoon eyes noted Eyes: PERRLA. EOMI. Conjunctiva and sclera normal. Eyelids normal. ENT: TM's Normal. Pharynx normal. Uvula midline. Moist mucous membranes. No trismus noted. No drooling noted. No muffled voice noted. Neck: Normal inspection. Neck supple. FROM. No adenopathy. Thyroid Normal. No meningeal signs. No neck mass noted. CVS: Normal heart rate and rhythm. Heart sound normal. No murmurs noted. Pulses normal throughout. Respiratory: No respiratory distress. Painless inspiration. Breath sounds normal. No wheezes/rales/rhonchi noted. Chest nontender. No accessory muscle usage noted or decreased air movement noted. Abdomen: Soft and nontender. Bowel sounds normal in all 4 quadrants. No distention noted. No organomegaly noted. No visible injury noted. Pelvic exam: In the presence of JAVIER Gordon no vaginal bleeding, no blood in the vault. Back: No CVA tenderness. Full range of motion noted. Skin: Skin warm and dry. Normal skin color. Normal skin turgor. No rashes/lesions/lacerations noted. Extremities: No lower extremity edema. Extremities exhibit normal range of motion. Extremities nontender. Neuro: Oriented X 3. Cranial nerve exam: II-XII are grossly intact No motor deficit. No sensory deficit. Reflexes normal. Course Reevaluation(s) Reevaluation #1: 73-year-old female came in for evaluation of dysuria and frequency urination with right flank pain, patient has a UTI. pelvic exam revealed no pelvic or vaginal bleed, pelvic ultrasound is limited, CT of the abdomen and pelvis is unremarkable for pelvic pathology, UA is revealing UTI UA has no RBCs. Start the patient on cefuroxime and patient was encouraged to drink plenty of fluids. No SIRS or sepsis. Will have the patient follow-up with OBGYN. Patient at discharge is AAO x3. Time: 11:43 Medical Decision Making Differential Diagnosis Differential Diagnoses: The differential diagnosis associated with the presentation includes ( UTI, pyelonephritis, vaginal bleed, Electrolyte derangement, severe anemia, colitis, pancreatitis, appendicitis.) Admission/Observation Consideration of admission/observation: Escalation of care including admission/observation considered Lab Data MDM Lab Attestation statement: I reviewed the patient's lab results. 08/07/24 09:05 08/07/24 09:05 Labs: Lab Results 08/07/24 Range/Units 09:05 WBC 5.8 (4.8-10.8) X10*3/uL RBC 4.71 (4.20-5.50) X10*6/uL Hgb 14.4 (12.0-16.0) g/dl Hct 42.8 (37.0-47.0) % MCV 90.9 (80.0-98.0) fL MCH 30.6 (27.0-33.0) pg MCHC 33.6 (31.0-35.0) g/dl RDW 12.5 (11.0-16.0) % Plt Count 285 (160-400) X10*3/uL MPV 8.4 L (9.4-12.3) fL Immature Gran % (Auto) 0.5 H (0.0-0.4) % Neut % (Auto) 43.9 L (45-73) % Lymph % (Auto) 40.9 H (20-40) % [place] % (Auto) 11.1 H (2-11) % Eos % (Auto) 2.4 (0-4) % Baso % (Auto) 1.2 (0-2) % Lymph # (Auto) 2.4 (1.2-4.9) X10*3/uL [place] # (Auto) 0.6 (0.1-1.2) X10*3/uL Eos # (Auto) 0.1 (0.0-0.4) X10*3/uL Baso # (Auto) 0.1 (0.0-0.2) X10*3/uL Abs Immat Gran (auto) 0.03 (0.00-0.03) X10*3/uL Absolute Neuts (auto) 2.5 (2.0-8.3) x10*3/uL Absolute Nucleated RBC 0.000 (0.0-0.012) X10*3/uL Nucleated RBC % (auto) 0.0 (0.0-0.2) /100WBC Sodium 140 (135-145) mmol/L Potassium 3.3 (3.3-5.1) mmol/L Chloride 104 (96-108) mmol/L Carbon Dioxide 27 (22-29) mmol/L Anion Gap 12 (12-20) BUN 18 H (9-16) mg/dL Creatinine 0.85 (0.5-1.4) mg/dL Estim Creat Clear Calc 65.5 Estimated GFR > 60 Random Glucose 126 H (60-115) mg/dL Calcium 10.1 (8.4-10.2) mg/dL Urine Color Dark Yellow Urine Appearance Turbid Urine pH 5.5 (5.0-9.0) Ur Specific [place] >= 1.030 H (1.005-1.025) Urine Protein Trace (Neg-Trace) mg/dL Urine Glucose (UA) Negative (Negative) mg/dL Urine Ketones Trace (Negative) mg/dL Urine Blood Negative (Negative) Urine Nitrite Negative (Negative) Ur Leukocyte Esterase Moderate (2+) H (Negative) Urine RBC 0-2 (0-2) /HPF Urine WBC >50 H (0-5) /HPF Ur Squamous Epith Cells 0-2 (0-2) /HPF Urine Bacteria Trace (None Seen) Hyaline Casts 0-2 (0-2) /LPF Independent Interpretation I performed an independent interpretation of an: CT Scan ( Abdomen pelvis:No acute abnormality to explain the patient's symptoms. No nephrolithiasis or hydronephrosis. No perivesical fat stranding. Colonic diverticulosis without significant pericolic inflammatory changes. Stable mild extrahepatic biliary ductal dilatation, which is nonspecific in a po) Radiology Impression Discussion of test interpretation with radiology: I have reviewed the radiologist's reading. Medications Administered Discontinued Medications Generic Name Dose Route Start Last Admin Trade Name Freq PRN Reason Stop Dose Admin Morphine Sulfate 1 mg 08/07/24 11:02 08/07/24 11:14 Morphine Sulfate 2 Mg/Ml Cartridge IVPUSH 08/07/24 11:03 1 mg ONCE ONE Administration Protocol Discharge Plan Discharge Clinical Impression: Acute UTI Patient Disposition: Home, Self-Care Instructions: Urinary Tract Infection in Women (ED) Prescriptions: New cefuroxime axetil 500 mg tablet 500 mg PO BID Qty: 14 0RF phenazopyridine [Pyridium] 200 mg tablet 200 mg PO TID Qty: 6 0RF No Action (DME) Briefs, Adult-Extra Large Misc See Rx Instructions .Route Qty: 3 11RF Rx Instructions: As directed (DME) disposable gloves [Disposable Latex-Free Gloves] Misc See Rx Instructions .Route Qty: 1000 6RF Rx Instructions: As directed acetaminophen [Tylenol Arthritis Pain] 650 mg tablet extended release 650 mg PO Q8H PRN (Reason: pain) 30 Days Qty: 90 3RF calcium carbonate [Oyster Shell Calcium] 500 mg calcium (1,250 mg) tablet 500 mg PO DAILY 30 Days Qty: 30 3RF famotidine [Pepcid] 40 mg tablet 40 mg PO DAILY 30 Days Qty: 30 3RF gabapentin 300 mg capsule 300 mg PO TID 30 Days Qty: 90 2RF lidocaine 5 % ointment 1 appl topical BEDTIME 30 Days Qty: 50 1RF sennosides [senna] 8.6 mg tablet 8.6 mg PO DAILY PRN (Reason: constipation) Qty: 30 0RF albuterol sulfate 90 mcg/actuation HFA aerosol inhaler 1 inh inhalation QID PRN (Reason: shortness of breath or wheezing) 30 Days Qty: 8.5 2RF dicyclomine 10 mg capsule 10 mg PO DAILY 30 Days Qty: 30 0RF omeprazole 40 mg capsule,delayed release(DR/EC) 40 mg PO BID@0630,1630 clonazepam 1 mg tablet 1 mg PO BEDTIME PRN (Reason: anxiety) cyanocobalamin (vitamin B-12) 500 mcg tablet 500 mcg PO DAILY PRN (Reason: B-12 Levels) baclofen 10 mg tablet 10 - 20 mg PO BEDTIME PRN (Reason: muscle spasm) cholecalciferol (vitamin D3) 50 mcg (2,000 unit) capsule 50 mcg PO DAILY 90 Days Qty: 90 2RF trazodone 100 mg tablet 100 mg PO BEDTIME 90 Days Qty: 90 2RF simvastatin 20 mg tablet 20 mg PO DAILY 90 Days Qty: 90 1RF pyridoxine (vitamin B6) 25 mg tablet 25 mg PO DAILY Qty: 30 0RF melatonin 5 mg tablet 5 mg PO BEDTIME PRN (Reason: sleep) Qty: 30 3RF naratriptan 2.5 mg tablet See Rx Instructions PO .COMPLEX PRN (Reason: migraine headache) 30 Days Qty: 12 6RF Rx Instructions: take 1/2 - 1 tab at onset of headache; if no relief may repeat 1 tab after at least 4 hrs; max = 2 tabs/24 hrs orally PRN; topiramate 100 mg tablet 100 mg PO BEDTIME 30 Days Qty: 30 6RF Rx Instructions: for migraine prevention magnesium oxide 400 mg (241.3 mg magnesium) tablet 400 mg PO BEDTIME 30 Days Qty: 30 6RF Rx Instructions: may hold for loose stools Print Language: Albanian
[2024-08-07 09:10] LABS: MANUAL DIFF FLAG NO
[2024-08-07 09:12] LABS: Basophils Absolute Auto 0.1 X10*3/uL (0.0-0.2); Basophils Percent Auto 1.2 % (0-2); Eosinophils Absolute Auto 0.1 X10*3/uL (0.0-0.4); Eosinophils Percent Auto 2.4 % (0-4); Hematocrit 42.8 % (37.0-47.0); Hemoglobin 14.4 g/dl (12.0-16.0); Imm Gran Abs Auto 0.03 X10*3/uL (0.00-0.03); Imm Gran Pct Auto 0.5 % (0.0-0.4); Lymphocytes Absolute Auto 2.4 X10*3/uL (1.2-4.9); Lymphocytes Percent Auto 40.9 % (20-40); Mean Corpuscular HGB Conc 33.6 g/dl (31.0-35.0); Mean Corpuscular Hemoglobin 30.6 pg (27.0-33.0); Mean Corpuscular Volume 90.9 fL (80.0-98.0); Mean Platelet Volume 8.4 fL (9.4-12.3); Monocytes Absolute Auto 0.6 X10*3/uL (0.1-1.2); Monocytes Percent Auto 11.1 % (2-11); Neutrophils Absolute Auto 2.5 x10*3/uL (2.0-8.3); Neutrophils Percent Auto 43.9 % (45-73); Platelet Count 285 X10*3/uL (160-400); Red Blood Count 4.71 X10*6/uL (4.20-5.50); Red Cell Distribution Width 12.5 % (11.0-16.0); White Blood Count 5.8 X10*3/uL (4.8-10.8)
[2024-08-07 09:14] LABS: Appearance Urine Turbid; Color Urine Dark Yellow; Glucose Urine UA Negative (Negative); Leukocyte Esterase Urine Moderate (2+) (Negative); Nitrite Urine Negative (Negative); PH 5.5 (5.0-9.0); Specific Gravity - Urine >= 1.030 (1.005-1.025); UMIC TRIGGER UACC YES; Urine Blood Negative (Negative); Urine Ketones Trace mg/dL (Negative); Urine Protein Trace mg/dL (Neg-Trace)
[2024-08-07 09:25] LABS: Anion Gap 12 (12-20); Blood Urea Nitrogen 18 mg/dL (9-16); Calcium 10.1 mg/dL (8.4-10.2); Carbon Dioxide 27 mmol/L (22-29); Chloride 104 mmol/L (96-108); Creatinine Clr Calc Pharmacy 65.5; Estimated Glomerular Filt Rate > 60; Glucose Random 126 mg/dL (60-115); Potassium 3.3 mmol/L (3.3-5.1); Sodium 140 mmol/L (135-145)
[2024-08-07 09:26] LABS: Bacteria Urine Trace (None Seen); Hyaline Casts Urine 0-2 /LPF (0-2); RBC Urine 0-2 /HPF (0-2); Squamous Epithelial Cell Urine 0-2 /HPF (0-2); UACC Culture Trigger YES; WBC Urine >50 /HPF (0-5)
[2024-08-07 09:57] VITALS: BP 116/70; PULSE 73; RESP 17; O2SAT 98
[2024-08-07 11:14] VITALS: RESP 16
[2024-08-07] MEDS: Morphine Sulfate 2 MG/ML CARTRIDGE 1 MG IVPUSH (11:14)
[2024-08-07] MEDS: cefTRIAXone sodium 1 GM VIAL IVPUSH (11:53)
[2024-08-07 12:00] VITALS: BP 132/93; PULSE 94; RESP 18; TEMP 37.1; O2SAT 98
== END 2024-08-07 12:02 | disposition home or self-care (01) ==
PROVIDERS: Emergency Provider Emergency Medicine; PCP Physician Assistant
DX: N39.0 Urinary tract infection, site not specified (principal); R30.0 Dysuria; E78.00 Pure hypercholesterolemia, unspecified; Z79.899 Other long term (current) drug therapy; Z79.02 Long term (current) use of antithrombotics/antiplatelets
CPT/HCPCS: 36415; 74176; 76856; 80048; 81001; 85025; 87086; 96374; 96375; 99284; J0696; J2270

== ENCOUNTER 2024-08-18 09:43 | Outpatient (AMB) | payer OTHER, SELFPAY ==
[2024-08-18 09:51] VITALS: BP 90/60; PULSE 74; O2SAT 98; BMI 32.8
--- NOTE | 2024-08-18 09:51 | MHC.PC.OV ---
Vital Signs 08/18/24 09:51 08/18/24 10:13 Height 5 ft 6 in Weight 203 lb 2 oz BMI 32.8 BP 90/60 110/60 Blood Pressure Location Lt brachial Position Sitting Pulse 74 Pulse Source Pulse Oximeter Pulse Oximetry (%) 98 Oxygen Delivery Method Room Air Intake Visit Reasons: [facility] 08/07 vaginal bleeding Intake Note: Patient is here for hospital discharge follow up. Patient was discharged from [facility] on 08/03 and 08/07/24. 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 Accompanied by: Daughter Allergies banana [BANANA] Allergy (Intermediate, Verified 08/18/24 09:55) Itching naproxen [From NAPROSYN] Allergy (Intermediate, Verified 08/18/24 09:55) rash, GI upset prednisone Allergy (Intermediate, Verified 08/18/24 09:55) Itchy and redness warfarin [WARFARIN] Allergy (Unknown, Verified 08/18/24 09:55) Unknown ibuprofen [From MOTRIN] Adverse Reaction (Intermediate, Verified 08/18/24 09:55) Gastrointestinal Upset pregabalin Adverse Reaction (Intermediate, Verified 08/18/24 09:55) Diarrhea and blurry vision sun Allergy (Unknown, Uncoded 08/18/24 09:55) bumps on skin Medication List - Last Reconciled 08/18/24 by Gio Meadows PA-C acetaminophen ER (Tylenol Arthritis Pain) 650 mg PO Q8H PRN 30 days albuterol sulfate 90 mcg/actuation 1 inh inhalation QID PRN 30 days baclofen 10 - 20 mg PO BEDTIME PRN calcium carbonate (Oyster Shell Calcium) 500 mg PO DAILY 30 days cefuroxime axetil 500 mg PO BID cholecalciferol (vitamin D3) 50 mcg PO DAILY 90 days clonazepam 1 mg PO BEDTIME PRN cyanocobalamin (vitamin B-12) 500 mcg PO DAILY PRN diaper,brief,adult,disposable (Briefs, Adult-Extra Large) As directed dicyclomine 10 mg PO DAILY 30 days disposable gloves (Disposable Latex-Free Gloves) As directed famotidine (Pepcid) 40 mg PO DAILY 30 days gabapentin 300 mg PO TID 30 days lidocaine 5% 1 appl topical BEDTIME 30 days magnesium oxide 400 mg PO BEDTIME 30 days melatonin 5 mg PO BEDTIME PRN naratriptan take 1/2 - 1 tab at onset of headache; if no relief may repeat 1 tab after at least 4 hrs; max = 2 tabs/24 hrs orally PRN; 30 days omeprazole 40 mg PO BID@0630,1630 phenazopyridine (Pyridium) 200 mg PO TID 6 doses pyridoxine (vitamin B6) 25 mg PO DAILY sennosides (senna) 8.6 mg PO DAILY PRN simvastatin 20 mg PO DAILY 90 days topiramate 100 mg PO BEDTIME 30 days trazodone 100 mg PO BEDTIME 90 days Tobacco use date assessed: 12/31/23 Dental Screening Dental Screen Date: 12/31/23 HPI [facility] 08/07 vaginal bleeding HPI Details Patient is a 73-year-old female here today for hospital discharge follow-up Presents today with her daughter. Patient has a past medical history significant for major depressive disorder, hyperlipidemia, irritable bowel syndrome, generalized anxiety disorder, obesity, and hypothyroidism. Patient recently admitted to [facility] for acute altered mental status. There was thought that patient accidentally overdosed on her medication (trazodone), though patient herself believes it was baclofen she took too much of. While in the hospital head and neck CTA did not show any evidence of stroke or high-grade stenosis. Did undergo an MRI that was negative. She did have an abnormal EEG. She was found to have a low B12. Patient admits she was not taking her vitamins for quite some time before her presentation. 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 Mother Diabetes Advanced cardiac disease Osteoporosis Chronic mental illness Brother Substance abuse Family/Other Chronic mental illness Social History Household Members: None Household Members Other:: family members live in apartment below pt Housing: Apartment Do you presently have visiting nurse or other home services: Yes Alcohol intake: never Comment: LOW Patient Tobacco Use Status: Former Tobacco user Tobacco use type: Cigarette e-Cigarette/Vaping Use: Former Use Second Hand Smoke Exposure: No service: No Current occupational status: disabled Gender identity: Female Cognitive needs: Yes (cane) Hearing needs: No Vision needs: No Questionnaire Thrive Questionnaire Date Thrive assessed: 08/04/24 TIMA-7 AMB Questionnaire TIMA-7 Date TIMA - 7 assessed: 06/26/23 Source: Developed by Drs. Presley Hou, Angela Amador, Reilly Young and colleagues, with an educational adonis from [email or web address]. Review of Systems Const Denies headache(s) Eyes Denies loss of vision ENT Denies vertigo, Denies dizziness, Denies headache(s) and Denies sore throat Card Denies chest pain, Denies leg edema and Denies lightheadedness Resp Denies cough, Denies hemoptysis and Denies wheezing GI Denies abdominal pain, Denies melena, Denies constipation, Denies diarrhea and Denies vomiting Denies urinary frequency, Denies dysuria and Denies urinary urgency Musc Denies arthralgias, Denies joint swelling, Denies numbness and Denies tingling Neuro Denies Abnormal speech present, Denies behavioral changes, Denies vertigo, Denies dizziness, Denies headache(s), Denies loss of vision, Denies memory loss, Denies numbness and Denies tingling Psych Denies anxiety, Denies behavioral changes, Denies depression, Denies memory loss and Denies panic attacks Taj/Lymph Denies easy bleeding and Denies easy bruising Aller/Immun Denies wheezing Physical exam (Primary Care) Vital Signs: Last Vital Signs Pulse 74 08/18/24 09:51 BP 110/60 08/18/24 10:13 Pulse Ox 98 08/18/24 09:51 Oxygen Delivery Method Room Air 08/18/24 09:51 BMI result Body Mass Index 32.8 Tobacco/Smoking Status: Tobacco use Status Tobacco use date assessed 12/31/23 08/18/24 09:52 Patient Tobacco Use Status Former Tobacco user 08/18/24 09:52 Tobacco use type Cigarette 08/18/24 09:52 e-Cigarette/Vaping Use Former Use 08/18/24 09:52 Thrive Assessment: Date of Thrive Assessment Date Thrive assessed 08/04/24 08/18/24 09:52 Const General: healthy appearing, no acute distress, alert and awake Nutritional Appearance: well nourished Orientation/consciousness: oriented to person, oriented to place and oriented to time HENMT Ears: TM's normal bilaterally General nose exam: Normal nasal mucous membranes and turbinates present Eyes Conjunctivae: conjunctivae normal Sclerae: sclerae normal Pupils: Equal, round and reactive pupils present Neck Neck: Yes no lymphadenopathy and Yes no JVD Thyroid: Thyroid normal Carotids: no bruits Resp Effort & Inspection: normal respiratory effort and not tachypneic Auscultation: no crackles, no rales, no rhonchi and no wheezes Cardio Rate: regular rate Rhythm: regular rhythm Heart sounds: no murmurs and normal S1 and S2 GI Palpation (GI): Soft to palpation, nontender, no hepatomegaly and no splenomegaly Auscultation: normal bowel sounds Skin General skin exam: no rashes or lesions noted and dry skin Neuro General: oriented to person, oriented to place and oriented to time Cranial nerves: Yes Equal, round and reactive pupils present Speech: No Abnormal speech present Gait exam (Neuro): Normal gait present Motor exam (neuro): no tremor noted Extrem Right upper extremity: full ROM Left upper extremity: full ROM Right lower extremity: full ROM; no edema Left lower extremity: full ROM; no edema Psych Mental Status: mental status grossly normal Speech and movement: Normal speech and movement present Affect: normal affect Attitude: cooperative Thought process: Normal thought process present Office Procedures Flu Questionnaire Does the patient have a severe egg allergy?: No Does the patient have severe life threatening allergies?: No Does the patient have a fever or illness today?: No Has the patient ever had Guillain-[place] Syndrome?: No Has the patient ever had any past reaction to a flu shot?: No Immunizations Fluarix Triv [id number] (PF) 45 mcg (15 mcg x 3)/0.5 mL IM syringe Performing Provider: Gio Meadows PA-C [facility] Administered by: NELY Richard on 08/18/24 09:54 Dose Route Admin Location Dispensed Lot Number Expiration Date NDC Embossing Toolsetter 0.5 mL IM Left Deltoid 0.5 mL [id number] 04/18/25 [id number] [employer] (formerly [employer]) VIS Given Date VIS Provided VIS Publication Date 08/18/24 Single Vaccine 21 Eligibility Eligibility Date Funding Source Not [facility] Eligible 08/18/24 Private Coding Level of Care Code TCM Mod MDM <= 14 Days Diagnoses Hospital discharge follow-up Z09 Accidental overdose, sequela T50.901S Encounter type: sequela Vaginal atrophy N95.2 Acute encephalopathy G93.40 Assessment & Plan Assessment & Plan (1) Hospital discharge follow-up: Code(s): Z09 - Encounter for follow-up examination after completed treatment for conditions other than malignant neoplasm Category: Medical Plan: As per HPI (2) Accidental overdose: Code(s): T50.901A - Poisoning by unspecified drugs, medicaments and biological substances, accidental (unintentional), initial encounter Category: Medical Qualifiers: Encounter type: sequela Qualified Code(s): T50.901S - Poisoning by unspecified drugs, medicaments and biological substances, accidental (unintentional), sequela Plan: As per HPI patient seems to have an accidental overdose on trazodone thus caused her encephalopathy. We did go over all of her medications today in office with both patient and her daughter. They will start using a daily med box. Patient does have a lot of as needed medication and we paid close attention to what medication could cause sedation in disorientation. (3) Vaginal atrophy: Code(s): N95.2 - Postmenopausal atrophic vaginitis Category: Medical Plan: Was told by her mobile disc jockey to use clobetasol 0.5 % ointment daily for the rest of her life (4) Acute encephalopathy: Code(s): G93.40 - Encephalopathy, unspecified Category: Medical Plan: Has resolved, was thought to be overdose on either baclofen or trazodone. This story is unclear at this time. Advised to hold off on trazodone as she is using clonazepam at night to sleep as well. Orders: Orders Influenza [id number] Immunization 08/18/24 Z23 - Encounter for immunization Medications: Discontinued trazodone Discontinued Reason: Doctor's Order 100 mg PO BEDTIME 90 days 90 tabs 2RF F33.2 - Major depressive disorder, recurrent severe without psychotic features famotidine (Pepcid) Discontinued Reason: Doctor's Order 40 mg PO DAILY 30 days 30 tabs 3RF K21.9 - Gastro-esophageal reflux disease without esophagitis
[2024-08-18 10:13] VITALS: BP 110/60
== END 2024-08-18 10:24 | disposition home or self-care (01) ==
LOC: HO.HMCH 09:43
PROVIDERS: PCP Physician Assistant; Visit Provider Physician Assistant
DX: N95.2 Postmenopausal atrophic vaginitis (principal); Z09 Encounter for follow-up examination after completed treatment for conditions other than malignant neoplasm; T50.90 Poisoning by, adverse effect of and underdosing of unspecified drugs, medicaments and biological substances; G93.40 Encephalopathy, unspecified

== ENCOUNTER → 2024-08-18 09:43 | Outpatient (BNVA) | payer OTHER, SELFPAY | PROVIDERS: PCP Physician Assistant; Visit Provider Physician Assistant | DX: Z23 Encounter for immunization (principal); N95.2 Postmenopausal atrophic vaginitis; G93.40 Encephalopathy, unspecified; T50.90 Poisoning by, adverse effect of and underdosing of unspecified drugs, medicaments and biological substances | CPT/HCPCS: 90471; 90656; 99212 ==

== ENCOUNTER 2024-11-15 10:43 | Outpatient (AMB) | payer OTHER, SELFPAY ==
[2024-11-15 10:46] VITALS: BP 106/78; PULSE 63; TEMP 36.1; O2SAT 100; BMI 32.0
--- NOTE | 2024-11-15 10:46 | MHC.PC.OV ---
Vital Signs 11/15/24 10:46 Height 5 ft 6 in Weight 198 lb 6 oz BMI 32.0 BP 106/78 Blood Pressure Location Lt brachial Position Sitting Pulse 63 Pulse Source Pulse Oximeter Temp 96.9 F Temp Source Temporal Artery Scan Pulse Oximetry (%) 100 Oxygen Delivery Method Room Air Intake Visit Reasons: 6 Month F/U Intake Note: The patient presents with bilateral leg swelling and right leg sciatica pain. A nurse evaluated the patient?s legs at home and advised follow-up with a primary care provider due to concerns about poor circulation. Ict Systems Test Engineer Required: No Ict Systems Test Engineer Name: Pt refused/daughter interpret Accompanied by: Daughter Allergies banana [BANANA] Allergy (Intermediate, Verified 11/15/24 11:02) Itching naproxen [From NAPROSYN] Allergy (Intermediate, Verified 11/15/24 11:02) rash, GI upset prednisone Allergy (Intermediate, Verified 11/15/24 11:02) Itchy and redness warfarin [WARFARIN] Allergy (Unknown, Verified 11/15/24 11:02) Unknown ibuprofen [From MOTRIN] Adverse Reaction (Intermediate, Verified 11/15/24 11:02) Gastrointestinal Upset pregabalin Adverse Reaction (Intermediate, Verified 11/15/24 11:02) Diarrhea and blurry vision sun Allergy (Unknown, Uncoded 11/15/24 11:02) bumps on skin Medication List - Last Reconciled 11/15/24 by Gio Meadows PA-C acetaminophen ER (Tylenol Arthritis Pain) 650 mg PO Q8H PRN 30 days albuterol sulfate 90 mcg/actuation 1 inh inhalation QID PRN 30 days baclofen 10 - 20 mg PO BEDTIME PRN calcium carbonate (Oyster Shell Calcium) 500 mg PO DAILY 30 days cefuroxime axetil 500 mg PO BID cholecalciferol (vitamin D3) 50 mcg PO DAILY 90 days clonazepam 1 mg PO BEDTIME PRN cyanocobalamin (vitamin B-12) 500 mcg PO DAILY PRN diaper,brief,adult,disposable (Briefs, Adult-Extra Large) As directed dicyclomine 10 mg PO DAILY 30 days disposable gloves (Disposable Latex-Free Gloves) As directed gabapentin 300 mg PO TID 30 days lidocaine 5% 1 appl topical BEDTIME 30 days magnesium oxide 400 mg PO BEDTIME 30 days melatonin 5 mg PO BEDTIME PRN naratriptan take 1/2 - 1 tab at onset of headache; if no relief may repeat 1 tab after at least 4 hrs; max = 2 tabs/24 hrs orally PRN; 30 days omeprazole 40 mg PO BID@0630,1630 phenazopyridine (Pyridium) 200 mg PO TID 6 doses pyridoxine (vitamin B6) 25 mg PO DAILY sennosides (senna) 8.6 mg PO DAILY PRN simvastatin 20 mg PO DAILY 90 days topiramate 100 mg PO BEDTIME 30 days Tobacco use date assessed: 11/15/24 Fall risk assessment: No Falls in past year Last assessed Fall Risk: 11/15/24 Dental Screening Dental Screen Date: 11/15/24 Did you have a dental visit in the last 12 months?: No Did you have a dental problem in the last 6 months where you did not have access to dental care?: Yes Was dental information given to patient?: Patient has dentist HPI 6 Month F/U HPI Details Patient is a 73-year-old female here today for a follow-up visit Presents today with her daughter. Patient has a past medical history significant for major depressive disorder, hyperlipidemia, irritable bowel syndrome, generalized anxiety disorder, obesity, and hypothyroidism. Concerns--> reports having some slight swelling in her lower extremities. She reports her insurance company came and evaluated her and reports poor circulation in her lower extremities. Also reports having some right outer hip and buttocks pain that radiates down her right leg over the last 2 months. She can not recall any falls or injuries to her lower back. PLAN: She is willing to see pain management for possible injection due to her signs and symptoms of sciatica. Not interested in physical therapy at this time. .. Major depressive disorder:? Has support by her daughters and family. Still seems somewhat depressed. She continues now on escitalopram, clonazepam and trazodone at night. Not speaking with a mental health therapist at this time .. Hyperlipidemia: Most recent fasting lipid panel showing elevated total cholesterol and LDL. Has been on low-dose simvastatin 10 mg. She is willing to increase her dose to 20 mg of simvastatin for better control over total cholesterol and LDL. [facility] Medical History (Updated 11/17/24 @ 07:48 by Gio Meadows PA-C) Fecal incontinence Disseminated herpes zoster GERD without esophagitis Cough Difficulty hearing Obesity (BMI 30-39.9) Tendinopathy of right rotator cuff Degenerative joint disease of right shoulder Lichen sclerosus Vaginal pruritus Right shoulder pain Vitamin D deficiency Therese's disease Non-toxic multinodular goiter Surgical History S/P fine needle aspiration History of surgery History of excision of mass History of cholecystectomy H/O right breast biopsy History of shoulder surgery Family History Father No problems noted. Mother Diabetes Advanced cardiac disease Osteoporosis Chronic mental illness Brother Substance abuse Family/Other Chronic mental illness Social History Household Members: None Household Members Other:: family members live in apartment below pt Housing: Apartment Do you presently have visiting nurse or other home services: Yes Alcohol intake: never Comment: LOW Patient Tobacco Use Status: Former Tobacco user Tobacco use type: Cigarette e-Cigarette/Vaping Use: Former Use Second Hand Smoke Exposure: No service: No Current occupational status: disabled Gender identity: Female Cognitive needs: Yes (cane) Hearing needs: No Vision needs: No Questionnaire PHQ-9 Over the last 2 weeks, how often have you been bothered by any of the following problems? 1. Little interest or pleasure in doing things: not at all 2. Feeling down, depressed, or hopeless: not at all 3. Trouble falling or staying asleep, or sleeping too much: not at all 4. Feeling tired or having little energy: not at all 5. Poor appetite or overeating: not at all 6. Feeling bad about yourself - or that you are a failure or have let yourself or your family down: not at all 7. Trouble concentrating on things, such as reading the newspaper or watching television: not at all 8. Moving or speaking so slowly that other people could have noticed. Or the opposite - being so fidgety or restless that you have been moving around a lot more than usual: not at all 9. Thoughts that you would be better off or of hurting yourself in some way: not at all Total score: 0 Depression Screening Interpretation: Negative Depression Screening Done: Yes 37945 - PHQ-9 Billing: Yes Source: Developed by Drs. Presley Hou, Reilly Rae and colleagues, with an educational adonis from [employer]. Thrive Questionnaire Date Thrive assessed: 11/15/24 I am a: Patient What is your living situation today?: I have a steady place to live Within the past 12 months, did the food you bought not last and you didn't have the money to get more?: Never true Within the past 12 months, did you worry whether your food would run out before you got money to buy more?: Never true Do you have trouble paying for medicines?: No Do you have trouble getting transportation to medical appointments?: No Do you have trouble paying your heating and electricity bill?: No Do you have trouble taking care of your child, family member or friend?: No Do you have trouble with day-to-day activities such as bathing, preparing meals, shopping, managing finances, etc.?: No Are you currently unemployed and looking for a job?: No Are you interested in more education?: No Please select the resources that you would like help with: None Currently or been in a relationship where the following occur: No concerns reported THRIVE Score: 0 AUDIT C Alcohol Use Questionnaire (AUDIT-C) 1. How often do you have a drink containing alcohol?: Never 3. How often do you have six or more drinks on one occasion?: Never Total Score: 0 TIMA-7 AMB Questionnaire TIMA-7 Date TIMA - 7 assessed: 11/15/24 Feeling nervous, anxious, or on edge: 0 = Not at all Not being able to stop or control worryin = Not at all Worrying too much about different things: 0 = Not at all Trouble relaxin = Not at all Being so restless that it is hard to sit still: 0 = Not at all Becoming easily annoyed or irritable: 0 = Not at all Feeling afraid as if something awful might happen: 0 = Not at all Total TIMA-7 score (0-4 normal; 5-9 mild; 10-14 moderate; 15-21 severe): 0 Source: Developed by Drs. Presley Hou, Reilly Rae and colleagues, with an educational adonis from [employer]. TIMA-7 Assessment Billing TIMA-7 Assessment Tool: TIMA-7 Assessment 93058 Review of Systems Const Denies headache(s) Eyes Denies loss of vision ENT Denies vertigo, Denies dizziness, Denies headache(s) and Denies sore throat Card Denies chest pain, Denies leg edema and Denies lightheadedness Resp Denies cough, Denies hemoptysis and Denies wheezing GI Denies abdominal pain, Denies melena, Denies constipation, Denies diarrhea and Denies vomiting Denies urinary frequency, Denies dysuria and Denies urinary urgency Musc Denies arthralgias, Denies joint swelling, Denies numbness and Denies tingling Neuro Denies Abnormal speech present, Denies behavioral changes, Denies vertigo, Denies dizziness, Denies headache(s), Denies loss of vision, Denies memory loss, Denies numbness and Denies tingling Psych Denies anxiety, Denies behavioral changes, Denies depression, Denies memory loss and Denies panic attacks Taj/Lymph Denies easy bleeding and Denies easy bruising Aller/Immun Denies wheezing Physical exam (Primary Care) Vital Signs: Last Vital Signs Temp 96.9 F 11/15/24 10:46 Pulse 63 11/15/24 10:46 BP 106/78 11/15/24 10:46 Pulse Ox 100 11/15/24 10:46 Oxygen Delivery Method Room Air 11/15/24 10:46 BMI result Body Mass Index 32.0 Tobacco/Smoking Status: Tobacco use Status Tobacco use date assessed 11/15/24 11/15/24 10:59 Patient Tobacco Use Status Former Tobacco user 11/15/24 10:46 Tobacco use type Cigarette 11/15/24 10:46 e-Cigarette/Vaping Use Former Use 11/15/24 10:46 PHQ-9: PHQ-9 Score PHQ-9: Total score 0 11/15/24 11:24 Depression Screening Interpretation: Negative Thrive Assessment: Date of Thrive Assessment Date Thrive assessed 11/15/24 11/15/24 10:59 Currently or been in a relationship where the following occur: No concerns reported Const General: healthy appearing, no acute distress, alert and awake Nutritional Appearance: well nourished Orientation/consciousness: oriented to person, oriented to place and oriented to time HENMT Ears: TM's normal bilaterally General nose exam: Normal nasal mucous membranes and turbinates present Eyes Conjunctivae: conjunctivae normal Sclerae: sclerae normal Pupils: Equal, round and reactive pupils present Neck Neck: Yes no lymphadenopathy and Yes no JVD Thyroid: Thyroid normal Carotids: no bruits Resp Effort & Inspection: normal respiratory effort and not tachypneic Auscultation: no crackles, no rales, no rhonchi and no wheezes Cardio Rate: regular rate Rhythm: regular rhythm Heart sounds: no murmurs and normal S1 and S2 GI Palpation (GI): Soft to palpation, nontender, no hepatomegaly and no splenomegaly Auscultation: normal bowel sounds Skin General skin exam: no rashes or lesions noted and dry skin Neuro General: oriented to person, oriented to place and oriented to time Cranial nerves: Yes Equal, round and reactive pupils present Speech: No Abnormal speech present Gait exam (Neuro): Normal gait present Motor exam (neuro): no tremor noted Extrem Other: TRACE EDEMA IN LOWER EXTREMITIES Right upper extremity: full ROM Left upper extremity: full ROM Right lower extremity: full ROM and edema Left lower extremity: full ROM and edema Psych Mental Status: mental status grossly normal Speech and movement: Normal speech and movement present Affect: normal affect Attitude: cooperative Thought process: Normal thought process present Coding Level of Care Code Est Pt Level 4 (67934) Diagnoses TIMA (generalized anxiety disorder) F41.1 Lower extremity edema R60.0 Mixed hyperlipidemia E78.2 Hyperlipidemia type: mixed hyperlipidemia Spinal stenosis of lumbar region, unspecified whether neurogenic claudication present M48.061 Neurogenic claudication status: unspecified Additional Codes TIMA-7 Assessment Billing - TIMA-7 Assessment Tool: TIMA-7 Assessment 20363 ([id number]) PHQ-9 - 79285 - PHQ-9 Billing: Yes ([id number]) Assessment & Plan Assessment & Plan (1) TIMA (generalized anxiety disorder): Code(s): F41.1 - Generalized anxiety disorder Category: Medical Plan: Patient continues with clonazepam 1 mg b.i.d. for many years now. She is not speaking with a mental health therapist or psychiatrist at this time. She will continue her SSRI therapy and benzodiazepine for the treatment of her anxiety which has been longstanding condition. (2) Lower extremity edema: Code(s): R60.0 - Localized edema Category: Medical Plan: Patient has trace edema in the lower extremity. Pulses and sensation are normal. Her trace edema likely due to sedentary lifestyle. Advised on medical compression socks to use during the daytime. Will consider ultrasound of lower extremities and vascular evaluation if symptoms worsen. (3) HLD (hyperlipidemia): Code(s): E78.5 - Hyperlipidemia, unspecified Category: Medical Qualifiers: Hyperlipidemia type: mixed hyperlipidemia Qualified Code(s): E78.2 - Mixed hyperlipidemia Plan: Most recent lipid panel showing slightly elevated total cholesterol and LDL. She continues on simvastatin 20 mg on a daily basis. (4) Spinal stenosis of lumbar region: Code(s): M48.061 - Spinal stenosis, lumbar region without neurogenic claudication Category: Medical Qualifiers: Neurogenic claudication status: unspecified Qualified Code(s): M48.061 - Spinal stenosis, lumbar region without neurogenic claudication Plan: Patient reports right lumbar/sciatic radiculopathy over the last 2 months. She is not interested in physical therapy at this time. She continues with gabapentin and acetaminophen along with p.r.n. use of baclofen. Willing to see pain management for evaluation and possible pain reduction modality Orders: Orders Vitamin B12 and Folate 11/15/24 E53.8 - Deficiency of other specified B group vitamins Medications: Changed From clonazepam 1 mg PO BEDTIME PRN anxiety F41.1 - Generalized anxiety disorder To clonazepam 1 mg PO BID 60 tabs 3RF anxiety 30 days F41.1 - Generalized anxiety disorder Refilled acetaminophen ER (Tylenol Arthritis Pain) 650 mg PO Q8H PRN 90 tabs 3RF pain 30 days M25.512 - Pain in left shoulder albuterol sulfate 90 mcg/actuation 1 inh inhalation QID PRN 8.5 grams 2RF shortness of breath or wheezing 30 days J45.20 - Mild intermittent asthma, uncomplicated cholecalciferol (vitamin D3) 50 mcg PO DAILY 90 caps 2RF 90 days E55.9 - Vitamin D deficiency, unspecified
--- OUTSIDE RECORDS SUMMARY | 2024-11-15 15:28 | XMS_ITS ---
Author Name Cadefaiza GEORGEKatherine Address [address] [place] [address] Phone [phone] Organization [facility] Care Team Providers Care Management Expert Name Role Phone Katherine Thomas Unavailable [phone] Unavailable Unavailable Unavailable Unavailable Unavailable [phone] Unavailable Unavailable Unavailable RAMEZ ESPINO Unavailable [phone] Reason for Referral Not Available Allergies, adverse reactions, alerts Allergen Type Reaction Severity Status Onset Date Tylenol Allergy to substance (disorder) pt reports she had stomach cramps at one point- has taken it since with no issues Unknown Active N/A Naproxen Allergy to substance (disorder) pt reports she had stomach cramps at one point- has taken it since with no issues Unknown Active N/A History of medication use Medication Class Instructions Start Date End Date Gabapentin 300 mg Cap TAKE 1 CAPSULE BY MOUTH THREE TIMES DAILY 2021-12-11 No Data Available clonazePAM 1 mg Tab TAKE 1 TABLET BY MARY BETH TH TWICE DAILY NEEDED FOR ANXIETY 2022-02-13 No Data Available oxyCODONE 10 mg Tab TAKE 1 TABLET BY MARY BETH TH EVERY 8 HOURS FOR 5 DAYS NEEDED FOR PAIN 2022-02-13 No Data Available Artificial Tears 1.4 % Solution INSTILL 1 DROP IN BOTH EYES THREE TIMES DAILY 2021-05-11 No Data Available Diclofenac Sodium 3 % Gel APPLY TOPICALL Y TO THE AFFECTED AREA TWICE DAILY 2021-12-26 No Data Available Lidocaine 5 % Patch APPLY 1 PATCH TOPICA LLY DAILY NEEDED FOR PAIN REMOVE AFTER 12 HOURS 2022-01-30 No Data Available Pregabalin 200 mg Cap TAKE 1 CAPSULE BY MOUTH THREE TIMES DAILY 2022-02-25 2022-09-06 Acetaminophen ER 650 mg Tab ER TAKE 1 TA BLET BY MOUTH EVERY 8 HOURS NEEDED FOR PAIN 2021-10-15 No Data Available Omeprazole 40 mg Cap delayed rel TAKE 1 CAPSULE BY MOUTH TWICE DAILY FOR REFLUX OR HEARTBURN 2022-01-12 No Data Available Banophen 25 mg Tab TAKE 1 TABLET BY MARY BETH TH THREE TIMES DAILY 2022-04-15 No Data Available Cyclobenzaprine 10 mg Tab TAKE 1 TABLET BY MOUTH EVERY 8 HOURS 2022-05-24 No Data Available Amoxicillin-Pot Clavulanate 875/125 mg Tab TAKE 1 TABLET BY MOUTH EVERY 12 HOURS 2022-07-19 No Data Available Senna 8.6 mg Tab TAKE 1 TABLET BY MARY BETH TH DAILY NEEDED FOR CONSTIPATION 2022-07-19 No Data Available Topiramate 50 mg Tab 1 tablet PO daily t o prevent migraines 2022-09-06 No Data Available SUMAtriptan Succinate 50 mg Tab 1 tablet orally 2 times per day at least 2 hours between doses as needed 2022-09-06 No Data Available Clobetasol Propionate 0.05 % Crm as needed 2022-09-06 No Data Available Diclofenac Sodium 1 % Gel 4 grams topica lly to affected area 4 times per day PRN 2022-11-25 No Data Available traMADol 50 mg Tab TAKE 1 TABLET BY MARY BETH TH EVERY 6 HOURS NEEDED FOR PAIN 2022-10-08 No Data Available Albuterol Sulfate HFA 108 (9 0 Base) MCG/ACT Aerosol Solution INHALE 1 PUFF INTO THE LUNGS FOUR TIMES DAILY NEEDED FOR SHORTNESS OF BREATH OR WHEEZING 2022-02-13 No Data Available Escitalopram Oxalate Tab 15 mg TAKE 1 TA BLET BY MOUTH DAILY 2022 No Data Available traZODone 100 mg Tab TAKE 1 TABLET BY MO UTH AT BEDTIME 2022 No Data Available Benzonatate 100 mg Cap TAKE 1 CAPSULE BY MOUTH THREE TIMES DAILY NEEDED FOR COUGH 2022-11-26 No Data Available Acetaminophen Extra Strength 500 mg Tab TAKE 1-2 TABLETS BY MOUTH EVERY 6 HOURS NEEDED FOR FEVER or PAIN 2022-12-19 No Data Available Simvastatin 10 mg Tab 1 tablet orally once daily 12-25 No Data Available Miconazole 7 100 mg Suppository Vaginal 1 suppository vaginally daily for 7 days at bedtime 2023-01-15 No Data Available Acetaminophen ER 650 mg Tab ER TAKE 1 TA BLET BY MOUTH EVERY 8 HOURS NEEDED FOR PAIN 2022 No Data Available Bisacodyl EC 5 mg Tab delaye d rel No Data Available 2022-12-30 No Data Available Polyethylene Glycol 3350 17 GM/SCOOP Powder No Data Available 2022-12-30 No Data Available Nystop 105425 UNIT/GM Powder APPLY 1 REBECCA LICATION TOPICALLY DAILY FOR 15 DAYS 2023-02-18 No Data Available Lidocaine 5 % Patch APPLY 1 PATCH TO AFF ECTED AREA EVERY DAY NEEDED FOR PAIN. REMOVE AFTER 12 HOURS 2023-05-30 No Data Available Dicyclomine 10 mg Cap TAKE 1 TO 2 CAPSUL ES BY MOUTH EVERY 6 HOURS NEEDED FOR ABDOMINAL DISCOMFORT OR CRAMPS 2022-12-23 No Data Available Famotidine 40 mg Tab TAKE 1 TABLET BY MO UTH DAILY 2023-06-26 No Data Available benzonatate 100 MG Oral Capsule [Tessalon Perles] 1 capsule orally 3 times per day as needed 2023-12-06 No Data Available Benzonatate 100 mg Cap Take 1 tablet twi ce daily as needed for cough. 2024-02-10 No Data Available hydrOXYzine 25 mg Tab take 1 to 2 tablet s orally every 6 hours as needed for moderate to severe itch 2024-03-16 No Data Available OYSTER CALCIUM 500MG TABLETS TAKE 1 TABL ET BY MOUTH DAILY 2024-01-15 No Data Available Cephalexin 500 mg Cap TAKE 1 CAPSULE BY MOUTH FOUR TIMES DAILY FOR 7 DAYS 2024-03-04 No Data Available Doxycycline Hyclate 100 mg Cap TAKE 1 CA PSULE BY MOUTH TWICE DAILY 2024-03-04 No Data Available MELATONIN 5 MG TABS No Data Available 2023-09-2501-26-25 Chlorhexidine Gluconate 0.12 % Solution No Data Available 2024-03-17 No Data Available Nystatin 431567 UNIT/ML Suspension SWISH AND SWALLOW 5 ML BY MOUTH TWICE DAILY FOR 6 DAYS 2024-03-22 No Data Available Naratriptan 2.5 mg Tab No Data Available 2024-03-22 No Data Available MAG-OXIDE 400MG TABLETS TAKE 1 TABLET BY MOUTH AT BEDTIME. MAY HOLD FOR LOOSE STOOLS 2024-03-22 No Data Available Baclofen 10 mg Tab TAKE 1-2 TABLETS BY MOUTH AT BEDTIME NEEDED FOR MUSCLE SPASM 2024-03-22 No Data Available Desonide 0.05 % Oint APPLY TOPICALLY TO THE AFFECTED AREA DAILY FOR 15 DAYS 2024-03-22 No Data Available azo UTI relief cranberry tabs 1 tablet QD 2024-05-21 No Data Available MELATONIN 5MG TABLETS TAKE 1 TABLET BY M OUTH AT BEDTIME NEEDED FOR SLEEP 2023-12-31 No Data Available Cefdinir 300 mg Cap TAKE 1 CAPSULE BY MO UTH TWICE DAILY FOR 7 DAYS 2024-05-06 No Data Available VITAMIN B-12 500MCG TABLETS TAKE 1 TABLE T BY MOUTH DAILY 2024-05-12 No Data Available Nystatin 349640 UNIT/GM Crm apply to sheryl an and dry skin of the affected area under left breast morning and night until rash resolved 2024-07-14 No Data Available Nystatin 694019 UNIT/GM Powder apply to affected area under left breast BID after allowing skin folds to air dry- use gauze or cotton material to wick moisture 2024-07-14 No Data Available Acyclovir 5 % Oint apply thin film to affected area of foot TID x 5 days 2024-07-14 No Data Available valACYclovir 1 GM Tab Take 1 tablet PO t wice daily for 5 days. 2024-07-14 No Data Available Miconazole Nitrate 2 % Crm Vaginal Apply to affected area outside of the vagina daily x 7 days. 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 Active 2022-09-06 N/A Migraine Active 2022-09-06 N/A Anxiety Active 2022-09-06 N/A Vaginal yeast infection Resolved 2023-01-152022 IBS (irritable bowel syndrome) Active 2022-09-06 N/A Osteoarthritis Active 2022-09-06 N/A Shoulder pain Active 2023-05-30 N/A Hip pain Active 2023-05-30 N/A Frequent headaches Active 2023-11-19 N/A Facial cellulitis Resolved 2024-03-16 2024-04-09 Burst blood vessel of left eye Resolved 2023-12-07 2024-04-09 Sinusitis Resolved 2023-12-06 2024-04-09 unknown Resolved 2024-04-09 2024-04-09 Other problems related to nv dical facilities and other health care Active 2024-04-09 N/A Need for assistance with personal care Active 12-04-21 N/A Incontinence Active 2024-04-09 N/A Major depression, recurrent, moderate Active 11-30-17 N/A Hx: UTI (urinary tract infection) Active 2024-05 N/A History of shinglesBacterial infection concurrent with and due to herpes zoster Active 2024-07-14 N/A Yeast infection of the skin Active 2024-07-14 N/A Pruritic condition Active 2024-07-14 N/A Difficulty in walking, not e lsewhere classified Unsteady gait Active 2024-04-09 N/A Encounters Encounters Type Facility Date of Service Diagnosis/Co mplaint New patient, 30-44min 1 stable chronic or 2 minor; add modifier 95 for video, modifier 93 for phone [facility], ([place]) 09/06/2022 Migraine, unspecified, not intractable, without status migrainosusAnxiety disorder, unspecifiedGastro-esophageal reflux disease without esophagitisIrritable bowel syndrome without diarrheaUnspecified osteoarthritis, unspecified siteInsomnia, unspecifiedUnspecified urinary incontinenceImmunodeficiency due to conditions classified elsewhereMajor depressive disorder, recurrent, moderate New patient, 30-44min 1 stable chronic or 2 minor; add modifier 95 for video, modifier 93 for phone [facility] ([place] New patient, 30-44min 1 stable chronic or 2 minor; add modifier 95 for video, modifier 93 for phone [facility] ([place] 09/[place]/20[place] New patient, 30-44min 1 stable chronic or 2 minor; add modifier 95 for video, modifier 93 for phone [facility] ([place] 09/06/2022 New patient, 30-44min 1 stable chronic or 2 minor; add modifier 95 for video, modifier 93 for phone [facility], ([place]) 09/06/2022 New patient, 30-44min 1 stable chronic or 2 minor; add modifier 95 for video, modifier 93 for phone [facility] ([place] 09/06/2022 New patient, 30-44min 1 stable chronic or 2 minor; add modifier 95 for video, modifier 93 for phone [facility], ([place]) 09/06/2022 No Data Available [facility] [place] 11[place]25/2022 Anxiety disorder, unspecifiedMigraine, unspecified, not intractable, without status migrainosusUnspecified osteoarthritis, unspecified siteMajor depressive disorder, recurrent, moderate No Data Available [facility], ([place]) 12/25/2022 Irritable bowel syndrome wit hout diarrheaMajor depressive disorder, recurrent, moderateMigraine, unspecified, not intractable, without status migrainosusHyperlipidemia, unspecified No Data Available [facility], ([place]) 01/15/2023 Acute candidiasis of vulva a nd vagina No Data Available [facility] ([place] 01/27/2023 Body mass index (bmi) 33.0-3 3.9, adultMigraine, unspecified, not intractable, without status migrainosusGastro-esophageal reflux disease without esophagitisUnspecified urinary incontinenceHyperlipidemia, unspecifiedMajor depressive disorder, recurrent, moderateAnxiety disorder, unspecifiedIrritable bowel syndrome without diarrheaUnspecified osteoarthritis, unspecified siteInsomnia, unspecifiedImmunodeficiency due to conditions classified elsewhere No Data Available [facility] [place] 01/27/2023 No Data Available [facility] 01/27/2023 No Data Available [facility] [place] 05/02/2023 Major depressive disorder, recurrent, moderateImmunodeficiency due to conditions classified elsewhereMigraine, unspecified, not intractable, without status migrainosusAnxiety disorder, unspecifiedGastro-esophageal reflux disease without esophagitisIrritable bowel syndrome without diarrheaUnspecified osteoarthritis, unspecified siteInsomnia, unspecifiedUnspecified urinary incontinenceHyperlipidemia, unspecified No Data Available [facility] [place] 05/02/2023 No Data Available [facility] 05/02/2023 No Data Available [facility] 05/02/2023 No Data Available [facility] 05/02/2023 No Data Available [facility] ([place] 05/02/2023 No Data Available [facility], ([place]) 05/02/2023 Estab. patient 30-39min; chronic exacerbation, 2 stable chronic or 1 acute illness add add modifier 95 for video, (do not use for phone, instead use [id number]) [facility], ([place]) 05/30/2023 Major depressive disorder, recurrent, moderateMigraine, unspecified, not intractable, without status migrainosusAnxiety disorder, unspecifiedGastro-esophageal reflux disease without esophagitisIrritable bowel syndrome without diarrheaUnspecified osteoarthritis, unspecified siteInsomnia, unspecifiedUnspecified urinary incontinenceImmunodeficiency due to conditions classified elsewhereHyperlipidemia, unspecifiedPain in unspecified shoulderPain in unspecified hip Estab. patient 30-39min; chronic exacerbation, 2 stable chronic or 1 acute illness add add modifier 95 for video, (do not use for phone, instead use [id number]) [facility], ([place] 05/30/20[place] Estab. patient 30-39min; chronic exacerbation, 2 stable chronic or 1 acute illness add add modifier 95 for video, (do not use for phone, instead use [id number]) [facility], ([place]) 05/30/2023 Estab. patient 30-39min; chronic exacerbation, 2 stable chronic or 1 acute illness add add modifier 95 for video, (do not use for phone, instead use [id number]) [facility], ([place]) 05/30/2023 Estab. patient 30-39min; chronic exacerbation, 2 stable chronic or 1 acute illness add add modifier 95 for video, (do not use for phone, instead use [id number]) [facility], ([place]) 05/30/2023 Estab. patient 30-39min; chronic exacerbation, 2 stable chronic or 1 acute illness add add modifier 95 for video, (do not use for phone, instead use [id number]) [facility], ([place]) 05/30/2023 Estab. patient 30-39min; chronic exacerbation, 2 stable chronic or 1 acute illness add add modifier 95 for video, (do not use for phone, instead use [id number]) [facility], ([place] 05/30/2023 Estab. patient 30-39min; chronic exacerbation, 2 stable chronic or 1 acute illness add add modifier 95 for video, (do not use for phone, instead use [id number]) [facility], ([place]) 05/30/2023 Estab. patient 30-39min; chronic exacerbation, 2 stable chronic or 1 acute illness add add modifier 95 for video, (do not use for phone, instead use [id number]) [facility], ([place]) 05/30/2023 Estab. patient 30-39min; chronic exacerbation, 2 stable chronic or 1 acute illness add add modifier 95 for video, (do not use for phone, instead use [id number]) [facility], ([place] 05/30/2023 Estab. patient 30-39min; chronic exacerbation, 2 stable chronic or 1 acute illness add add modifier 95 for video, (do not use for phone, instead use [id number]) [facility] ([place] 05/30/2023 No Data Available [facility] 08/07/2023 Major depressive disorder, recurrent, moderateMigraine, unspecified, not intractable, without status migrainosusAnxiety disorder, unspecifiedGastro-esophageal reflux disease without esophagitisIrritable bowel syndrome without diarrheaUnspecified osteoarthritis, unspecified siteInsomnia, unspecifiedUnspecified urinary incontinenceImmunodeficiency due to conditions classified elsewhereHyperlipidemia, unspecifiedPain in unspecified shoulderPain in unspecified hip No Data Available [facility] [place] 08/07/2023 No Data Available [facility] [place] 08/07/2023 No Data Available [facility] [place] 08/07/2023 No Data Available [facility] [place] 08/07/2023 No Data Available [facility] [place] 08/07/2023 No Data Available [facility] [place] 08/07/2023 No Data Available [facility] [place] 11/19/2023 Major depressive disorder, recurrent, moderateMigraine, unspecified, not intractable, without status migrainosusAnxiety disorder, unspecifiedGastro-esophageal reflux disease without esophagitisIrritable bowel syndrome without diarrheaUnspecified osteoarthritis, unspecified siteInsomnia, unspecifiedUnspecified urinary incontinenceImmunodeficiency due to conditions classified elsewhereHyperlipidemia, unspecifiedPain in unspecified shoulderPain in unspecified hipHeadache, unspecified No Data Available [facility] ([place] 11[place]19[place]2023 No Data Available [facility] [place]20[place] No Data Available [facility] [place]2023 No Data Available [facility] [place]20[place] No Data Available [facility] [place]/19[place]2023 No Data Available [facility] [place]/19[place]2023 No Data Available [facility] [place] 11[place]19[place]2023 No Data Available [facility] [place] 12[place]2023 Chronic sinusitis, unspecifi ed No Data Available [facility] [place] 12/07/2023 Conjunctival hemorrhage, lef t eye No Data Available [facility] [place] 12/12/2023 Other problems related to [facility] facilities and other health careMajor depressive disorder, recurrent, moderateBody mass index (bmi) 32.0-32.9, adultMigraine, unspecified, not intractable, without status migrainosusAnxiety disorder, unspecifiedGastro-esophageal reflux disease without esophagitisIrritable bowel syndrome without diarrheaUnspecified osteoarthritis, unspecified siteInsomnia, unspecifiedUnspecified urinary incontinenceImmunodeficiency due to conditions classified elsewherePain in unspecified shoulderHyperlipidemia, unspecifiedHeadache, unspecifiedChronic sinusitis, unspecifiedConjunctival hemorrhage, left eye No Data Available [facility] [place] 12[place]12[place]2023 No Data Available [facility] [place]20[place] No Data Available [facility] [place]20[place] No Data Available [facility] [place]2023 No Data Available [facility] [place] 12/[place]2023 No Data Available [facility] [place] 12/[place]2023 No Data Available [facility] [place] 02/09/2024 Chronic sinusitis, unspecifi ed No Data Available [facility] ([place] 03/16/2024 Cellulitis of face Estab. patient 30-39min; chronic exacerbation, 2 stable chronic or 1 acute illness add add modifier 95 for video, (do not use for phone, instead use [id number]) [facility] ([place] 04/09/2024 Major depressive disorder, recurrent, moderateMigraine, unspecified, not intractable, without status migrainosusAnxiety disorder, unspecifiedGastro-esophageal reflux disease without esophagitisIrritable bowel syndrome without diarrheaUnspecified osteoarthritis, unspecified siteInsomnia, unspecifiedUnspecified urinary incontinenceImmunodeficiency due to conditions classified elsewhereHyperlipidemia, unspecifiedPain in unspecified shoulderPain in unspecified hipHeadache, unspecifiedOther problems related to medical facilities and other health careNeed for assistance with personal careDifficulty in walking, not elsewhere classifiedUnsteadiness on feet Estab. patient 30-39min; chronic exacerbation, 2 stable chronic or 1 acute illness add add modifier 95 for video, (do not use for phone, instead use [id number]) [facility], ([place] 04/09/20[place] Estab. patient 30-39min; chronic exacerbation, 2 stable chronic or 1 acute illness add add modifier 95 for video, (do not use for phone, instead use [id number]) [facility], ([place] 04/09/20[place] Estab. patient 30-39min; chronic exacerbation, 2 stable chronic or 1 acute illness add add modifier 95 for video, (do not use for phone, instead use [id number]) [facility], ([place] 04/09/20[place] Estab. patient 30-39min; chronic exacerbation, 2 stable chronic or 1 acute illness add add modifier 95 for video, (do not use for phone, instead use [id number]) [facility], ([place] 04/09/20[place] Estab. patient 30-39min; chronic exacerbation, 2 stable chronic or 1 acute illness add add modifier 95 for video, (do not use for phone, instead use [id number]) [facility], ([place] 04/09/2024 Estab. patient 30-39min; chronic exacerbation, 2 stable chronic or 1 acute illness add add modifier 95 for video, (do not use for phone, instead use [id number]) [facility], ([place] 04/09/20[place] Estab. patient 30-39min; chronic exacerbation, 2 stable chronic or 1 acute illness add add modifier 95 for video, (do not use for phone, instead use [id number]) [facility], ([place] 04/09/2024 Estab. patient 30-39min; chronic exacerbation, 2 stable chronic or 1 acute illness add add modifier 95 for video, (do not use for phone, instead use [id number]) [facility] ([place] 04/09/2024 No Data Available [facility] [place] 05/21/2024 Major depressive disorder, recurrent, moderateMigraine, unspecified, not intractable, without status migrainosusAnxiety disorder, unspecifiedGastro-esophageal reflux disease without esophagitisIrritable bowel syndrome without diarrheaUnspecified osteoarthritis, unspecified siteInsomnia, unspecifiedUnspecified urinary incontinenceImmunodeficiency due to conditions classified elsewhereHyperlipidemia, unspecifiedNicotine dependence, unspecified, in remissionPain in unspecified shoulderPain in unspecified hipHeadache, unspecifiedDifficulty in walking, not elsewhere classifiedUnsteadiness on feetPersonal history of urinary (tract) infectionsOther problems related to medical facilities and other health careNeed for assistance with personal care No Data Available [facility] [place] 05[place]/2024 No Data Available [facility] [place] 05/[place]/2024 No Data Available [facility] [place] 05/21/2024 No Data Available [facility] [place] 05/21/2024 No Data Available [facility] [place] 05[place]21/2024 No Data Available [facility] [place] 05/21/2024 No Data Available [facility] [place] 05/21/2024 No Data Available [facility] [place] 05/21/2024 No Data Available [facility] ([place] 07/14/2024 Bacterial infection, unspecifiedZoster with other complicationsCandidiasis of skin and nailPruritus, unspecifiedPersonal history of other infectious and parasitic diseases No Data Available [facility], ([place]) 07/14/2024 Vital Signs Date of Collection Vitals 2022-09-06 06:12:27 Height - 165.1 cmWei ght - 91.17 kgBody Mass Index (BMI) - 33.45 kg/m2 2023-01-27 07:12:15 Weight - 92.53 kgBod y Mass Index (BMI) - 33.95 kg/m2BP Diastolic - 70.0 mm[Hg]BP Systolic - 104.0 mm[Hg]Pain Scale - 5.0 {score} 2023-05-02 11:20:06 Weight - 92.53 kgBod y Mass Index (BMI) - 33.95 kg/m2BP Diastolic - 60.0 mm[Hg]BP Systolic - 100.0 mm[Hg] 2023-05-30 06:20:20 Height - 167.64 cmWe ight - 89.81 kgBody Mass Index (BMI) - 31.96 kg/m2BP Diastolic - 70.0 mm[Hg]BP Systolic - 130.0 mm[Hg]Pain Scale - 4.0 {score} 2023-08-07 10:17:18 Height - 165.1 cmWei ght - 86.64 kgBody Mass Index (BMI) - 31.78 kg/m2Pain Scale - 3.0 {score} 2023-11-19 08:24:43 Weight - 88.45 kgBod y Mass Index (BMI) - 32.45 kg/m2BP Diastolic - 70.0 mm[Hg]BP Systolic - 120.0 mm[Hg]Pain Scale - 8.0 {score} 2023-12-12 09:28:02 Weight - 88.45 kgBod y Mass Index (BMI) - 32.45 kg/m2BP Diastolic - 70.0 mm[Hg]BP Systolic - 120.0 mm[Hg]Pain Scale - 0.0 {score} 2024-04-09 07:33:45 Height - 167.64 cmWe ight - 89.81 kgBody Mass Index (BMI) - 31.96 kg/m2Pain Scale - 4.0 {score} 2024-05-21 07:25:37 Weight - 89.81 kgBod y Mass Index (BMI) - 31.96 kg/m2BP Diastolic - 60.0 mm[Hg]BP Systolic - 110.0 mm[Hg]Pain Scale - 6.0 {score} Social History Social History Social History Observation Description Effec tive Time Current Smoking Status Former smoker 2024-10-21 6 Sex Female History of Procedures Procedures Service Procedure code Service date Servicing provider Phone# New patient, 30-44min 1 stable chronic or 2 minor; add modifier 95 for video, modifier 93 for phone [id number] 2022-09-06 No Data Available No Data Available Pain Assessment - NO pain present (1126F) 1126F 2022-09-06 No Data Available No Data A vailable Medication List Documented (1159F) 1159F 2022-09-06 No Data Available No Data Candida ilable Medication Review by prescribing provider or pharmacist documented (1160F) 1160F 2022-09-06 No Data Available No Data Candida ilable Functional Status Assessed (1170F) 1170F 2022-09-06 No Data Available No Data Avail able Advance Care Directive Advance care planning discussion documented in the medical record (1158F) 1158F 2022-09-06 No Data Available No Data Availa ble BMI obtained (3008F) 3008F 2022-09-06 No Data Availab le No Data Available No Data Available [id number] 2022-11-25 No Data Available No Data Available No Data Available 2022-12-25 No Data Available No Data Available No Data Available [id number] 2023-01-15 No Data Available No Data Available No Data Available [id number] 2023-01-27 No Data Available No Data Available Pain Assessment - Pain Documented (1125F) 1125F 2023-01-27 No Data Available No Data Availa ble Medication List Documented (1159F) 1159F 2023-01-27 No Data Available No Data Candida ilable No Data Available [id number] 2023-05-02 No Data Available No Data Available No Data Available [id number] 2023-05-02 No Data Available No Data Available Functional Status Assessed (1170F) 1170F 2023-05-02 No Data Available No Data Avail able BMI obtained (3008F) 3008F 2023-05-02 No Data Availab le No Data Available Medication List Documented (1159F) 1159F 2023-05-02 No Data Available No Data Candida ilable SBP < 130 (3074F) 3074F 2023-05-02 No Data Available No Data Available DBP <80 (3078F) 3078F 2023-05-02 No Data Available No Data Available Estab. patient 30-39min; chronic exacerbation, 2 stable chronic or 1 acute illness add add modifier 95 for video, (do not use for phone, instead use 21315-05) [id number] 2023-05-30 No Data Available No Data Availa ble Medication List Documented (1159F) 1159F 2023-05-30 No Data Available No Data Candida ilable Medication Review by prescribing provider or pharmacist documented (1160F) 1160F 2023-05-30 No Data Available No Data Candida ilable Functional Status Assessed (1170F) 1170F 2023-05-30 No Data Available No Data Avail able Pain Assessment - Pain Documented (1125F) 1125F 2023-05-30 No Data Available No Data Availa ble Advance Care Directive Advance care planning discussion documented in the medical record (1158F) 1158F 2023-05-30 No Data Available No Data Availa ble BMI obtained (3008F) 3008F 2023-05-30 No Data Availab le No Data Available SBP 130-139 (3075F) 3075F 2023-05-30 No Data Availabl e No Data Available DBP <80 (3078F) 3078F 2023-05-30 No Data Available No Data Available No Data Available [id number] 2023-05-30 No Data Available No Data Available Advance care planning discussed and documented ? advance care plan or surrogate decision-maker was documented in the medical record. (1123F) 1123F 2023-05-30 No Data Available No Data Availa ble No Data Available [id number] 2023-08-07 No Data Available No Data Available Medication List Documented (1159F) 1159F 2023-08-07 No Data Available No Data Candida ilable Functional Status Assessed (1170F) 1170F 2023-08-07 No Data Available No Data Avail able Pain Assessment - Pain Documented (1125F) 1125F 2023-08-07 No Data Available No Data Availa ble Advance Care Directive Advance care planning discussion documented in the medical record (1158F) 1158F 2023-08-07 No Data Available No Data Availa ble BMI obtained (3008F) 3008F 2023-08-07 No Data Availab le No Data Available No Data Available [id number] 2023-08-07 No Data Available No Data Available No Data Available 2023-11-19 No Data Available No Data Available Pain Assessment - Pain Documented (1125F) 1125F 2023-11-19 No Data Available No Data Availa ble Functional Status Assessed (1170F) 1170F 2023-11-19 No Data Available No Data Avail able Medication List Documented (1159F) 1159F 2023-11-19 No Data Available No Data Candida ilable Advance Care Directive Advance care planning discussion documented in the medical record (1158F) 1158F 2023-11-19 No Data Available No Data Availa ble BMI obtained (3008F) 3008F 2023-11-19 No Data Availab le No Data Available SBP < 130 (3074F) 3074F 2023-11-19 No Data Available No Data Available DBP <80 (3078F) 3078F 2023-11-19 No Data Available No Data Available No Data Available [id number] 2023-12-06 No Data Available No Data Available No Data Available 2023-12-08 No Data Available No Data Available No Data Available 2023-12-12 No Data Available No Data Available Pain Assessment - NO pain present (1126F) 1126F 2023-12-12 No Data Available No Data A vailable Medication List Documented (1159F) 1159F 2023-12-12 No Data Available No Data Candida ilable Functional Status Assessed (1170F) 1170F 2023-12-12 No Data Available No Data Avail able Advance Care Directive Advance care planning discussion documented in the medical record (1158F) 1158F 2023-12-12 No Data Available No Data Availa ble Advance care planning discussed and documented ? advance care plan or surrogate decision-maker was documented in the medical record. (1123F) 1123F 2023-12-12 No Data Available No Data Availa ble BMI obtained (3008F) 3008F 2023-12-12 No Data Availab le No Data Available No Data Available 2024-02-10 No Data Available No Data Available No Data Available [id number] 2024-03-16 No Data Available No Data Available Estab. patient 30-39min; chronic exacerbation, 2 stable chronic or 1 acute illness add add modifier 95 for video, (do not use for phone, instead use 42608-39) 60166 2024-04-09 No Data Available No Data Availa ble Medication List Documented (1159F) 1159F 2024-04-09 No Data Available No Data Candida ilable Medication Review by prescribing provider or pharmacist documented (1160F) 1160F 2024-04-09 No Data Available No Data Candida ilable Pain Assessment - Pain Documented (1125F) 1125F 2024-04-09 No Data Available No Data Availa ble BMI obtained (3008F) 3008F 2024-04-09 No Data Availab le No Data Available Advance Care Directive Advance care planning discussion documented in the medical record (1158F) 1158F 2024-04-09 No Data Available No Data Availa ble Advance care planning discussed and documented ? advance care plan or surrogate decision-maker was documented in the medical record. (1123F) 1123F 2024-04-09 No Data Available No Data Availa ble No Data Available G8431 2024-04-09 No Data Available No Data Available Functional Status Assessed (1170F) 1170F 2024-04-09 No Data Available No Data Avail able No Data Available [id number] 2024-05-21 No Data Available No Data Available Pain Assessment - Pain Documented (1125F) 1125F 2024-05-21 No Data Available No Data Availa ble No Data Available G8431 2024-05-21 No Data Available No Data Available Functional Status Assessed (1170F) 1170F 2024-05-21 No Data Available No Data Avail able Medication List Documented (1159F) 1159F 2024-05-21 No Data Available No Data Candida ilable SBP < 130 (3074F) 3074F 2024-05-21 No Data Available No Data Available DBP <80 (3078F) 3078F 2024-05-21 No Data Available No Data Available BMI obtained (3008F) 3008F 2024-05-21 No Data Availab le No Data Available Pain Assessment - Pain Documented (1125F) 1125F 2024-05-21 No Data Available No Data Availa ble No Data Available [id number] 2024-07-14 No Data Available No Data Available Medication List Documented (1159F) 1159F 2024-07-14 No Data Available No Data Candida ilable Functional Status Functional Category Effective Dates Cognition Status: Oriented to Person, Pl ignacia and Time 2024-04-09 ADL: Bathing Needs Assistanc e , Dressing Needs Assistance , Eating Independent , Ambulation Needs Assistance , Transferring Needs Assistance and Toileting Independent 2024-04-09 How many falls within the last 6 months? None 2024-04-09 IADL: Medication Independent , Meal Prep Needs Assistance , Shopping Needs Assistance , Driving or Public Transport Needs Assistance , Housework Needs Assistance , Finances Needs Assistance 2024-04-09 Do you feel unsteady on your feet? No 20 12-04-21 Do you worry about falling? No 2024-03-21 1 Near falls within the last 6 months? Non e 2024-04-09 DME used with ambulation: [employer] 01-23-21 Social Supports - # of Inter actions with Friends/Family in a typical week: daily 2024-04-09 Mental Status Status Date Pt alert and oriented x3, forgetful , re petitive at times 2023-05-30 Assessments Date of Service Assessments 2022-09-06 06:12:27 MigraineAnxietyGERD (gastroesophageal reflux disease)IBS (irritable bowel syndrome)OsteoarthritisInsomniaUrinary incontinenceImmunodeficiency due to conditions classified elsewhereMajor depression, recurrent, moderate 2022-11-25 11:27:01 Major depression, re current, moderate [F33.1]Migraine [G43.909]Osteoarthritis [M19.90] 2022-12-25 08:54:33 IBS (irritable bowel syndrome) [K58.9]Major depression, recurrent, moderate [F33.1]>Migraine [G43.909]Hyperlipidemia [E78.5] 2023-01-15 09:58:41 Follow up plan for a cute symptoms:Vaginal yeast infection 2023-01-27 07:12:15 Major depression, re current, moderateMigraineAnxietyGERD (gastroesophageal reflux disease)IBS (irritable bowel syndrome)OsteoarthritisInsomniaUrinary incontinenceImmunodeficiency due to conditions classified elsewhereHyperlipidemia 2023-05-02 11:20:06 Major depression, re current, moderateMigraineAnxietyGERD (gastroesophageal reflux disease)IBS (irritable bowel syndrome)OsteoarthritisInsomniaUrinary incontinenceImmunodeficiency due to conditions classified elsewhereHyperlipidemia 2023-05-30 06:20:20 Major depression, re current, moderateMigraineAnxietyGERD (gastroesophageal reflux disease)IBS (irritable bowel syndrome)OsteoarthritisInsomniaUrinary incontinenceImmunodeficiency due to conditions classified elsewhereHyperlipidemiaShoulder painHip pain 2023-08-07 10:17:18 Major depression, re current, moderateMigraineAnxietyGERD (gastroesophageal reflux disease)IBS (irritable bowel syndrome)OsteoarthritisInsomniaUrinary incontinenceImmunodeficiency due to conditions classified elsewhereHyperlipidemiaShoulder painHip pain 2023-11-19 08:24:43 Major depression, re current, moderateMigraineAnxietyGERD (gastroesophageal reflux disease)IBS (irritable bowel syndrome)OsteoarthritisInsomniaUrinary incontinenceImmunodeficiency due to conditions classified elsewhereHyperlipidemiaShoulder painHip painFrequent headaches 2023-12-06 08:53:12 Follow up plan for a cute symptoms: 12/12/23 with APPSinusitis 2023-12-07 16:30:51 Follow up plan for a cute symptoms: MonitorBurst blood vessel of left eye 2023-12-12 09:28:02 Other problems relat ed to medical facilities and other health careMajor depression, recurrent, moderateMigraineAnxietyGERD (gastroesophageal reflux disease)IBS (irritable bowel syndrome)OsteoarthritisInsomniaUrinary incontinenceImmunodeficiency due to conditions classified elsewhereHyperlipidemiaShoulder painHip painFrequent headachesSinusitisBurst blood vessel of left eye 2024-02-09 18:05:28 Sinusitis [J32.9]> : Cough with green mucous, nasal congestion, headache, body aches, fever at night off and on since September.Next PCP appt 01/10Will start augmentin, prednisone taper, tessalon perlesContinue OTC cough/cold meds Alternate tylenol/ibuprofen every 4-6 hours as neededMay use cool mist vaporizer/humidifier next to bed Elevate HOB when lying down Increase water intake, warm tea with honeyContact CB if no improvement or symptoms become worse.F/U 12/12/23 with APP12/12/23pt feels better, symptoms have resolved. pt is finishing up on antibiotics, instructed to finish all doses even though she feels better02/09/24 Pain in R side of face, now it is in the jawbone and the gums. Sinus MARINELLI. Feels feverish, but does not have thermometer. Member states she was shaking and cold and put blankets on.Will order Clindamycin for sinusitis and Tessalon Perles. Continue Tylenol for pain and any otc cold medicine. Stay hydrated and rest.If you get worse call back for steroids. 2024-03-16 10:32:47 Facial cellulitis 2024-04-09 07:33:45 Major depression, re current, moderateMigraineAnxietyGERD (gastroesophageal reflux disease)IBS (irritable bowel syndrome)OsteoarthritisInsomniaUrinary incontinenceImmunodeficiency due to conditions classified elsewhereHyperlipidemiaShoulder painHip painFrequent headachesOther problems related to medical facilities and other health careNeed for assistance with personal careDifficulty in walking, not elsewhere classified /Unsteady gaitIncontinence 2024-05-21 07:25:37 Major depression, re current, moderateMigraineAnxietyGERD (gastroesophageal reflux disease)IBS (irritable bowel syndrome)OsteoarthritisInsomniaUrinary incontinenceImmunodeficiency due to conditions classified elsewhereHyperlipidemiaShoulder painHip painFrequent headachesOther problems related to medical facilities and other health careNeed for assistance with personal careDifficulty in walking, not elsewhere classified /Unsteady gaitIncontinenceHx: UTI (urinary tract infection) 2024-07-14 08:17:41 Follow up plan for a cute symptoms:History of shinglesBacterial infection concurrent with and due to herpes zosterYeast infection of the skinPruritic condition Plan of Care Date of Service Plans 2022-09-06 06:12:27 Pain Assessment - NO pain documented (1126F)Medication Review by prescribing provider or pharmacist documented (1160F)Medication List Documented (1159F)Functional Status Assessed (1170F)Advance Care Directive Advance care planning discussion documented in the medical record (1158F)BMI obtained (3008F)Televideo new patient, 30-44min 1 stable chronic or 2 minor; add modifier 95Continue to see PCP. Follow-up with Isabelle as needed for any acute or disease education needs that may arise.On SumatriptanTopiramateFollows NeurologistOn ClonazepamStableFollows PCPOn OmeprazoleAvoid spicy, fatty or fried food, caffeine, chocolateAvoid lying down after mealsAvoid eating late at nightOn DicyclomineFollows GastroenterologistOn GabapentinWill prescribe MelatoninWears pull-ups/diapersIBS- weakened immune system, encourage hand washing, avoid large crowds, stay up on vaccines, monitor for and report early s/s of infection.On CelexaStableFollows PsychiatristPHQ-9 -11 2022-11-25 11:27:01 Major depression, re current, moderate [F33.1]> On CelexaStableFollows PsychiatristPHQ-9 -- Continue current treatment plan as directed. PHQ9- 10Migraine [G43.909]> On SumatriptanTopiramateFollows Neurologist11/25/22- Continue current treatment plan as directed.Osteoarthritis [M19.90]> On Gabapentin11/21/22: Rx. Diclofenac gelApply heat and icePhone (patient, parent, or guardian); 5-10 minutes of medical discussion (no modifier 95)Continue to see PCP. Follow-up with Isabelle as needed for any acute or disease education needs that may arise 12/05. 2022-12-25 08:54:33 IBS (irritable bowel syndrome) [K58.9]> On DicyclomineFollows Gastroenterologist12/25/22- Continue current treatment plan as directed. F/u with Functional Director today 12/25/22 at 1:30 pm.Major depression, recurrent, moderate [F33.1]> On CelexaStableFollows PsychiatristPHQ-9 -- Continue current treatment plan as directed. PHQ9- 103- Continue current treatment plan as directed.Migraine [G43.909]> On SumatriptanTopiramateFollows Neurologist11/25/22- Continue current treatment plan as directed.12/25/22- Continue current treatment plan as directed.Hyperlipidemia [E78.5]> On SimvastatinEncouraged physical activityDiet low in saturated and trans fatHealthy diet, including lots of fruits and vegetables.Phone (patient, parent, or guardian); 5-10 minutes of medical discussion (no modifier 95)Continue to see PCP. Follow-up with Isabelle as needed for any acute or disease education needs that may arise 12/05. 2023-01-15 09:58:41 Phone (patient, pare nt, or guardian); 5-10 minutes of medical discussion (no modifier 95)Continue to see PCP. Follow-up with Isabelle as needed for any acute or disease education needs that may arise 12/05.01/15/23:- Start Diflican- Monistat vaginal suppositories- Encouraged good vaginal hygiene, keep the area clean and dry- Call CB back if no improvement after treatment. 2023-01-27 07:12:15 Phone (patient, pare nt, or guardian); 11-20 minutes of medical discussion (no modifier 95)Pain Assessment - Pain Documented (1125F)Medication List Documented (1159F)Continue to see PCP. Follow-up with Isabelle as needed for any acute or disease education needs that may arise 12/05.On CelexaStableFollows PsychiatristPHQ-9 -- Continue current treatment plan as directed. PHQ9- 10Continue current treatment plan as directed.On SumatriptanTopiramateFollows Neurologist2- Continue current treatment plan as directed.Continue current treatment plan as directed.On ClonazepamStableFollows PCP11/25/22- Continue current treatment plan as directed. Continue current treatment plan as directed.On OmeprazoleAvoid spicy, fatty or fried food, caffeine, chocolateAvoid lying down after mealsAvoid eating late at nightOn DicyclomineFollows GastroenterologistContinue current treatment plan as directed.On Gabapentin Rx. Diclofenac gelApply heat and iceWill prescribe MelatoninWears pull-ups/diapersIBS- weakened immune system, encourage hand washing, avoid large crowds, stay up on vaccines, monitor for and report early s/s of infection.On SimvastatinEncouraged physical activityDiet low in saturated and trans fatHealthy diet, including lots of fruits and vegetables. 2023-05-02 11:20:06 Phone (patient, pare nt, or guardian); 11-20 minutes of medical discussion (no modifier 95)Continue to see PCP. Follow-up with [facility] as needed for any acute or disease education needs that may arise 12/05.On CelexaStableFollows PsychiatristPHQ-9 -112/04/11- Continue current treatment plan as directed. PHQ9- 10Continue current treatment plan as directed.On SumatriptanTopiramateFollows Neurologist2/04/11- Continue current treatment plan as directed.Continue current treatment plan as directed.On ClonazepamStableFollows PCP/04/11- Continue current treatment plan as directed. Continue current treatment plan as directed.On OmeprazoleAvoid spicy, fatty or fried food, caffeine, chocolateAvoid lying down after mealsAvoid eating late at nightOn DicyclomineFollows GastroenterologistContinue current treatment plan as directed.On Gabapentin Rx. Diclofenac gelApply heat and iceWill prescribe MelatoninWears pull-ups/diapersIBS- weakened immune system, encourage hand washing, avoid large crowds, stay up on vaccines, monitor for and report early s/s of infection.On SimvastatinEncouraged physical activityDiet low in saturated and trans fatHealthy diet, including lots of fruits and vegetables. 2023-05-30 06:20:20 Medication Review by prescribing provider or pharmacist documented (1160F)Medication List Documented (1159F)Functional Status Assessed (1170F)Advance Care Directive Advance care planning discussion documented in the medical record (1158F)BMI obtained (3008F)SBP 130-139 (3075F)DBP <80 (3078F)Televideo 30-39min; chronic exacerbation, 2 stable chronic or 1 acute illness add modifier 95Advance care planning discussed and documented ? advance care plan or surrogate decision-maker was documented in the medical record. (1123F)Pain Assessment - Pain Documented (1125F)Continue to see PCP. Follow-up with [facility] as needed for any acute or disease education needs that may arise.On CelexaStableFollows PsychiatristPHQ-9 -112- Continue current treatment plan as directed. PHQ9- 10Continue current treatment plan as directed.On SumatriptanTopiramateFollows Neurologist2- Continue current treatment plan as directed.Continue current treatment plan as directed.On ClonazepamStableFollows PCP/04/11- Continue current treatment plan as directed. Continue current treatment plan as directed.On OmeprazoleAvoid spicy, fatty or fried food, caffeine, chocolateAvoid lying down after mealsAvoid eating late at nightOn DicyclomineFollows GastroenterologistContinue current treatment plan as directed.On Gabapentin Rx. Diclofenac gelApply heat and icerx lidocaine patches to help with painWill prescribe MelatoninWears pull-ups/diapersIBS- weakened immune system, encourage hand washing, avoid large crowds, stay up on vaccines, monitor for and report early s/s of infection.On SimvastatinEncouraged physical activityDiet low in saturated and trans fatHealthy diet, including lots of fruits and vegetables.rx lidocaine patches to help with painrx lidocaine patches to help with pain 2023-08-07 10:17:18 Phone (patient, pare nt, or guardian); 5-10 minutes of medical discussion (no modifier 95)Continue to see PCP. Follow-up with [facility] as needed for any acute or disease education needs that may arise 12/05.On CelexaStableFollows PsychiatristPHQ-9 -- Continue current treatment plan as directed. PHQ9- 10Continue current treatment plan as directed.On SumatriptanTopiramateFollows Neurologist11/25/22- Continue current treatment plan as directed.Continue current treatment plan as directed.On ClonazepamStableFollows PCP11/25/22- Continue current treatment plan as directed. Continue current treatment plan as directed.On OmeprazoleAvoid spicy, fatty or fried food, caffeine, chocolateAvoid lying down after mealsAvoid eating late at nightOn DicyclomineFollows GastroenterologistContinue current treatment plan as directed.On Gabapentin Rx. Diclofenac gelApply heat and icerx lidocaine patches to help with painWill prescribe MelatoninWears pull-ups/diapersIBS- weakened immune system, encourage hand washing, avoid large crowds, stay up on vaccines, monitor for and report early s/s of infection.On SimvastatinEncouraged physical activityDiet low in saturated and trans fatHealthy diet, including lots of fruits and vegetables.rx lidocaine patches to help with painrx lidocaine patches to help with pain 2023-11-19 08:24:43 Phone (patient, pare nt, or guardian); 5-10 minutes of medical discussion (no modifier 95)Continue to see PCP. Follow-up with [facility] as needed for any acute or disease education needs that may arise 12/05.On CelexaStableFollows PsychiatristPHQ-9 -112- Continue current treatment plan as directed. PHQ9- 10Continue current treatment plan as directed.On SumatriptanTopiramateFollows Neurologist2- Continue current treatment plan as directed.Continue current treatment plan as directed.On ClonazepamStableFollows PCP11/25/22- Continue current treatment plan as directed. Continue current treatment plan as directed.On OmeprazoleAvoid spicy, fatty or fried food, caffeine, chocolateAvoid lying down after mealsAvoid eating late at nightOn DicyclomineFollows GastroenterologistContinue current treatment plan as directed.On Gabapentin Rx. Diclofenac gelApply heat and icerx lidocaine patches to help with painWill prescribe MelatoninWears pull-ups/diapersIBS- weakened immune system, encourage hand washing, avoid large crowds, stay up on vaccines, monitor for and report early s/s of infection.On SimvastatinEncouraged physical activityDiet low in saturated and trans fatHealthy diet, including lots of fruits and vegetables.rx lidocaine patches to help with painrx lidocaine patches to help with painsumatriptan / topomaxf/u with neurology 2023-12-06 08:53:12 Phone (patient, pare nt, or guardian); 11-20 minutes of medical discussion (no modifier 95)Continue to see PCP. Follow-up with [facility] as needed for any acute or disease education needs that may arise 12/05.12/06/23: Cough with green mucous, nasal congestion, headache, body aches, fever at night off and on since September.Next PCP appt 01/10Will start augmentin, prednisone taper, tessalon perlesContinue OTC cough/cold meds Alternate tylenol/ibuprofen every 4-6 hours as neededMay use cool mist vaporizer/humidifier next to bed Elevate HOB when lying down Increase water intake, warm tea with honeyContact CB if no improvement or symptoms become worse.F/U 12/12/23 with REBECCA 2023-12-07 16:30:51 Phone (patient, pare nt, or guardian); 5-10 minutes of medical discussion (no modifier 95)Continue to see PCP. Follow-up with [facility] as needed for any acute or disease education needs that may arise 12/05.12/07/23: Member reports blood vessel burst in left eye.Deneis vision changes but reports pressure Has been coughing with sickness - explained this can be normal and will go away on its own in 1-1.5 weeks.Continue to monitor and contact CB wit further questions, concerns or worsening symptoms. 2023-12-12 09:28:02 Phone (patient, pare nt, or guardian); 5-10 minutes of medical discussion (no modifier 95)Continue to see PCP. Follow-up with [facility] as needed for any acute or disease education needs that may arise 12/05.Add Contingency PlanOn CelexaStableFollows PsychiatristPHQ-9 -112/04/11- Continue current treatment plan as directed. PHQ9- 10Continue current treatment plan as directed.On SumatriptanTopiramateFollows Neurologist2- Continue current treatment plan as directed.Continue current treatment plan as directed.On ClonazepamStableFollows PCP11/25/22- Continue current treatment plan as directed. Continue current treatment plan as directed.On OmeprazoleAvoid spicy, fatty or fried food, caffeine, chocolateAvoid lying down after mealsAvoid eating late at nightOn DicyclomineFollows GastroenterologistContinue current treatment plan as directed.On Gabapentin Rx. Diclofenac gelApply heat and icerx lidocaine patches to help with painWill prescribe MelatoninWears pull-ups/diapersIBS- weakened immune system, encourage hand washing, avoid large crowds, stay up on vaccines, monitor for and report early s/s of infection.On SimvastatinEncouraged physical activityDiet low in saturated and trans fatHealthy diet, including lots of fruits and vegetables.rx lidocaine patches to help with painrx lidocaine patches to help with painsumatriptan / topomaxf/u with neurology12/06/23: Cough with green mucous, nasal congestion, headache, body aches, fever at night off and on since September.Next PCP appt 01/10Will start augmentin, prednisone taper, tessalon perlesContinue OTC cough/cold meds Alternate tylenol/ibuprofen every 4-6 hours as neededMay use cool mist vaporizer/humidifier next to bed Elevate HOB when lying down Increase water intake, warm tea with honeyContact CB if no improvement or symptoms become worse.F/U 12/12/23 with APP12/12/23pt feels better, symptoms have resolved. pt is finishing up on antibiotics, instructed to finish all doses even though she feels better12/07/23: Member reports blood vessel burst in left eye.Deneis vision changes but reports pressure Has been coughing with sickness - explained this can be normal and will go away on its own in 1-1.5 weeks.Continue to monitor and contact CB wit further questions, concerns or worsening symptoms.12/12/23still has red eye, acute bleeding gas stopped 2024-02-09 18:05:28 [J32.9]Will order Cl indamycin for sinusitis and Tessalon Perles. Continue Tylenol for pain and any otc cold medicine. Stay hydrated and rest.If you get worse call back for steroids.F/u per call mimi and prn. 2024-03-16 10:32:47 Phone (patient, pare nt, or guardian); 21-30 minutes of medical discussion (no modifier 95)Continue to see PCP. Follow-up with [facility] as needed for any acute or disease education needs that may arise 12/05.03/16/24- acute visit. Patient reports about 2 weeks ago she went to ER for right sided cheek facial redness/swelling/itching. Was diagnosed with bacterial infection and treated with doxycycline and cephalexin x 7 days. Symptoms did resolve after starting the antibiotics. About 4-5 days after finishing noted return of symptoms, more on the forehead with redness, swelling, and extreme itching. Has tried benadryl without any improvement. Creams cause burning. Feels feverish and has MARINELLI. Will re-treat with previous antibiotic regimen x 10 days as that was effected. Sent in Rx for hydroxyzine to use instead of benadryl to see if that is more helpful. Sent in Rx for prednisone taper to help with inflammation. Encouraged to keep face cool- can try cold compress. Has PCP f/u 04/01. If worsens, no improvement can call CB back sooner. 2024-04-09 07:33:45 Medication Review by prescribing provider or pharmacist documented (1160F)Medication List Documented (1159F)Functional Status Assessed (1170F)Advance Care Directive Advance care planning discussion documented in the medical record (1158F)BMI obtained (3008F)sbdbTelevideo 30-39min; chronic exacerbation, 2 stable chronic or 1 acute illness add modifier 95Advance care planning discussed and documented ? advance care plan or surrogate decision-maker was documented in the medical record. (1123F)Pain Assessment - Pain Documented (1125F)Continue to see PCP. Follow-up with [facility] as needed for any acute or disease education needs that may arise.On CelexaStableFollows PsychiatristPHQ-9 -- Continue current treatment plan as directed. PHQ9- phq9 = 12, pt crying at apt, Increased dose of escitalopramOn SumatriptanTopiramateFollows Neurologist2- Continue current treatment plan as directed.Continue current treatment plan as directed.On ClonazepamStableFollows PCP2- Continue current treatment plan as directed. Continue current treatment plan as directed.On OmeprazoleAvoid spicy, fatty or fried food, caffeine, chocolateAvoid lying down after mealsAvoid eating late at nightOn DicyclomineFollows GastroenterologistContinue current treatment plan as directed.On Gabapentin Rx. Diclofenac gelApply heat and icerx lidocaine patches to help with painWill prescribe MelatoninWears pull-ups/diapersIBS- weakened immune system, encourage hand washing, avoid large crowds, stay up on vaccines, monitor for and report early s/s of infection.On SimvastatinEncouraged physical activityDiet low in saturated and trans fatHealthy diet, including lots of fruits and vegetables.rx lidocaine patches to help with painrx lidocaine patches to help with painsumatriptan / topomaxf/u with neurologyMonthly follow up calls with ptCONTINGENCY PLANWhy was the member in the hospital or ER most recently? Why are they most likely to go back?Please call 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 Follow-up with [facility] as needed for any acute or disease education needs that may arise 12/05.On CelexaStableFollows PsychiatristPHQ-9 -112/04/11- Continue current treatment plan as directed. PHQ9- 106/ phq9 = 12, pt crying at apt, Increased dose of escitalopramOn SumatriptanTopiramateFollows Neurologist2/04/11- Continue current treatment plan as directed.Continue current treatment plan as directed.On ClonazepamStableFollows PCP11/25/22- Continue current treatment plan as directed. Continue current treatment plan as directed.On OmeprazoleAvoid spicy, fatty or fried food, caffeine, chocolateAvoid lying down after mealsAvoid eating late at nightOn DicyclomineFollows GastroenterologistContinue current treatment plan as directed.On Gabapentin Rx. Diclofenac gelApply heat and icerx lidocaine patches to help with painWill prescribe MelatoninWears pull-ups/diapersIBS- weakened immune system, encourage hand washing, avoid large crowds, stay up on vaccines, monitor for and report early s/s of infection.On SimvastatinEncouraged physical activityDiet low in saturated and trans fatHealthy diet, including lots of fruits and vegetables.rx lidocaine patches to help with painrx lidocaine patches to help with painsumatriptan / topomaxf/u with neurologyMonthly follow up calls with ptCONTINGENCY PLANWhy was the member in the hospital or ER most recently? Why are they most likely to go back?Please call 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 Follow-up with [facility] as needed for any acute or disease education needs that may arise 12/05.pt with hx of shingles with same presentation to left foot now- pt has redness and drainage as well as report of fever- will treat for shingles and cellulitis - pt to keep area clean, dry, protected- wash gently with atb or mild soap- rinse-pat dry- apply cream and cover/protect with gauze or cotton material- elevate- use a cool compress for comfort- Tylenol for fever/pain-Continue to monitor- notify healthcare provider of any worsening eRx New valACYclovir 1 GM Tab Take 1 tablet PO twice daily for 5 days. #10 tablet [id number] New Acyclovir 5 % Oint apply thin film to affected area of foot TID x 5 days #30 gram [id number] New Doxycycline Hyclate 100 mg Cap Take 1 tab PO q12h x 7 days #14 capsule [id number] Refill Acetaminophen Extra Strength 500 mg Tab TAKE 1-2 TABLETS BY MOUTH EVERY 6 HOURS NEEDED FOR FEVER or PAIN #30 tablet [id number] left breast and outside of vaginal/groin area keep clean and dryuse gauze or cotton material to wick moisture eRx New Miconazole Nitrate 2 % Crm Vaginal Apply to affected area outside of the vagina daily x 7 days. #45 gram [id number] New Nystatin 406777 UNIT/GM Powder apply to affected area under left breast BID after allowing skin folds to air dry- use gauze or cotton material to wick moisture #60 gram [id number] New Nystatin 340535 UNIT/GM Crm apply to clean and dry skin of the affected area under left breast morning and night until rash resolved #30 gram QGy8kXr Refill hydrOXYzine 25 mg Tab take 1 to 2 tablets orally every 6 hours as needed for moderate to severe itch #30 tablet RFx0 Goals Date Goal 2022-09-06 Remember to 2022-09-06 Call me if 2022-09-06 Keep it up 2023-01-27 1. Remember to keep all appointments with your PCP.2. Take all medication on time and try to eat healthy3. Call if you have questions or concerns before you go to the ER.4. Discussed how to contact [facility] via phone or tablet. 2023-05-30 1. Take all medicati on on time and try to eat healthy2. Call if you have questions or concerns before you go to the ER.3. Remember to keep all appointments with your PCP.4. Discussed how to contact [facility] via phone or tablet. Health Concerns Date Concern 2024-07-14 Visit completed via audio by telephone. Language Line utilized for translation-Pt's nephew Davian is with her and speaks Samoan- Language Line disconnected at that time Patient/Guardian agreed to visit via telehealth.please refer to attached photos 2024-07-14 Today, patient has c hief complaint of: as per melter supervisor:Details of the concern/symptoms present: rash at the top of her feet, applies a cream and it is now spreading and has caused a wound, the same thing is also underneath her left breast.it is also on the surface of her vaginal area.The rash itches, red, carpenter, itches, denies drainage. Wound is as a result of itching, area is red and kind of greenish like pus.She reports fever, chills last night.Applicable vital signs: BP : NAHR: NAO2: NABG: NATemp: 100# hours/days of symptoms: x 1 weekMedications/interventions member has tried for symptoms / result of interventions: Lidocaine oint - no reliefAcetaminophen - some reliefSummary of acute complaint: as above- NO acute distress - Has been dealing with rash for approx 1 month off and on- hx of shingles-reports prior shingles rash to left arm and left side of breast (2 yrs ago) - pt reports recurrent s/sx now to left top of foot- Recurrent yeast rash under breast and groin area- will treat with atb course for infection of left foot with shingles- will order powder and cream to address skin folds with yeast rash- Pt to call 12/05 with any non-emergent needs-
--- OUTSIDE RECORDS SUMMARY | 2024-11-15 15:28 | XMS_ITS ---
Author Organization [facility] Address [address] [place] [address] Care Team Providers Care Housekeeping Director Name Role Phone Gio Meadows Primary Care Provider Unavailab Presley Whitehead Unavailable [phone] REASON FOR VISIT senna refill request MEDICATIONS Medication SIG (Take, Route, Frequency, Duration) Notes Start Date End Date Status Senna 8.6 MG 1 or 2 tablets Orall y At bedtime for constipation for 30 day(s) 06/24/2023 Activ e Encounters Encounter Location Date Provider Diagnosis [facility] [address] [place] [address] 06/24/2023 Presley Greenberg PLAN OF TREATMENT Medication Medication Name Sig Start Date Stop Date Notes Senna 8.6 MG 1 or 2 tablets Orall y At bedtime for constipation for 30 day(s) 06/24/2023
--- OUTSIDE RECORDS SUMMARY | 2024-11-15 15:28 | XMS_ITS ---
Author Organization [facility] Address [address] [place] [address] Care Team Providers Care Music Education Director Name Role Phone Gio Meadows Primary Care Provider Unavailab Presley Whitehead Unavailable [phone] REASON FOR VISIT INCREASE BOWEL MOVEMENTS Encounters Encounter Location Date Provider Diagnosis [facility] [address] [place] [address] 02/17/2024 Presley Greenberg PLAN OF TREATMENT No Information
--- OUTSIDE RECORDS SUMMARY | 2024-11-15 15:28 | XMS_ITS | Patient Health Record ---
Author Organization [facility] Address [address] [place] [address] Care Team Providers Care Shake Backboard Notcher Name Role Phone Gio Meadows Primary Care Provider Unavailab Presley Whitehead Unavailable [phone] ALLERGIES Allergen (clinical drug ingredient) Drug/Non Drug Allergy documented on EMR Reaction Allergy Type Onset Date Status naproxen Naprosyn Unknown Drug Allergy Active Motrin Unknown Drug Allergy Active duloxetine Cymbalta Unknown Drug Allergy Active REASON FOR REFERRAL No Information MEDICATIONS Medication SIG (Take, Route, Frequency, Duration) Notes Start Date End Date Status Omeprazole 40 MG TAKE 1 CAPSULE BY MO UTH TWICE DAILY for 30 Active Dicyclomine HCl 10 MG TAKE 1 TO 2 CAPSUL ES BY MOUTH EVERY 6 HOURS NEEDED FOR ABDOMINAL DISCOMFORT OR CRAMPS for 7 Active CeleXA Not-Taking Diclofenac Sodium 1 % 4 GRAMS TOPICALLY TO THE AFFECTED AREA 4 TIMES PER DAY NEEDED Diagnosis Unavailable External for 7 Active MiraLax (colon prep) 17 GM/SCOOP 1 238GM bottle mixed with Gatorade or Crystal Light Orally begin at 5:00 p.m. the day before the procedure for 1 day 12/29/2022 Active Sulindac 200mg Not-T aking Dulcolax (colon prep) 5 MG take at 3:00 p.m and 7:00p.m. Orally two tablets twice a day for one day for 1 day 12/29/2022 Active Cymbalta Not-Taking Omeprazole 20mg Acti ve Loperamide A-D 2mg N ot-Taking Senna Lax 8.6 MG 1-2 tablets at bedti me as needed Orally QHS prn constipation 04/05/2016 Active Gabapentin 300 MG TAKE 1 CAPSULE BY MO UTH THREE TIMES DAILY Diagnosis Unavailable Oral for 30 Active GNP 8 Hour Pain Reliever 650 MG TAKE 1 TABLET BY MOUTH EVERY 8 HOURS NEEDED FOR PAIN Diagnosis Unavailable Oral for 30 Active Topiramate 50 MG TAKE 1 TABLET BY MARY BETH TH EVERY NIGHT AT BEDTIME Oral for 90 Active Simvastatin 10 MG Orally Ac tive Terazol 7 0.4 % 1 application at bed time Vaginal Once a day Active DULoxetine HCl 60 MG 1 capsule Orally On ce a day Active Citalopram Hydrobromide 40mg Not-Taking Artificial Tears 0.4 % 1 drop into affec janae eye as needed Ophthalmic Once a day Active clonazePAM 1mg Not-T aking Senna 8.6 MG TAKE 1 OR 2 TABLETS BY MOUTH AT BEDTIME NEEDED FOR CONSTIPATION for 90 Active Loratadine 10mg Acti ve MiraLax Miralax 1 capful in 8 ounces of water Orally QD-BID for constipation Active KlonoPIN 5mg Active IMMUNIZATIONS Vaccine Route Administration Date Status Comme nts Influenza Unknown 07/20/2019 Administered Influenza Unknown 08/06/2022 Administered SOCIAL HISTORY Tobacco Use: Social History Observation Description Date Details (start date - stop date) Never Smoker NA - NA Sex Assigned At : Social History Observation Description Sex Assigned At Unknown Tobacco Use/Smoking Question Answer Notes Patient is a nonsmoker Alcohol Screen Question Answer Notes Did you have a drink containing alcohol in the p ast year? No Points 0 Interpretation Negative PROBLEMS Problem Type ICD Code Onset Dates Problem Status W/U Status Risk SNOMED Code Notes Problem Colon cancer screening (Z12.11) Active confirmed 145908345 Problem Diverticulitis of large intestine without perforation or abscess without bleeding (K57.32) Active confirmed 4404976 Problem Encounter for screening for malignant neoplasm of colon (Z12.11) Active confirmed 878269865 Problem Diverticulosis of large intestine without perforation or abscess without bleeding (K57.30) Active confirmed Diverticul ar disease of colon (321096857) Problem Encounter for screening for malignant neoplasm of rectum (Z12.12) Active confirmed Screening for malignant neoplasm of rectum (669967023) Problem Gastroesophageal reflux disease, esophagitis presence not specified (K21.9) Active confirmed 986585176 Problem Constipation, unspecified constipation type (K59.00) Active confirmed 22237392 Problem Abdominal pain, generalized (R10.84) Active confirmed 268220569 Problem Diarrhea, unspecified type (R19.7) Active confirmed 76316533 Problem Irritable bowel syndrome, unspecified type (K58.9) Active confirmed 85585433 Encounters Encounter Location Date Provider Diagnosis [facility] [address] [place] [address] 02/17/2024 Presley Greenberg PLAN OF TREATMENT Pending Test Test Name Order Date BUN 11/19/2011 CREATININE 11/19/2011 LIVER PROFILE 12/18/2022 LIVER PROFILE 11/19/2011 AMYLASE 11/19/2011 LIPASE 11/19/2011 CRP 12/18/2022 CBC w DIFF 12/18/2022 SED RATE (ESR) 12/18/2022 CT ABD & PELVIS WITH CONTRAST 11/19/2011 STOOL WBC 12/18/2022 C DIFFICILE RFLX PCR 12/18/2022 Amylase 12/18/2022 Lipase 12/18/2022 Calprotectin, Fecal 12/18/2022 GI PANEL 12/18/2022 Future Test Test Name Order Date COLONOSCOPY 07/17/2012 COLONOSCOPY 12/25/2022 Insurance Providers Payer Name Payer Address Payer Phone Subscriber Number Group Number Insured Name Patient Relationship to Insured Coverage Start Date Coverage End Date [facility] [address] [address] [place] [phone] [id number] RALF KELLY Self - patient is the insured MEDICARE OF [place] [address] [place] [address] [phone] [id number] RALF KELLY Self - patient is the insured MEDICAID OF [facility] [address] [place] [address] [phone] [id number] RALF KELLY Self - patient is the insured MEDICAL (GENERAL) HISTORY Medical History History ICD Code EGD 04-09-2011-negative excep t for a minimal hiatal hernia-gastric biopsies were negative for H. pylori, and duodenal biopsies were normal--there was a small smount of retained old food in the stomach and duodenal bulb, with subjective decrease in gastric peristalsis GERD Depression/anxiety Renal insufficiency Denies MD,DM,CVA,Lung disease,renal dise ase Colonoscopy 08/2012-neg exce pt diverticulosis-no polyps; negative colon[place] [address] Mckinney IBS Negative abd. U/S, normal LFT's and lipa se in 2011 Gastric emptying study in 04/2013 with fi ndings c/w gastroparesis Hospitalized in 06/2014 for d iarrhea , UTI, and abdominal pain--neg. CT of abdomen-seen by Dr. Wadsworth--during this hospitalization she had a normal liver profile, normal CBC, and normal lipase--stool specimens were negative for C. difficile, culture, wbc's, and Hemoccult. A H. pylori serology was negative as well. Diverticulitis in 02/2016--treated with a ntibiotics Sigmoid diverticulitis seen on CAT scan in March of 2019. This was treated with outpatient antibiotics. Surgical History Surgery Date(Month/Year) CCY Back surgery Shoulder surgery Cataract surgery Back surgery Hospitalization History Reason Date(Month/Year)
== END 2024-11-15 11:28 | disposition home or self-care (01) ==
PROVIDERS: PCP Physician Assistant; Visit Provider Physician Assistant
DX: F41.1 Generalized anxiety disorder (principal); R60.0 Localized edema; E78.2 Mixed hyperlipidemia; M48.061 Spinal stenosis, lumbar region without neurogenic claudication

== ENCOUNTER → 2024-11-15 10:43 | Outpatient (BNVA) | payer OTHER, SELFPAY | PROVIDERS: PCP Physician Assistant; Visit Provider Physician Assistant | DX: J45.20 Mild intermittent asthma, uncomplicated (principal); F41.1 Generalized anxiety disorder; M25.512 Pain in left shoulder; R60.0 Localized edema; E78.2 Mixed hyperlipidemia; M48.061 Spinal stenosis, lumbar region without neurogenic claudication; E55.9 Vitamin D deficiency, unspecified | CPT/HCPCS: 96127; 99212 ==

== ENCOUNTER 2025-01-19 13:39 | Outpatient (AMB) | payer OTHER, SELFPAY ==
[2025-01-19 13:53] VITALS: BP 112/68; PULSE 71; RESP 18; TEMP 36.9; O2SAT 94; BMI 31.1
--- NOTE | 2025-01-19 13:53 | A.OFFPC_ITS ---
Vital Signs 01/19/25 13:53 Height 5 ft 6 in Weight 192 lb 12.8 oz BMI 31.1 BP 112/68 Blood Pressure Location Lt brachial Position Sitting Respiration 18 Pulse 71 Pulse Source Pulse Oximeter Temp 98.5 F Temp Source Oral Pulse Oximetry (%) 94 Oxygen Delivery Method Room Air Intake Visit Reasons: Red patches on her arm Intake Note: The patient presents with bilateral leg swelling and right leg sciatica pain. A nurse evaluated the patient?s legs at home and advised follow-up with a primary care provider due to concerns about poor circulation. Green Chain Puller Required: Yes Green Chain Puller Language: Financial Operations Consultant Name: Used tablet- Accompanied by: Daughter Allergies banana [BANANA] Allergy (Intermediate, Verified 01/19/25 14:18) Itching naproxen [From NAPROSYN] Allergy (Intermediate, Verified 01/19/25 13:59) rash, GI upset prednisone Allergy (Intermediate, Verified 01/19/25 13:59) Itchy and redness warfarin [WARFARIN] Allergy (Unknown, Verified 01/19/25 13:59) Unknown ibuprofen [From MOTRIN] Adverse Reaction (Intermediate, Verified 01/19/25 13:59) Gastrointestinal Upset pregabalin Adverse Reaction (Intermediate, Verified 01/19/25 13:59) Diarrhea and blurry vision sun Allergy (Unknown, Uncoded 01/19/25 13:59) bumps on skin Medication List - Last Reconciled 01/19/25 by MARGIE Alberts acetaminophen ER (Tylenol Arthritis Pain) 650 mg PO Q8H PRN 30 days albuterol sulfate 90 mcg/actuation 1 inh inhalation QID PRN 30 days baclofen 10 - 20 mg PO BEDTIME PRN calcium carbonate (Oyster Shell Calcium) 500 mg PO DAILY 30 days cholecalciferol (vitamin D3) 50 mcg PO DAILY 90 days clonazepam 1 mg PO BID 30 days clotrimazole-betamethasone 1-0.05 % 1 appl topical BID 30 days cyanocobalamin (vitamin B-12) 500 mcg PO DAILY PRN diaper,brief,adult,disposable (Briefs, Adult-Extra Large) As directed dicyclomine 10 mg PO DAILY 30 days disposable gloves (Disposable Latex-Free Gloves) As directed gabapentin 300 mg PO TID 30 days lidocaine 5% 1 appl topical BEDTIME 30 days magnesium oxide 400 mg PO BEDTIME 30 days melatonin 5 mg PO BEDTIME PRN naratriptan take 1/2 - 1 tab at onset of headache; if no relief may repeat 1 tab after at least 4 hrs; max = 2 tabs/24 hrs orally PRN; 30 days omeprazole 40 mg PO BID@0630,1630 pyridoxine (vitamin B6) 25 mg PO DAILY sennosides (senna) 8.6 mg PO DAILY PRN simvastatin 20 mg PO DAILY 90 days topiramate 100 mg PO BEDTIME 30 days trazodone 100 mg PO BEDTIME Tobacco use date assessed: 01/19/25 Fall risk assessment: No Falls in past year Last assessed Fall Risk: 01/19/25 Dental Screening Dental Screen Date: 01/19/25 Did you have a dental visit in the last 12 months?: Yes Did you have a dental problem in the last 6 months where you did not have access to dental care?: No Was dental information given to patient?: Patient has dentist HPI Red patches on her arm HPI Details The patient is a 74-year-old female who presenting for red patch on her right arm The patient has right forearm purpura. Explained to the pain that this is probably from bumping her arm and she should be careful because bruises easily. Underneath left breast intertrigo- c/o burning and itching. Right shoulder pain ongoing. Decreased ROM, no swelling or apparent trauma- ordered an xray to further evaluated. 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 Mother Diabetes Advanced cardiac disease Osteoporosis Chronic mental illness Brother Substance abuse Family/Other Chronic mental illness Social History Household Members: None Household Members Other:: family members live in apartment below pt Housing: Apartment Do you presently have visiting nurse or other home services: Yes Alcohol intake: never Comment: LOW Patient Tobacco Use Status: Former Tobacco user Tobacco use type: Cigarette e-Cigarette/Vaping Use: Former Use Second Hand Smoke Exposure: No service: No Current occupational status: disabled Gender identity: Female Cognitive needs: Yes (cane) Hearing needs: No Vision needs: No Questionnaire Thrive Questionnaire Date Thrive assessed: 01/19/25 I am a: Patient What is your living situation today?: I have a steady place to live Within the past 12 months, did the food you bought not last and you didn't have the money to get more?: Never true Within the past 12 months, did you worry whether your food would run out before you got money to buy more?: Never true Do you have trouble paying for medicines?: No Do you have trouble getting transportation to medical appointments?: No Do you have trouble paying your heating and electricity bill?: No Do you have trouble taking care of your child, family member or friend?: No Do you have trouble with day-to-day activities such as bathing, preparing meals, shopping, managing finances, etc.?: No Are you currently unemployed and looking for a job?: No Are you interested in more education?: No Please select the resources that you would like help with: None Currently or been in a relationship where the following occur: No concerns reported THRIVE Score: 0 AUDIT C Alcohol Use Questionnaire (AUDIT-C) 1. How often do you have a drink containing alcohol?: Never 3. How often do you have six or more drinks on one occasion?: Never Total Score: 0 TIMA-7 AMB Questionnaire TIMA-7 Date TIMA - 7 assessed: 11/15/24 Source: Developed by Drs. Presley Hou, Angela Amador, Reilly Young and colleagues, with an educational adonis from [employer] Review of Systems ENT Denies sore throat Card Denies chest pain, Denies leg edema and Denies lightheadedness Resp Denies cough and Denies hemoptysis Musc Reports arthralgias (right shoulder) and Reports stiffness Skin/Breast Reports pruritus, Reports rash (underneath left breast), Reports unusual bruising and Reports other (burning sensation) Taj/Lymph Denies easy bleeding and Denies easy bruising Physical exam (Primary Care) Vital Signs: Last Vital Signs Temp 98.5 F 01/19/25 13:53 Pulse 71 01/19/25 13:53 Resp 18 01/19/25 13:53 BP 112/68 01/19/25 13:53 Pulse Ox 94 01/19/25 13:53 Oxygen Delivery Method Room Air 01/19/25 13:53 BMI result Body Mass Index 31.1 Tobacco/Smoking Status: Tobacco use Status Tobacco use date assessed 01/19/25 01/19/25 14:01 Patient Tobacco Use Status Former Tobacco user 01/19/25 14:01 Tobacco use type Cigarette 01/19/25 14:01 e-Cigarette/Vaping Use Former Use 01/19/25 14:01 Thrive Assessment: Date of Thrive Assessment Date Thrive assessed 01/19/25 01/19/25 14:01 Currently or been in a relationship where the following occur: No concerns reported Const General: healthy appearing, no acute distress, alert and awake Nutritional Appearance: well nourished Orientation/consciousness: oriented to person, oriented to place and oriented to time HENMT Ears: external ears normal General nose exam: Normal external nose present Eyes Conjunctivae: conjunctivae normal Sclerae: sclerae normal Neck Neck: Yes no lymphadenopathy and Yes no JVD Thyroid: Thyroid normal Carotids: no bruits Resp Effort & Inspection: normal respiratory effort and not tachypneic Auscultation: no crackles, no rales, no rhonchi and no wheezes Cardio Rate: regular rate Rhythm: regular rhythm Heart sounds: no murmurs and normal S1 and S2 Skin General skin exam: dry skin and purpura (right forearm) Rashes: rashes noted (underneath) macules left anterior breast Neuro General: oriented to person, oriented to place and oriented to time Extrem Right upper extremity: shoulder/upper arm Details: abnormal ROM (unable to lift right arm above 90 degrees) Details: pain with passive ROM Coding Level of Care Code Est Pt Level 3 (67236) Diagnoses Right shoulder pain, unspecified chronicity M25.511 Chronicity: unspecified Intertrigo L30.4 Bruise T14.8XXA Time Spent (min) 31 Assessment & Plan Assessment & Plan (1) Right shoulder pain: Code(s): M25.511 - Pain in right shoulder Category: Medical Qualifiers: Chronicity: unspecified Qualified Code(s): M25.511 - Pain in right shoulder Plan: Right shoulder x-ray ordered to further evaluate (2) Intertrigo: Code(s): L30.4 - Erythema intertrigo Category: Medical Plan: Cleanse area with soap and water pat dry and apply clotrimazole-betamethasone 1- 0.05% topical cream BID (3) Bruise: Code(s): T14.8XXA - Other injury of unspecified body region, initial encounter Category: Medical Plan: Right forearm Purpura. Informed the patient that this bleeding under the skin due to injury, most likely after bump her arm somewhere. Discussed with the patient to be careful because she appears to bruise easily. Orders: Orders XR shoulder RT min 2V Today M25.511 - Pain in right shoulder Medications: New clotrimazole-betamethasone 1-0.05 % 1 appl topical BID 30 days 15 grams 2RF L30.4 - Erythema intertrigo trazodone 100 mg PO BEDTIME 30 days 30 tabs 2RF Refilled melatonin 5 mg PO BEDTIME PRN 30 tabs 3RF sleep
--- OUTSIDE RECORDS SUMMARY | 2025-01-19 16:24 | XMS_ITS ---
Author Organization [facility] Address [address] [place] [id number] Care Team Providers Care Heat Curer Name Role Phone Gio Meadows Primary Care Provider Unavailab Presley Whitehead Unavailable [phone] REASON FOR VISIT INCREASE BOWEL MOVEMENTS Encounters Encounter Location Date Provider Diagnosis [facility] [address] [place] [phone] 02/17/2024 Presley Greenberg Plan Of Treatment No Information Progress Notes * RALF KELLYDOB: 0 (73 yo F)Acc No.[id number]:02/17/2024 Patient:?RALF KELLY :1950???Age:73 Y???Sex:Female Address:[address] [place] [address], [place] [address] * true * Date:? Generated for Gregg win/Vernell/eTransmitting on:?01/19/2025 04:24 PM EDT
--- OUTSIDE RECORDS SUMMARY | 2025-01-19 16:24 | XMS_ITS | Patient Health Record ---
Author Organization [facility] Address [address] [place] [address] Care Team Providers Care Configuration Consultant Name Role Phone Gio Meadows Primary Care Provider Unavailab Presley Whitehead Unavailable [phone] Allergies Allergen (clinical drug ingredient) Drug/Non Drug Allergy documented on EMR Reaction Allergy Type Onset Date Status naproxen Naprosyn Unknown Drug Allergy Active Motrin Unknown Drug Allergy Active duloxetine Cymbalta Unknown Drug Allergy Active Reason For Referral No Information Medications Medication SIG (Take, Route, Frequency, Duration) Notes [...] QD-BID for constipation Active KlonoPIN 5mg Active Immunizations Vaccine Route Administration Date Status Comme nts Influenza Unknown 07/20/2019 Administered Influenza Unknown 08/06/2022 Administered Social History Tobacco Use: Social History Observation Description Date Details (start date - stop date) Never Smoker NA - NA Tobacco Use/Smoking Question Answer Notes Patient is a nonsmoker Alcohol Screen Question Answer Notes Did you have a drink containing alcohol in the p ast year? No Points 0 Interpretation Negative Section Notes: Former smoker, and denies an y sig. use of alcohol Former smoker, and denies an y sig. use of alcohol Former smoker, and denies an y sig. use of alcohol Former smoker, and denies an y sig. use of alcohol Former smoker, and denies an y sig. use of alcohol Former smoker, and denies an y sig. use of alcohol Former smoker, and denies an y sig. use of alcohol Problems Problem Type SNOMED Code ICD Code Onset Dates Problem Status W/U Status Risk Notes Problem 032577958 Colon cancer screening (Z12.11) Active confirmed Problem 3336330 Diverticulitis o f large intestine without perforation or abscess without bleeding (K57.32) Active confirmed Problem 166598259 Encounter for screening for malignant neoplasm of colon (Z12.11) Active confirmed Problem Diverticular disease of colon (262258452) Diverticulosis of large intestine without perforation or abscess without bleeding (K57.30) Active confirmed Problem Screening for malignant neoplasm of rectum (601919644) Encounter for screening for malignant neoplasm of rectum (Z12.12) Active confirmed Problem 006338435 Gastroesophageal reflux disease, esophagitis presence not specified (K21.9) Active confirmed Problem 07875743 Constipation, unspecified constipation type (K59.00) Active confirmed Problem 976029388 Abdominal pain, generalized (R10.84) Active confirmed Problem 13422848 Diarrhea, unspecified type (R19.7) Active confirmed Problem 95914316 Irritable bowel syndrome, unspecified type (K58.9) Active confirmed Encounters Encounter Location Date Provider Diagnosis [facility] [address] [place] [address] 02/17/2024 Presley Greenberg Plan Of Treatment Pending Test Test Name Order Date BUN [...] Insured Coverage Start Date Coverage End Date [facility] [address] [address] [place] [address] [phone] [id number] RALF KELLY Self - patient is the insured MEDICARE OF [place] [address] [place] [address] [id number] RALF KELLY Self - patient is the insured MEDICAID OF [facility] [address] [place] [address] [id number] RALF KELLY Self - patient is the insured Medical (General) History Medical History History ICD Code EGD 04-09-2011-negative excep t for a minimal hiatal hernia-gastric biopsies were negative for H. pylori, and duodenal biopsies were normal--there was a small smount of retained old food in the stomach and duodenal bulb, with subjective decrease in gastric peristalsis GERD Depression/anxiety Renal insufficiency Denies OH,DM,CVA,Lung disease,renal dise ase Colonoscopy 08/2012-neg exce pt [...]
--- OUTSIDE RECORDS SUMMARY | 2025-01-19 16:24 | XMS_ITS ---
Author Name Jae VAZQUEZ Ch[place]or Address [address] [place] [address] Phone [phone] [facility] Care Team Providers Care Tong Hooker Name Role Phone Dasha Rowe Unavailable [phone] Unavailable Unavailable Unavailable Unavailable Unavailable [phone] RAMEZ ESPINO Unavailable [phone] Reason for Referral Not Available Allergies, adverse [...] Data Available 2022-12-30 No Data Available Nystop [id number] UNIT/GM Powder APPLY 1 REBECCA LICATION TOPICALLY [...] Data Available 2024-03-17 No Data Available Nystatin 270752 UNIT/ML Suspension SWISH AND SWALLOW 5 ML [...] MOUTH DAILY 2024-05-12 No Data Available Nystatin [id number] UNIT/GM Crm apply to sheryl an and dry skin of the affected area under left breast morning and night until rash resolved 2024-07-14 No Data Available Nystatin [id number] UNIT/GM Powder apply to affected area under [...] x 7 days 2024-07-14 No Data Available Augmentin 875mg Tab 1 tablet Q12H x 7 days 2024-11-17 No Data Available Phenazopyridine 200 mg Tab TAKE 1 TABLET BY MOUTH THREE TIMES DAILY FOR 6 DOSES 2024-08-07 No Data Available Cefuroxime Axetil 500 mg Tab TAKE 1 TABL ET BY MOUTH TWICE DAILY 2024-08-07 No Data Available Vitamin D3 50 MCG (1999 UT) Cap TAKE 1 CAPSULE BY MOUTH DAILY 2024-11-15 No Data Available Miconazole Nitrate 2 % Crm 1 application topically to affected area 2 times per day 2024-12-21 No Data Available Problem List Problem Status [...] Resolved 2024-04-09 2024-04-09 Other problems related to [facility] facilities and other health care Active 2024-04-09 N/A Need for assistance with personal care Active 12-04-21 N/A Incontinence Active 2024-04-09 N/A Major depression, recurrent, moderate Active 11-30-17 N/A Hx: UTI (urinary tract infection) Active 2024-05 N/A History of shinglesBacterial infection concurrent with and due to herpes zoster Active 2024-07-14 N/A Pruritic condition Active 2024-07-14 N/A Difficulty in walking, not e lsewhere classified Unsteady gait Active 2024-04-09 N/A UTI (urinary tract infection) Resolved 2024-11-17 2024-11-23 Yeast infection of the skin Active 2024-07-14 N/A Encounters Encounters Type Facility Date of Service Diagnosis/Co mplaint New patient, 30-44min 1 stable chronic or 2 minor; add modifier 95 for video, modifier 93 for [facility] Migraine, unspecified, not intractable, without status migrainosusAnxiety disorder, unspecifiedGastro-esophageal reflux disease without esophagitisIrritable bowel syndrome without diarrheaUnspecified osteoarthritis, unspecified siteInsomnia, unspecifiedUnspecified urinary incontinenceImmunodeficiency due to conditions classified elsewhereMajor depressive disorder, recurrent, moderate New patient, 30-44min 1 stable chronic or 2 minor; add modifier 95 for video, modifier 93 for [facility], ([place] 09[place]2022 New patient, 30-44min 1 stable chronic or 2 minor; add modifier 95 for video, modifier 93 for phone [facility] New patient, 30-44min 1 stable chronic or 2 minor; add modifier 95 for video, modifier 93 for phone [facility] New patient, 30-44min 1 stable chronic or 2 minor; add modifier 95 for video, modifier 93 for phone [facility] [place] New patient, 30-44min 1 stable chronic or 2 minor; add modifier 95 for video, modifier 93 for phone [facility] [place] New patient, 30-44min 1 stable chronic or 2 minor; add modifier 95 for video, modifier 93 for phone [facility]2022 No Data Available [facility]2022 Anxiety disorder, unspecifiedMigraine, unspecified, not intractable, without status migrainosusUnspecified osteoarthritis, unspecified siteMajor depressive disorder, recurrent, moderate No Data Available [facility]2022 Irritable bowel syndrome wit hout diarrheaMajor depressive disorder, recurrent, moderateMigraine, unspecified, not intractable, without status migrainosusHyperlipidemia, unspecified No Data Available [facility] 01[place]/2023 Acute candidiasis of vulva a nd vagina No Data Available [facility]2023 Body mass index (bmi) 33.0-3 3.9, adultMigraine, unspecified, not intractable, without status migrainosusGastro-esophageal reflux disease without esophagitisUnspecified urinary incontinenceHyperlipidemia, unspecifiedMajor depressive disorder, recurrent, moderateAnxiety disorder, unspecifiedIrritable bowel syndrome without diarrheaUnspecified osteoarthritis, unspecified siteInsomnia, unspecifiedImmunodeficiency due to conditions classified elsewhere No Data Available [facility]2023 No Data Available [facility]2023 No Data Available [facility]2023 Major depressive disorder, recurrent, moderateImmunodeficiency due to conditions classified elsewhereMigraine, unspecified, not intractable, without status migrainosusAnxiety disorder, unspecifiedGastro-esophageal reflux disease without esophagitisIrritable bowel syndrome without diarrheaUnspecified osteoarthritis, unspecified siteInsomnia, unspecifiedUnspecified urinary incontinenceHyperlipidemia, unspecified No Data Available [facility] 05[place]2023 No Data Available [facility] No Data Available [facility]20[place] No Data Available [facility]20[place] No Data Available [facility]20[place] No Data Available [facility]20[place] Estab. patient 30-39min; chronic exacerbation, 2 stable chronic or 1 acute illness add add modifier 95 for video, (do not use for phone, instead use 38526-74) [facility] Major depressive disorder, recurrent, moderateMigraine, unspecified, [...] (do not use for phone, instead use 54867-95) [facility] Estab. patient 30-39min; chronic exacerbation, 2 stable chronic or 1 acute illness add add modifier 95 for video, (do not use for phone, instead use 86484-33) [facility] Estab. patient 30-39min; chronic exacerbation, 2 stable chronic or 1 acute illness add add modifier 95 for video, (do not use for phone, instead use 98626-12) [facility] Estab. patient 30-39min; chronic exacerbation, 2 stable chronic or 1 acute illness add add modifier 95 for video, (do not use for phone, instead use 25827-82) [facility]20[place] Estab. patient 30-39min; chronic exacerbation, 2 stable chronic or 1 acute illness add add modifier 95 for video, (do not use for phone, instead use 60221-95) [facility]20[place] Estab. patient 30-39min; chronic exacerbation, 2 stable chronic or 1 acute illness add add modifier 95 for video, (do not use for phone, instead use 07914-27) [facility]/20[place] Estab. patient 30-39min; chronic exacerbation, 2 stable chronic or 1 acute illness add add modifier 95 for video, (do not use for phone, instead use 54849-69) [facility]20[place] Estab. patient 30-39min; chronic exacerbation, 2 stable chronic or 1 acute illness add add modifier 95 for video, (do not use for phone, instead use 41039-16) [facility]/20[place] Estab. patient 30-39min; chronic exacerbation, 2 stable chronic or 1 acute illness add add modifier 95 for video, (do not use for phone, instead use 02363-67) [facility]20[place] Estab. patient 30-39min; chronic exacerbation, 2 stable chronic or 1 acute illness add add modifier 95 for video, (do not use for phone, instead use 35628-49) [facility] 05[place]/2023 No Data Available [facility]2023 Major depressive disorder, recurrent, moderateMigraine, unspecified, not intractable, without status migrainosusAnxiety disorder, unspecifiedGastro-esophageal reflux disease without esophagitisIrritable bowel syndrome without diarrheaUnspecified osteoarthritis, unspecified siteInsomnia, unspecifiedUnspecified urinary incontinenceImmunodeficiency due to conditions classified elsewhereHyperlipidemia, unspecifiedPain in unspecified shoulderPain in unspecified hip No Data Available [facility]2023 No Data Available [facility] No Data Available [facility] 08[place] [facility] [facility] [place] [facility] [place] No Data Available [facility]2023 Major depressive disorder, recurrent, moderateMigraine, unspecified, not intractable, without status migrainosusAnxiety disorder, unspecifiedGastro-esophageal reflux disease without esophagitisIrritable bowel syndrome without diarrheaUnspecified osteoarthritis, unspecified siteInsomnia, unspecifiedUnspecified urinary incontinenceImmunodeficiency due to conditions classified elsewhereHyperlipidemia, unspecifiedPain in unspecified shoulderPain in unspecified hipHeadache, unspecified No Data Available [facility]19/2023 No Data Available [facility]2023 No Data Available [facility]20[place] No Data Available [facility]2023 No Data Available [facility]2023 No Data Available [facility]2023 No Data Available [facility]2023 No Data Available [facility] 12[place]/2023 Chronic sinusitis, unspecifi ed No Data Available [facility] 12/07/2023 Conjunctival hemorrhage, lef t eye No Data Available [facility], [place] 12[place]12/2023 Other problems related to [facility] facilities and other health careMajor depressive disorder, recurrent, moderateBody mass index (bmi) 32.0-32.9, adultMigraine, unspecified, not intractable, without status migrainosusAnxiety disorder, unspecifiedGastro-esophageal reflux disease without esophagitisIrritable bowel syndrome without diarrheaUnspecified osteoarthritis, unspecified siteInsomnia, unspecifiedUnspecified urinary incontinenceImmunodeficiency due to conditions classified elsewherePain in unspecified shoulderHyperlipidemia, unspecifiedHeadache, unspecifiedChronic sinusitis, unspecifiedConjunctival hemorrhage, left eye No Data Available [facility]2023 No Data Available [facility]2023 No Data Available [facility]20[place] No Data Available [facility]20[place] No Data Available [facility] No Data Available [facility]2023 No Data Available [facility]/20[place] Chronic sinusitis, unspecifi ed No Data Available [facility] 03[place]16/2024 Cellulitis of face Estab. patient 30-39min; chronic exacerbation, 2 stable chronic or 1 acute illness add add modifier 95 for video, (do not use for phone, instead use 59183-08) [facility] Major depressive disorder, recurrent, moderateMigraine, unspecified, [...] (do not use for phone, instead use 32811-08) [facility] Estab. patient 30-39min; chronic exacerbation, 2 stable chronic or 1 acute illness add add modifier 95 for video, (do not use for phone, instead use 40094-43) [facility] Estab. patient 30-39min; chronic exacerbation, 2 stable chronic or 1 acute illness add add modifier 95 for video, (do not use for phone, instead use 18922-74) [facility] Estab. patient 30-39min; chronic exacerbation, 2 stable chronic or 1 acute illness add add modifier 95 for video, (do not use for phone, instead use 72512-16) [facility] Estab. patient 30-39min; chronic exacerbation, 2 stable chronic or 1 acute illness add add modifier 95 for video, (do not use for phone, instead use 28157-89) [facility] Estab. patient 30-39min; chronic exacerbation, 2 stable chronic or 1 acute illness add add modifier 95 for video, (do not use for phone, instead use 67241-51) [facility] Estab. patient 30-39min; chronic exacerbation, 2 stable chronic or 1 acute illness add add modifier 95 for video, (do not use for phone, instead use 10143-19) [facility] Estab. patient 30-39min; chronic exacerbation, 2 stable chronic or 1 acute illness add add modifier 95 for video, (do not use for phone, instead use 05970-18) [facility] No Data Available [facility] 05[place] Major depressive disorder, recurrent, moderateMigraine, [...] assistance with personal care No Data Available [facility] 05[place]20[place] No Data Available [facility] No Data Available [facility] No Data Available [facility] No Data Available [facility] No Data Available [facility] No Data Available [facility] No Data Available [facility] No Data Available [facility] Bacterial infection, unspecifiedZoster with other complicationsCandidiasis of skin and nailPruritus, unspecifiedPersonal history of other infectious and parasitic diseases No Data Available [facility] 07[place]/20[place] Estab. patient 10-29min; 1 minor problem; add add modifier 95 for video, modifier 93 for phone [facility]/17/2024 Urinary tract infection, sit e not specified Estab. patient 10-29min; 1 minor problem; add add modifier 95 for video, modifier 93 for phone [facility] 11/23/2024 Major depressive disorder, recurrent, moderateMigraine, unspecified, not intractable, without status migrainosusAnxiety disorder, unspecifiedGastro-esophageal reflux disease without esophagitisIrritable bowel syndrome without diarrheaUnspecified osteoarthritis, unspecified siteInsomnia, unspecifiedUnspecified urinary incontinenceImmunodeficiency due to conditions classified elsewhereHyperlipidemia, unspecifiedPain in unspecified shoulderPain in unspecified hipHeadache, unspecifiedOther problems related to medical facilities and other health careNeed for assistance with personal careUnsteadiness on feetPersonal history of urinary (tract) infectionsPersonal history of other infectious and parasitic diseasesBacterial infection, unspecifiedZoster with other complicationsCandidiasis of skin and nailPruritus, unspecified Estab. patient 10-29min; 1 minor problem; add add modifier 95 for video, modifier 93 for phone [facility] Estab. patient 10-29min; 1 minor problem; add add modifier 95 for video, modifier [address] [facility] Estab. patient 10-29min; 1 minor problem; add add modifier 95 for video, modifier 93 for phone [facility] [place] Candidiasis of skin and nail Other problems related to medical facilities and other health care Vital Signs Date of Collection Vitals 2022-09-06 [...] tive Time Current Smoking Status Former smoker 2 Sex Female History of Procedures Procedures Service Procedure code Service date Servicing provider Phone# New patient, 30-44min 1 stable chronic or 2 minor; add modifier 95 for video, modifier 93 for phone [id number] 2022-09-06 No Data Available No Data Available [...] le No Data Available No Data Available 2022-11-25 No Data Available No Data Available No Data Available 2022-12-25 No Data Available No Data Available No Data Available [id number] 2023-01-15 No Data Available No Data Available No Data Available 2023-01-27 No Data Available No Data Available Pain Assessment - Pain Documented on a Pain Scale (1125F) 1125F 2023-01-27 No Data Available No Data Candida ilable Medication List Documented (1159F) 1159F 2023-01-27 No Data Available No Data Candida ilable No Data Available 2023-05-02 No Data Available No Data Available [...] (do not use for phone, instead use 10564-60) [id number] 2023-05-30 No Data Available No Data Availa ble Medication List Documented (1159F) 1159F 2023-05-30 No Data Available No Data Candida ilable Medication Review by prescribing provider or pharmacist documented (1160F) 1160F 2023-05-30 No Data Available No Data Candida ilable Functional Status Assessed (1170F) 1170F 2023-05-30 No Data Available No Data Avail able Pain Assessment - Pain Documented on a Pain Scale (1125F) 1125F 2023-05-30 No Data Available No Data Candida [...] No Data Availa ble No Data Available [id number] 2023-08-07 No Data Available No Data Available Medication List Documented (1159F) 1159F 2023-08-07 No Data Available No Data Candida ilable Functional Status Assessed (1170F) 1170F 2023-08-07 No Data Available No Data Avail able Pain Assessment - Pain Documented on a Pain Scale (1125F) 1125F 2023-08-07 No Data Available No Data Candida ilable Advance Care Directive Advance care planning discussion documented in the medical record (1158F) 1158F 2023-08-07 No Data Available No Data Availa ble BMI obtained (3008F) 3008F 2023-08-07 No Data Availab le No Data Available No Data Available [id number] 2023-08-07 No Data Available No Data Available No Data Available [id number] 2023-11-19 No Data Available No Data Available Pain Assessment - Pain Documented on a Pain Scale (1125F) 1125F 2023-11-19 No Data Available No Data Candida ilable Functional Status Assessed (1170F) 1170F 2023-11-19 No [...] Available No Data Available No Data Available [id number] 2023-12-06 No Data Available No Data Available No Data Available [id number] 2023-12-08 No Data Available No Data Available No Data Available [id number] 2023-12-12 No Data Available No Data Available [...] le No Data Available No Data Available [id number] 2024-02-10 No Data Available No Data Available No Data Available [id number] 2024-03-16 No Data Available No Data Available Estab. patient 30-39min; chronic exacerbation, 2 stable chronic or 1 acute illness add add modifier 95 for video, (do not use for phone, instead use 06516-81) 48657 2024-04-09 No Data Available No Data Availa ble Medication List Documented (1159F) 1159F 2024-04-09 No Data Available No Data Candida ilable Medication Review by prescribing provider or pharmacist documented (1160F) 1160F 2024-04-09 No Data Available No Data Candida ilable Pain Assessment - Pain Documented on a Pain Scale (1125F) 1125F 2024-04-09 No Data Available No Data Candida ilable BMI obtained (3008F) 3008F 2024-04-09 No Data [...] No Data Avail able No Data Available [id number] 2024-05-21 No Data Available No Data Available Pain Assessment - Pain Documented on a Pain Scale (1125F) 1125F 2024-05-21 No Data Available No Data Candida ilable No Data Available [id number] 2024-05-21 No Data [...] Data Available Pain Assessment - Pain Documented on a Pain Scale (1125F) 1125F 2024-05-21 No Data Available No Data Candida ilable No Data Available [id number] 2024-07-14 No Data Available No Data Available Medication List Documented (1159F) 1159F 2024-07-14 No Data Available No Data Candida ilable Estab. patient 10-29min; 1 minor problem; add add modifier 95 for video, modifier 93 for phone [id number] 2024-11-17 No Data Available No Data Availa ble Estab. patient 10-29min; 1 minor problem; add add modifier 95 for video, modifier 93 for phone [id number] 2024-11-23 No Data Available No Data Availa ble Functional Status Assessed (1170F) 1170F 2024-11-23 No Data Available No Data Avail able Medication List Documented (1159F) 1159F 2024-11-23 No Data Available No Data Candida ilable Estab. patient 10-29min; 1 minor problem; add add modifier 95 for video, modifier 93 for phone [id number] 2024-12-21 No Data Available No Data Availa ble Functional Status Functional Category Effective Dates Cognition [...] you feel unsteady on your feet? No 12-04-21 Do you worry about falling? No 2024-03-21 1 Near falls within the last 6 months? Non e 2024-04-09 DME used with ambulation: [facility] [facility] 01-23-21 Social Supports - # of Inter [...] herpes zosterYeast infection of the skinPruritic condition 2024-11-17 11:55:54 UTI (urinary tract i nfection) 2024-11-23 14:04:45 Major depression, re current, moderateMigraineAnxietyGERD (gastroesophageal reflux disease)IBS (irritable bowel syndrome)OsteoarthritisInsomniaUrinary incontinenceImmunodeficiency due to conditions classified elsewhereHyperlipidemiaShoulder painHip painFrequent headachesOther problems related to medical facilities and other health careNeed for assistance with personal careDifficulty in walking, not elsewhere classified Unsteady gaitIncontinenceHx: UTI (urinary tract infection)History of shinglesBacterial infection concurrent with and due to herpes zosterYeast infection of the skinPruritic condition 2024-12-21 08:39:42 Yeast infection of t he skinOther problems related to medical facilities and other health care Plan of Care Date of Service Plans 2022-09-06 06:12:27 Pain Assessment - NO pain documented (1126F)Medication Review by prescribing provider or pharmacist documented (1160F)Medication List Documented (1159F)Functional Status Assessed (1170F)Advance Care Directive Advance care planning discussion documented in the medical record (1158F)BMI obtained (3008F)Televideo new patient, 30-44min 1 stable chronic or 2 minor; add modifier 95Continue to see PCP. Follow-up with [facility] as [...] re current, moderate [F33.1]> On CelexaStableFollows PsychiatristPHQ-9 -112- Continue current treatment plan as directed. PHQ9- 10Migraine [G43.909]> On SumatriptanTopiramateFollows Neurologist11/25/22- Continue current treatment plan as directed.Osteoarthritis [M19.90]> On Gabapentin11/21/22: Rx. Diclofenac gelApply heat and icePhone (patient, parent, or guardian); 5-10 minutes of medical discussion (no modifier 95)Continue to see PCP. Follow-up with [facility] as needed for any acute or disease education needs that may arise 12/05. 2022-12-25 08:54:33 IBS (irritable bowel syndrome) [K58.9]> On DicyclomineFollows Gastroenterologist12/25/22- Continue current treatment plan as directed. F/u with [employer] today 12/25/22 at 1:30 pm.Major depression, recurrent, [...] modifier 95)Continue to see PCP. Follow-up with [facility] as needed for any acute or disease [...] Documented (1159F)Continue to see PCP. Follow-up with [facility] as [...] down after mealsAvoid eating late at nightOn Dicyclromanainesuows GastroenterologistContinue current treatment plan as directed.On Gabapentin [...] directed.Continue current treatment plan as directed.On ClonazepamStableFollows PCP2/04/11- Continue current treatment plan as directed. Continue current treatment plan as directed.On OmeprazoleAvoid spicy, fatty or fried food, caffeine, chocolateAvoid lying down after mealsAvoid eating late at nightOn Dicyclojcass GastroenterologistContinue current treatment plan as directed.On Gabapentin [...] directed.Continue current treatment plan as directed.On ClonazepamStableFollows PCP2/04/11- Continue current treatment plan as directed. Continue [...] modifier 95)Continue to see PCP. Follow-up with [facility] as needed for any acute or [...] Documented (1125F)Continue to see PCP. Follow-up with [facility] as needed for any acute or disease education needs that may arise.On CelexaStableFollows PsychiatristPHQ-9 -- Continue current treatment plan as directed. 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 #10 tablet MVz1wDh New Acyclovir 5 % Oint apply thin film to affected area of foot TID x 5 days #30 gram FRa1uRq New Doxycycline Hyclate 100 mg Cap Take 1 tab PO q12h x 7 days #14 capsule [id number] Refill Acetaminophen Extra Strength 500 mg Tab TAKE 1-2 TABLETS BY MOUTH EVERY 6 HOURS NEEDED FOR FEVER or PAIN #30 tablet [id number] left breast and outside of vaginal/groin area keep clean and dryuse gauze or cotton material to wick moisture eRx New Miconazole Nitrate 2 % Crm Vaginal Apply to affected area outside of the vagina daily x 7 days. #45 gram [id number] New Nystatin [id number] UNIT/GM Powder apply to affected area under left breast BID after allowing skin folds to air dry- use gauze or cotton material to wick moisture #60 gram JWr9zVx New Nystatin 363007 UNIT/GM Crm apply to clean and dry skin of the affected area under left breast morning and night until rash resolved #30 gram ZQh9yNo Refill hydrOXYzine 25 mg Tab take 1 to 2 tablets orally every 6 hours as needed for moderate to severe itch #30 tablet RFx0 2024-11-17 11:55:54 Televideo 10-29min; 1 minor problem; add add modifier 95 for video, modifier 93 for phoneContinue to see PCP. Follow-up with [facility] as needed for any acute or disease education needs that may arise 12/05.11/17/24 Acute Visit: PT reports 2.5d hx of burning urination, frequency, urgency, reports chills but not certain if related to illness or cold. PT has mercury thermometer and unable to accurately assess temp, maybe close to 100F?. Pt does report some back pain, no flank pain. PT had UTI about 6 mos ago, for which she went to ER and effectively tx. PT advised of concern of possible pyelo. Declines UCx for now but agrees to start abx right away and watch symptoms closely over next 24-48h. If no improvement, or -- especially-- if symptoms worsen, pt agrees to call CB or to ED. Advised pt of other less obvious symptoms of UTI in elderly, including changes in mentation/confusion. Will alert daughter so she can also be extra vigilant over next w days. For now, advised also good hydration, Tylenol OTC per package instructions for malaise or fever. Call us anytime day or night for any additional concerns. If repeat UTI's, consider vaginal estrogen.At least 50% of time spent counseling patient, discussing diagnosis, treatment plan, complicance, and coordinating follow up care. 2024-11-23 14:04:45 Estab. patient 10-29 min; 1 minor problem; add add modifier 95 for video, modifier 93 for phoneContinue to see PCP. 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 #10 tablet KBo0fWw New Acyclovir 5 % Oint apply thin film to affected area of foot TID x 5 days #30 gram HQz1uJv New Doxycycline Hyclate 100 mg Cap Take 1 tab PO q12h x 7 days #14 capsule PAp3vQe Refill Acetaminophen Extra Strength 500 mg Tab TAKE 1-2 TABLETS BY MOUTH EVERY 6 HOURS NEEDED FOR FEVER or PAIN #30 tablet OPb9jmndr left breast and outside of vaginal/groin area keep clean and dryuse gauze or cotton material to wick moisture eRx New Miconazole Nitrate 2 % Crm Vaginal Apply to affected area outside of the vagina daily x 7 days. #45 gram XEs0gYo New Nystatin 552561 UNIT/GM Powder apply to affected area under left breast BID after allowing skin folds to air dry- use gauze or cotton material to wick moisture #60 gram FPh7tRx New Nystatin 332387 UNIT/GM Crm apply to clean and dry skin of the affected area under left breast morning and night until rash resolved #30 gram CPv9kXz Refill hydrOXYzine 25 mg Tab take 1 to 2 tablets orally every 6 hours as needed for moderate to severe itch #30 tablet RFx0 2024-12-21 08:39:42 Estab. patient 10-29 min; 1 minor problem; add add modifier 95 for video, modifier 93 for phoneContinue to see PCP. Follow-up with [facility] as needed for any acute or disease education needs that may arise 12/05.under left breast and outside of vaginal/groin area keep clean and dryuse gauze or cotton material to wick moisture eRx New Miconazole Nitrate 2 % Crm Vaginal Apply to affected area outside of the vagina daily x 7 days. #45 gram PPn3xFf New Nystatin 247961 UNIT/GM Powder apply to affected area under left breast BID after allowing skin folds to air dry- use gauze or cotton material to wick moisture #60 gram YHw2qVe New Nystatin 026416 UNIT/GM Crm apply to clean and dry skin of the affected area under left breast morning and night until rash resolved #30 gram RFx212/21/2024: Patient reports itchiness and irritation in the last couple of days in the outside vaginal/groin area. RX sent for miconazole, nystatin powder and cream. I encouraged her to call wallpaper inspector if sx worsens and to call CB with any questions. Denies any other sx.Monthly follow up calls with ptCONTINGENCY PLANWhy was the member in the hospital or ER most recently? Why are they most likely to go back?Please call [facility] if you have a change in condition, Blood pressure > 170/90Acute illness, change in condition or medication and with any questions about your healthFall, any unusual symptoms or have any medical questions! Goals Date Goal 2022-09-06 Remember to 2022-09-06 Call me if 2022-09-06 Keep it up 2023-01-27 1. Remember to keep all appointments with your PCP.2. Take all medication on time and try to eat healthy3. Call if you have questions or concerns before you go to the ER.4. Discussed how to contact [facility] via phone or tablet. 2023-05-30 1. Take all medicati on on time and try to eat healthy2. Call if you have questions or concerns before you go to the ER.3. Remember to keep all appointments with your PCP.4. Discussed how to contact [facility] via phone or tablet. 2024-11-17 Continue taking medi cations as directed and keep all follow up appointments with established PCP and Specialist. Health Concerns Date Concern 2024-12-21 Visit completed via audio by telephone. Patient/Guardian agreed to visit via telehealth.Time spent in visit: 2024-12-21 Most recent hospital stay(s) or ER visit(s) and precipitating factors: Denies
== END 2025-01-19 22:10 | disposition home or self-care (01) ==
LOC: HO.HMCH 13:40
PROVIDERS: PCP Physician Assistant
DX: M25.511 Pain in right shoulder (principal); L30.4 Erythema intertrigo; T14.8XXA Other injury of unspecified body region, initial encounter

== ENCOUNTER → 2025-01-19 13:39 | Outpatient (BNVA) | payer OTHER, SELFPAY | PROVIDERS: PCP Physician Assistant | DX: M25.511 Pain in right shoulder (principal); L30.4 Erythema intertrigo; T14.8XXA Other injury of unspecified body region, initial encounter | CPT/HCPCS: 99212 ==

== ENCOUNTER 2025-08-17 10:41 | Outpatient (AMB) | payer OTHER, SELFPAY ==
--- NOTE | 2025-08-17 10:45 | A.OFFPC_ITS ---
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: No Accompanied by: Self / Same As Patient Allergies banana (BANANA) Allergy (Intermediate, Verified 08/17/25 11:00) Itching naproxen (From NAPROSYN) Allergy (Intermediate, Verified 08/17/25 11:00) rash, GI upset prednisone Allergy (Intermediate, Verified 08/17/25 11:00) Itchy and redness warfarin (WARFARIN) Allergy (Unknown, Verified 08/17/25 11:00) Unknown ibuprofen (From MOTRIN) Adverse Reaction (Intermediate, Verified 08/17/25 11:00) Gastrointestinal Upset pregabalin Adverse Reaction (Intermediate, Verified 08/17/25 11:00) Diarrhea and blurry vision sun Allergy (Unknown, Uncoded 08/17/25 11:00) bumps on skin Medication List - Last Reconciled 08/17/25 by Rosaura Schumacher MD acetaminophen ER (Tylenol Arthritis Pain) 650 mg PO Q8H PRN 30 days albuterol sulfate 90 mcg/actuation 1 inh inhalation QID PRN 30 days baclofen 10 - 20 mg PO BEDTIME PRN calcium carbonate (Oyster Shell Calcium) 500 mg PO DAILY 30 days cholecalciferol (vitamin D3) 50 mcg PO DAILY 90 days clonazepam 1 mg PO BID 30 days clotrimazole-betamethasone 1-0.05 % 1 appl topical BID 30 days cyanocobalamin (vitamin B-12) 500 mcg PO DAILY 30 days diaper,brief,adult,disposable (Briefs, Adult-Extra Large) As directed dicyclomine 10 mg PO DAILY 30 days disposable gloves (Disposable Latex-Free Gloves) As directed gabapentin 300 mg PO TID 30 days lidocaine 5% 1 appl topical BEDTIME 30 days magnesium oxide 400 mg PO BEDTIME 90 days melatonin 5 mg PO BEDTIME PRN naratriptan take 1/2 - 1 tab at onset of headache; if no relief may repeat 1 tab after at least 4 hrs; max = 2 tabs/24 hrs orally PRN; 30 days omeprazole 40 mg PO BID@0630,1630 pyridoxine (vitamin B6) 25 mg PO DAILY sennosides (senna) 8.6 mg PO DAILY PRN simvastatin 20 mg PO DAILY 90 days topiramate 100 mg PO BEDTIME 30 days trazodone 100 mg PO BEDTIME 30 days Tobacco use date assessed: 08/17/25 Fall risk assessment: No Falls in past year Last assessed Fall Risk: 08/17/25 Dental Screening Dental Screen Date: 08/17/25 Did you have a dental visit in the last 12 months?: Yes Did you have a dental problem in the last 6 months where you did not have access to dental care?: No Was dental information given to patient?: Patient has dentist HPI HPI Comments History of Present Illness Details The patient is a 74-year-old female presenting for evaluation of acute left knee pain and generalized arthralgias. She reports the onset of left knee pain approximately 3 weeks to a month ago after a minor incident while opening a door. The pain is described as constant, at times waking her from sleep, and she feels a sensation of something moving inside the joint. She experiences pain with both flexion and extension and has difficulty standing from a seated position. Depression with anxiety is follow by Psychiatry. In addition to her knee pain, the patient reports progressive pain in both shoulders, elbows, wrists, and hips over the last couple of months. She denies morning stiffness. Her past surgical history is significant for a rotator cuff repair on her shoulder and she has received injections for finger inflammation from an orthopedist in the past. She was previously seen by an orthopedist for chronic right knee pain, and surgery was discussed as an option. The patient has a history of gastroesophageal reflux, for which she takes omeprazole, but currently reports a burning sensation in her stomach. Her last colonoscopy was in 2022. She also has a history of autoimmune thyroid disease not requiring medication, migraines, insomnia, hypercholesterolemia, and constipation. She reports multiple allergies including to bananas, naproxen, prednisone, warfarin, motrin, and Lyrica, as well as photosensitivity. 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 Mother Diabetes Advanced cardiac disease Osteoporosis Chronic mental illness Brother Substance abuse Family/Other Chronic mental illness Social History Household Members: None Household Members Other:: family members live in apartment below pt Housing: Apartment Do you presently have visiting nurse or other home services: Yes Alcohol intake: never Comment: LOW Patient Tobacco Use Status: Former Tobacco user Tobacco use type: Cigarette e-Cigarette/Vaping Use: Former Use Second Hand Smoke Exposure: No service: No Current occupational status: disabled Gender identity: Female Cognitive needs: Yes (cane) Hearing needs: No Vision needs: No Questionnaire PHQ-9 Over the last 2 weeks, how often have you been bothered by any of the following problems? 1. Little interest or pleasure in doing things: several days 2. Feeling down, depressed, or hopeless: not at all 3. Trouble falling or staying asleep, or sleeping too much: several days 4. Feeling tired or having little energy: several days 5. Poor appetite or overeating: not at all 6. Feeling bad about yourself - or that you are a failure or have let yourself or your family down: not at all 7. Trouble concentrating on things, such as reading the newspaper or watching television: several days 8. Moving or speaking so slowly that other people could have noticed. Or the opposite - being so fidgety or restless that you have been moving around a lot more than usual: several days 9. Thoughts that you would be better off or of hurting yourself in some way: not at all Total score: 5 Depression Screening Interpretation: Positive Depression Screening Follow-up: Existing condition and Follow-up Visit Requested Depression Screening Done: Yes 58468 - PHQ-9 Billing: Yes Source: Developed by Angela ArmendarizW. Perry, Reilly Young and colleagues, with an educational adonis from [employer] Thrive Questionnaire Date Thrive assessed: 05/14/25 I am a: Patient What is your living situation today?: I have a steady place to live Within the past 12 months, did the food you bought not last and you didn't have the money to get more?: Never true Within the past 12 months, did you worry whether your food would run out before you got money to buy more?: Never true Do you have trouble paying for medicines?: No Do you have trouble getting transportation to medical appointments?: No Do you have trouble paying your heating and electricity bill?: No Do you have trouble taking care of your child, family member or friend?: No Do you have trouble with day-to-day activities such as bathing, preparing meals, shopping, managing finances, etc.?: Yes Are you currently unemployed and looking for a job?: Yes Are you interested in more education?: No Please select the resources that you would like help with: None Currently or been in a relationship where the following occur: No concerns reported THRIVE Score: 0 AUDIT C Alcohol Use Questionnaire (AUDIT-C) 1. How often do you have a drink containing alcohol?: Never 3. How often do you have six or more drinks on one occasion?: Never Total Score: 0 Score Reviewed/Action Taken: No TIMA-7 AMB Questionnaire TIMA-7 Date TIMA - 7 assessed: 08/17/25 Source: Developed by Drs. Presley Hou, Angela Amador, Reilly Young and colleagues, with an educational adonis from [employer]. Review of Systems Const All systems reviewed & are unremarkable except as noted in HPI and below Card Denies chest pain at rest, Denies chest pain with activity, Denies edema, Denies irregular heart rhythm, Denies claudication, Denies dyspnea, Denies dyspnea on exertion, Denies orthopnea, Denies paroxysmal nocturnal dyspnea and Denies slow heart rate Resp Denies cough, Denies dyspnea and Denies dyspnea on exertion Physical exam (Primary Care) Vital Signs: Last Vital Signs Pulse 83 08/17/25 10:46 BP 110/64 08/17/25 10:46 Pulse Ox 97 08/17/25 10:46 Oxygen Delivery Method Room Air 08/17/25 10:46 BMI result Body Mass Index 30.3 BMI Assessment/Plan discussion: High BMI High, discussed plan: lifestyle, weight reduction, dietary and physical activity Tobacco/Smoking Status: Tobacco use Status Tobacco use date assessed 08/17/25 08/17/25 10:53 Patient Tobacco Use Status Former Tobacco user 08/17/25 10:53 Tobacco use type Cigarette 08/17/25 10:53 e-Cigarette/Vaping Use Former Use 08/17/25 10:53 PHQ-9: PHQ-9 Score PHQ-9: Total score 5 08/17/25 10:55 Depression Screening Interpretation: Positive Depression Screening Follow-up: Existing condition and Follow-up Visit Requested Thrive Assessment: Date of Thrive Assessment Date Thrive assessed 05/14/25 08/17/25 10:53 Currently or been in a relationship where the following occur: No concerns reported Resp Effort & Inspection: normal respiratory effort Auscultation: clear to auscultation bilaterally Cardio Jugular venous distension: no JVD Rate: regular rate Rhythm: regular rhythm Heart sounds: S1 normal heart sound present and S2 normal heart sound present Extrem General: Yes full ROM Coding Level of Care Code Est Pt Level 4 (01980) Complex EM visit Add On G2211 Diagnoses Left elbow pain M25.522 Right elbow pain M25.521 Left hip pain M25.552 Right hip pain M25.551 Left knee pain M25.562 Right knee pain M25.561 Lumbar pain M54.50 Left shoulder pain M25.512 Right shoulder pain M25.511 Autoimmune thyroiditis E06.3 Left wrist pain M25.532 Right wrist pain M25.531 Vitamin B12 deficiency E53.8 GERD without esophagitis K21.9 Severe episode of recurrent major depressive disorder, without psychotic features F33.2 Major depression episode severity: severe Psychotic features: without psychotic features Additional Codes PHQ-9 - 01266 - PHQ-9 Billing: Yes ([id number]) Time Spent (min) 29 Assessment & Plan Assessment & Plan (1) Left elbow pain: Code(s): M25.522 - Pain in left elbow Category: Medical (2) Right elbow pain: Code(s): M25.521 - Pain in right elbow Category: Medical (3) Left hip pain: Code(s): M25.552 - Pain in left hip Category: Medical (4) Right hip pain: Code(s): M25.551 - Pain in right hip Category: Medical (5) Left knee pain: Code(s): M25.562 - Pain in left knee Category: Medical (6) Right knee pain: Code(s): M25.561 - Pain in right knee Category: Medical (7) Lumbar pain: Code(s): M54.50 - Low back pain, unspecified Category: Medical (8) Left shoulder pain: Code(s): M25.512 - Pain in left shoulder Category: Medical (9) Right shoulder pain: Code(s): M25.511 - Pain in right shoulder Category: Medical (10) Autoimmune thyroiditis: Code(s): E06.3 - Autoimmune thyroiditis Category: Medical (11) Left wrist pain: Code(s): M25.532 - Pain in left wrist Category: Medical (12) Right wrist pain: Code(s): M25.531 - Pain in right wrist Category: Medical (13) Vitamin B12 deficiency: Code(s): E53.8 - Deficiency of other specified B group vitamins Category: Medical (14) GERD without esophagitis: Code(s): K21.9 - Gastro-esophageal reflux disease without esophagitis Category: Medical (15) Major depressive disorder, recurrent episode: Code(s): F33.9 - Major depressive disorder, recurrent, unspecified Category: Medical Qualifiers: Major depression episode severity: severe Psychotic features: without psychotic features Qualified Code(s): F33.2 - Major depressive disorder, recurrent severe without psychotic features Plan Plan 1. Polyarthralgia The patient's widespread joint pain affecting her shoulders, elbows, wrists, and hips raises suspicion for a systemic inflammatory arthritis, such as rheumatoid arthritis, especially given her history of autoimmune thyroid disease. A referral to rheumatology will be placed for further evaluation. X-rays of the affected joints will be ordered to assess for any underlying changes. 2. Acute Left Knee Pain The patient's [id number]-se-[id number] knee pain, particularly the new severe pain in the left knee following a recent minor trauma, warrants specialist evaluation. A referral to orthopedics will be placed. A topical cream will be prescribed for symptomatic relief, though the patient has been advised this is not a definitive solution. 3. Gastroesophageal Reflux Disease Due to persistent symptoms of a burning sensation despite using omeprazole, the patient's medication will be changed to pantoprazole, to be taken 30 minutes be fore breakfast. The patient was advised to schedule a follow-up appointment with her painter assistant. An upper GI series may be considered to evaluate further. 4. Health Maintenance Fasting laboratory studies will be ordered, including a check of glucose, cholesterol, thyroid function, and vitamin levels. The lab panel will also include antibodies to screen for pernicious anemia, as poor B12 absorption is suspected due to low meat intake and may necessitate injections. Orders: Orders XR knee LT 2V Today M25.562 - Pain in left knee XR shoulder LT min 2V Today M25.512 - Pain in left shoulder XR shoulder RT min 2V Today M25.511 - Pain in right shoulder XR hip RT min 2V Today M25.551 - Pain in right hip XR lumbar spine 2-3V Today M54.50 - Low back pain, unspecified XR elbow LT 2V Today M25.522 - Pain in left elbow Comprehensive [place]. Panel Fast Today M25.50 - Pain in unspecified joint Erythrocyte Sedimentation Rate Today M25.50 - Pain in unspecified joint Rheumatoid Factor Today M25.50 - Pain in unspecified joint Cyclic Citrullinated Peptide Today M25.50 - Pain in unspecified joint ROSAURA Reflex Titer and Pattern Today M25.50 - Pain in unspecified joint Parietal Cell Antibody Today E53.8 - Deficiency of other specified B group vitamins Intrinsic Factor Antibodies Today E53.8 - Deficiency of other specified B group vitamins Lipid Panel Today E78.5 - Hyperlipidemia, unspecified XR wrist RT 2V Today M25.531 - Pain in right wrist FL upper GI series Today R10.13 - Epigastric pain XR knee RT 2V Today M25.561 - Pain in right knee XR hip LT min 2V Today M25.552 - Pain in left hip XR elbow RT 2V Today M25.521 - Pain in right elbow Complete Blood Count Auto Diff Today D64.9 - Anemia, unspecified, M25.50 - Pain in unspecified joint C Reactive Protein Today M25.50 - Pain in unspecified joint Anti DNA DS Antibody Today M25.50 - Pain in unspecified joint Vitamin B12 and Folate Today E53.8 - Deficiency of other specified B group vitamins Vitamin D 25-OH Total Today E55.9 - Vitamin D deficiency, unspecified Thyroid Stimulating Hormone Today E06.3 - Autoimmune thyroiditis XR wrist LT 2V Today M25.532 - Pain in left wrist Referrals Orthopedics Referral M25.562 - Pain in left knee Rheumatology Referral M25.50 - Pain in unspecified joint Medications: New pantoprazole 40 mg PO DAILY 90 tabs 3RF 90 days Refilled calcium carbonate (Oyster Shell Calcium) 500 mg PO DAILY 30 tabs 3RF 30 days M85.80 - Other specified disorders of bone density and structure, unspecified site cholecalciferol (vitamin D3) 50 mcg PO DAILY 90 caps 2RF 90 days E55.9 - Vitamin D deficiency, unspecified
[2025-08-17 10:46] VITALS: BP 110/64; PULSE 83; O2SAT 97; BMI 30.3
--- OUTSIDE RECORDS SUMMARY | 2025-08-17 13:20 | XMS_ITS | Patient Health Record ---
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 Role Phone Gio [place] Primary Care Provider Unavailab Presley Whitehead Unavailable [phone] Allergies Allergen (clinical drug ingredient) Drug/Non Drug Allergy documented on EMR Reaction Allergy Type Onset Date Status naproxen Naprosyn Unknown Drug Allergy Active Motrin Unknown Drug Allergy Active duloxetine Cymbalta Unknown Drug Allergy Active Reason For Referral No Information Medications Medication SIG (Take, Route, Frequency, Duration) Notes Start Date End Date Status Omeprazole 40 MG TAKE 1 CAPSULE BY MO UT TWICE DAILY; Duration: 30 Active CeleXA Not-Taking Diclofenac Sodium 1 % 4 GRAMS TOPICALLY TO THE AFFECTED AREA 4 TIMES PER DAY NEEDED Diagnosis Unavailable External; Duration: 7 Active MiraLax (colon prep) 17 GM/SCOOP 1 238GM bottle mixed with Gatorade or Crystal Light Orally begin at 5:00 p.m. the day before the procedure; Duration: 1 day 12/29/2022 Active Sulindac 200mg Not-T aking Dulcolax (colon prep) 5 MG take at 3:00 p.m and 7:00p.m. Orally two tablets twice a day for one day; Duration: 1 day 12/29/2022 Active Cymbalta Not-Taking Omeprazole 20mg Acti ve Loperamide A-D 2mg N ot-Taking Senna Lax 8.6 MG 1-2 tablets at bedti me as needed Orally QHS prn constipation 04/05/2016 Active Gabapentin 300 MG TAKE 1 CAPSULE BY MO UTH THREE TIMES DAILY Diagnosis Unavailable Oral; Duration: 30 Active Dicyclomine HCl 10 MG 1 or 2 capsules Or ally Every 6 hours if needed for abdominal cramps/discomfort; Duration: 30 days Active GNP 8 Hour Pain Reliever 650 MG TAKE 1 TABLET BY MOUTH EVERY 8 HOURS NEEDED FOR PAIN Diagnosis Unavailable Oral; Duration: 30 Active Topiramate 50 MG TAKE 1 TABLET BY MARY BETH TH EVERY NIGHT AT BEDTIME Oral; Duration: 90 Active Simvastatin 10 MG Orally Ac [...] TABLETS BY MOUTH AT BEDTIME NEEDED FOR CONSTIPATION; Duration: 90 Active Loratadine 10mg Acti ve MiraLax [...] Problem Status W/U Status Risk Notes Problem Colon cancer screening (559409121) Colon cancer screening (Z12.11) Active confirmed Problem Diverticulitis of colon (167244425) Diverticulitis of large intestine without perforation or abscess without bleeding (K57.32) Active confirmed Problem Screening for malignant neoplasm of colon (309322618) Encounter for screening for malignant neoplasm of colon (Z12.11) Active confirmed Problem Diverticular disease of colon (402751268) Diverticulosis of large intestine without perforation or abscess without bleeding (K57.30) Active confirmed Problem Screening for malignant neoplasm of rectum (677242070) Encounter for screening for malignant neoplasm of rectum (Z12.12) Active confirmed Problem Gastroesophageal reflux disease (751561659) Gastroesophageal reflux disease, esophagitis presence not specified (K21.9) Active confirmed Problem Constipation (18507766) Constipation, unspecified constipation type (K59.00) Active confirmed Problem Generalized abdominal pain (840845806) Abdominal pain, generalized (R10.84) Active confirmed Problem Diarrhea (86496175) Diarrhea, unspecified type (R19.7) Active confirmed Problem Irritable bowel syndrome (90507003) Irritable bowel syndrome, unspecified type (K58.9) Active confirmed Plan Of Treatment Pending Test Test Name [...] Name Order Date COLONOSCOPY 07/17/2012 COLONOSCOPY 12/25/2022 Next Appt Details Provider Name:Presley Greenberg , 09/06/2025 09:30:00 AM, [address] [place] [address], [address], [place], [address], Insurance Providers Payer Name Payer Address Payer Phone Subscriber Number Group Number Insured Name Patient Relationship to Insured Coverage Start Date Coverage End Date [facility] [address] [address] [place] [address] [id number] RALF KELLY Self - patient is the insured MEDICARE OF [place] [address] [place] [id number] [id number] RALF KELLY Self - patient is the insured [facility] [address] [place] [phone] [id number] RALF KELLY Self - patient is the insured Medical (General) History Medical History History ICD Code EGD 04-09-2011-negative excep t for a minimal hiatal hernia-gastric biopsies were negative for H. pylori, and duodenal biopsies were normal--there was a small smount of retained old food in the stomach and duodenal bulb, with subjective decrease in gastric peristalsis GERD Depression/anxiety Renal insufficiency Denies SC,DM,CVA,Lung disease,renal dise ase Colonoscopy 08/2012-neg exce pt [...]
--- OUTSIDE RECORDS SUMMARY | 2025-08-17 13:20 | XMS_ITS ---
Author Name Mary Hernandez NP Address [address] [place] [address] Phone [phone] [facility] Care Team Providers Care Issuing Operator Name Role Phone Vincent Hernandeza Unavailable [phone] Estee Hernández Unavailable [phone] Unavailable Unavailable [phone] RAMEZ ESPINO Unavailable [phone] Reason for Referral Not Available Allergies, adverse [...] TABLET BY MARY BETH TH TWICE DAILY 2022-02-13 No Data Available oxyCODONE 10 mg Tab TAKE 1 TABLET BY MARY BETH TH EVERY 8 HOURS FOR 5 DAYS NEEDED FOR PAIN 2022-02-13 No Data Available Artificial Tears 1.4 % Solution INSTILL 1 DROP IN BOTH EYES THREE TIMES DAILY 2021-05-11 2025-07-20 Diclofenac Sodium 3 % Gel APPLY TOPICALL [...] MARY BETH TH THREE TIMES DAILY 2022-04-15 2025-07-20 Cyclobenzaprine 10 mg Tab TAKE 1 TABLET BY MOUTH EVERY 8 HOURS 2022-05-24 No Data Available Amoxicillin-Pot Clavulanate 875/125 mg Tab TAKE 1 TABLET BY MOUTH EVERY 12 HOURS 2022-07-19 No Data Available Senna 8.6 mg Tab TAKE 1 TABLET BY MARY BETH TH DAILY NEEDED FOR CONSTIPATION 2022-07-19 No Data Available Topiramate 100 mg Tab 1 tablet PO daily to prevent migraines 2022-09-06 No Data Available SUMAtriptan Succinate 50 mg Tab 1 tablet orally 2 times per day at least 2 hours between doses as needed 2022-09-06 No Data Available Clobetasol Propionate 0.05 % Crm as needed vaginal cream per pt 2022-09-06 No Data Available Diclofenac Sodium 1 % Gel 4 grams topica lly to affected area 4 times per day PRN 2022-11-25 2025-07-20 traMADol 50 mg Tab TAKE 1 TABLET [...] NEEDED FOR COUGH 2022-11-26 No Data Available Simvastatin 20 mg Tab take 1 tablet by m outh at bedtime 2022-12-25 No Data Available Miconazole 7 100 mg Suppository Vaginal 1 suppository vaginally daily for 7 days at bedtime 2023-01-15 2025-07-20 Acetaminophen ER 650 mg Tab ER TAKE 1 TABLET BY MOUTH QID 2022 No Data Available Bisacodyl EC 5 mg Tab delaye d rel No Data Available 2022-12-30 2025-07-20 Polyethylene Glycol 3350 17 GM/SCOOP Powder No Data Available 2022-12-30 2025-07-20 Nystop 920415 UNIT/GM Powder APPLY 1 REBECCA LICATION TOPICALLY DAILY FOR 15 DAYS 2023-02-18 No Data Available Lidocaine 5 % Patch APPLY 1 PATCH TO AFF ECTED AREA EVERY DAY NEEDED FOR PAIN. REMOVE AFTER 12 HOURS 2023-05-30 2025-07-20 Dicyclomine 10 mg Cap TAKE 1 TO 2 CAPSUL ES BY MOUTH EVERY 6 HOURS NEEDED FOR ABDOMINAL DISCOMFORT OR CRAMPS 2022-12-23 No Data Available Famotidine 40 mg Tab TAKE 1 TABLET BY MO UTH DAILY 2023-06-26 No Data Available benzonatate 100 MG Oral Capsule [Tessalon Perlliliana] 1 capsule orally 3 times per day as needed 2023-12-06 2025-07-20 Benzonatate 100 mg Cap Take 1 tablet twi ce daily as needed for cough. 2024-02-10 2025-07-20 hydrOXYzine 25 mg Tab take 1 to 2 tablet s orally every 6 hours as needed for moderate to severe itch 2024-03-16 2025-07-20 OYSTER CALCIUM 500MG TABLETS TAKE 1 TABL [...] Data Available 2024-03-17 No Data Available Nystatin 374755 UNIT/ML Suspension SWISH AND SWALLOW 5 ML BY MOUTH TWICE DAILY FOR 6 DAYS 2024-03-22 No Data Available Naratriptan 2.5 mg Tab 1 tablet orally d aily as needed, may take second dose at least 4 hours after the first dose up to 2 tablets per day as needed 2024-03-22 No Data Available MAG-OXIDE 400MG TABLETS [...] relief cranberry tabs 1 tablet QD 2024-05-21 2025-07-20 MELATONIN 5MG TABLETS TAKE 1 TABLET BY M OUTH AT BEDTIME NEEDED FOR SLEEP 2023-12-31 2025-07-20 Cefdinir 300 mg Cap TAKE 1 CAPSULE BY MO UTH TWICE DAILY FOR 7 DAYS 2024-05-06 No Data Available VITAMIN B-12 500MCG TABLETS TAKE 1 TABLE T BY MOUTH DAILY 2024-05-12 No Data Available Nystatin 455487 UNIT/GM Crm apply to sheryl an and dry skin of the affected area under left breast morning and night until rash resolved 2024-07-14 2025-07-20 Nystatin 175117 UNIT/GM Powder apply to affected area under left breast BID after allowing skin folds to air dry- use gauze or cotton material to wick moisture 2024-07-14 2025-07-20 Acyclovir 5 % Oint apply thin film to affected area of foot TID x 5 days 2024-07-14 2025-07-20 valACYclovir 1 GM Tab Take 1 tablet PO t wice daily for 5 days. 2024-07-14 2025-07-20 Miconazole Nitrate 2 % Crm Vaginal Apply to affected area outside of the vagina daily x 7 days. 2024-07-14 2025-07-20 Doxycycline Hyclate 100 mg Cap Take 1 ta b PO q12h x 7 days 2024-07-14 2025-07-20 Augmentin 875mg Tab 1 tablet Q12H x 7 days 2024-11-17 No Data Available Phenazopyridine 200 mg Tab TAKE 1 TABLET BY MOUTH THREE TIMES DAILY FOR 6 DOSES 2024-08-07 2025-07-20 Cefuroxime Axetil 500 mg Tab TAKE 1 TABL ET BY MOUTH TWICE DAILY 2024-08-07 No Data Available Vitamin D3 50 MCG (2000 UT) Cap TAKE 1 CAPSULE BY MOUTH DAILY 2024-11-15 2025-07-20 Miconazole Nitrate 2 % Crm 1 application topically to affected area 2 times per day 2024-12-21 2025-07-20 MAGNESIUM OXIDE 400 (240 Mg) MG TABS No Data Available 2024-07-26 2025-07-20 VITAMIN B-12 500 MCG TABS No Data Available 2025-02-16 2025-07-20 Benzonatate 100 mg Cap Take 1 tablet TID daily as needed for cough. 2025-07-20 No Data Available Baclofen 10 mg Tab 1.5 tablet orally da mahesh as needed 2025-07-20 No Data Available Problem List Problem Status Onset Date Resolved Date Synopsis GERD (gastroesophageal reflux disease) Active 2022-08-20 8 N/A On OmeprazoleAvoid spicy, fa tty or fried food, caffeine, chocolateAvoid lying down after mealsAvoid eating late at night Hyperlipidemia Active 8 N/A On SimvastatinEncouraged phy sical activityDiet low in saturated and trans fatHealthy diet, including lots of fruits and vegetables. Migraine Active 2022-08-20 8 N/A On nizatriptan PRNTopiramate Follows NeurologistRecommendations: - Magnesium Oxide 400mg QHS for prophylaxis- Riboflavin 400mg daily for prophylaxis -Avoid NSAID overuse to prevent rebound headachesSleep hygiene: Follow regular patterns of sleeping, eating, exercise, stress reduction.Stay well hydratedPay attention to and avoid triggers (Keep headache log to help identify)RTC if headaches intensify, patterns change, or if unable to control under current management. : Denies focal neurological signs, fever, N/V, nuchal rigidity. Denies recent change in pattern, frequency or severity. Vaginal yeast infection Resolved 2022-12-19 9 2023-01-27 01/15/23:- Start Diflican- Mo nistat vaginal suppositories- Encouraged good vaginal hygiene, keep the area clean and dry- Call CB back if no improvement after treatment. IBS (irritable bowel syndrome) Active 2022-08-20 8 N/A On DicyclomineFollows GastroenterologistStableContinue current treatment plan as directed. Osteoarthritis Active 2022-08-20 8 N/A On Gabapentin Rx. Diclofenac gelApply heat and icerx lidocaine patches to help with painContinue current managementFollow up with PCP and/or specialist as scheduled Facial cellulitis Resolved 2024-02-19 8 2024-04-09 03/16/24- acute visit. Yvonne burciaga reports about 2 weeks ago she went [...] no improvement can call CB back sooner. Burst blood vessel of left eye Resolved 2023-11-20 8 2024-04-09 12/07/23: Member reports bloo d vessel burst in left eye.Deneis vision changes but reports pressure Has been coughing with sickness - explained this can be normal and will go away on its own in 1-1.5 weeks.Continue to monitor and contact CB wit further questions, concerns or worsening symptoms.12/12/23still has red eye, acute bleeding gas stopped Sinusitis Resolved 2023-11-20 7 2024-04-09 12/06/23: Cough with green mu cous, nasal congestion, headache, body aches, fever at [...] you get worse call back for steroids. unknown Resolved 2024-03-21 1 2024-04-09 N/A Other problems related to medical facilities and other health care Active 2024-03-21 1 N/A PSYCH CONTINGENCY PLAN *Last updated: 07/20/2025Member to call for the following symptoms: Agitation/ Anxiety/ Delirium/ Insomnia/ Mistrust / inability to relax/ Not leaving bed/home or more withdrawn / Panic attacks/ Refusing/forgetting to take medications / Restlessness/ Suicidal thoughts/ Worsening paranoia or delusions Planned intervention: Transfer member to [address] [place] [address]/ Risperidone 0.5mg PO q12h PRN agitation/ Hydroxyzine (Vistaril) 25mg PO q6h PRN anxiety/ Remind member of breathing exercises Incontinence Active 2024-03-21 1 N/A Wears pull up diapersSkin ca re BIDI have assessed this patient and determined her medical necessity for protective incontinence products as a result of mixed urinary Incontinence.Therefore, I am prescribing pull-ups.Use skin barrier cream to decrease moisture to skin Major depression, recurrent, moderateGAD (generalized anxiety disorder)InsomniaHist ory of suicide attempt Active 2022-08-20 8 N/A On CelexaStableFollows PsychiatristPHQ-9 -112/04/11- Continue current treatment plan as directed. PHQ9- phq9 = 12, pt crying at apt, Increased dose of xbdnzpsioulg11/1/25: last seen PCP 2 weeks ago per pt. on trazodone and clonazepam and lexapro. no psychiatrist. PHQ 9 score of 18. Reports hx of suicidal attempt- overdose attempt. States was hospitalized last year and beginning of this year. No current SI/HI reported. Offered to call her in a month to check up on her in regards to depression and patient agreed. F/u scheduled in a month for a check up. Continue f/u with PCP Hx: UTI (urinary tract infection) Resolved 2 2025-07-20 uti 05/07/24pt went to er, rx antibiotics for 1 week now stoppedreports itching rx cranberry supplementf/u with pcp annually History of shinglesBacterial infection concurrent with and due to herpes zoster Resolved 2024-06-21 5 2025-07-20 pt with hx of shingles with same presentation [...] twice daily for 5 days. #10 tablet [id number] New Acyclovir 5 % Oint apply thin film to affected area of foot TID x 5 days #30 gram [id number] New Doxycycline Hyclate 100 mg Cap Take 1 tab PO q12h x 7 days #14 capsule [id number] Refill Acetaminophen Extra Strength 500 mg Tab TAKE 1-2 TABLETS BY MOUTH EVERY 6 HOURS NEEDED FOR FEVER or PAIN #30 tablet RFx0 Pruritic condition Resolved 2024-06-21 5 2025-07-20 eRx Refill hydrOXYzine 25 mg Tab take 1 to 2 tablets orally every 6 hours as needed for moderate to severe itch #30 tablet RFx0 Difficulty in walkingHistory of falling Active 2024-03-21 1 N/A walk with walker and cane di d not go to the hospital for the 3 falls she had, states it was minor but states that the last fall her leg was inflamed so doctor told her to take baclofen continue to use assistive device and f/u with PCP UTI (urinary tract infection) Resolved 2024-10-21 9 2024-11-23 11/17/24 Acute Visit: PT repo rts 2.5d hx of burning urination, frequency, urgency, [...] additional concerns. If repeat UTI's, consider vaginal estrogen. Yeast infection of the skin Resolved 2024-06-21 5 2025-07-20 under left breast and outsid e of vaginal/groin area keep clean and dryuse gauze or cotton material to wick moisture eRx New Miconazole Nitrate 2 % Crm Vaginal Apply to affected area outside of the vagina daily x 7 days. #45 gram [id number] New Nystatin 316149 UNIT/GM Powder apply to affected area under left breast BID after allowing skin folds to air dry- use gauze or cotton material to wick moisture #60 gram [id number] New Nystatin 306134 UNIT/GM Crm apply to clean and dry skin of the affected area under left breast morning and night until rash resolved #30 gram RFx23/01/2025: Patient reports itchiness and irritation in the last couple of days in the outside vaginal/groin area. RX sent for miconazole, nystatin powder and cream. I encouraged her to call wood fence erector if sx worsens and to call CB with any questions. Denies any other sx. Dry mouth Active 1 N/A states she has dry mouth ask ing for recommendationsDiscussed likely due to side effects from medicationsDiscussed she can use biotene OTC rinse, drink water, use water sponges if needed Encounters Encounters Type Facility Date of Service Diagnosis/Co mplaint New patient, 30-44min 1 stable chronic or 2 minor; add modifier 95 for video, modifier 93 for phone [facility] ([facility] 09/06/2022 Migraine, unspecified, not intractable, without status migrainosusAnxiety disorder, unspecifiedGastro-esophageal reflux disease without esophagitisIrritable bowel syndrome without diarrheaUnspecified osteoarthritis, unspecified siteInsomnia, unspecifiedUnspecified urinary incontinenceImmunodeficiency due to conditions classified elsewhereMajor depressive disorder, recurrent, moderate New patient, 30-44min 1 stable chronic or 2 minor; add modifier 95 for video, modifier 93 for phone [facility] [place] New patient, 30-44min 1 stable chronic or 2 minor; add modifier 95 for video, modifier 93 for phone [facility] [place] New patient, 30-44min 1 stable chronic or 2 minor; add modifier 95 for video, modifier 93 for phone [facility] [place] New patient, 30-44min 1 stable chronic or 2 minor; add modifier 95 for video, modifier 93 for phone [facility] [place] New patient, 30-44min 1 stable chronic or 2 minor; add modifier 95 for video, modifier 93 for phone [facility] [place] New patient, 30-44min 1 stable chronic or 2 minor; add modifier 95 for video, modifier 93 for phone [facility] [place]2022 No Data Available [facility] [place] 11/25/2022 Anxiety disorder, unspecifiedMigraine, unspecified, not intractable, without status migrainosusUnspecified osteoarthritis, unspecified siteMajor depressive disorder, recurrent, moderate No Data Available [facility] [place] 12[place]2022 Irritable bowel syndrome wit hout diarrheaMajor depressive disorder, recurrent, moderateMigraine, unspecified, not intractable, without status migrainosusHyperlipidemia, unspecified No Data Available [facility] [place] 01/15/2023 Acute candidiasis of vulva a nd vagina No Data Available [facility] [place] 01/27/2023 Body mass index (bmi) 33.0-3 3.9, adultMigraine, unspecified, not intractable, without status migrainosusGastro-esophageal reflux disease without esophagitisUnspecified urinary incontinenceHyperlipidemia, unspecifiedMajor depressive disorder, recurrent, moderateAnxiety disorder, unspecifiedIrritable bowel syndrome without diarrheaUnspecified osteoarthritis, unspecified siteInsomnia, unspecifiedImmunodeficiency due to conditions classified elsewhere No Data Available [facility] [place] 01/27/2023 No Data Available [facility] [place]23 No Data Available [facility] [place] 05[place]02[place]2023 Major depressive disorder, recurrent, moderateImmunodeficiency due to conditions classified elsewhereMigraine, unspecified, not intractable, without status migrainosusAnxiety disorder, unspecifiedGastro-esophageal reflux disease without esophagitisIrritable bowel syndrome without diarrheaUnspecified osteoarthritis, unspecified siteInsomnia, unspecifiedUnspecified urinary incontinenceHyperlipidemia, unspecified No Data Available [facility] [place] 05/02/2023 No Data Available [facility] [place] 05[place]02[place]2023 No Data Available [facility] [place] 05[place]02[place]2023 No Data Available [facility] [place]/02[place]2023 No Data Available [facility] [place] 05[place]02[place]2023 No Data Available [facility] [place] 05[place]02[place]20[place] Estab. patient 30-39min; chronic exacerbation, 2 stable chronic or 1 acute illness add add modifier 95 for video, (do not use for phone, instead use 27072-33) [facility] [place] 05/30[place]2023 Major depressive disorder, recurrent, moderateMigraine, unspecified, [...] (do not use for phone, instead use 08848-24) [facility] [place] 05[place]30/20[place] Estab. patient 30-39min; chronic exacerbation, 2 stable chronic or 1 acute illness add add modifier 95 for video, (do not use for phone, instead use 86029-21) [facility] [place] 05/30/20[place] Estab. patient 30-39min; chronic exacerbation, 2 stable chronic or 1 acute illness add add modifier 95 for video, (do not use for phone, instead use 37918-25) [facility] [place] 05/30/20[place] Estab. patient 30-39min; chronic exacerbation, 2 stable chronic or 1 acute illness add add modifier 95 for video, (do not use for phone, instead use 66931-87) [facility] [place] 05/30/20[place] Estab. patient 30-39min; chronic exacerbation, 2 stable chronic or 1 acute illness add add modifier 95 for video, (do not use for phone, instead use 19385-28) [facility] [place] 05/[place]/20[place] Estab. patient 30-39min; chronic exacerbation, 2 stable chronic or 1 acute illness add add modifier 95 for video, (do not use for phone, instead use 72187-28) [facility] [place] 05[place]20[place] Estab. patient 30-39min; chronic exacerbation, 2 stable chronic or 1 acute illness add add modifier 95 for video, (do not use for phone, instead use 23875-28) [facility] [place] 05/[place]/20[place] Estab. patient 30-39min; chronic exacerbation, 2 stable chronic or 1 acute illness add add modifier 95 for video, (do not use for phone, instead use 21557-57) [facility] [place] 05[place]20[place] Estab. patient 30-39min; chronic exacerbation, 2 stable chronic or 1 acute illness add add modifier 95 for video, (do not use for phone, instead use 04951-21) [facility] [place] 05/[place]20[place] Estab. patient 30-39min; chronic exacerbation, 2 stable chronic or 1 acute illness add add modifier 95 for video, (do not use for phone, instead use 71037-97) [facility] [place] 05/[place]2023 No Data Available [facility] [place] 08/07/2023 Major depressive disorder, recurrent, moderateMigraine, unspecified, not intractable, without status migrainosusAnxiety disorder, unspecifiedGastro-esophageal reflux disease without esophagitisIrritable bowel syndrome without diarrheaUnspecified osteoarthritis, unspecified siteInsomnia, unspecifiedUnspecified urinary incontinenceImmunodeficiency due to conditions classified elsewhereHyperlipidemia, unspecifiedPain in unspecified shoulderPain in unspecified hip No Data Available [facility] [place]2023 No Data Available [facility] [place]2023 No Data Available [facility] [place]/07[place]2023 No Data Available [facility] [place] 08[place]07[place]2023 No Data Available [facility] [place] 08/07[place]2023 No Data Available [facility] [place] 08/07/2023 No Data Available [facility] [place] 11/19/2023 Major depressive disorder, recurrent, moderateMigraine, unspecified, not intractable, without status migrainosusAnxiety disorder, unspecifiedGastro-esophageal reflux disease without esophagitisIrritable bowel syndrome without diarrheaUnspecified osteoarthritis, unspecified siteInsomnia, unspecifiedUnspecified urinary incontinenceImmunodeficiency due to conditions classified elsewhereHyperlipidemia, unspecifiedPain in unspecified shoulderPain in unspecified hipHeadache, unspecified No Data Available [facility] [place] 11[place]19[place]2023 No Data Available [facility] [place]/19[place]2023 No Data Available [facility] [place] 11/19/2023 No Data Available [facility] [place] 11/19[place]2023 No Data Available [facility] [place] 11/19/2023 No Data Available [facility] [place] 11/19/2023 No Data Available [facility] [place] 11/19/2023 No Data Available [facility] [place] 12/06/2023 Chronic sinusitis, unspecifi ed No Data Available [facility] [place] 12/07/2023 Conjunctival hemorrhage, lef t eye No Data Available [facility] [place] 12/12/2023 Other problems related to [facility] facilities and other health careMajor depressive disorder, recurrent, moderateBody mass index (bmi) 32.0-32.9, adultMigraine, unspecified, not intractable, without status migrainosusAnxiety disorder, unspecifiedGastro-esophageal reflux disease without esophagitisIrritable bowel syndrome without diarrheaUnspecified osteoarthritis, unspecified siteInsomnia, unspecifiedUnspecified urinary incontinenceImmunodeficiency due to conditions classified elsewherePain in unspecified shoulderHyperlipidemia, unspecifiedHeadache, unspecifiedChronic sinusitis, unspecifiedConjunctival hemorrhage, left eye No Data Available [facility] [place] 12[place]12[place]2023 No Data Available [facility] [place] 12/12[place]2023 No Data Available [facility] [place] 12/12/2023 No Data Available [facility] [place]12[place]2023 No Data Available [facility] [place] 12[place]12/2023 No Data Available [facility] [place] 12/12[place]2023 No Data Available [facility] [place] 02/09/2024 Chronic sinusitis, unspecifi ed No Data Available [facility] [place] 03/16/2024 Cellulitis of face Estab. patient 30-39min; chronic exacerbation, 2 stable chronic or 1 acute illness add add modifier 95 for video, (do not use for phone, instead use 32979-13) [facility] [place] Major depressive disorder, recurrent, moderateMigraine, [...] (do not use for phone, instead use 44563-80) [facility] [place] 04/09[place] Estab. patient 30-39min; chronic exacerbation, 2 stable chronic or 1 acute illness add add modifier 95 for video, (do not use for phone, instead use 57503-18) [facility] [place] 04/09/20[place] Estab. patient 30-39min; chronic exacerbation, 2 stable chronic or 1 acute illness add add modifier 95 for video, (do not use for phone, instead use 61604-42) [facility] [place] 04/09/20[place] Estab. patient 30-39min; chronic exacerbation, 2 stable chronic or 1 acute illness add add modifier 95 for video, (do not use for phone, instead use 48414-79) [facility] [place] 04/09/20[place] Estab. patient 30-39min; chronic exacerbation, 2 stable chronic or 1 acute illness add add modifier 95 for video, (do not use for phone, instead use 26835-55) [facility] [place] 04/09/20[place] Estab. patient 30-39min; chronic exacerbation, 2 stable chronic or 1 acute illness add add modifier 95 for video, (do not use for phone, instead use 51367-05) [facility] [place] 04/09/2024 Estab. patient 30-39min; chronic exacerbation, 2 stable chronic or 1 acute illness add add modifier 95 for video, (do not use for phone, instead use 12588-73) [facility] [place] 04/09/2024 Estab. patient 30-39min; chronic exacerbation, 2 stable chronic or 1 acute illness add add modifier 95 for video, (do not use for phone, instead use 55988-42) [facility] [place] 04/09/2024 No Data Available [facility] [place] 05[place]21/2024 Major depressive disorder, recurrent, moderateMigraine, unspecified, [...] assistance with personal care No Data Available [facility] [place] 05[place]2024 No Data Available [facility] [place] 05[place]2024 No Data Available [facility] [place] 05/21[place]2024 No Data Available [facility] [place] No Data Available [facility] [place] 05/21[place] No Data Available [facility] [place] 05/21[place] No Data Available [facility] [place] 05/21[place] No Data Available [facility] [place] 05[place] No Data Available [facility] [place] 07/14/2024 Bacterial infection, unspecifiedZoster with other complicationsCandidiasis of skin and nailPruritus, unspecifiedPersonal history of other infectious and parasitic diseases No Data Available [facility] [place] 07/14/2024 Estab. patient 10-29min; 1 minor problem; add add modifier 95 for video, modifier 93 for phone [facility] [place] 11/17/2024 Urinary tract infection, sit e not specified Estab. patient 10-29min; 1 minor problem; add add modifier 95 for video, modifier 93 for phone [facility] [place] 11/23/2024 Major depressive disorder, recurrent, moderateMigraine, unspecified, [...] 95 for video, modifier 93 for phone [facility] [place] 11/23/20[place] Estab. patient 10-29min; 1 minor problem; add add modifier 95 for video, modifier 93 for phone [facility] [place] 11/23[place]20[place] Estab. patient 10-29min; 1 minor problem; add add modifier 95 for video, modifier 93 for phone [facility] [place] 12/21/2024 Candidiasis of skin and nail Other problems related to medical facilities and other health care Estab. patient 10-29min; 1 minor problem; add add modifier 95 for video, modifier 93 for phone [facility], [place]2025 Major depressive disorder, recurrent, moderateGeneralized anxiety disorderInsomnia, unspecifiedPersonal history of suicidal behaviorMigraine, unspecified, not intractable, without status migrainosusGastro-esophageal reflux disease without esophagitisIrritable bowel syndrome without diarrheaUnspecified osteoarthritis, unspecified siteUnspecified urinary incontinenceHyperlipidemia, unspecifiedNeed for assistance with personal careUnsteadiness on feetHistory of fallingDry mouth, unspecifiedOther problems related to medical facilities and other health careDo not resuscitateDifficulty in walking, not elsewhere classified Estab. patient 10-29min; 1 minor problem; add add modifier 95 for video, modifier 93 for phone [facility]20[place] Estab. patient 10-29min; 1 minor problem; add add modifier 95 for video, modifier 93 for phone [facility] 07[place]20[place] Estab. patient 10-29min; 1 minor problem; add add modifier 95 for video, modifier 93 for phone [facility] [place] 07[place]20[place] Estab. patient 10-29min; 1 minor problem; add add modifier 95 for video, modifier 93 for phone [facility] [place] 07[place]20[place] Estab. patient 10-29min; 1 minor problem; add add modifier 95 for video, modifier 93 for phone [facility] 07[place]20[place] Estab. patient 10-29min; 1 minor problem; add add modifier 95 for video, modifier 93 for phone [facility] [place] 07[place]20[place]20[place] Estab. patient 10-29min; 1 minor problem; add add modifier 95 for video, modifier 93 for phone [facility] [place] 07[place]2025 Vital Signs Date of Collection Vitals 2022-09-06 [...] - 110.0 mm[Hg]Pain Scale - 6.0 {score} 2025-07-20 07:24:02 Height - 165.1 cmWei ght - 86.18 kgBody Mass Index (BMI) - 31.62 kg/m2Pain Scale - 7.0 {score} Social History Social History Social History Observation Description Effec tive Time Current Smoking Status Former smoker 2025-07-21 8 Sex Female History of Procedures Procedures Service Procedure code Service date Servicing provider Phone# New patient, 30-44min 1 stable chronic or 2 minor; add modifier 95 for video, modifier 93 for phone [id number] 2022-09-06 No Data Available No Data Available [...] Available No Data Available No Data Available [id number] 2023-01-15 No Data Available No Data Available No Data Available [id number] 2023-01-27 No Data Available No Data Available Pain Assessment - Pain Documented on a Pain Scale (1125F) 1125F 2023-01-27 No Data Available No Data Candida ilable Medication List Documented (1159F) 1159F 2023-01-27 No Data Available No Data Candida ilable No Data Available [id number] 2023-05-02 No Data Available No Data Available [...] (do not use for phone, instead use [id number]) [id number] 2023-05-30 No Data Available No Data Availa [...] Available Advance care planning discussed and documented advance care plan or surrogate decision-maker was documented in the medical record. (1123F) 1123F 2023-05-30 No Data Available No Data Availa ble No Data Available [id number] 2023-08-07 No Data Available No Data Available [...] Available No Data Available No Data Available [id number] 2023-11-19 No Data Available No Data Available [...] Available No Data Available No Data Available [id number] 2023-12-06 No Data Available No Data Available No Data Available 2023-12-08 No Data Available No Data Available No Data Available [id number] 2023-12-12 No Data Available No Data Available [...] ble Advance care planning discussed and documented advance care plan or surrogate decision-maker was documented in the medical record. (1123F) 1123F 2023-12-12 No Data Available No Data Availa ble BMI obtained (3008F) 3008F 2023-12-12 No Data Availab le No Data Available No Data Available [id number] 2024-02-10 No Data Available No Data Available No Data Available [id number] 2024-03-16 No Data Available No Data Available Estab. patient 30-39min; chronic exacerbation, 2 stable chronic or 1 acute illness add add modifier 95 for video, (do not use for phone, instead use [id number]) 69015 2024-04-09 No Data Available No Data Availa [...] ble Advance care planning discussed and documented advance care plan or surrogate decision-maker was documented in the medical record. (1123F) 1123F 2024-04-09 No Data Available No Data Availa ble No Data Available [id number] 2024-04-09 No Data Available No Data Available Functional Status Assessed (1170F) 1170F 2024-04-09 No Data Available No Data Avail able No Data Available [id number] 2024-05-21 No Data Available No Data Available [...] No Data Candida ilable No Data Available [id number] 2024-07-14 No Data Available No Data Available Medication List Documented (1159F) 1159F 2024-07-14 No Data Available No Data Candida ilable Estab. patient 10-29min; 1 minor problem; add add modifier 95 for video, modifier 93 for phone [id number] 2024-11-17 No Data Available No Data Availa ble Estab. patient 10-29min; 1 minor problem; add add modifier 95 for video, modifier 93 for phone [id number] 2024-11-23 No Data Available No Data Availa ble Functional Status Assessed (1170F) 1170F 2024-11-23 No Data Available No Data Avail able Medication List Documented (1159F) 1159F 2024-11-23 No Data Available No Data Candida ilable Estab. patient 10-29min; 1 minor problem; add add modifier 95 for video, modifier 93 for phone [id number] 2024-12-21 No Data Available No Data Availa ble Estab. patient 10-29min; 1 minor problem; add add modifier 95 for video, modifier 93 for phone [id number] 2025-07-20 No Data Available No Data Availa ble Medication List Documented (1159F) 1159F 2025-07-20 No Data Available No Data Candida ilable Medication Review by prescribing provider or pharmacist documented (1160F) 1160F 2025-07-20 No Data Available No Data Candida ilable Functional Status Assessed (1170F) 1170F 2025-07-20 No Data Available No Data Avail able Advance Care Directive Advance care planning discussion documented in the medical record (1158F) 1158F 2025-07-20 No Data Available No Data Availa ble Advance care planning discussed and documented advance care plan or surrogate decision-maker was documented in the medical record. (1123F) 1123F 2025-07-20 No Data Available No Data Availa ble Pain Assessment - Pain Documented on a Pain Scale (1125F) 1125F 2025-07-20 No Data Available No Data Candida ilable BMI obtained (3008F) 3008F 2025-07-20 No Data Availab le No Data Available Functional Status Functional Category Effective Dates Cognition Status: Oriented t o Person, Place and Time, repetitive, forgetful ADL Eating: Independent; Ambulation: Independent; Dressing: Independent; Bathing: Some Help Needed; Toileting: IndependentIADL Shopping: Some Help Needed; Housekeeping: Some Help Needed; Meal Prep: Some Help Needed; Medications Management: IndependentFalls in last 6 Months: Yes x 3, 2025-07-20 Mental Status No Information Assessments Date of Service Assessments 2022-09-06 06:12:27 [...] to medical facilities and other health care 2025-07-20 07:24:02 Major depression, re current, moderateGAD (generalized anxiety disorder)InsomniaHistory of suicide attemptMigraineGERD (gastroesophageal reflux disease)IBS (irritable bowel syndrome)OsteoarthritisUrinary incontinenceHyperlipidemiaOther problems related to medical facilities and other health careNeed for assistance with personal careDifficulty in walking, not elsewhere classified Unsteady gaitHistory of fallingAt risk for fallingIncontinenceDry mouth Plan of Care Date of Service Plans 2022-09-06 06:12:27 Pain Assessment - NO pain documented (1126F)Medication Review by prescribing provider or pharmacist documented (1160F)Medication List Documented (1159F)Functional Status Assessed (1170F)Advance Care Directive Advance care planning discussion documented in the medical record (1158F)BMI obtained (3008F)Televideo new patient, 30-44min 1 stable chronic or 2 minor; add modifier 95Continue to see PCP. Follow-up with [facility] as [...] current treatment plan as directed. F/u with Tray Drier today 12/25/22 at 1:30 pm.Major depression, recurrent, [...] down after mealsAvoid eating late at nightOn Dicyclominellows GastroenterologistContinue current treatment plan as directed.On Gabapentin [...] down after mealsAvoid eating late at nightOn Dicyclominecass GastroenterologistContinue current treatment plan as directed.On Gabapentin [...] modifier 95Advance care planning discussed and documented advance care plan or surrogate decision-maker was [...] down after mealsAvoid eating late at nightOn Dicyclominellows GastroenterologistContinue current treatment plan as directed.On Gabapentin [...] down after mealsAvoid eating late at nightOn Dicyclominellows GastroenterologistContinue current treatment plan as directed.On Gabapentin [...] 10Continue current treatment plan as directed.On SumatriptanTopiramateFollows Neurologist2//23- Continue current treatment plan as directed.Continue current [...] modifier 95Advance care planning discussed and documented advance care plan or surrogate decision-maker was [...] they most likely to go back?Please call [facility] if you have a change in condition, Blood pressure > 170/90Acute illness, change in condition or medication and with any questions about your healthFall, any unusual symptoms or have any medical questions!Receives yard clerk hourswalk with walker / 1 assistSkin care BIDI have assessed this patient and determined her medical necessity for protective incontinence products as a result of mixed urinary Incontinence.Therefore, I am prescribing pull-ups.Use skin barrier cream to decrease moisture to skin 2024-05-21 07:25:37 Phone (patient, pare nt, or guardian); 5-10 minutes of medical discussion (no modifier 95)Continue to see PCP. Follow-up with [facility] as needed for any acute or [...] they most likely to go back?Please call [facility] if you have a change in condition, Blood pressure > 170/90Acute illness, change in condition or medication and with any questions about your healthFall, any unusual symptoms or have any medical questions!Receives yard clerk hourswalk with walker / 1 assistSkin care [...] modifier 95)Continue to see PCP. Follow-up with [facility] as needed for any acute or [...] twice daily for 5 days. #10 tablet IKk4wOl New Acyclovir 5 % Oint apply thin film to affected area of foot TID x 5 days #30 gram [id number] New Doxycycline Hyclate 100 mg Cap Take 1 tab PO q12h x 7 days #14 capsule VNj6sId Refill Acetaminophen Extra Strength 500 mg Tab TAKE 1-2 TABLETS BY MOUTH EVERY 6 HOURS NEEDED FOR FEVER or PAIN #30 tablet QMx2infjs left breast and outside of vaginal/groin area keep clean and dryuse gauze or cotton material to wick moisture eRx New Miconazole Nitrate 2 % Crm Vaginal Apply to affected area outside of the vagina daily x 7 days. #45 gram PDx3gPp New Nystatin 691023 UNIT/GM Powder apply to affected area under left breast BID after allowing skin folds to air dry- use gauze or cotton material to wick moisture #60 gram ZFt4nMh New Nystatin 537761 UNIT/GM Crm apply to clean and dry skin of the affected area under left breast morning and night until rash resolved #30 gram JNi8nIk Refill hydrOXYzine 25 mg Tab take 1 [...] they most likely to go back?Please call [facility] if you have a change in condition, Blood pressure > 170/90Acute illness, change in condition or medication and with any questions about your healthFall, any unusual symptoms or have any medical questions!Receives yard clerk hourswalk with walker / 1 assistSkin care [...] twice daily for 5 days. #10 tablet RAi8iTl New Acyclovir 5 % Oint apply thin film to affected area of foot TID x 5 days #30 gram XLh4pKx New Doxycycline Hyclate 100 mg Cap Take 1 tab PO q12h x 7 days #14 capsule RYg3tWp Refill Acetaminophen Extra Strength 500 mg Tab TAKE 1-2 TABLETS BY MOUTH EVERY 6 HOURS NEEDED FOR FEVER or PAIN #30 tablet LYi3etuxw left breast and outside of vaginal/groin area keep clean and dryuse gauze or cotton material to wick moisture eRx New Miconazole Nitrate 2 % Crm Vaginal Apply to affected area outside of the vagina daily x 7 days. #45 gram PCc5pNp New Nystatin 911208 UNIT/GM Powder apply to affected area under left breast BID after allowing skin folds to air dry- use gauze or cotton material to wick moisture #60 gram RLb4sBg New Nystatin 911064 UNIT/GM Crm apply to clean and dry skin of the affected area under left breast morning and night until rash resolved #30 gram IOe8vBa Refill hydrOXYzine 25 mg Tab take 1 [...] vagina daily x 7 days. #45 gram UZy2fKo New Nystatin 226526 UNIT/GM Powder apply to affected area under left breast BID after allowing skin folds to air dry- use gauze or cotton material to wick moisture #60 gram UIr9jFh New Nystatin 271562 UNIT/GM Crm apply to clean and dry skin of the affected area under left breast morning and night until rash resolved #30 gram RFx23/01/2025: Patient reports itchiness and irritation in the last couple of days in the outside vaginal/groin area. RX sent for miconazole, nystatin powder and cream. I encouraged her to call wood fence erector if sx worsens and to call CB with any questions. Denies any other sx.Monthly follow up calls with ptCONTINGENCY PLANWhy was the member in the hospital or ER most recently? Why are they most likely to go back?Please call [facility] if you have a change in condition, Blood pressure > 170/90Acute illness, change in condition or medication and with any questions about your healthFall, any unusual symptoms or have any medical questions! 2025-07-20 07:24:02 Medication Review by prescribing provider or pharmacist documented (1160F)Medication List Documented (1159F)Functional Status Assessed (1170F)Advance Care Directive Advance care planning discussion documented in the medical record (1158F)Advance care planning discussed and documented advance care plan or surrogate decision-maker was documented in the medical record. (1123F)Estab. patient 20-29min; 1 stable chronic or 2 minor; add add modifier 95 for video, modifier 93 for phonePain Assessment - Pain Documented on a Pain Scale (1125F)BMI obtained (3008F)Continue to see PCP. Follow-up with [facility] as needed for any acute or disease education needs that may arise.On CelexaStableFollows PsychiatristPHQ-9 -- Continue current treatment plan as directed. PHQ9- phq9 = 12, pt crying at apt, Increased dose of cqugoyffvggi30/1/25: last seen PCP 2 weeks ago per pt. on trazodone and clonazepam and lexapro. no psychiatrist. PHQ 9 score of 18. Reports hx of suicidal attempt- overdose attempt. States was hospitalized last year and beginning of this year. No current SI/HI reported. Offered to call her in a month to check up on her in regards to depression and patient agreed. F/u scheduled in a month for a check up. Continue f/u with PCPOn nizatriptan PRNTopiramateFollows NeurologistOn OmeprazoleAvoid spicy, fatty or fried food, caffeine, chocolateAvoid lying down after mealsAvoid eating late at nightOn DicyclomineFollows GastroenterologistContinue current treatment plan as directed.On Gabapentin Rx. Diclofenac gelApply heat and icerx lidocaine patches to help with painWears pull-ups/diapersOn SimvastatinEncouraged physical activityDiet low in saturated and trans fatHealthy diet, including lots of fruits and vegetables.PSYCH CONTINGENCY PLANLast updated: 07/20/2025Member to call for the following symptoms: Agitation/ Anxiety/ Delirium/ Insomnia/ Mistrust / inability to relax/ Not leaving bed/home or more withdrawn / Panic attacks/ Refusing/forgetting to take medications / Restlessness/ Suicidal thoughts/ Worsening paranoia or delusions Planned intervention: Transfer member to [address] [place] [address]/ Risperidone 0.5mg PO q12h PRN agitation/ Hydroxyzine (Vistaril) 25mg PO q6h PRN anxiety/ Remind member of breathing exercisesReceives yard clerk hourswalk with walker and cane did not go to the hospital for the 3 falls she had, states it was minor but states that the last fall her leg was inflamed so doctor told her to take baclofen continue to use assistive device and f/u with PCPSkin care BIDI have assessed this patient and determined her medical necessity for protective incontinence products as a result of mixed urinary Incontinence.Therefore, I am prescribing pull-ups.Use skin barrier cream to decrease moisture to skinstates she has dry mouth asking for recommendationsDiscussed likely due to side effects from medicationsDiscussed she can use biotene OTC rinse, drink water, use water sponges if needed Goals Date Goal 2022-09-06 Remember to 2022-09-06 Call me if 2022-09-06 Keep it up 2023-01-27 1. Remember to keep all appointments with your PCP.2. Take all medication on time and try to eat healthy3. Call if you have questions or concerns before you go to the ER.4. Discussed how to contact [facility] via phone or tablet. 2023-05-30 1. Take all medicati on on time and try to eat healthy2. Call if you have questions or concerns before you go to the ER.3. Remember to keep all appointments with your PCP.4. Discussed how to contact [facility] via phone or tablet. 2024-11-17 Continue taking medi cations as directed and keep all follow up appointments with established PCP and Specialist. 2025-07-20 Continue taking medi cations as directed and keep all follow up appointments with established PCP and Specialist. Health Concerns Date Concern 2025-07-20 Patient/Guardian agr michael to visit via telehealth. Today, patient has chief complaint of: annual visit. KENRICK French [id number]. Pt is a bit confused about her medications.Visit completed via:[x] audio. she tried to use her tablet but it wasn't working. she said she called to return the tablet. Tried SMS but did not work, new tablet sent.Informed verbal consent was obtained from this patient to communicate and provide care using virtual and other telecommunications tools. This patient has been explained the risks, if any, related to the encounter. I explained that care provided through video or audio communication cannot replace the need for physical examination or an in-person visit for some disorders or urgent problems. 2025-07-20 Concerns for today's visit: NoReviewed allergies, medications, active medical conditions, past medical and surgical history, social history. 2025-07-20 Most recent hospital stay or ER visit: Yes, due to suicidal attempts per ptDiscussed our goal of helping the member have more days at home rather than in the ER or the hospital. 2025-07-20 Open HEDIS Measures: Yes 2025-07-20 Advance Care Plannin g ConversationAdvance Care Planning ConversationDate of Conversation: 07/20/2025Life Limiting Diagnosis: Diagnosis: Migraines, Currently on Hospice NoCode Status: Pt states she is a DNR Goals of Care: DNR Nutrition goals: No decision made about nutrition today; not discussedDo you have a Durable Power of Nitrocellulose Maker for Healthcare, or Healthcare Proxy Or Guardianship? Yes, preferred proxy but not named POAIf so, Who? HCP- Rahat Robertson (Daughter) and Morena (Daughter) Do you have a written Advance Directive? Has no formal documentationOther details of discussion: Patient and LL Today s plan: Advised patient to discuss wishes with proxy and Repeat discussion in 12 [id number] : AD or surrogate was documented in the medical record. 2025-07-20 Functional Assessmen t 2025-07-20 Cognition Status: Or iented to Person, Place and Time, repetitive, forgetful ADL Eating: Independent; Ambulation: Independent; Dressing: Independent; Bathing: Some Help Needed; Toileting: IndependentIADL Shopping: Some Help Needed; Housekeeping: Some Help Needed; Meal Prep: Some Help Needed; Medications Management: IndependentFalls in last 6 Months: Yes x 3,
== END 2025-08-17 11:20 | disposition home or self-care (01) ==
LOC: HO.HMCH 10:42
PROVIDERS: PCP Physician Assistant; Visit Provider Internal Medicine
DX: M25.522 Pain in left elbow (principal); M25.521 Pain in right elbow; M25.552 Pain in left hip; F33.2 Major depressive disorder, recurrent severe without psychotic features; M25.551 Pain in right hip; M25.562 Pain in left knee; M25.561 Pain in right knee; M54.50 Low back pain, unspecified; M25.512 Pain in left shoulder; M25.511 Pain in right shoulder; E06.3 Autoimmune thyroiditis; M25.532 Pain in left wrist

== ENCOUNTER → 2025-08-17 10:41 | Outpatient (BNVA) | payer OTHER, SELFPAY | PROVIDERS: PCP Physician Assistant; Visit Provider Internal Medicine | DX: M25.522 Pain in left elbow (principal); M25.521 Pain in right elbow; M25.552 Pain in left hip; M25.551 Pain in right hip; M25.561 Pain in right knee; M25.562 Pain in left knee; M54.50 Low back pain, unspecified; M25.512 Pain in left shoulder; M25.511 Pain in right shoulder; E06.3 Autoimmune thyroiditis; M25.532 Pain in left wrist; M25.531 Pain in right wrist; E53.8 Deficiency of other specified B group vitamins; K21.9 Gastro-esophageal reflux disease without esophagitis; F33.2 Major depressive disorder, recurrent severe without psychotic features; Z87.891 Personal history of nicotine dependence | CPT/HCPCS: 96127; 99212 ==

== ENCOUNTER 2025-08-22 12:52 | Outpatient (REF) | payer OTHER, SELFPAY ==
--- NOTE | ~2025-08-22 | XR_ITS ---
EXAMINATION: X-ray bilateral wrist X-ray bilateral elbow CLINICAL INFORMATION: Pain COMPARISON: X-ray 10/29/2019 TECHNIQUE: Bilateral wrist each 4 views. Bilateral elbows each 3 views FINDINGS: Right wrist: No acute fracture or dislocation. Mild ulnar negative variance. Mild first CMC arthritis. No suspicious bony lesion. No osseous erosion. No abnormal soft tissue calcification. Left wrist:. No acute fracture or dislocation. Mild first CMC arthritis. No osseous erosion. No abnormal soft tissue calcification. . Left elbow: No fracture or dislocation. No significant joint space narrowing or marginal osteophytes. No osseous erosion. No abnormal soft tissue calcification. No effusion. Right elbow: No fracture or dislocation. No significant joint space narrowing or marginal osteophytes. No osseous erosion. No abnormal soft tissue calcification. No effusion. XR/XR Elbow Jerardo min 3V IMPRESSION: No acute osseous findings in bilateral wrist, bilateral elbows Electronically signed by: Librado Logan MD 08/23/2025 11:08 AM STEVE
--- NOTE | ~2025-08-22 | XR_ITS ---
EXAMINATION: XR LUMBOSACRAL SPINE CLINICAL INFORMATION: M54.50 - Low back pain, unspecified COMPARISON: May 19, 2015 TECHNIQUE: Three views of the lumbosacral spine. FINDINGS: There are vestigial ribs at L1. Moderate atherosclerosis is noted in the aorta. There is stable mild loss of height of T12. T12-L1: There is mild loss of disc space height increased since the prior. There are small anterior osteophytes. There is mild loss of disc height and anterior osteophytes, stable L2-3: There is mild disc space narrowing, slightly increased. L3-4: There is mild disc space narrowing and anterior osteophytes. There is minimal facet degeneration. Stable. L4 5: Unremarkable L5-S1: There is minimal grade 1 anterolisthesis and small anterior osteophytes without disc space narrowing. Stable. XR/XR lumbar spine 2-3V IMPRESSION: Mild degenerative disc disease that is stable to mildly increased. Electronically signed by: Oscar Lynne MD 08/22/2025 02:06 PM [facility]E [facility]
--- NOTE | ~2025-08-22 | XR_ITS ---
EXAMINATION: XR BILATERAL HIPS CLINICAL INFORMATION: Hip pain COMPARISON: X-ray right hip 09/30/2023 TECHNIQUE: Right hip 2 views. Left hip 2 views. FINDINGS: Right hip: No acute fracture or dislocation. Mild acetabular roof sclerosis. Hip joint space is maintained. 1.1 cm sclerotic focus in the right ilium, unchanged. Mild symphysis pubis degeneration. Left hip: No acute fracture or dislocation. Joint space is maintained. Mild acetabular sclerosis. No suspicious bony lesions. No abnormal soft tissue calcification. XR/XR hips KIM min 3V IMPRESSION: Mild bilateral acetabular roof sclerosis suggesting mild degenerative changes. 1.1 cm right ilium nonspecific sclerotic focus, unchanged. Electronically signed by: Librado Logan MD 08/22/2025 02:04 PM STEVE
--- NOTE | ~2025-08-22 | XR_ITS ---
EXAMINATION: X-ray bilateral shoulders CLINICAL INFORMATION: Pain. COMPARISON: X-ray left shoulder 12/25/2021 x-ray right shoulder 12/11/2013 TECHNIQUE: Left shoulder 4 views. Right shoulder 4 views. FINDINGS: Left shoulder: Bone mineralization is decreased. Mild acromioclavicular arthritis. Mild superior positioning of the acromion with respect to glenoid, similar to previous. No acute fracture or dislocation. No abnormal soft tissue calcification. Metallic kenya projected over the left lung. Right shoulder: Bone mineralization is decreased. Mild acromioclavicular arthritis. Mild subacromial spurring. Redemonstrated metallic focus in the humeral head, probably related to prior surgery. No visible acute fracture or dislocation. Glenohumeral joint space is maintained. No abnormal soft tissue calcification. XR/XR Shoulder Jerardo min 2V IMPRESSION: LEFT SHOULDER: Mild acromioclavicular arthritis. No acute osseous abnormality. RIGHT SHOULDER: Mild acromioclavicular arthritis. No acute osseous abnormality. Electronically signed by: Librado Logan MD 08/23/2025 07:24 AM STEVE
--- NOTE | ~2025-08-22 | XR_ITS ---
Exam: X-ray, bilateral knees.XR KNEE 1-2 VIEWS BILATERAL TECHNIQUE: AP sitting bilateral and lateral views lower extremity joint, bilateral knees INDICATION: M25.562 - Pain in left knee COMPARISON: Left knee May 24, 2022 FINDINGS: RIGHT KNEE: There is minimal narrowing of the medial joint space. There are medial compartment minute marginal osteophytes. There is ossification or calcification in the soft tissues anterior to the proximal patellar tendon and lower pole patella. There is no joint effusion. LEFT KNEE: There is minimal narrowing of the medial and lateral joint spaces. There are minute marginal ossified is along the medial joint line. The medial intercondylar tubercle is peaked. There is no joint effusion. There are increased vascular calcifications in the posterior lower leg. XR/XR Knee Jerardo 1or 2V IMPRESSION: Right knee: Minimal osteoarthritis Left knee: Mild osteoarthritis, slightly progressed since the prior. Electronically signed by: Oscar Lynne MD 08/22/2025 02:03 PM EST
--- NOTE | ~2025-08-22 | XR_ITS ---
EXAMINATION: X-ray bilateral wrist X-ray bilateral elbow CLINICAL INFORMATION: Pain COMPARISON: X-ray 10/29/2019 TECHNIQUE: Bilateral wrist each 4 views. Bilateral elbows each 3 views FINDINGS: Right wrist: No acute fracture or dislocation. Mild ulnar negative variance. Mild first CMC arthritis. No suspicious bony lesion. No osseous erosion. No abnormal soft tissue calcification. Left wrist:. No acute fracture or dislocation. Mild first CMC arthritis. No osseous erosion. No abnormal soft tissue calcification. . Left elbow: No fracture or dislocation. No significant joint space narrowing or marginal osteophytes. No osseous erosion. No abnormal soft tissue calcification. No effusion. Right elbow: No fracture or dislocation. No significant joint space narrowing or marginal osteophytes. No osseous erosion. No abnormal soft tissue calcification. No effusion. XR/XR Wrist Jerardo min 3V IMPRESSION: No acute osseous findings in bilateral wrist, bilateral elbows Electronically signed by: Librado Logan MD 08/23/2025 11:08 AM STEVE
[2025-08-22 13:15] LABS: MANUAL DIFF FLAG NO
[2025-08-22 14:03] LABS: Hematocrit 41.8 % (37.0-47.0); Hemoglobin 14.0 g/dl (12.0-16.0); Imm Gran Abs Auto 0.01 X10*3/uL (0.00-0.03); Imm Gran Pct Auto 0.2 % (0.0-0.4); Lymphocytes Absolute Auto 2.4 X10*3/uL (1.2-4.9); Mean Corpuscular HGB Conc 33.5 g/dl (31.0-35.0); Mean Corpuscular Hemoglobin 31.0 pg (27.0-33.0); Mean Corpuscular Volume 92.7 fL (80.0-98.0); NRBC Abs Auto 0.000 X10*3/uL (0.0-0.012); NRBC Pct Auto 0.0 /100WBC (0.0-0.2); Platelet Count 251 X10*3/uL (160-400); Red Blood Count 4.51 X10*6/uL (4.20-5.50); White Blood Count 4.2 X10*3/uL (4.8-10.8)
[2025-08-22 14:40] LABS: Alanine Aminotransferase 15 U/L (0-31); Albumin Level 4.6 g/dL (3.5-5.0); Alkaline Phosphatase 101 U/L (39-117); Anion Gap 9 (12-20); Aspartate Amino Transferase 23 U/L (5-31); Blood Urea Nitrogen 13 mg/dL (9-16); Calcium 10.2 mg/dL (8.4-10.2); Carbon Dioxide 31 mmol/L (22-29); Chloride 106 mmol/L (96-108); Cholesterol 273 mg/dL (<200); Estimated Glomerular Filt Rate > 60; HDL Cholesterol 54 mg/dL (>40); Potassium 3.7 mmol/L (3.3-5.1); Sodium 142 mmol/L (135-145); Total Protein 7.6 g/dL (6.5-8.0); Triglycerides 221 mg/dL (<150)
[2025-08-22 14:57] LABS: Thyroid Stimulating Hormone 3.68 uIU/mL (0.32-4.0)
[2025-08-22 15:07] LABS: Folate 5.4 ng/mL (> or = 4.0); Vitamin B12 203 pg/mL (200-900)
[2025-08-25 14:59] LABS: Intrinsic Factor Antibodies Negative (Negative)
[2025-08-29 16:58] LABS: Anti Nuclear Antibody Screen NEGATIVE (NEGATIVE)
== END 2025-08-22 12:53 | disposition home or self-care (01) ==
LOC: HO.LAB 12:52
PROVIDERS: PCP Internal Medicine; Visit Provider Internal Medicine
DX: Z01.84 Encounter for antibody response examination (principal); M25.522 Pain in left elbow; M25.531 Pain in right wrist; M25.512 Pain in left shoulder; M54.50 Low back pain, unspecified; M25.551 Pain in right hip; M25.562 Pain in left knee; E53.8 Deficiency of other specified B group vitamins; E55.9 Vitamin D deficiency, unspecified; E78.5 Hyperlipidemia, unspecified; D64.9 Anemia, unspecified; E06.3 Autoimmune thyroiditis
CPT/HCPCS: 36415; 72100; 73030; 73080; 73110; 73522; 73560; 80053; 80061; 82306; 82607; 82746; 83516; 84443; 85025; 85652; 86038; 86140; 86200; 86225; 86340; 86431

== ENCOUNTER → 2025-08-22 13:14 | Outpatient (BNV) | payer OTHER, SELFPAY | PROVIDERS: PCP Internal Medicine; Visit Provider Radiology Diagnostic Radiology | DX: M25.522 Pain in left elbow (principal); M25.531 Pain in right wrist; M25.511 Pain in right shoulder; M25.512 Pain in left shoulder | CPT/HCPCS: 72100; 73030; 73080; 73110; 73522; 73560 ==

== ENCOUNTER 2025-08-30 13:16 | Outpatient (AMB) | payer OTHER, SELFPAY ==
[2025-08-30 13:21] VITALS: BP 130/80; PULSE 95; TEMP 36.3; O2SAT 98; BMI 29.1
--- NOTE | 2025-08-30 13:21 | MHC.PC.OV ---
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 Required: No Accompanied by: Self / Same As Patient Allergies banana (BANANA) Allergy (Intermediate, Verified 08/30/25 13:37) Itching naproxen (From NAPROSYN) Allergy (Intermediate, Verified 08/30/25 13:37) rash, GI upset prednisone Allergy (Intermediate, Verified 08/30/25 13:37) Itchy and redness warfarin (WARFARIN) Allergy (Unknown, Verified 08/30/25 13:37) Unknown ibuprofen (From MOTRIN) Adverse Reaction (Intermediate, Verified 08/30/25 13:37) Gastrointestinal Upset pregabalin Adverse Reaction (Intermediate, Verified 08/30/25 13:37) Diarrhea and blurry vision sun Allergy (Unknown, Uncoded 08/30/25 13:37) bumps on skin Medication List - Last Reconciled 08/30/25 by Gio Meadows PA-C acetaminophen ER (Tylenol Arthritis Pain) 650 mg PO Q8H PRN 30 days albuterol sulfate 90 mcg/actuation 1 inh inhalation QID PRN 30 days baclofen 10 - 20 mg PO BEDTIME PRN calcium carbonate (Oyster Shell Calcium) 500 mg PO DAILY 30 days cholecalciferol (vitamin D3) 50 mcg PO DAILY 90 days clonazepam 1 mg PO BID 30 days clotrimazole-betamethasone 1-0.05 % 1 appl topical BID 30 days cyanocobalamin (vitamin B-12) 500 mcg PO DAILY 30 days diaper,brief,adult,disposable (Briefs, Adult-Extra Large) As directed dicyclomine 10 mg PO DAILY 30 days disposable gloves (Disposable Latex-Free Gloves) As directed gabapentin 300 mg PO TID 30 days lidocaine 5% 1 appl topical BEDTIME 30 days magnesium oxide 400 mg PO BEDTIME 90 days melatonin 5 mg PO BEDTIME PRN naratriptan take 1/2 - 1 tab at onset of headache; if no relief may repeat 1 tab after at least 4 hrs; max = 2 tabs/24 hrs orally PRN; 30 days pantoprazole 40 mg PO DAILY 90 days pyridoxine (vitamin B6) 25 mg PO DAILY sennosides (senna) 8.6 mg PO DAILY PRN simvastatin 20 mg PO DAILY 90 days topiramate 100 mg PO BEDTIME 30 days trazodone 100 mg PO BEDTIME 30 days Tobacco use date assessed: 08/30/25 Fall risk assessment: No Falls in past year Last assessed Fall Risk: 08/17/25 Dental Screening Dental Screen Date: 08/30/25 Did you have a dental visit in the last 12 months?: Yes Did you have a dental problem in the last 6 months where you did not have access to dental care?: No Was dental information given to patient?: Patient has dentist HPI annual exam - see comments HPI Details Patient is a 74-year-old female here today for a routine annual physical Presents today with her daughter. Patient has a past medical history significant for major depressive disorder, hyperlipidemia, irritable bowel syndrome, generalized anxiety disorder,, and hypothyroidism. Concerns--> The patient reports worsening stomach issues, characterized by pain and diarrhea that occurs after eating. Approximately two weeks ago, she had an episode of severe diarrhea that caused her to sit on the toilet for about 25 minutes, after which she felt dizzy and fell, hitting her head. She uses omeprazole and dicyclomine for these symptoms. PLAN: Plan will be to take her omeprazole 1st thing in the morning and taking dicyclomine before each of her meals. .. Major depressive disorder:? Has support by her daughters and family. Still seems somewhat depressed. She continues now on escitalopram, clonazepam and trazodone at night. Not speaking with a mental health therapist at this time .. Hyperlipidemia: Most recent fasting lipid panel showing elevated total cholesterol and LDL. She has not been using simvastatin and she promises to start using this medication again. .. Colon cancer screening: colonoscopy done 2022 - polyp found tubular adenoma repeat 5 years .. 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 Mother Diabetes Advanced cardiac disease Osteoporosis Chronic mental illness Brother Substance abuse Family/Other Chronic mental illness Social History Household Members: None Household Members Other:: family members live in apartment below pt Housing: Apartment Do you presently have visiting nurse or other home services: Yes Alcohol intake: never Comment: LOW Patient Tobacco Use Status: Former Tobacco user Tobacco use type: Cigarette e-Cigarette/Vaping Use: Former Use Second Hand Smoke Exposure: No service: No Current occupational status: disabled Gender identity: Female Cognitive needs: Yes (cane) Hearing needs: No Vision needs: No Female Reproductive History Menstrual control method: none Questionnaire PHQ-9 Over the last 2 weeks, how often have you been bothered by any of the following problems? 1. Little interest or pleasure in doing things: several days 2. Feeling down, depressed, or hopeless: not at all 3. Trouble falling or staying asleep, or sleeping too much: several days 4. Feeling tired or having little energy: several days 5. Poor appetite or overeating: not at all 6. Feeling bad about yourself - or that you are a failure or have let yourself or your family down: not at all 7. Trouble concentrating on things, such as reading the newspaper or watching television: several days 8. Moving or speaking so slowly that other people could have noticed. Or the opposite - being so fidgety or restless that you have been moving around a lot more than usual: several days 9. Thoughts that you would be better off or of hurting yourself in some way: not at all Total score: 5 Depression Screening Interpretation: Positive Depression Screening Follow-up: Existing condition and Follow-up Visit Requested Depression Screening Done: Yes [id number] - PHQ-9 Billing: Yes Source: Developed by Drs. Presley Hou, Angela Amador, Reilly Young and colleagues, with an educational adonis from [employer]. Thrive Questionnaire Date Thrive assessed: 05/14/25 I am a: Patient What is your living situation today?: I have a steady place to live Within the past 12 months, did the food you bought not last and you didn't have the money to get more?: Never true Within the past 12 months, did you worry whether your food would run out before you got money to buy more?: Never true Do you have trouble paying for medicines?: No Do you have trouble getting transportation to medical appointments?: No Do you have trouble paying your heating and electricity bill?: No Do you have trouble taking care of your child, family member or friend?: No Do you have trouble with day-to-day activities such as bathing, preparing meals, shopping, managing finances, etc.?: Yes Are you currently unemployed and looking for a job?: Yes Are you interested in more education?: No Please select the resources that you would like help with: None Currently or been in a relationship where the following occur: No concerns reported THRIVE Score: 0 AUDIT C Alcohol Use Questionnaire (AUDIT-C) 1. How often do you have a drink containing alcohol?: Never 3. How often do you have six or more drinks on one occasion?: Never Total Score: 0 Score Reviewed/Action Taken: No HARSHAL-7 AMB Questionnaire HARSHAL-7 Date HARSHAL - 7 assessed: 08/17/25 Feeling nervous, anxious, or on edge: 3 = Nearly every day Not being able to stop or control worryin = More than half the days Worrying too much about different things: 2 = More than half the days Trouble relaxin = Several days Being so restless that it is hard to sit still: 0 = Not at all Becoming easily annoyed or irritable: 0 = Not at all Feeling afraid as if something awful might happen: 3 = Nearly every day Total HARSHAL-7 score (0-4 normal; 5-9 mild; 10-14 moderate; 15-21 severe): 11 Source: Developed by Drs. Presley Hou, Angela Amador, Reilly Young and colleagues, with an educational adonis from [employer]. HARSHAL-7 Assessment Billing HARSHAL-7 Assessment Tool: HARSHAL-7 Assessment 72064 Review of Systems Const Denies body aches, Denies chills, Denies excessive sweating, Denies fatigue, Denies fever(s) and Denies headache(s) Eyes Denies blurry vision ENT Denies dysphagia, Denies vertigo, Denies dizziness, Denies headache(s), Denies hearing loss and Denies tinnitus Card Denies chest pain, Denies chest pain with activity, Denies syncope, Denies irregular heart rhythm and Denies dyspnea Resp Denies chest congestion, Denies cough, Denies hemoptysis, Denies dyspnea and Denies wheezing GI Denies abdominal pain, Denies melena, Denies hematochezia, Denies coffee ground emesis, Denies dysphagia, Denies diarrhea, Denies nausea and Denies vomiting Denies urinary frequency, Denies dysuria, Denies urinary hesitancy and Denies urinary urgency Musc Denies arthralgias, Denies limited range of motion, Denies muscle cramps and Denies muscle weakness Skin/Breast Denies rash and Denies skin ulcer Neuro Denies Abnormal speech present, Denies confusion, Denies vertigo, Denies dizziness, Denies syncope, Denies headache(s), Denies memory loss and Denies seizure-like activity Psych Denies anxiety, Denies confusion, Denies depression, Denies memory loss, Denies panic attacks and Denies paranoia Endo Denies excessive sweating, Denies fatigue, Denies flushing, Denies polydipsia and Denies polyuria Aller/Immun Denies wheezing Physical exam (Primary Care) Vital Signs: Last Vital Signs Temp 97.3 F 08/30/25 13:21 Pulse 95 08/30/25 13:21 BP 130/80 08/30/25 13:21 Pulse Ox 98 08/30/25 13:21 Oxygen Delivery Method Room Air 08/30/25 13:21 BMI result Body Mass Index 29.1 Tobacco/Smoking Status: Tobacco use Status Tobacco use date assessed 08/30/25 08/30/25 13:32 Patient Tobacco Use Status Former Tobacco user 08/30/25 13:32 Tobacco use type Cigarette 08/30/25 13:32 e-Cigarette/Vaping Use Former Use 08/30/25 13:32 PHQ-9: PHQ-9 Score PHQ-9: Total score 5 08/30/25 13:39 Depression Screening Interpretation: Positive Depression Screening Follow-up: Existing condition and Follow-up Visit Requested Thrive Assessment: Date of Thrive Assessment Date Thrive assessed 05/14/25 08/30/25 13:32 Currently or been in a relationship where the following occur: No concerns reported Const General: cooperative, comfortable, no acute distress, alert and awake; No confusion Orientation/consciousness: oriented to person, oriented to place, patient oriented x3 and No confusion HENMT Head: Yes normocephalic Ears: external ears normal and TM's normal bilaterally Face and sinus: No sinus tenderness Mouth: Normal oral and palatal mucosa present and tongue normal Teeth and gingiva: dentition normal and gingiva normal Throat: Yes posterior oropharynx normal, Yes tonsils normal and Yes uvula midline Eyes Conjunctivae: conjunctivae normal Sclerae: sclerae normal Pupils: Equal, round and reactive pupils present EOM: EOMs intact bilaterally Direct Ophthalmoscopy: No no photophobia Neck Neck: Yes no lymphadenopathy, No tender and Yes no JVD Thyroid: Thyroid normal Carotids: no bruits Chest Chest palpation & inspection: no tenderness Resp Effort & Inspection: normal respiratory effort, no audible wheezes, not labored and no stridor Auscultation: no crackles, no rales, no rhonchi and no wheezes Cardio Jugular venous distension: no JVD Rate: regular rate, not bradycardic and not tachycardic Rhythm: regular rhythm Bruits: no carotid bruits Peripheral pulses: Peripheral pulses 2+ throughout GI Inspection: Yes normal to inspection, No abdominal wall ecchymosis and No visible herniation Palpation (GI): Soft to palpation, nontender, no guarding, not rigid and No hepatosplenomegaly present Auscultation: normoactive bowel sounds General: Yes no CVA tenderness Back/Spine/Pelvis Back: no CVA tenderness and No back tenderness Cervical Spine: cervical ROM normal Thoracic/Lumbar Spine: thoracic and lumbar spine normal to inspection, straight leg raise negative bilaterally, No thoraco-lumbar ROM limited and No lumbar spinal tenderness Skin Lesions: no lesions Rashes: no rashes Wounds: no wounds Neuro General: oriented to person, oriented to place, patient oriented x3, CN's II-XI intact bilaterally and No confusion Cranial nerves: Yes Equal, round and reactive pupils present and Yes Normal accommodation reflex present Cognition (Neuro): normal cognition Speech: No Abnormal speech present Gait exam (Neuro): Normal gait present Motor exam (neuro): 5/5 motor strength present throughout Extrem Right upper extremity: full ROM; no cyanosis Left upper extremity: full ROM; no cyanosis Right lower extremity: no edema Left lower extremity: no edema Psych Appearance: grossly normal Mental Status: mental status grossly normal Affect: normal affect Attitude: cooperative Thought process: Normal thought process present Office Procedures Flu Questionnaire Does the patient have a severe egg allergy?: No Does the patient have severe life threatening allergies?: No Does the patient have a fever or illness today?: No Has the patient ever had Guillain-[place] Syndrome?: No Has the patient ever had any past reaction to a flu shot?: No Immunizations Fluarix [id number] (PF) 45 mcg (15 mcg x 3)/0.5 mL IM syringe Performing Provider: Gio Meadows PA-C [facility] Administered by: Maricel Owens LPN on 08/30/25 14:26 Dose Route Admin Location Dispensed Lot Number Expiration Date [facility] Transport Medic 0.5 mL IM Left Deltoid 0.5 mL [id number] 04/18/27 [id number] [employer] VIS Given Date VIS Provided VIS Publication Date 08/30/25 Single Vaccine 24 Eligibility Eligibility Date Funding Source Not [facility] Eligible 08/30/25 Private Coding Level of Care Code Est Pt Prev Care >65y(08750) Diagnoses Annual physical exam Z00.00 Loose stools R19.5 HARSHAL (generalized anxiety disorder) F41.1 Mixed hyperlipidemia E78.2 Hyperlipidemia type: mixed hyperlipidemia Additional Codes PHQ-9 - 87114 - PHQ-9 Billing: Yes ([id number]) HARSHAL-7 Assessment Billing - HARSHAL-7 Assessment Tool: HARSHAL-7 Assessment 73171 ([id number]) Assessment & Plan Assessment & Plan (1) Annual physical exam: Code(s): Z00.00 - Encounter for general adult medical examination without abnormal findings Category: Medical Plan: As per HPI (2) Loose stools: Code(s): R19.5 - Other fecal abnormalities Category: Medical Plan: Colonoscopy done in 2022 without any significant findings besides of tubular adenomatous polyp Regarding gastrointestinal symptoms, the patient was advised to take omeprazole in the morning on an empty stomach and to use dicyclomine before large meals to control spasms. Loperamide was suggested as an [id number] option for diarrhea. (3) HARSHAL (generalized anxiety disorder): Code(s): F41.1 - Generalized anxiety disorder Category: Medical Plan: Harshal 7 score positive for anxiety which has been existing condition for her for many years.. Patient continues with clonazepam 1 mg b.i.d. for many years now. She is not speaking with a mental health therapist or psychiatrist at this time. She will continue her SSRI therapy and benzodiazepine for the treatment of her anxiety which has been longstanding condition. (4) HLD (hyperlipidemia): Code(s): E78.5 - Hyperlipidemia, unspecified Category: Medical Qualifiers: Hyperlipidemia type: mixed hyperlipidemia Qualified Code(s): E78.2 - Mixed hyperlipidemia Plan: Most recent lipid panel showing slightly elevated total cholesterol and LDL. She has not been using simvastatin for some unclear reason, has not gone refills from the pharmacy.. Will send in refills and patient promises to restart simvastatin 20 mg on a daily basis. Orders: Orders Lipid Panel Today E78.2 - Mixed hyperlipidemia Influenza 8022-1278 Immunization Today Z23 - Encounter for immunization Comprehensive [place]. Panel Fast Today E78.2 - Mixed hyperlipidemia Complete Blood Count no Diff Today E78.2 - Mixed hyperlipidemia Medications: New clobetasol 0.05% 1 appl topical DAILY 60 grams 1RF 4 weeks L30.4 - Erythema intertrigo Refilled simvastatin 20 mg PO DAILY 90 tabs 1RF 90 days E78.00 - Pure hypercholesterolemia, unspecified clonazepam 1 mg PO BID 60 tabs 3RF anxiety 30 days F41.1 - Generalized anxiety disorder
--- OUTSIDE RECORDS SUMMARY | 2025-08-30 14:56 | XMS_ITS | Patient Health Record ---
Author Organization [facility] Address [address] [place] [address] Care Team Providers Care Roofing Supervisor Name Role Phone Gio Maedows Primary Care Provider Unavailab Presley Whitehead Unavailable [phone] Allergies Allergen (clinical drug ingredient) Drug/Non Drug [...] Status Risk Notes Problem Colon cancer screening (217778493) Colon cancer screening (Z12.11) Active confirmed Problem Diverticulitis of colon (437696556) Diverticulitis of large intestine without perforation or abscess without bleeding (K57.32) Active confirmed Problem Screening for malignant neoplasm of colon (998504157) Encounter for screening for malignant neoplasm of colon (Z12.11) Active confirmed Problem Diverticular disease of colon (930707855) Diverticulosis of large intestine without perforation or abscess without bleeding (K57.30) Active confirmed Problem Screening for malignant neoplasm of rectum (340850183) Encounter for screening for malignant neoplasm of rectum (Z12.12) Active confirmed Problem Gastroesophageal reflux disease (029698539) Gastroesophageal reflux disease, esophagitis presence not specified (K21.9) Active confirmed Problem Constipation (80548324) Constipation, unspecified constipation type (K59.00) Active confirmed Problem Generalized abdominal pain (520468350) Abdominal pain, generalized (R10.84) Active confirmed Problem Diarrhea (99562389) Diarrhea, unspecified type (R19.7) Active confirmed Problem Irritable bowel syndrome (23384927) Irritable bowel syndrome, unspecified type (K58.9) Active [...] Provider Name:Presley Greenberg , 09/06/2025 09:30:00 AM, [address] [place] [address], [address], [place], [address], Insurance Providers Payer Name Payer Address Payer Phone Subscriber Number Group Number Insured Name Patient Relationship to Insured Coverage Start Date Coverage End Date [facility] [address] [address] [place] [phone] [id number] RALF KELLY Self - patient is the insured MEDICARE OF [place] [address] [place] [address] [id number] RALF KELLY Self - patient is the insured MEDICAID OF [facility] [address] [place] [phone] [id number] RALF KELLY Self - patient is the insured Medical (General) History Medical History History ICD Code EGD 04-09-2011-negative excep t for a minimal hiatal hernia-gastric biopsies were negative for H. pylori, and duodenal biopsies were normal--there was a small smount of retained old food in the stomach and duodenal bulb, with subjective decrease in gastric peristalsis GERD Depression/anxiety Renal insufficiency Denies CO,DM,CVA,Lung disease,renal dise ase Colonoscopy 08/2012-neg exce pt [...]
--- OUTSIDE RECORDS SUMMARY | 2025-08-30 14:56 | XMS_ITS ---
Author Name Mary Hernandez NP Address [address] [place] [address] Phone [phone] [facility] Care Team Providers Care Fly Winder Name Role Phone Mary Hernandez Unavailable [phone] Estee Hernández Unavailable [phone] Unavailable Unavailable [phone] RAMEZ ESPINO Unavailable [phone] Reason for Referral Not Available Allergies, adverse [...] Powder No Data Available 2022-12-30 2025-07-20 Nystop [id number] UNIT/GM Powder APPLY 1 REBECCA LICATION TOPICALLY [...] Data Available 2024-03-17 No Data Available Nystatin [id number] UNIT/ML Suspension SWISH AND SWALLOW 5 ML [...] MOUTH DAILY 2024-05-12 No Data Available Nystatin [id number] UNIT/GM Crm apply to sheryl an and dry skin of the affected area under left breast morning and night until rash resolved 2024-07-14 2025-07-20 Nystatin [id number] UNIT/GM Powder apply to affected area under [...] mahesh as needed 2025-07-20 No Data Available VITAMIN B-12 500 MCG TABS No Data Available 2025-06-14 No Data Available Pantoprazole Sodium 40 mg Ta b delayed rel No Data Available 2025-08-17 No Data Available Vitamin D3 50 MCG (1999 [place]) Cap No Data Available 2025-08-17 No Data Available Problem List Problem Status Onset Date Resolved Date Synopsis GERD (gastroesophageal reflux disease) Active 2022-09-06 N/A On OmeprazoleAvo id spicy, fatty or fried food, caffeine, chocolateAvoid lying down after mealsAvoid eating late at night Hyperlipidemia Active 2022-12-25 N/A On Simvast atinEncouraged physical activityDiet low in saturated and trans fatHealthy diet, including lots of fruits and vegetables. Migraine Active 2022-09-06 N/A On nizatriptan PRNTopiramateFollows NeurologistRecommendations: - Magnesium Oxide 400mg QHS for [...] frequency or severity. Vaginal yeast infection Resolved 2023-01-15 2023-01-27:- Start Diflican- Monistat vaginal suppositories- Encouraged good vaginal hygiene, keep the area clean and dry- Call CB back if no improvement after treatment. IBS (irritable bowel syndrome) Active 2022-09-06 N/A On DicyclomineFo cass Airplane Cover Maker (Dr. Greenberg) -Per member she has had parapelvic pain with constipation/diarrhea x 5-6 years. Pain is severe.-She reports no C T scan? and no previous colonoscopy. -Recommend f/u with Dr. Greenberg, may need f/u u/s or C T abd and colonoscopy to r/o malignancy. upon review of [facility] found: COLONOSCOPY 07/17/2012COLONOSCOPY 3Colonoscopy 08/2012-neg except diverticulosis-no polyps; negative colon[place] [address] Arreaga 04-09-2011-negative except for a minimal hiatal hernia-gastric biopsies were negative for H. pylori Osteoarthritis Active 2022-09-06 N/A On Gabapen tin Rx. Diclofenac gelApply heat and icerx lidocaine patches to help with painContinue current managementFollow up with PCP and/or specialist as scheduled Facial cellulitis Resolved 2024-03-16 2024-04-09 03/16/24 - acute visit. Patient reports about 2 weeks [...] vessel of left eye Resolved 2023-12-07 2024-04-09 12/07/23: Member reports blood vessel burst in left eye.Deneis vision changes but reports pressure Has been coughing with sickness - explained this can be normal and will go away on its own in 1-1.5 weeks.Continue to monitor and contact CB wit further questions, concerns or worsening symptoms.12/12/23still has red eye, acute bleeding gas stopped Sinusitis Resolved 2023-12-06 2024-04-09 12/06/23: Cough with green mucous, nasal congestion, headache, [...] worse call back for steroids. unknown Resolved 2024-04-09 2024-04-09 N/A Other problems related to medical facilities and other health care Active 2024-04-09 N/A PAIN CO NTINGENCY PLANLast updated: 08/23/2025Member to call for the following symptoms: Increased pain/ Stiffness/N/VPlanned intervention: Encourage extra fluid intake / Tylenol 1,000mg q6h/ Voltaren gel to affected area/ Apply ice to affected area Incontinence Active 2024-04-09 N/A Wears pull u p diapersSkin care BIDI have assessed this patient and determined her medical necessity for protective incontinence products as a result of mixed urinary Incontinence.Therefore, I am prescribing pull-ups.Use skin barrier cream to decrease moisture to skin Major depression, recurrent, moderateGAD (generalized anxiety disorder)InsomniaHistor y of suicide attempt Active 2022-09-06 N/A On CelexaSt ableFollows PsychiatristPHQ-9 -- Continue current treatment plan as directed. PHQ9- phq9 = 12, pt crying at apt, Increased dose of hkeoqymjjafy98/1/25: last seen PCP 2 weeks ago per [...] PCP Hx: UTI (urinary tract infection) Resolved 2024-05-21 2025-07-20 uti 05/07/24pt we nt to er, rx antibiotics for 1 week now stoppedreports itching rx cranberry supplementf/u with pcp annually History of shinglesBacterial infection concurrent with and due to herpes zoster Resolved 2024-07-14 2025-07-20 pt with hx of sh ingles with same presentation to left foot now- [...] twice daily for 5 days. #10 tablet [id number] New Acyclovir 5 % Oint apply thin film to affected area of foot TID x 5 days #30 gram [id number] New Doxycycline Hyclate 100 mg Cap Take 1 tab PO q12h x 7 days #14 capsule [id number] Refill Acetaminophen Extra Strength 500 mg Tab TAKE 1-2 TABLETS BY MOUTH EVERY 6 HOURS NEEDED FOR FEVER or PAIN #30 tablet RFx0 Pruritic condition Resolved 2024-07-14 2025-07-20 eRx Re fill hydrOXYzine 25 mg Tab take 1 to 2 tablets orally every 6 hours as needed for moderate to severe itch #30 tablet RFx0 Difficulty in walkingHistory of falling Active 2024-04-09 N/A walk with walker and cane did not go to the hospital for the 3 falls she had, states it was minor but states that the last fall her leg was inflamed so doctor told her to take baclofen continue to use assistive device and f/u with PCP UTI (urinary tract infection) Resolved 2024-11-17 2024-11-2311/17/25 Acute Vi sit: PT reports 2.5d hx of burning urination, [...] estrogen. Yeast infection of the skin Resolved 2024-07-14 2025-07-20 under left breas t and outside of vaginal/groin area keep clean and dryuse gauze or cotton material to wick moisture eRx New Miconazole Nitrate 2 % Crm Vaginal Apply to affected area outside of the vagina daily x 7 days. #45 gram [id number] New Nystatin [id number] UNIT/GM Powder apply to affected area under left breast BID after allowing skin folds to air dry- use gauze or cotton material to wick moisture #60 gram [id number] New Nystatin [id number] UNIT/GM Crm apply to clean and dry skin of the affected area under left breast morning and night until rash resolved #30 gram RFx23/01/2025: Patient reports itchiness and irritation in the last couple of days in the outside vaginal/groin area. RX sent for miconazole, nystatin powder and cream. I encouraged her to call furnace operator and tender if sx worsens and to call CB with any questions. Denies any other sx. Dry mouth Active 2025-07-20 N/A states she has dry mouth asking for recommendationsDiscussed likely due to side effects from medicationsDiscussed she can use biotene OTC rinse, drink water, use water sponges if needed Dizziness; Fall, initial encounter Active 2025-08-23 N/A 09/12/2025-may have been in setting of dehydration after having blood work done-recommend keeping good hydration, start drinking gatoraide poweraid-monitor for h/a, vision changes, N/V-discussed emergent symptoms and advised to go to ED for further evaluation if has vision changes with N/V; member agreeable -take tylenol for pain Encounters Encounters Type Facility Date of Service Diagnosis/Co mplaint New patient, 30-44min 1 stable chronic or 2 minor; add modifier 95 for video, modifier 93 for phone [facility], ([place] 09/06/2022 Migraine, unspecified, not intractable, without status migrainosusAnxiety disorder, unspecifiedGastro-esophageal reflux disease without esophagitisIrritable bowel syndrome without diarrheaUnspecified osteoarthritis, unspecified siteInsomnia, unspecifiedUnspecified urinary incontinenceImmunodeficiency due to conditions classified elsewhereMajor depressive disorder, recurrent, moderate New patient, 30-44min 1 stable chronic or 2 minor; add modifier 95 for video, modifier 93 for phone [facility] ([place]06[place]20[place] New patient, 30-44min 1 stable chronic or 2 minor; add modifier 95 for video, modifier 93 for phone [facility] [place] 09[place]2022 New patient, 30-44min 1 stable chronic or 2 minor; add modifier 95 for video, modifier 93 for phone [facility] [place] 09/06/2022 New patient, 30-44min 1 stable chronic or 2 minor; add modifier 95 for video, modifier 93 for phone [facility], [place] 09/06/2022 New patient, 30-44min 1 stable chronic or 2 minor; add modifier 95 for video, modifier 93 for phone [facility], [place] 09/06/2022 New patient, 30-44min 1 stable chronic or 2 minor; add modifier 95 for video, modifier 93 for phone [facility] [place] 09/06/2022 No Data Available [facility]2022 Anxiety disorder, unspecifiedMigraine, unspecified, not intractable, without status migrainosusUnspecified osteoarthritis, unspecified siteMajor depressive disorder, recurrent, moderate No Data Available [facility] 12[place]25[place]2022 Irritable bowel syndrome wit hout diarrheaMajor depressive disorder, recurrent, moderateMigraine, unspecified, not intractable, without status migrainosusHyperlipidemia, unspecified No Data Available [facility] 01/15/2023 Acute candidiasis of vulva a nd vagina No Data Available [facility] 01[place]27[place]2023 Body mass index (bmi) 33.0-3 3.9, adultMigraine, unspecified, not intractable, without status migrainosusGastro-esophageal reflux disease without esophagitisUnspecified urinary incontinenceHyperlipidemia, unspecifiedMajor depressive disorder, recurrent, moderateAnxiety disorder, unspecifiedIrritable bowel syndrome without diarrheaUnspecified osteoarthritis, unspecified siteInsomnia, unspecifiedImmunodeficiency due to conditions classified elsewhere No Data Available [facility] 01/27/2023 No Data Available [facility] 01[place]2023 No Data Available [facility] 05/02/2023 Major depressive disorder, recurrent, moderateImmunodeficiency due to conditions classified elsewhereMigraine, unspecified, not intractable, without status migrainosusAnxiety disorder, unspecifiedGastro-esophageal reflux disease without esophagitisIrritable bowel syndrome without diarrheaUnspecified osteoarthritis, unspecified siteInsomnia, unspecifiedUnspecified urinary incontinenceHyperlipidemia, unspecified No Data Available [facility] 05/02/2023 No Data Available [facility] 05[place]02[place]2023 No Data Available [facility] 05/02/2023 No Data Available [facility] 05/02/2023 No Data Available [facility] 05/02/2023 No Data Available [facility] 05/02/2023 Estab. patient 30-39min; chronic exacerbation, 2 stable chronic or 1 acute illness add add modifier 95 for video, (do not use for phone, instead use 60638-58) [facility] 05[place]30/2023 Major depressive disorder, recurrent, moderateMigraine, [...] (do not use for phone, instead use 70901-73) [facility] 05/30/20[place] Estab. patient 30-39min; chronic exacerbation, 2 stable chronic or 1 acute illness add add modifier 95 for video, (do not use for phone, instead use 87946-34) [facility] 05/30/2023 Estab. patient 30-39min; chronic exacerbation, 2 stable chronic or 1 acute illness add add modifier 95 for video, (do not use for phone, instead use 77139-87) [facility] 05/30/2023 Estab. patient 30-39min; chronic exacerbation, 2 stable chronic or 1 acute illness add add modifier 95 for video, (do not use for phone, instead use 00889-87) [facility] 05/30/2023 Estab. patient 30-39min; chronic exacerbation, 2 stable chronic or 1 acute illness add add modifier 95 for video, (do not use for phone, instead use 21435-10) [facility] 05/30/2023 Estab. patient 30-39min; chronic exacerbation, 2 stable chronic or 1 acute illness add add modifier 95 for video, (do not use for phone, instead use 72429-12) [facility] 05[place]30/2023 Estab. patient 30-39min; chronic exacerbation, 2 stable chronic or 1 acute illness add add modifier 95 for video, (do not use for phone, instead use 60122-37) [facility] 05[place]30/20[place] Estab. patient 30-39min; chronic exacerbation, 2 stable chronic or 1 acute illness add add modifier 95 for video, (do not use for phone, instead use 19361-02) [facility] 05[place]30/20[place] Estab. patient 30-39min; chronic exacerbation, 2 stable chronic or 1 acute illness add add modifier 95 for video, (do not use for phone, instead use 63627-13) [facility] 05/30/2023 Estab. patient 30-39min; chronic exacerbation, 2 stable chronic or 1 acute illness add add modifier 95 for video, (do not use for phone, instead use 29410-00) [facility] 05/30/2023 No Data Available [facility] 08[place]07/2023 Major depressive disorder, recurrent, moderateMigraine, unspecified, not intractable, without status migrainosusAnxiety disorder, unspecifiedGastro-esophageal reflux disease without esophagitisIrritable bowel syndrome without diarrheaUnspecified osteoarthritis, unspecified siteInsomnia, unspecifiedUnspecified urinary incontinenceImmunodeficiency due to conditions classified elsewhereHyperlipidemia, unspecifiedPain in unspecified shoulderPain in unspecified hip No Data Available [facility] 08/07/2023 No Data Available [facility] 08[place]07[place]2023 No Data Available [facility] 08/07/2023 No Data Available [facility] 08/07/2023 No Data Available [facility] 08/07/2023 No Data Available [facility] 08[place]07/2023 No Data Available [facility] 11[place]19/2023 Major depressive disorder, recurrent, moderateMigraine, unspecified, not intractable, without status migrainosusAnxiety disorder, unspecifiedGastro-esophageal reflux disease without esophagitisIrritable bowel syndrome without diarrheaUnspecified osteoarthritis, unspecified siteInsomnia, unspecifiedUnspecified urinary incontinenceImmunodeficiency due to conditions classified elsewhereHyperlipidemia, unspecifiedPain in unspecified shoulderPain in unspecified hipHeadache, unspecified No Data Available [facility] 11[place]19[place]2023 No Data Available [facility] 11/19[place]2023 No Data Available [facility] 11[place] [facility] [place]/19[place] [facility] [place] 11/19[place] [facility] [place]19[place]2023 No Data Available [facility] 11[place]19[place]2023 No Data Available [facility] 12/06/2023 Chronic sinusitis, unspecifi ed No Data Available [facility] [place] 12/07/2023 Conjunctival hemorrhage, lef t eye No Data Available [facility] 12[place]12/2023 Other problems related to [facility] facilities and other health careMajor depressive disorder, recurrent, moderateBody mass index (bmi) 32.0-32.9, adultMigraine, unspecified, not intractable, without status migrainosusAnxiety disorder, unspecifiedGastro-esophageal reflux disease without esophagitisIrritable bowel syndrome without diarrheaUnspecified osteoarthritis, unspecified siteInsomnia, unspecifiedUnspecified urinary incontinenceImmunodeficiency due to conditions classified elsewherePain in unspecified shoulderHyperlipidemia, unspecifiedHeadache, unspecifiedChronic sinusitis, unspecifiedConjunctival hemorrhage, left eye No Data Available [facility] 12[place]12/2023 No Data Available [facility] 12/12[place]2023 No Data Available [facility] 12/12/2023 No Data Available [facility] 12/12/2023 No Data Available [facility] 12/12/2023 No Data Available [facility] 12/12/2023 No Data Available [facility] 02/09/2024 Chronic sinusitis, unspecifi ed No Data Available [facility] 03/16/2024 Cellulitis of face Estab. patient 30-39min; chronic exacerbation, 2 stable chronic or 1 acute illness add add modifier 95 for video, (do not use for phone, instead use 19654-22) [facility] 04/09/2024 Major depressive disorder, recurrent, moderateMigraine, [...] (do not use for phone, instead use 72324-52) [facility], ([place]) 04/09/2024 Estab. patient 30-39min; chronic exacerbation, 2 stable chronic or 1 acute illness add add modifier 95 for video, (do not use for phone, instead use 63677-43) [facility] 04/09/20[place] Estab. patient 30-39min; chronic exacerbation, 2 stable chronic or 1 acute illness add add modifier 95 for video, (do not use for phone, instead use 08636-10) [facility] 04/09/20[place] Estab. patient 30-39min; chronic exacerbation, 2 stable chronic or 1 acute illness add add modifier 95 for video, (do not use for phone, instead use 33458-06) [facility] 04/09/20[place] Estab. patient 30-39min; chronic exacerbation, 2 stable chronic or 1 acute illness add add modifier 95 for video, (do not use for phone, instead use 75730-65) [facility] 04/09/20[place] Estab. patient 30-39min; chronic exacerbation, 2 stable chronic or 1 acute illness add add modifier 95 for video, (do not use for phone, instead use 71261-87) [facility] 04/09/2024 Estab. patient 30-39min; chronic exacerbation, 2 stable chronic or 1 acute illness add add modifier 95 for video, (do not use for phone, instead use 28053-77) [facility] 04/09/2024 Estab. patient 30-39min; chronic exacerbation, 2 stable chronic or 1 acute illness add add modifier 95 for video, (do not use for phone, instead use 21164-94) [facility] 04/09/2024 No Data Available [facility] 05/21/2024 Major depressive disorder, recurrent, moderateMigraine, unspecified, [...] assistance with personal care No Data Available [facility], [place] 05/21/2024 No Data Available [facility], [facility]) 05/21/2024 No Data Available [facility], [facility]) 05/21/2024 No Data Available [facility] 05/21/2024 No Data Available [facility], [place] 05/21/2024 No Data Available [facility], [place] 05/21/2024 No Data Available [facility], [place] 05/21/2024 No Data Available [facility], [place] 05/21/2024 No Data Available [facility], [place] 07/14/2024 Bacterial infection, unspecifiedZoster with other complicationsCandidiasis of skin and nailPruritus, unspecifiedPersonal history of other infectious and parasitic diseases No Data Available [facility], [place] 07/14/2024 Estab. patient 10-29min; 1 minor problem; add add modifier 95 for video, modifier 93 for phone [facility], [place] 11/17/2024 Urinary tract infection, sit e not specified Estab. patient 10-29min; 1 minor problem; add add modifier 95 for video, modifier 93 for phone [facility], [place] 11/23/2024 Major depressive disorder, recurrent, moderateMigraine, unspecified, [...] modifier 95 for video, modifier 93 for [facility]/23/20[place] Estab. patient 10-29min; 1 minor problem; add add modifier 95 for video, modifier 93 for [facility]/23/20[place] Estab. patient 10-29min; 1 minor problem; add add modifier 95 for video, modifier 93 for [facility] 12/21/2024 Candidiasis of skin and nail Other problems related to medical facilities and other health care Estab. patient 10-29min; 1 minor problem; add add modifier 95 for video, modifier 93 for [facility] 07/20/2025 Major depressive disorder, recurrent, moderateGeneralized anxiety [...] modifier 95 for video, modifier 93 for [facility] 07/20/20[place] Estab. patient 10-29min; 1 minor problem; add add modifier 95 for video, modifier 93 for phone [facility] [place]20[place] Estab. patient 10-29min; 1 minor problem; add add modifier 95 for video, modifier 93 for phone [facility] [place] 07/20/20[place] Estab. patient 10-29min; 1 minor problem; add add modifier 95 for video, modifier 93 for phone [facility] [place] 07/20/20[place] Estab. patient 10-29min; 1 minor problem; add add modifier 95 for video, modifier 93 for phone [facility] [place] 07/20/20[place] Estab. patient 10-29min; 1 minor problem; add add modifier 95 for video, modifier 93 for phone [facility] [place] 07/20/2025 Estab. patient 10-29min; 1 minor problem; add add modifier 95 for video, modifier 93 for phone [facility] [place] 07/20/2025 Estab. patient 10-29min; 1 minor problem; add add modifier 95 for video, modifier 93 for phone [facility] [place] 08/23/2025 Dizziness and giddinessIrrit able bowel syndrome without diarrheaOther problems related to medical facilities and other health careUnspecified fall, initial encounter Vital Signs Date of Collection Vitals 2022-09-06 [...] tive Time Current Smoking Status Former smoker 2025-08-20 1 Sex Female History of Procedures Procedures Service Procedure code Service date Servicing provider Phone# New patient, 30-44min 1 stable chronic or 2 minor; add modifier 95 for video, modifier 93 for phone [id number] 2022-09-06 No Data Available No Data Available [...] le No Data Available No Data Available [id number] 2022-11-25 No Data Available No Data Available No Data Available [id number] 2022-12-25 No Data Available No Data Available No Data Available [id number] 2023-01-15 No Data Available No Data Available No Data Available 2023-01-27 No Data Available No Data Available Pain Assessment - Pain Documented on a Pain Scale (1125F) 1125F 2023-01-27 No Data Available No Data Candida ilable Medication List Documented (1159F) 1159F 2023-01-27 No Data Available No Data Candida ilable No Data Available [id number] 2023-05-02 No Data Available No Data Available [...] (do not use for phone, instead use 17551-50) [id number] 2023-05-30 No Data Available No Data Availa [...] No Data Availa ble No Data Available [id number] 2023-08-07 No Data Available No Data Available [...] Available No Data Available No Data Available [id number] 2023-11-19 No Data Available No Data Available [...] Available No Data Available No Data Available [id number] 2023-12-06 No Data Available No Data Available No Data Available [id number] 2023-12-08 No Data Available No Data Available No Data Available [id number] 2023-12-12 No Data Available No Data Available [...] Available No Data Available No Data Available [id number] 2024-03-16 No Data Available No Data Available Estab. patient 30-39min; chronic exacerbation, 2 stable chronic or 1 acute illness add add modifier 95 for video, (do not use for phone, instead use 11901-90) [id number] 2024-04-09 No Data Available No Data Availa [...] No Data Avail able No Data Available [id number] 2024-05-21 No Data Available No Data Available [...] No Data Candida ilable No Data Available [id number] 2024-07-14 No Data Available No Data Available Medication List Documented (1159F) 1159F 2024-07-14 No Data Available No Data Candida ilable Estab. patient 10-29min; 1 minor problem; add add modifier 95 for video, modifier 93 for phone [id number] 2024-11-17 No Data Available No Data Availa ble Estab. patient 10-29min; 1 minor problem; add add modifier 95 for video, modifier 93 for phone [id number] 2024-11-23 No Data Available No Data Availa ble Functional Status Assessed (1170F) 1170F 2024-11-23 No Data Available No Data Avail able Medication List Documented (1159F) 1159F 2024-11-23 No Data Available No Data Candida ilable Estab. patient 10-29min; 1 minor problem; add add modifier 95 for video, modifier 93 for phone [id number] 2024-12-21 No Data Available No Data Availa ble Estab. patient 10-29min; 1 minor problem; add add modifier 95 for video, modifier 93 for phone [id number] 2025-07-20 No Data Available No Data Availa [...] No Data Availab le No Data Available Estab. patient 10-29min; 1 minor problem; add add modifier 95 for video, modifier 93 for phone [id number] 2025-08-23 No Data Available No Data Availa ble [...] gaitHistory of fallingAt risk for fallingIncontinenceDry mouth 2025-08-23 07:55:10 IBS (irritable bowel syndrome)Other problems related to medical facilities and other health careDizziness; Fall, initial encounter Plan of Care Date of Service Plans [...] current treatment plan as directed. F/u with [facility] today 12/25/22 at 1:30 pm.Major depression, recurrent, moderate [F33.1]> On CelexaStableFollows PsychiatristPHQ-9 -112- Continue [...] 10Continue current treatment plan as directed.On SumatriptanTopiramateFollows Neurologist/04/11- Continue current treatment plan as directed.Continue current [...] Documented (1125F)Continue to see PCP. Follow-up with [facility] as [...] modifier 95)Continue to see PCP. Follow-up with [facility] as needed for any acute or disease [...] they most likely to go back?Please call [facility] if you have a change in condition, Blood pressure > 170/90Acute illness, change in condition or medication and with any questions about your healthFall, any unusual symptoms or have any medical questions!Receives clinical nursing assistant hourswalk with walker / 1 assistSkin care BIDI have assessed this patient and determined her medical necessity for protective incontinence products as a result of mixed urinary Incontinence.Therefore, I am prescribing pull-ups.Use skin barrier cream to decrease moisture to skin 2024-05-21 07:25:37 Phone (patient, pare nt, or guardian); 5-10 minutes of medical discussion (no modifier 95)Continue to see PCP. Follow-up with [facility] as needed for any acute or disease education needs that may arise 12/05.On CelexaStableFollows PsychiatristPHQ-9 -112- Continue current treatment plan as directed. PHQ9- 106/ phq9 = 12, pt crying at apt, Increased dose of escitalopramOn SumatriptanTopiramateFollmiri Neurologist2/04/11- Continue current treatment plan as directed.Continue [...] they most likely to go back?Please call [facility] if you have a change in condition, Blood pressure > 170/90Acute illness, change in condition or medication and with any questions about your healthFall, any unusual symptoms or have any medical questions!Receives clinical nursing assistant hourswalk with walker / 1 assistSkin care [...] modifier 95)Continue to see PCP. [facility] or disease [...] twice daily for 5 days. #10 tablet EZt1pZt New Acyclovir 5 % Oint apply thin film to affected area of foot TID x 5 days #30 gram KRk7tOg New Doxycycline Hyclate 100 mg Cap Take 1 tab PO q12h x 7 days #14 capsule AJg9iLb Refill Acetaminophen Extra Strength 500 mg Tab TAKE 1-2 TABLETS BY MOUTH EVERY 6 HOURS NEEDED FOR FEVER or PAIN #30 tablet FRf3trxpr left breast and outside of vaginal/groin area keep clean and dryuse gauze or cotton material to wick moisture eRx New Miconazole Nitrate 2 % Crm Vaginal Apply to affected area outside of the vagina daily x 7 days. #45 gram VOt3tGy New Nystatin [id number] UNIT/GM Powder apply to affected area under left breast BID after allowing skin folds to air dry- use gauze or cotton material to wick moisture #60 gram WBr9qFf New Nystatin [id number] UNIT/GM Crm apply to clean and dry skin of the affected area under left breast morning and night until rash resolved #30 gram ATj9qVf Refill hydrOXYzine 25 mg Tab take 1 to 2 tablets orally every 6 hours as needed for moderate to severe itch #30 tablet RFx0 2024-11-17 11:55:54 Televideo 10-29min; 1 minor problem; add add modifier 95 for video, modifier 93 for phoneContinue to see PCP. Follow-up with [facility] as [...] for phoneContinue to see PCP. Follow-up with [facility] as needed for any acute or disease education needs that may arise 12/05.On CelexaStableFollows PsychiatristPHQ-9 -112- Continue current treatment plan as directed. PHQ9- 106 phq9 = 12, pt crying at apt, [...] they most likely to go back?Please call [facility] if you have a change in condition, Blood pressure > 170/90Acute illness, change in condition or medication and with any questions about your healthFall, any unusual symptoms or have any medical questions!Receives clinical nursing assistant hourswalk with walker / 1 assistSkin care [...] twice daily for 5 days. #10 tablet DUv9zWn New Acyclovir 5 % Oint apply thin film to affected area of foot TID x 5 days #30 gram CSg6pMr New Doxycycline Hyclate 100 mg Cap Take 1 tab PO q12h x 7 days #14 capsule LCa5jWr Refill Acetaminophen Extra Strength 500 mg Tab TAKE 1-2 TABLETS BY MOUTH EVERY 6 HOURS NEEDED FOR FEVER or PAIN #30 tablet RDj9zlxvn left breast and outside of vaginal/groin area keep clean and dryuse gauze or cotton material to wick moisture eRx New Miconazole Nitrate 2 % Crm Vaginal Apply to affected area outside of the vagina daily x 7 days. #45 gram ZBm1cEu New Nystatin [id number] UNIT/GM Powder apply to affected area under left breast BID after allowing skin folds to air dry- use gauze or cotton material to wick moisture #60 gram OXu8dSt New Nystatin 113274 UNIT/GM Crm apply to clean and dry skin of the affected area under left breast morning and night until rash resolved #30 gram WJk3sSg Refill hydrOXYzine 25 mg Tab take 1 [...] vagina daily x 7 days. #45 gram TWb6sEa New Nystatin 710088 UNIT/GM Powder apply to affected area under left breast BID after allowing skin folds to air dry- use gauze or cotton material to wick moisture #60 gram XIk3aDu New Nystatin 767580 UNIT/GM Crm apply to clean and dry skin of the affected area under left breast morning and night until rash resolved #30 gram RFx2/01/2025: Patient reports itchiness and irritation in the last couple of days in the outside vaginal/groin area. RX sent for miconazole, nystatin powder and cream. I encouraged her to call furnace operator and tender if sx worsens and to call CB with any questions. Denies any other sx.Monthly follow up calls with ptCONTINGENCY PLANWhy was the member in the hospital or ER most recently? Why are they most likely to go back?Please [facility] if you have a change in condition, [...] pt crying at apt, Increased dose of dvnkljwtrdda97/1/25: last seen PCP 2 weeks ago per [...] down after mealsAvoid eating late at nightOn DicyclomineFosuows GastroenterologistContinue current treatment plan as directed.On Gabapentin [...] or delusions Planned intervention: Transfer member to [address] [place] [address]/ Risperidone 0.5mg PO q12h PRN agitation/ Hydroxyzine (Vistaril) 25mg PO q6h PRN anxiety/ Remind member of breathing exercisesReceives clinical nursing assistant hourswalk with walker and cane did not [...] drink water, use water sponges if needed 2025-08-23 07:55:10 Estab. patient 10-29 min; 1 minor problem; add add modifier 95 for video, modifier 93 for phoneContinue to see PCP. Follow-up with [facility] as needed for any acute or disease education needs that may arise 12/05.On DicyclomineFocass [facility] Maker (Dr. Greenberg) -Per member she has had parapelvic pain with constipation/diarrhea x 5-6 years. Pain is severe.-She reports no C T scan? and no previous colonoscopy. -Recommend f/u with Dr. Greenberg, may need f/u u/s or C T abd and colonoscopy to r/o malignancy. upon review of [facility] found: COLONOSCOPY 07/17/2012COLONOSCOPY 12/25/2022olonoscopy 08/2012-neg except diverticulosis-no polyps; [place] colon[place] [address] Arreaga 04-09-2011-negative except for a minimal hiatal hernia-gastric biopsies were negative for H. pyloriPAIN CONTINGENCY PLANLast updated: 08/23/2025Member to call for the following symptoms: Increased pain/ Stiffness/N/VPlanned intervention: Encourage extra fluid intake / Tylenol 1,000mg q6h/ Voltaren gel to affected area/ Apply ice to affected area09/12/2025-may have been in setting of dehydration after having blood work done-recommend keeping good hydration, start drinking gatoraide poweraid-monitor for h/a, vision changes, N/V-discussed emergent symptoms and advised to go to ED for further evaluation if has vision changes with N/V; member agreeable -take tylenol for painf/u sched with [facility] 08/24/2025 Goals Date Goal 2022-09-06 Remember to 2022-09-06 Call me if 2022-09-06 Keep it up 2023-01-27 1. Remember to keep all appointments with your PCP.2. Take all medication on time and try to eat healthy3. Call if you have questions or concerns before you go to the ER.4. Discussed how to contact [facility] via phone or tablet. 2023-05-30 1. Take all medicati on on time and try to eat healthy2. Call if you have questions or concerns before you go to the ER.3. Remember to keep all appointments with your PCP.4. Discussed how to contact [facility] via phone or tablet. 2024-11-17 Continue taking medi cations as directed and keep all follow up appointments with established PCP and Specialist. 2025-07-20 Continue taking medi cations as directed and keep all follow up appointments with established PCP and Specialist. Health Concerns Date Concern 2025-08-23 Patient agreed to vi sit via telehealth.Visit completed via:[ ] audio and video; [x] audio only 2025-08-23 Concerns for today's visit:Fall last night 08/22/2025 after feeling dizzy with head strike, feels weak and fatigue. Her son was there during the fall and helped her. Reports had blood work done and xrays done prior to fall. they took 9 vials 2025-08-23 Most recent hospital stay or ER visit:08/07/2024; no hospitalization per member or golgi in the pas 90 days. 2025-08-23 Open HEDIS Measures: No open measures 2025-08-23 Member reports she w ill have her daughter call Dr. Greenberg (GI) 2025-08-23 Member ended call as she was standing and in in pain, she requested to be called tomorrow as she needed to go lay down.
== END 2025-08-30 14:27 | disposition home or self-care (01) ==
LOC: HO.HMCH 13:17
PROVIDERS: PCP Physician Assistant; Visit Provider Physician Assistant
DX: Z00.00 Encounter for general adult medical examination without abnormal findings (principal); R19.5 Other fecal abnormalities; F41.1 Generalized anxiety disorder; E78.2 Mixed hyperlipidemia; Z23 Encounter for immunization

== ENCOUNTER → 2025-08-30 13:16 | Outpatient (BNVA) | payer OTHER, SELFPAY | PROVIDERS: PCP Physician Assistant; Visit Provider Physician Assistant | DX: Z00.00 Encounter for general adult medical examination without abnormal findings (principal); F33.9 Major depressive disorder, recurrent, unspecified; K58.9 Irritable bowel syndrome, unspecified; F41.1 Generalized anxiety disorder; E03.9 Hypothyroidism, unspecified; R19.7 Diarrhea, unspecified; Z23 Encounter for immunization; E78.2 Mixed hyperlipidemia; L30.4 Erythema intertrigo | CPT/HCPCS: 90471; 90656; 96127; 99397 ==